=== PATIENT | female | born 1945 | race Caucasian/White ===

== ENCOUNTER → 2016-03-29 | Outpatient (CLI) | payer OTHER ==
[2016-03-29 12:55] LABS: ESTIMATED AVERAGE GLUCOSE 160 mg/dl; HA1C FLAG Normal (Normal)
== END | disposition home or self-care (01) ==
LOC: C.LABPVFM 10:54
PROVIDERS: ATTEND Nurse Practitioner Family
DX: E10.29 Type 1 diabetes mellitus with other diabetic kidney complication (principal)

== ENCOUNTER → 2016-04-03 | Outpatient (CLI) | payer OTHER ==
--- NOTE | 2016-04-03 15:13 | MAMMOGRAPHY REPORT ---
BILATERAL DIGITAL SCREENING MAMMOGRAM WITH CAD: 04/03/2016 CLINICAL HISTORY: Routine screening. Patient has no complaints. TECHNIQUE: Bilateral CC, MLO, repeat right CC and left MLO views were obtained. Current study was a lso evaluated with a Computer Aided Detection (CAD) system. COMPARISON: Comparison is made to exams dated: 03/31/2015 mammogram, 03/28/2013 mammogram, 03/26/2012 mammogram, 03/20/2011 mammogram, 09/26/2010 ultrasound, and 02/15/2009 mammogram - [facility]. BREAST COMPOSITION: There are scattered areas of fibroglandular density in both breasts. FINDINGS: There are mild vascular calcifications and benign rim calcifications in the breasts. No s uspicious mass, architectural distortion or cluster of microcalcifications is seen. IMPRESSION: ACR BI-RADS CATEGORY 1: NEGATIVE There is no mammographic evidence of malignancy. A 1 year screening mammogram is recommended. The p atient will receive written notification of the results. Approximately 10% of breast cancers are not detected with mammography. A negative mammographic repor t should not delay biopsy if a clinically suggestive mass is present. Keshia Garcia M.D. ay/:04/03/2016 14:42:40 [employer] Chair: Laine CROWE(Pavel)(M), [facility] letter sent: Normal 1/2 BI-RADS Code: ACR BI-RADS Category 1: Negative
== END | disposition home or self-care (01) ==
LOC: C.MAMM 10:48
PROVIDERS: ATTEND Internal Medicine
DX: Z12.31 Encounter for screening mammogram for malignant neoplasm of breast (principal)

== ENCOUNTER → 2016-05-31 | Outpatient (CLI) | payer OTHER | END | disposition home or self-care (01) | LOC: C.LABBC 14:37 | PROVIDERS: ATTEND Physician Assistant | DX: R05 Cough (principal) ==

== ENCOUNTER → 2016-07-22 | Outpatient (CLI) | payer OTHER ==
[2016-07-22 13:17] LABS: BASO % 0.2 %; BASO ABS # 0.02 K/uL (0-0.2); COMPLETE YES; EOS % 1.4 %; HEMATOCRIT 36.7 % (37-47); IG% 0.3 %; LYMPH % 14.2 %; LYMPH ABS # 1.47 K/uL (1.2-3.4); MEAN CELL VOLUME 90.2 fL (80-100); MEAN CORPUSCULAR HGB CONC 31.1 g/dl (32-36); MEAN PLATELET VOLUME 9.4 fL (7.4-10.4); NEUT % 77.9 %; PLATELET COUNT 276 K/uL (130-400); RED BLOOD COUNT 4.07 M/uL (4.2-5.4); WHITE BLOOD COUNT 10.32 K/uL (4.8-10.8)
[2016-07-22 13:38] LABS: CALCIUM 8.9 mg/dl (8.5-10.1)
[2016-07-22 13:42] LABS: ALT/SGPT 18 U/L (12-78); AST/SGOT 21 U/L (15-37); BLOOD UREA NITROGEN 16 mg/dl (7-18); BUN/CREATININE RATIO 16.1 (10-20); CARBON DIOXIDE 31 mmol/L (21-32); CHLORIDE 99 mmol/L (98-107); CHOLESTEROL 175 mg/dl (0-200); CREATININE 0.97 mg/dl (0.60-1.20); GLUCOSE 220 mg/dl (70-99); POTASSIUM 4.1 mmol/L (3.5-5.1); SODIUM 138 mmol/L (136-145); TRIGLYCERIDES 99 mg/dl (0-150); VERY LOW DENSITY LIPOPROT CALC 20 mg/dl
[2016-07-22 13:53] LABS: ALB/GLOB RATIO 0.9 (0.9-2); ALKALINE PHOSPHATASE 72 U/L (45-117); CHOLESTEROL/HDL RATIO 3.1; HDL CHOLESTEROL 56 mg/dl; LDL CHOLESTEROL CALCULATED 99 mg/dl
--- NOTE | 2016-07-27 14:05 | CODING QUERY MEDICAL NECESSITY ---
CQSUPPORTING DIAGNOSIS NEEDED A supporting diagnosis is required for the test/procedure performed on this patient in order for us to be reimbursed by the patient's insurance. Please provide a supporting diagnosis for the following test/procedure listed below next to the test name along with your signature. *If there is no additional diagnosis for this patient that would support the following test/procedure please document that below next to the test/procedure. Test(s)/Procedure(s) that require a supporting diagnosis: DOS 07/22/16 VITAMIN D TEST Provider Signature: Date: Thank you Faye Morales Health Information Management Once completed, please kindly fax back to [phone] For questions please call [phone]
== END | disposition home or self-care (01) ==
LOC: C.LABPVFM 11:26
PROVIDERS: ATTEND Internal Medicine
DX: E10.29 Type 1 diabetes mellitus with other diabetic kidney complication (principal); E78.5 Hyperlipidemia, unspecified; Z11.59 Encounter for screening for other viral diseases; E55.9 Vitamin D deficiency, unspecified

== ENCOUNTER → 2016-12-04 | Outpatient (CLI) | payer OTHER ==
[2016-12-05 07:00] LABS: ESTIMATED AVERAGE GLUCOSE 169 mg/dl; HA1C FLAG Normal (Normal)
--- NOTE | 2016-12-08 13:22 | CODING QUERY MEDICAL NECESSITY ---
SUPPORTING DIAGNOSIS NEEDED A supporting diagnosis is required for the test/procedure performed on this patient in order for us to be reimbursed by the patient's insurance. Please provide a supporting diagnosis for the following test/procedure listed below next to the test name along with your signature. *If there is no additional diagnosis for this patient that would support the following test/procedure please document that below next to the test/procedure. Test(s)/Procedure(s) that require a supporting diagnosis: * VITAMIN D, 25-HYDROXY DIAGNOSIS: Provider Signature: Date: Thank you Maritza Jovel [employer] (formerly [employer]) Information Management Once completed, please kindly fax back to [phone] For questions please call [phone]
== END | disposition home or self-care (01) ==
LOC: C.LABPVFM 13:22
PROVIDERS: ATTEND Nurse Practitioner Family
DX: E10.39 Type 1 diabetes mellitus with other diabetic ophthalmic complication (principal); E10.49 Type 1 diabetes mellitus with other diabetic neurological complication; E55.9 Vitamin D deficiency, unspecified

== ENCOUNTER 2019-04-15 00:57 | Inpatient (IN) ==
[2019-04-15] MEDS ORDERED: SODIUM CHLORIDE 0.9% 1000ML 1,000 ML IV ONE ×6 (01:00→05:55)
--- NOTE | 2019-04-15 01:07 | Emergency Department Note ---
Entered by Yaquelin Rivers acting as a scribe for Barden Colmenares DO History of Present Illness General Chief complaint: Hyperglycemia Stated complaint: ALTERED MENTAL STATUS/HYPERGLYCEMIA Time Seen by Provider: 04/15/19 00:59 Source: patient and EMS Mode of arrival: EMS Limitations: altered mental status History of Present Illness Onset (ago): hour(s) 2 Location: head Radiation: non-radiation Pain Consistency: + constant Relieved By: + none Exacerbated By: + none Associated symptoms: + weakness and + other (-abdominal pain) Treatments prior to arrival: none The patient is a 73 year old female who presents to the ED with complaints of altered mental status. She was brought to the ED via EMS. EMS states she was confused in the field and there was dried vomit on her shirt when they arrived. She has a known history of uncontrolled type 1 diabetes and the glucometer read "high" in the field. The patient denies any abdominal pain. Her states she has been getting increasingly weak over the past 3 days. Today, the patient stopped talking, so EMS was called. Home Medications Home Medications Medication Instructions Recorded Confirmed Type aspirin [Aspir-81] 81 mg PO DAILY 12/29/17 04/15/19 History multivitamin [Multiple Vitamins] 1 tab PO DAILY 12/29/17 04/15/19 History pen needle, diabetic 32 gauge x #2 box 01/31/19 02/28/19 Rx " atorvastatin 20 mg tablet 20 mg PO DAILY #90 tab 02/28/19 04/15/19 Rx lisinopril 20 1 tab PO DAILY #90 tab 02/28/19 04/15/19 Rx mg-hydrochlorothiazide 12.5 mg tablet paroxetine HCl 40 mg tablet 40 mg PO DAILY #90 tab 02/28/19 04/15/19 Rx cholecalciferol (vitamin D3) 50 3,000 units PO DAILY #30 tab 03/06/19 04/15/19 Rx mcg (2,000 unit) tablet insulin aspart U-100 100 unit/mL 10 units SUBCUT TID #30 ml 03/31/19 04/15/19 Rx (3 mL) subcutaneous pen insulin glargine 100 unit/mL (3 15 unit SUBCUT QAM #2 box 03/31/19 04/15/19 Rx mL) subcutaneous pen Allergies Allergy/AdvReac Type Severity Reaction Status Date / Time amlodipine Allergy Intermediate Hives Verified 04/15/19 02:19 Past Med/Surg History Medical History Acute blood loss anemia DAYNE (acute kidney injury) Benign familial tremor (Acute) Cerumen impaction Charcot's arthropathy of forefoot (Acute) Closed fracture of right hip (Inactive) Cognitive impairment Daytime somnolence (Chronic) Depression Depression (Acute) Diabetes Diabetic peripheral neuropathy associated with type 1 diabetes mellitus (Acute) Diastolic dysfunction (Acute) DVT prophylaxis Dyslipidemia (Chronic) Encephalopathy Fall (Inactive) Hearing loss (Acute) HTN (hypertension) Hypertension Hypertension (Chronic) Hypocalcemia (Acute) Ileus (Inactive) Memory loss, short term (Chronic) Microalbuminuria (Acute) Morbid obesity Obesity (BMI 35.0-39.9 without comorbidity) (Acute) Osteoporosis (Acute) Retinopathy (Acute) SNHL (sensorineural hearing loss) (Acute) Snoring Type 1 diabetes (Inactive) Uncontrolled type 1 diabetes mellitus with kidney complication, with long-term current use of insulin (Chronic) Uncontrolled type 1 diabetes mellitus with retinopathy, with long-term current use of insulin (Chronic) Vitamin D deficiency (Acute) Surgical History H/O cataract extraction H/O section H/O tubal ligation Family History Father Lung cancer Other Family history non-contributory Denies family history of Breast cancer Colorectal cancer Social History Preferred Language: [place] Leonean Communication Ability: Effective Visual Impairment: No Limitations 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 Unobtainable due to cognitive status Physical Exam Vital Signs Vital Signs - 24 hr 04/15/19 01:16 04/15/19 01:30 04/15/19 01:37 Temperature 36.7 C Temperature Source Oral Pulse Rate 105 H 101 H 108 H Pulse Rate from SpO2 Sensor 104 H 103 H Respiratory Rate 16 20 17 Respiratory Effort / Characteristics Non-Labored Spontaneous Respiratory Depth Normal Blood Pressure 142/94 H 99/51 L 59/31 L Blood Pressure Mean 105 67 45 Pulse Oximetry 97 99 100 Oxygen Delivery Method Room Air Sepsis Action Taken by Nursing No Action Required End-Tidal CO2 04/15/19 01:39 04/15/19 01:41 04/15/19 01:47 Temperature Temperature Source Pulse Rate 98 H 98 H 97 H Pulse Rate from SpO2 Sensor 101 H 96 H 96 H Respiratory Rate 17 17 18 Respiratory Effort / Characteristics Respiratory Depth Blood Pressure 68/39 L 81/35 L 111/60 Blood Pressure Mean 48 55 88 Pulse Oximetry 98 97 98 Oxygen Delivery Method Sepsis Action Taken by Nursing End-Tidal CO2 04/15/19 02:15 04/15/19 02:30 04/15/19 02:45 Temperature Temperature Source Pulse Rate 98 H 98 H 101 H Pulse Rate from SpO2 Sensor 94 H 94 H 99 H Respiratory Rate 21 23 20 Respiratory Effort / Characteristics Respiratory Depth Blood Pressure 101/73 103/51 L 106/47 L Blood Pressure Mean 84 69 53 Pulse Oximetry 95 87 L 88 L Oxygen Delivery Method Sepsis Action Taken by Nursing End-Tidal CO2 04/15/19 03:01 04/15/19 03:15 04/15/19 03:19 Temperature Temperature Source Pulse Rate 93 H 100 H Pulse Rate from SpO2 Sensor 94 H 100 H Respiratory Rate 17 21 Respiratory Effort / Characteristics Respiratory Depth Blood Pressure 84/61 L 89/49 L Blood Pressure Mean 65 55 Pulse Oximetry 94 99 99 Oxygen Delivery Method Room Air Sepsis Action Taken by Nursing End-Tidal CO2 04/15/19 03:30 04/15/19 03:56 04/15/19 03:58 Temperature Temperature Source Pulse Rate 98 H 90 81 Pulse Rate from SpO2 Sensor 100 H Respiratory Rate 17 19 Respiratory Effort / Characteristics Respiratory Depth Blood Pressure 95/32 L 47/31 L 92/42 L Blood Pressure Mean 58 33 55 Pulse Oximetry 90 Oxygen Delivery Method Sepsis Action Taken by Nursing End-Tidal CO2 04/15/19 04:01 04/15/19 04:07 Temperature Temperature Source Pulse Rate 89 93 H Pulse Rate from SpO2 Sensor Respiratory Rate Respiratory Effort / Characteristics Respiratory Depth Blood Pressure 64/40 L 74/46 L Blood Pressure Mean 41 56 Pulse Oximetry Oxygen Delivery Method Sepsis Action Taken by Nursing End-Tidal CO2 21 23 GENERAL: The patient is listless and slow to respond to questioning. She responds appropriately but slowly. EYES: The conjunctivae are clear. The pupils are round and reactive. EARS, NOSE, MOUTH AND THROAT: The nose is without any evidence of any deformity. Mucous membranes are dry. NECK: The neck is nontender and supple. RESPIRATORY: Shallow respirations are noted. There is significant tachypnea noted. Lungs are clear to auscultation. CARDIOVASCULAR: Tachycardic rate with regular rhythm was noted. There was no definite murmur. GASTROINTESTINAL: Abdomen is soft and moderately distended. There is no specific guarding rigidity appreciated. MUSCULOSKELETAL/EXTREMITIES: There is no evidence of gross deformity full range of motion is noted in the hips and shoulders. SKIN: There is no obvious evidence of any rash. Trace pedal edema was noted. NEUROLOGIC: Patient is patient is awake and looking around the room. She falls asleep easily when not verbally stimulated. 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 There is no drift. No definite facial droop could be appreciated. Procedures Free Text Procedures Central Venous Catheter Indication: DKA Catheter type: Triple-lumen Location: Right femoral vein Verbal consent was obtained after the risks and benefits were explained, including but not limited to pneumothorax, hemothorax, vessel injury, bleeding, scarring, infection, pain, and bone/joint/nerve damage. At this time, the risks of the procedure are less than the risks of NOT performing the procedure. A time out was taken and the correct patient and site identified. The patient was placed in the supine position and the skin was prepped in the standard fashion with chlorhexidine and full sterile drapes applied. The proper landmarks were identified with ultrasound, anesthetized with 1% lidocaine without epinephrine, and the needle was inserted through the skin in the standard fashion. The needle was carefully advanced into blood vessel lumen under ultrasound guidance. The guidewire was placed uneventfully. The vessel is dilated and the catheter was placed. It was sutured into position. There was good blood return from all ports. The patient tolerated the procedure well and there were no complications. Intubation Time out performed: Yes sedative: Etomidate Mg Given: 20 paralytic: Rocuronium Mg Given: 100 Laryngoscope: fiber optic video scope Assist Device Used: fiber optic device ET Tube Size: 8 ET Tube Uncuffed: No Tube Secured Depth (cm): 22 Tube Secured Location: lips Tube Placement Confirmation: visualized tube passing through cords, equal breath sounds bilaterally, no breath sounds over epigastrium and confirmation by capnometry Patient Tolerated Procedure: well Intubation Complications: none Additional Comments: Chest x-ray was reviewed after intubation. The endotracheal tube was pulled back 1 cm. Patient is oxygenating well but her b lood pressure did drop. Course Course 0105: The patient was evaluated in room B5 and a complete history and physical were performed. 0215: I reevaluated the patient. I discussed my recommendation she remain in the hospital for further evaluation and management and her is agreeable with the plan. 0240: I discussed the patients case with Dr. Bob, [facility] Hospitalist. The patient will be further evaluated. Administered Medications Sodium Chloride (Nss 1000ml) 1,000 mls @ 999 mls/hr IV .Q1H1M ONE Stop: 04/15/19 04:42 Last Admin: 04/15/19 04:01 Dose: 999 mls/hr Documented by: [id number] Discontinued Medications Sodium Chloride (Nss 1000ml) 1,000 mls @ 999 mls/hr IV .Q1H1M ONE Stop: 04/15/19 02:00 Last Infusion: 04/15/19 03:02 Dose: 0 mls/hr Documented by: [id number] Admin: 04/15/19 01:30 Dose: 999 mls/hr Documented by: [id number] Sodium Chloride (Nss 1000ml) 1,000 mls @ 999 mls/hr IV .Q1H1M ONE Stop: 04/15/19 02:40 Last Infusion: 04/15/19 03:02 Dose: 0 mls/hr Documented by: [id number] Admin: 04/15/19 01:41 Dose: 999 mls/hr Documented by: [id number] Sodium Chloride (Nss 1000ml) 1,000 mls @ 999 mls/hr IV .Q1H1M ONE Stop: 04/15/19 03:37 Last Admin: 04/15/19 03:34 Dose: 999 mls/hr Documented by: [id number] Insulin Human Regular 250 (units/ Sodium Chloride) 250 mls @ 7 mls/hr IV .Q24H LINDA; Protocol Stop: 04/15/19 03:45 Last Admin: 04/15/19 03:37 Dose: 7 units/hr, 7 mls/hr Documented by: [id number] Cosigned by: [id number] Calcium Gluconate 1,000 mg/ (Sodium Chloride) 60 mls @ 240 mls/hr IV NOW STA Stop: 04/15/19 03:33 Last Infusion: 04/15/19 04:08 Dose: 0 mls/hr Documented by: [id number] Admin: 04/15/19 03:36 Dose: 240 mls/hr Documented by: [id number] Insulin Human Regular (Novolin R Bolus From Bag) 7 units IV ONE ONE Stop: 04/15/19 03:31 Last Admin: 04/15/19 03:38 Dose: 7 units Documented by: [id number] Cosigned by: [id number] Ondansetron HCl (Zofran) 4 mg IV NOW STA Stop: 04/15/19 01:45 Last Admin: 04/15/19 02:11 Dose: 4 mg Documented by: [id number] Critical Care Time Critical Care Time: Yes Total Critical Care Time: 60 I have personally spent 60 minutes of critical care time in the direct manag ement of this patient. This includes bedside care, interpretation of diagnostic studies, and testing, discussion with consultants, patient, and family members, and other required patient management activities. This 60 minutes is in excess of all separately billable procedures. Medical Decision Making Differential Diagnosis Differential Diagnosis includes but is not limited to dehydration, stroke, anemia, hypoglycemia, hyponatremia, hypernatremia, urinary tract infection, pneumonia, bronchitis, sepsis, gastroenteritis, additional abdominal pathology, metabolic abnormalities and infections. Medical Records Attestation: I reviewed the patient's medical records. Home Medications Current Medication List: was personally reviewed by me Laboratory Data Attestation: I reviewed the patient's lab results. Result diagrams: 04/15/19 01:34 04/15/19 01:34 Lab Results 04/15/19 04/15/19 04/15/19 Range/Units 01:01 01:20 01:20 WBC (4.8-10.8) K/uL RBC (4.2-5.4) M/uL Hgb (12.0-16.0) g/dL Hct (37-47) % MCV (80-100) fL MCH (25-34) pg MCHC (32-36) g/dL Plt Count (130-400) K/uL Neutrophils % (Manual) % Lymphocytes % (Manual) % Monocytes % (Manual) % Neutrophils # (Manual) (1.4-6.5) K/uL Total Absolute Neuts (1.4-6.5) K/uL Lymphocytes # (Manual) (1.2-3.4) K/uL Monocytes # (Manual) (0.11-0.59) K/uL Echinocytes PT (9.0-12.0) Seconds INR (0.9-1.1) APTT (21.0-31.0) Seconds PTT Ratio VBG pH (7.36-7.41) VBG pCO2 (38-50) mmHg VBG pO2 mmHg VBG HCO3 mmol/L VBG O2 Saturation % VBG Base Excess mEq/L Sodium (136-145) mmol/L Potassium (3.5-5.1) mmol/L Chloride (98-107) mmol/L Carbon Dioxide (21-32) mmol/L Anion Gap (3-11) BUN (7-18) mg/dl Creatinine (0.6-1.2) mg/dl Est Cr Clr Drug Dosing Est GFR ( Amer) Est GFR (Non-Af Amer) BUN/Creatinine Ratio (10-20) Glucose (70-99) mg/dl POC Glucose > 600 H* (70-99) mg/dl Lactate (0.4-2.0) mmol/L Calcium (8.5-10.1) mg/dl Magnesium (1.8-2.4) mg/dl Total Bilirubin (0.2-1) mg/dl AST (15-37) U/L ALT (12-78) U/L Alkaline Phosphatase (45-117) U/L Troponin I (0-0.045) ng/ml Total Protein (6.4-8.2) gm/dl Albumin (3.4-5.0) gm/dl Globulin (2.5-4.0) gm/dl Albumin/Globulin Ratio (0.9-2) Beta-Hydroxybutyric Acd (0.2-2.81) mg/dl Procalcitonin (0-0.5) ng/ml Urine Color Yellow Urine Appearance Cloudy A (Clear) Urine pH 5.0 (4.5-7.5) Ur Specific [place] 1.028 (1.000-1.030) Urine Protein Negative (Negative) Urine Glucose (UA) 3+ H (Negative) Urine Ketones 1+ H (Negative) Urine Blood 2+ H (Negative) Urine Nitrite Negative (Negative) Urine Bilirubin Negative (Negative) Urine Urobilinogen Negative (Negative) Ur Leukocyte Esterase Negative (Negative) Urine WBC (Auto) 1-5 (0-5) /hpf Urine RBC (Auto) 0-4 (0-4) /hpf U Hyaline Cast (Auto) 1-5 (0-5) /lpf U Epithel Cells (Auto) >30 H (0-5) /lpf Urine Bacteria (Auto) 2+ H (Negative) Influenza Type A (PCR) Neg for Influ A (Neg) Influenza Type B (PCR) Neg for Influ B (Neg) 04/15/19 04/15/19 04/15/19 Range/Units 01:34 01:34 01:34 WBC 21.48 H (4.8-10.8) K/uL RBC 3.89 L (4.2-5.4) M/uL Hgb 11.2 L (12.0-16.0) g/dL Hct 36.7 L (37-47) % MCV 94.3 (80-100) fL MCH 28.8 (25-34) pg MCHC 30.5 L (32-36) g/dL Plt Count 287 (130-400) K/uL Neutrophils % (Manual) 89.6 % Lymphocytes % (Manual) 7.8 % Monocytes % (Manual) 2.6 % Neutrophils # (Manual) 19.25 H (1.4-6.5) K/uL Total Absolute Neuts 19.25 H (1.4-6.5) K/uL Lymphocytes # (Manual) 1.68 (1.2-3.4) K/uL Monocytes # (Manual) 0.56 (0.11-0.59) K/uL Echinocytes 1+ PT 10.4 (9.0-12.0) Seconds INR 1.0 (0.9-1.1) APTT 24.7 (21.0-31.0) Seconds PTT Ratio 0.9 VBG pH (7.36-7.41) VBG pCO2 (38-50) mmHg VBG pO2 mmHg VBG HCO3 mmol/L VBG O2 Saturation % VBG Base Excess mEq/L Sodium 131 L (136-145) mmol/L Potassium 6.2 H* (3.5-5.1) mmol/L Chloride 92 L (98-107) mmol/L Carbon Dioxide 12 L (21-32) mmol/L Anion Gap 28.0 H (3-11) BUN 53 H (7-18) mg/dl Creatinine 2.24 H (0.6-1.2) mg/dl Est Cr Clr Drug Dosing Not Reportable Est GFR ( Amer) 24.6 Est GFR (Non-Af Amer) 21.2 BUN/Creatinine Ratio 23.8 H (10-20) Glucose 1184 H* (70-99) mg/dl POC Glucose (70-99) mg/dl Lactate (0.4-2.0) mmol/L Calcium 8.5 (8.5-10.1) mg/dl Magnesium 2.4 (1.8-2.4) mg/dl Total Bilirubin 1.0 (0.2-1) mg/dl AST 22 (15-37) U/L ALT 55 (12-78) U/L Alkaline Phosphatase 168 H (45-117) U/L Troponin I 0.246 H* (0-0.045) ng/ml Total Protein 6.8 (6.4-8.2) gm/dl Albumin 3.3 L (3.4-5.0) gm/dl Globulin 3.5 (2.5-4.0) gm/dl Albumin/Globulin Ratio 0.9 (0.9-2) Beta-Hydroxybutyric Acd 108.80 H (0.2-2.81) mg/dl Procalcitonin (0-0.5) ng/ml Urine Color Urine Appearance (Clear) Urine pH (4.5-7.5) Ur Specific [place] (1.000-1.030) Urine Protein (Negative) Urine Glucose (UA) (Negative) Urine Ketones (Negative) Urine Blood (Negative) Urine Nitrite (Negative) Urine Bilirubin (Negative) Urine Urobilinogen (Negative) Ur Leukocyte Esterase (Negative) Urine WBC (Auto) (0-5) /hpf Urine RBC (Auto) (0-4) /hpf U Hyaline Cast (Auto) (0-5) /lpf U Epithel Cells (Auto) (0-5) /lpf Urine Bacteria (Auto) (Negative) Influenza Type A (PCR) (Neg) Influenza Type B (PCR) (Neg) 04/15/19 04/15/19 04/15/19 Range/Units 01:34 01:34 01:34 WBC (4.8-10.8) K/uL RBC (4.2-5.4) M/uL Hgb (12.0-16.0) g/dL Hct (37-47) % MCV (80-100) fL MCH (25-34) pg MCHC (32-36) g/dL Plt Count (130-400) K/uL Neutrophils % (Manual) % Lymphocytes % (Manual) % Monocytes % (Manual) % Neutrophils # (Manual) (1.4-6.5) K/uL Total Absolute Neuts (1.4-6.5) K/uL Lymphocytes # (Manual) (1.2-3.4) K/uL Monocytes # (Manual) (0.11-0.59) K/uL Echinocytes PT (9.0-12.0) Seconds INR (0.9-1.1) APTT (21.0-31.0) Seconds PTT Ratio VBG pH 7.12 L (7.36-7.41) VBG pCO2 35 L (38-50) mmHg VBG pO2 30 mmHg VBG HCO3 11 mmol/L VBG O2 Saturation < 60.0 % VBG Base Excess -17.4 mEq/L Sodium (136-145) mmol/L Potassium (3.5-5.1) mmol/L Chloride (98-107) mmol/L Carbon Dioxide (21-32) mmol/L Anion Gap (3-11) BUN (7-18) mg/dl Creatinine (0.6-1.2) mg/dl Est Cr Clr Drug Dosing Est GFR ( Amer) Est GFR (Non-Af Amer) BUN/Creatinine Ratio (10-20) Glucose (70-99) mg/dl POC Glucose (70-99) mg/dl Lactate 5.1 H* (0.4-2.0) mmol/L Calcium (8.5-10.1) mg/dl Magnesium (1.8-2.4) mg/dl Total Bilirubin (0.2-1) mg/dl AST (15-37) U/L ALT (12-78) U/L Alkaline Phosphatase (45-117) U/L Troponin I (0-0.045) ng/ml Total Protein (6.4-8.2) gm/dl Albumin (3.4-5.0) gm/dl Globulin (2.5-4.0) gm/dl Albumin/Globulin Ratio (0.9-2) Beta-Hydroxybutyric Acd (0.2-2.81) mg/dl Procalcitonin 2.47 H (0-0.5) ng/ml Urine Color Urine Appearance (Clear) Urine pH (4.5-7.5) Ur Specific [place] (1.000-1.030) Urine Protein (Negative) Urine Glucose (UA) (Negative) Urine Ketones (Negative) Urine Blood (Negative) Urine Nitrite (Negative) Urine Bilirubin (Negative) Urine Urobilinogen (Negative) Ur Leukocyte Esterase (Negative) Urine WBC (Auto) (0-5) /hpf Urine RBC (Auto) (0-4) /hpf U Hyaline Cast (Auto) (0-5) /lpf U Epithel Cells (Auto) (0-5) /lpf Urine Bacteria (Auto) (Negative) Influenza Type A (PCR) (Neg) Influenza Type B (PCR) (Neg) Imaging Data My Impression: CHEST X-RAY Poor inspiratory effort, no free air, calcification of aorta, mediastinal fullness, with the possibility of pneumomediastinum. Radiologist's Impression: Preliminary Findings Only See Final Report For Complete Findings CT HEAD: Comparison: MRI head 03/06/19 No acute intracranial hemorrhage. No evidence of intracranial mass, extra-axial fluid collection, or acute territorial infarct. White matter hypodensities, which are nonspecific but most likely related to chronic small vessel ischemic changes. Global cerebral volume loss. Mild ventricular prominence is likely related to volume loss and is similar to prior Visualized paranasal sinuses and mastoid air cells are clear. Radiologist: Maksim Oreilly MD Study ready at 02:02 and initial results transmitted at 02:58 Preliminary Findings Only See Final Report For Complete Findings CT ABDOMEN & PELVIS Without Contrast: Calcified gallstone in gallbladder fundus. Gallbladder is distended. No biliary ductal dilatation. No renal stone or hydronephrosis. Nonspecific perinephric fat stranding. De La Fuente catheter in likely postprocedural gas in the collapsed urinary bladder. No free air. Normal appendix. No bowel obstruction. No substantial free fluid. Fat-containing umbilical hernia with portion of transverse colon abutting its base. Lucency in L1 vertebral body as described on CT of thoracic spine. Sclerotic foci in most inferior rib-bearing vertebra and S1 vertebral body. Degenerative changes, worst at L4-L5 Atherosclerotic calcifications of aorta and its branches. Right femoral hardware. Radiologist: Maksim Oreilly MD Study ready at 02:11 and initial results transmitted at 03:23 Preliminary Findings Only See Final Report For Complete Findings CT CHEST Without Contrast: Comparison: CXR earlier same day (report not provided. There is a presternal subcutaneous ovoid mass measuring 3.7 x 2.7 x 2.6 cm. Correlate with physical exam and chronicity. Consider further evaluation with ultrasound as clinically warranted. Evaluation of lung parenchyma is somewhat limited by motion artifact. No infiltrate, effusion, or pneumothorax. Mild reticular densities, but these may related to motion artifact. 5 mm pleural-based nodule and left lower lobe posteriorly. Atherosclerotic calcifications of aorta and its branches. Right subclavian stenosis is suspected. Coronary artery and mitral annulus calcifications. Heart is not enlarged. 11 rib-bearing vertebrae. Nonspecific lucency and first [id number] vertebra, measuring up to 12 mm. The adjacent cortex is preserved. Probable hemangioma in T9 vertebral body. Radiologist: Maksim Oreilly MD Study ready at 02:11 and initial results transmitted at 03:16 ECG Data Attestation: I personally reviewed and interpreted this ECG as follows: Indication: + other (hyperglycemia) Rate (beats per minute): 107 Rhythm: + sinus tachycardia ECG ST segments: + ST depression (Diffuse) ECG Findings: no PACs and no PVCs Comparison ECG Date: from (12/29/2018) Change: the following changes noted (Increased rate and worsening ST abnormalities compared to previous) MDM Narrative Additional history is obtained from the patient's significant other as well as the prehospital personnel. The patient is a 73-year-old female who presented to the emergency department for altered mental status nausea and vomiting. The patient has a history of diabetes. The patient had a very elevated blood sugar noted on BSG testing by the prehospital personnel. The patient's history and physical exam appear to be consistent with DKA. Laboratory studies confirm this. The patient was treated with IV fluids in the emergency department. She was also treated with IV empiric antibiotics. She was started on DKA protocol for IV insulin when her laboratory results returned showing acute kidney injury hyperglycemia and DKA as well as hyperkalemia. The patient was reevaluated multiple times. I discussed the patient's laboratory and radiographic studies with her and her significant other. The patient had a central line placed in the right femoral vein for volume resuscitation as well as further medication administration. I discussed her case with the on-call [facility] hospitalist. They have agreed to evaluate the patient in the emergency department for further management and disposition. Impression & Plan DKA (diabetic ketoacidoses), Nausea and vomiting, Altered mental status, Acute kidney injury, Acute hyperkalemia, Metabolic acidosis, Abnormal ECG, Respiratory failure, Acute hypotension Discharge Plan Visit Data Chief Complaint: Hyperglycemia Stated Complaint: ALTERED MENTAL STATUS/HYPERGLYCEMIA Other Complaint: Altered Mental Status ED Provider: Braden Colmenares Discharge Problem: DKA (diabetic ketoacidoses), Nausea and vomiting, Altered mental status, Acute kidney injury, Acute hyperkalemia, Metabolic acidosis, Abnormal ECG, Respiratory failure, Acute hypotension Patient Disposition: Being Evaluated by Hospitalist Forms Stand Alone Forms: My [facility] Prescriptions Prescriptions: No Action (DME) pen needle, diabetic [BD Ultra-Fine Rayne Pen Needle] 32 gauge x 5/32" needle See Dose Instructions .ROUTE .MEDSUPPLY Qty: 2 RF: 1 atorvastatin 20 mg tablet 20 mg PO DAILY Qty: 90 RF: 3 lisinopril-hydrochlorothiazide 20-12.5 mg tablet 1 tab PO DAILY Qty: 90 RF: 3 paroxetine HCl 40 mg tablet 40 mg PO DAILY Qty: 90 RF: 1 cholecalciferol (vitamin D3) 2,000 unit tablet 3,000 units PO DAILY Qty: 30 RF: 0 Novolog Flexpen U-100 Insulin 100 unit/mL (3 mL) insulin pen 10 units SUBCUT TID Qty: 30 RF: 3 insulin glargine 100 unit/mL (3 mL) insulin pen 15 unit subcut QAM Qty: 2 RF: 3 aspirin [Aspir-81] 81 mg Tablet,Delayed Release (Dr/Ec) 81 mg PO DAILY RF: 0 multivitamin [Multiple Vitamins] Tablet 1 tab PO DAILY RF: 0 Referrals Referrals: Raffaele Polanco MD [Primary Care Provider] - Discharge Problem: DKA (diabetic ketoacidoses) Qualifiers: Diabetes mellitus type: type 1 Diabetes mellitus complication detail: with coma Qualified Code(s): E10.11 - Type 1 diabetes mellitus with ketoacidosis with coma Nausea and vomiting Qualifiers: Vomiting type: unspecified Vomiting Intractability: non-intractable Qualified Code(s): R11.2 - Nausea with vomiting, unspecified Altered mental status Qualifiers: Altered mental status type: unspecified Qualified Code(s): R41.82 - Altered men inge status, unspecified The scribe's documentation has been prepared under my direction and personally reviewed by me in its entirety. I confirm that the note above accurately reflects all work, treatment, procedures, and medical decision making performed by me.
[2019-04-15] MEDS ORDERED: ONDANSETRON INJ 2 MG/ML 2 ML VIAL IV STA (01:44)
[2019-04-15 01:45] LABS: Appearance Urine Cloudy (Clear); Bacteria Urine Automated 2+ (Negative); Bilirubin Urine Negative (Negative); Blood Urine 2+ (Negative); Color Urine Yellow; Epithelial Cell Urine Auto >30 /lpf (0-5); Glucose Urine UA 3+ (Negative); Ketones Urine 1+ (Negative); Leukocyte Esterase Urine Negative (Negative); Nitrite Urine Negative (Negative); Protein Urine Negative (Negative); RBC Urine Automated 0-4 /hpf (0-4); Specific Gravity Urine 1.028 (1.000-1.030); Urobilinogen Urine Negative (Negative)
[2019-04-15 01:57] LABS: Partial Thromboplastin Ratio 0.9; Partial Thromboplastin Time 24.7 Seconds (21.0-31.0); Prothrombin Time 10.4 Seconds (9.0-12.0)
[2019-04-15 02:01] LABS: Influenza A virus by PCR Neg for Influ A (Neg); Influenza B virus by PCR Neg for Influ B (Neg)
[2019-04-15 02:09] LABS: Base Excess VBG -17.4 mEq/L; HCO3 VBG 11 mmol/L; PCO2 VBG 35 mmHg (38-50); PO2 VBG 30 mmHg; pH VBG 7.12 (7.36-7.41)
[2019-04-15 02:29] LABS: Oxygen Saturation VBG < 60.0 %
[2019-04-15 02:36] LABS: Hematocrit (blood only) 36.7 % (37-47); Hemoglobin 11.2 g/dL (12.0-16.0); Mean Corpuscular Hemoglobin 28.8 pg (25-34); Mean Corpuscular Hgb Conc 30.5 g/dL (32-36); Mean Corpuscular Volume 94.3 fL (80-100); Platelet Count 287 K/uL (130-400); Red Blood Count 3.89 M/uL (4.2-5.4); White Blood Count 21.48 K/uL (4.8-10.8)
[2019-04-15] MEDS ORDERED: PIPERACILL/TAZOBAC CONSULT ACTIVE PRN ×2 (02:37→06:08)
[2019-04-15] MEDS ORDERED: PIPERACILLIN/TAZOBACTAM 4.5 GM/120 ML BAG IV ONE (02:37)
[2019-04-15] MEDS ORDERED: GLUCOSE 10 TABS/TUBE PO PRN (02:39)
[2019-04-15] MEDS ORDERED: CARBOHYDRATES FOR HYPOGLYCEMIA PO PRN (02:39)
[2019-04-15] MEDS ORDERED: DKA GOAL RANGE 150-250 mg/dl ONE ×2 (02:39→04:06)
[2019-04-15] MEDS ORDERED: ED DKA INSULIN DRIP ONE (02:39)
[2019-04-15] MEDS ORDERED: DEXTROSE 50% 50 ML SYRINGE IV PRN (02:39)
[2019-04-15] MEDS ORDERED: GLUCAGON FOR INJ 1 MG VIAL SQ PRN (02:39)
[2019-04-15] MEDS ORDERED: GLUCOSE 40% GEL 15 GM TUBE PO PRN (02:39)
[2019-04-15 02:41] LABS: Alanine Aminotransferase 55 U/L (12-78); Albumin Globulin Ratio 0.9 (0.9-2); Albumin Level 3.3 gm/dl (3.4-5.0); Alkaline Phosphatase 168 U/L (45-117); Aspartate Aminotransferase 22 U/L (15-37); BUN Creatinine Ratio 23.8 (10-20); Blood Urea Nitrogen 53 mg/dl (7-18); Calcium 8.5 mg/dl (8.5-10.1); Carbon Dioxide 12 mmol/L (21-32); Chloride 92 mmol/L (98-107); Est GFR (African American) 24.6; Est GFR (Non-African American) 21.2; Globulin 3.5 gm/dl (2.5-4.0); Glucose 1184 mg/dl (70-99); Magnesium 2.4 mg/dl (1.8-2.4); Potassium 6.2 mmol/L (3.5-5.1); Sodium 131 mmol/L (136-145); Total Protein 6.8 gm/dl (6.4-8.2); Troponin I 0.246 ng/ml (0-0.045)
[2019-04-15] MEDS ORDERED: INSULIN REGULAR 250 UNITS in SODIUM CHLORIDE 0.9% 247.5 ML IV SCH (02:45)
[2019-04-15 02:46] LABS: ANC (manual) 19.25 K/uL (1.4-6.5); Echinocytes 1+; Lymphocytes # (manual) 1.68 K/uL (1.2-3.4); Lymphocytes % (manual) 7.8 %; Monocytes # (manual) 0.56 K/uL (0.11-0.59); Monocytes % (manual) 2.6 %; Neutrophils # (manual) 19.25 K/uL (1.4-6.5); Neutrophils % (manual) 89.6 %
[2019-04-15] MEDS ORDERED: CALCIUM GLUCONATE 10% 1,000 MG in SODIUM CHLORIDE 0.9% 50 ML IV STA (03:19)
[2019-04-15] MEDS ORDERED: NovoLIN-R BOLUS FROM BAG IV ONE (03:30)
--- NOTE | 2019-04-15 03:39 | History & Physical Report ---
Date of Service April 15, 2019 Assessment & Plan (1) DKA (diabetic ketoacidoses): Patient is a 73-year-old female with a past medical history of uncontrolled type 1 diabetes mellitus with retinopathy with long-term current use of insulin, diabetic peripheral neuropathy, sensorineural hearing loss, osteoporosis, obesity, microalbuminuria, short-term memory loss, daytime somnolence, Charcot's arthropathy of the forefoot, anemia, hypertension who presented to the ED via EMS with complaints of altered mental status in the setting of profound hypoglycemia. #Diabetic ketoacidosis Patient with longstanding history of type 1 diabetes poorly controlled with chronic complications of the disease. She was found confused in the field with vomit on her shirt. Blood sugar on arrival was 1184, potassium 6.2 beta hydroxybutyrate 108, anion gap of 28, A1c pending. This patient is obviously in profound DKA, will require fluids and an insulin drip until gap is closed. Will initiate DKA protocol. -Admit to ICU -DKA protocol -Glycemic consult placed -Consulted neurodiagnostic technologist #Hypertension Status post fluid resuscitation patient still is profoundly hypotensive. Was given 2 injections of levofed with adequate response. May need pressor support -Admit to the ICU #Hyperkalemia secondary to above. -Status post calcium gluconate, re-dose every 4 hours as needed #Concern for infection No clear inciting event for her current presentation. Labs are suspicious for infection although no obvious source. Urinalysis is concerning for urinary tract infection however it was not a clean-catch so could be contaminant. Therefore we will cover broadly and narrow as time progresses. Given Zosyn in the ED, will continue with Zosyn, pulmonary source unlikely therefore will provide Zyvox as well -Zosyn and Zyvox narrow pending clinical improvement #Nausea and vomiting Likely secondary to the above -PRN IV Zofran #Electrolyte abnormalities BMP every 6 hours for now -Replete electrolytes as indicated #Elevated troponin/abnormal ECG Patient with an ECG demonstrating diffuse ST depressions and troponin of 0.246 currently denying chest pain. -Monitor for development of chest pain -Trend troponin -Consider cardiology consultation #History of diastolic dysfunction No documented echo is in the chart, given that his diastolic dysfunction should have room for fluid boluses however will monitor for signs and symptoms of fluid overload -Monitor for signs and symptoms of fluid overload #DAYNE Likely secondary to profound dehydration in the setting of DKA, avoid nephrotoxic medications -Fluids as above -Avoid nephrotoxic meds -Hold lisinopril hydrochlorothiazide in the setting of DAYNE #Hypertension Controlled on lisinopril hydrochlorothiazide, holding in the setting of DAYNE -Resume lisinopril hydrochlorothiazide when able #Depression Continue paroxetine -Holding while n.p.o. for DKA #Dyslipidemia -Resume atorvastatin when able -Resume baby aspirin when able FENa: N.p.o. for now type I diabetic diet Code Status: Full code DVT PPX: Lovenox PT/OT: Ordered Dispo: ICU Papi Askew MD PGY 2, FCM This chart was completed utilizing [employer] voice recognition software. Grammatical errors, random word insertions, pronoun errors, and in complete sentences are an occasional consequence of the system. Any questions or concerns about the content, text, or information contained within the body of this dictation should be addressed directly to the physician for clarification. (2) Nausea and vomiting: (3) Altered mental status: (4) Acute kidney injury: (5) Acute hyperkalemia: (6) Metabolic acidosis: (7) Abnormal ECG: (8) Uncontrolled type 1 diabetes mellitus with retinopathy, with long-term current use of insulin: (9) SNHL (sensorineural hearing loss): (10) Obesity (BMI 35.0-39.9 without comorbidity): (11) Diastolic dysfunction: History of Present Illness Patient is a 73-year-old female with a past medical history of uncontrolled type 1 diabetes mellitus with retinopathy with long-term current use of insulin, diabetic peripheral neuropathy, sensorineural hearing loss, osteoporosis, obesity, microalbuminuria, short-term memory loss, daytime somnolence, Charcot's arthropathy of the forefoot, anemia, hypertension who presented to the ED via EMS with complaints of altered mental status in the setting of profound hypoglycemia. EMS states she was confused in the field with dried vomit on her shirt when they arrived. Her glucometer reading was "high "in the field. The patient's reports she has been getting increasingly weak over the past 3 days, today she stopped talking so EMS was called. Upon arrival to the urgency department routine labs were obtained notable for a white count of 21.48 with a neutrophil predominance of 19.25, hemoglobin of 11.2, platelets of 287, coags were within normal limits, VBG demonstrated pH of 7.12 with a PCO2 of 35, Chem-7 demonstrated a sodium of 131, potassium of 6.2, chloride of 92, carbon dioxide 12, BUN of 53, creatinine of 2.24, glucose of 1184, anion gap of 28, beta hydroxybutyrate 108, A1c pending, lactate of 5.1, alkaline phosphatase of 168, troponin of 0.246, beta hydroxybutyrate, procalcitonin 2.47, UA was cloudy in appearance, 3+ glucose, 1+ ketones, 2+ blood, greater than 30 epithelial cells, 2+ bacteria, patient was negative for influenza A and influenza B. Imaging was obtained official read is pending, wet read Chest CT demonstrated probable hemangioma T9, head CT Negative for acute process p, chest x-ray, abdomen pelvis CT pending. Patient had an odd respiratory pattern during the interview, history limited secondary to patient's obtunded status. Hospitalist wrist was consulted for admission, given the patient's worsening respiratory status, cardiac status, and abnormal ECG she would be admitted to the ICU for intubation and evaluation and management of DKA. Primary Care Provider: Raffaele Polanco MD Allergies Allergy/AdvReac Type Severity Reaction Status Date / Time amlodipine Allergy Intermediate Hives Verified 04/15/19 02:19 Home Medications Home Medications Medication Instructions Recorded Confirmed Type aspirin [Aspir-81] 81 mg PO DAILY 12/29/17 04/15/19 History multivitamin [Multiple Vitamins] 1 tab PO DAILY 12/29/17 04/15/19 History pen needle, diabetic 32 gauge x #2 box 01/31/19 02/28/19 Rx " atorvastatin 20 mg tablet 20 mg PO DAILY #90 tab 02/28/19 04/15/19 Rx lisinopril 20 1 tab PO DAILY #90 tab 02/28/19 04/15/19 Rx mg-hydrochlorothiazide 12.5 mg tablet paroxetine HCl 40 mg tablet 40 mg PO DAILY #90 tab 02/28/19 04/15/19 Rx cholecalciferol (vitamin D3) 50 3,000 units PO DAILY #30 tab 03/06/19 04/15/19 Rx mcg (2,000 unit) tablet insulin aspart U-100 100 unit/mL 10 units SUBCUT TID #30 ml 03/31/19 04/15/19 Rx (3 mL) subcutaneous pen insulin glargine 100 unit/mL (3 15 unit SUBCUT QAM #2 box 03/31/19 04/15/19 Rx mL) subcutaneous pen Past Med/Surg History Medical History Acute blood loss anemia DAYNE (acute kidney injury) Benign familial tremor (Acute) Cerumen impaction Charcot's arthropathy of forefoot (Acute) Closed fracture of right hip (Inactive) Cognitive impairment Daytime somnolence (Chronic) Depression Depression (Acute) Diabetes Diabetic peripheral neuropathy associated with type 1 diabetes mellitus (Acute) Diastolic dysfunction (Acute) DVT prophylaxis Dyslipidemia (Chronic) Encephalopathy Fall (Inactive) Hearing loss (Acute) HTN (hypertension) Hypertension Hypertension (Chronic) Hypocalcemia (Acute) Ileus (Inactive) Memory loss, short term (Chronic) Microalbuminuria (Acute) Morbid obesity Obesity (BMI 35.0-39.9 without comorbidity) (Acute) Osteoporosis (Acute) Retinopathy (Acute) SNHL (sensorineural hearing loss) (Acute) Snoring Type 1 diabetes (Inactive) Uncontrolled type 1 diabetes mellitus with kidney complication, with long-term current use of insulin (Chronic) Uncontrolled type 1 diabetes mellitus with retinopathy, with long-term current use of insulin (Chronic) Vitamin D deficiency (Acute) Surgical History H/O cataract extraction H/O section H/O tubal ligation Family History Father Lung cancer Other Family history non-contributory Denies family history of Breast cancer Colorectal cancer Social History Preferred Language: Ukrainian Communication Ability: Unable Visual Impairment: No 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 Beliefs That Will Affect Care: None marital status: Current Living Situation: Spouse current occupational status: retired Feels Safe at Home: Yes Smoking Status: Never smoker Hx Alcohol Use: No Hx Substance Use: No Review of Systems Review of Systems: All systems reviewed & are unremarkable except as noted in HPI & below Physical Exam Physical Exam: General: Obtunded with labored be breathing in acute distress HEENT: Normocephalic atraumatic Neck: Normal visual inspection Cardiac: Tachycardic otherwise regular rate and rhythm I did not appreciate any significant murmurs rubs or gallops, normal S1, normal S2 Respiratory: Unusual breathing pattern, increased work of breathing, exam limited due to mental status GI: Bowel sounds present, soft, nontender, nondistended MSK: Unable to assess Skin: Unable to assess Neuro: Obtunded Psych: Unable to assess Results & Data Vital Signs (Past 12 Hours) Vital Signs Temp Pulse Resp BP Pulse Ox 04/15/19 01:30 36.7 C 101 H 20 99/51 L 99 Laboratory Results 04/15/19 04/15/19 04/15/19 Range/Units 01:34 01:34 01:34 WBC (4.8-10.8) K/uL RBC (4.2-5.4) M/uL Hgb (12.0-16.0) g/dL Hct (37-47) % MCV (80-100) fL MCH (25-34) pg MCHC (32-36) g/dL Plt Count (130-400) K/uL Neutrophils % (Manual) % Lymphocytes % (Manual) % Monocytes % (Manual) % Neutrophils # (Manual) (1.4-6.5) K/uL Total Absolute Neuts (1.4-6.5) K/uL Lymphocytes # (Manual) (1.2-3.4) K/uL Monocytes # (Manual) (0.11-0.59) K/uL Echinocytes PT (9.0-12.0) Seconds INR (0.9-1.1) APTT (21.0-31.0) Seconds PTT Ratio VBG pH 7.12 L (7.36-7.41) VBG pCO2 35 L (38-50) mmHg VBG pO2 30 mmHg VBG HCO3 11 mmol/L VBG O2 Saturation < 60.0 % VBG Base Excess -17.4 mEq/L Sodium (136-145) mmol/L Potassium (3.5-5.1) mmol/L Chloride (98-107) mmol/L Carbon Dioxide (21-32) mmol/L Anion Gap (3-11) BUN (7-18) mg/dl Creatinine (0.6-1.2) mg/dl Est Cr Clr Drug Dosing Est GFR ( Amer) Est GFR (Non-Af Amer) BUN/Creatinine Ratio (10-20) Glucose (70-99) mg/dl POC Glucose (70-99) mg/dl Estimat Average Glucose Hemoglobin A1c Lactate 5.1 H* (0.4-2.0) mmol/L Calcium (8.5-10.1) mg/dl Phosphorus Magnesium (1.8-2.4) mg/dl Total Bilirubin (0.2-1) mg/dl AST (15-37) U/L ALT (12-78) U/L Alkaline Phosphatase (45-117) U/L Troponin I (0-0.045) ng/ml Total Protein (6.4-8.2) gm/dl Albumin (3.4-5.0) gm/dl Globulin (2.5-4.0) gm/dl Albumin/Globulin Ratio (0.9-2) Beta-Hydroxybutyric Acd (0.2-2.81) mg/dl Procalcitonin 2.47 H (0-0.5) ng/ml Urine Color Urine Appearance (Clear) Urine pH (4.5-7.5) Ur Specific [place] (1.000-1.030) Urine Protein (Negative) Urine Glucose (UA) (Negative) Urine Ketones (Negative) Urine Blood (Negative) Urine Nitrite (Negative) Urine Bilirubin (Negative) Urine Urobilinogen (Negative) Ur Leukocyte Esterase (Negative) Urine WBC (Auto) (0-5) /hpf Urine RBC (Auto) (0-4) /hpf U Hyaline Cast (Auto) (0-5) /lpf U Epithel Cells (Auto) (0-5) /lpf Urine Bacteria (Auto) (Negative) Influenza Type A (PCR) (Neg) Influenza Type B (PCR) (Neg) 04/15/19 04/15/19 04/15/19 Range/Units 01:34 01:34 01:34 WBC (4.8-10.8) K/uL RBC (4.2-5.4) M/uL Hgb (12.0-16.0) g/dL Hct (37-47) % MCV (80-100) fL MCH (25-34) pg MCHC (32-36) g/dL Plt Count (130-400) K/uL Neutrophils % (Manual) % Lymphocytes % (Manual) % Monocytes % (Manual) % Neutrophils # (Manual) (1.4-6.5) K/uL Total Absolute Neuts (1.4-6.5) K/uL Lymphocytes # (Manual) (1.2-3.4) K/uL Monocytes # (Manual) (0.11-0.59) K/uL Echinocytes PT 10.4 (9.0-12.0) Seconds INR 1.0 (0.9-1.1) APTT 24.7 (21.0-31.0) Seconds PTT Ratio 0.9 VBG pH (7.36-7.41) VBG pCO2 (38-50) mmHg VBG pO2 mmHg VBG HCO3 mmol/L VBG O2 Saturation % VBG Base Excess mEq/L Sodium 131 L (136-145) mmol/L Potassium 6.2 H* (3.5-5.1) mmol/L Chloride 92 L (98-107) mmol/L Carbon Dioxide 12 L (21-32) mmol/L Anion Gap 28.0 H (3-11) BUN 53 H (7-18) mg/dl Creatinine 2.24 H (0.6-1.2) mg/dl Est Cr Clr Drug Dosing Not Reportable Est GFR ( Amer) 24.6 Est GFR (Non-Af Amer) 21.2 BUN/Creatinine Ratio 23.8 H (10-20) Glucose 1184 H* (70-99) mg/dl POC Glucose (70-99) mg/dl Estimat Average Glucose Pending Hemoglobin A1c Pending Lactate (0.4-2.0) mmol/L Calcium 8.5 (8.5-10.1) mg/dl Phosphorus Pending Magnesium 2.4 (1.8-2.4) mg/dl Total Bilirubin 1.0 (0.2-1) mg/dl AST 22 (15-37) U/L ALT 55 (12-78) U/L Alkaline Phosphatase 168 H (45-117) U/L Troponin I 0.246 H* (0-0.045) ng/ml Total Protein 6.8 (6.4-8.2) gm/dl Albumin 3.3 L (3.4-5.0) gm/dl Globulin 3.5 (2.5-4.0) gm/dl Albumin/Globulin Ratio 0.9 (0.9-2) Beta-Hydroxybutyric Acd 108.80 H (0.2-2.81) mg/dl Procalcitonin (0-0.5) ng/ml Urine Color Urine Appearance (Clear) Urine pH (4.5-7.5) Ur Specific [place] (1.000-1.030) Urine Protein (Negative) Urine Glucose (UA) (Negative) Urine Ketones (Negative) Urine Blood (Negative) Urine Nitrite (Negative) Urine Bilirubin (Negative) Urine Urobilinogen (Negative) Ur Leukocyte Esterase (Negative) Urine WBC (Auto) (0-5) /hpf Urine RBC (Auto) (0-4) /hpf U Hyaline Cast (Auto) (0-5) /lpf U Epithel Cells (Auto) (0-5) /lpf Urine Bacteria (Auto) (Negative) Influenza Type A (PCR) (Neg) Influenza Type B (PCR) (Neg) 04/15/19 04/15/19 04/15/19 Range/Units 01:34 01:20 01:20 WBC 21.48 H (4.8-10.8) K/uL RBC 3.89 L (4.2-5.4) M/uL Hgb 11.2 L (12.0-16.0) g/dL Hct 36.7 L (37-47) % MCV 94.3 (80-100) fL MCH 28.8 (25-34) pg MCHC 30.5 L (32-36) g/dL Plt Count 287 (130-400) K/uL Neutrophils % (Manual) 89.6 % Lymphocytes % (Manual) 7.8 % Monocytes % (Manual) 2.6 % Neutrophils # (Manual) 19.25 H (1.4-6.5) K/uL Total Absolute Neuts 19.25 H (1.4-6.5) K/uL Lymphocytes # (Manual) 1.68 (1.2-3.4) K/uL Monocytes # (Manual) 0.56 (0.11-0.59) K/uL Echinocytes 1+ PT (9.0-12.0) Seconds INR (0.9-1.1) APTT (21.0-31.0) Seconds PTT Ratio VBG pH (7.36-7.41) VBG pCO2 (38-50) mmHg VBG pO2 mmHg VBG HCO3 mmol/L VBG O2 Saturation % VBG Base Excess mEq/L Sodium (136-145) mmol/L Potassium (3.5-5.1) mmol/L Chloride (98-107) mmol/L Carbon Dioxide (21-32) mmol/L Anion Gap (3-11) BUN (7-18) mg/dl Creatinine (0.6-1.2) mg/dl Est Cr Clr Drug Dosing Est GFR ( Amer) Est GFR (Non-Af Amer) BUN/Creatinine Ratio (10-20) Glucose (70-99) mg/dl POC Glucose (70-99) mg/dl Estimat Average Glucose Hemoglobin A1c Lactate (0.4-2.0) mmol/L Calcium (8.5-10.1) mg/dl Phosphorus Magnesium (1.8-2.4) mg/dl Total Bilirubin (0.2-1) mg/dl AST (15-37) U/L ALT (12-78) U/L Alkaline Phosphatase (45-117) U/L Troponin I (0-0.045) ng/ml Total Protein (6.4-8.2) gm/dl Albumin (3.4-5.0) gm/dl Globulin (2.5-4.0) gm/dl Albumin/Globulin Ratio (0.9-2) Beta-Hydroxybutyric Acd (0.2-2.81) mg/dl Procalcitonin (0-0.5) ng/ml Urine Color Yellow Urine Appearance Cloudy A (Clear) Urine pH 5.0 (4.5-7.5) Ur Specific [place] 1.028 (1.000-1.030) Urine Protein Negative (Negative) Urine Glucose (UA) 3+ H (Negative) Urine Ketones 1+ H (Negative) Urine Blood 2+ H (Negative) Urine Nitrite Negative (Negative) Urine Bilirubin Negative (Negative) Urine Urobilinogen Negative (Negative) Ur Leukocyte Esterase Negative (Negative) Urine WBC (Auto) 1-5 (0-5) /hpf Urine RBC (Auto) 0-4 (0-4) /hpf U Hyaline Cast (Auto) 1-5 (0-5) /lpf U Epithel Cells (Auto) >30 H (0-5) /lpf Urine Bacteria (Auto) 2+ H (Negative) Influenza Type A (PCR) Neg for Influ A (Neg) Influenza Type B (PCR) Neg for Influ B (Neg) 04/15/19 Range/Units 01:01 WBC (4.8-10.8) K/uL RBC (4.2-5.4) M/uL Hgb (12.0-16.0) g/dL Hct (37-47) % MCV (80-100) fL MCH (25-34) pg MCHC (32-36) g/dL Plt Count (130-400) K/uL Neutrophils % (Manual) % Lymphocytes % (Manual) % Monocytes % (Manual) % Neutrophils # (Manual) (1.4-6.5) K/uL Total Absolute Neuts (1.4-6.5) K/uL Lymphocytes # (Manual) (1.2-3.4) K/uL Monocytes # (Manual) (0.11-0.59) K/uL Echinocytes PT (9.0-12.0) Seconds INR (0.9-1.1) APTT (21.0-31.0) Seconds PTT Ratio VBG pH (7.36-7.41) VBG pCO2 (38-50) mmHg VBG pO2 mmHg VBG HCO3 mmol/L VBG O2 Saturation % VBG Base Excess mEq/L Sodium (136-145) mmol/L Potassium (3.5-5.1) mmol/L Chloride (98-107) mmol/L Carbon Dioxide (21-32) mmol/L Anion Gap (3-11) BUN (7-18) mg/dl Creatinine (0.6-1.2) mg/dl Est Cr Clr Drug Dosing Est GFR ( Amer) Est GFR (Non-Af Amer) BUN/Creatinine Ratio (10-20) Glucose (70-99) mg/dl POC Glucose > 600 H* (70-99) mg/dl Estimat Average Glucose Hemoglobin A1c Lactate (0.4-2.0) mmol/L Calcium (8.5-10.1) mg/dl Phosphorus Magnesium (1.8-2.4) mg/dl Total Bilirubin (0.2-1) mg/dl AST (15-37) U/L ALT (12-78) U/L Alkaline Phosphatase (45-117) U/L Troponin I (0-0.045) ng/ml Total Protein (6.4-8.2) gm/dl Albumin (3.4-5.0) gm/dl Globulin (2.5-4.0) gm/dl Albumin/Globulin Ratio (0.9-2) Beta-Hydroxybutyric Acd (0.2-2.81) mg/dl Procalcitonin (0-0.5) ng/ml Urine Color Urine Appearance (Clear) Urine pH (4.5-7.5) Ur Specific [place] (1.000-1.030) Urine Protein (Negative) Urine Glucose (UA) (Negative) Urine Ketones (Negative) Urine Blood (Negative) Urine Nitrite (Negative) Urine Bilirubin (Negative) Urine Urobilinogen (Negative) Ur Leukocyte Esterase (Negative) Urine WBC (Auto) (0-5) /hpf Urine RBC (Auto) (0-4) /hpf U Hyaline Cast (Auto) (0-5) /lpf U Epithel Cells (Auto) (0-5) /lpf Urine Bacteria (Auto) (Negative) Influenza Type A (PCR) (Neg) Influenza Type B (PCR) (Neg) Medications Administered Current Inpatient Medications Dextrose (Dextrose 50%) 25 - 50 ml IV UD PRN; Protocol PRN Reason: Hypoglycemia Protocol Stop: 05/15/19 02:38 Glucagon (Glucagen) 1 mg SQ UD PRN; Protocol PRN Reason: Hypoglycemia Protocol Stop: 05/15/19 02:38 Glucose (Dex4 Glucose) 4 - 8 tabs PO UD PRN; Protocol PRN Reason: Hypoglycemia Protocol Stop: 05/15/19 02:38 Glucose (Glucose 40%) 15 - 30 gm PO UD PRN; Protocol PRN Reason: Hypoglycemia Protocol Stop: 05/15/19 02:38 Sodium Chloride (Nss 1000ml) 1,000 mls @ 999 mls/hr IV .Q1H1M ONE Stop: 04/15/19 03:37 Insulin Human Regular 250 (units/ Sodium Chloride) 250 mls @ 7 mls/hr IV .Q24H LINDA; Protocol Stop: 04/15/19 03:45 Calcium Gluconate 1,000 mg/ (Sodium Chloride) 60 mls @ 240 mls/hr IV NOW STA Stop: 04/15/19 03:33 Insulin Aspart (Novolog Flexpen) 0 units SC ACHS LINDA Stop: 05/15/19 07:29 Insulin Human Regular (Novolin R Bolus From Bag) 7 units IV ONE ONE Stop: 04/15/19 03:31 Miscellaneous (Carbohydrates For Hypoglycemia) 15 - 30 gm PO UD PRN PRN Reason: Hypoglycemia Protocol Stop: 05/15/19 02:38 Miscellaneous Information (Consult) 1 ea N/A UD PRN PRN Reason: Consult Stop: 05/15/19 02:36 Code Status & VTE Plan Code Status Full VTE Prophylaxis Plan VTE Prophylaxis will be ordered: Yes Critical Care Time Critical Care Time: Yes Total Critical Care Time: 45 Total critical care time was 45 minutes Supervising Physician Co-Signing Physician Notes Attending addendum: I have physically seen this patient, have supervised the medical residents activities, and agree with the H&P unless as otherwise noted. Assessment and Plan: DKA/septic shock- Admission to ICU with DKA protocol. Received volume normal saline in ED per septic protocol, with borderline blood pressure. Continue IV fluids per protocol. Serial ABGs per protocol. Patient may require pressors. Consulting neurodiagnostic technologist. Elevated troponin/type II SD- Follow serial troponins. Treat underlying acidosis Consult cardiology. Advised intubation while patient was in the ED for airway protection but also for treatment of acidosis. Further management per neurodiagnostic technologist team. Made of orders and notations as noted. Resident Activity Tracking Resident Involvement: Resident Care Provided Care Provided: Adult Hospital Medicine (1) DKA (diabetic ketoacidoses) Diabetes mellitus complication detail: with coma Diabetes mellitus type: type 1 Qualified Code(s): E10.11 - Type 1 diabetes mellitus with ketoacidosis with coma (2) Altered mental status Altered mental status type: unspecified Qualified Code(s): R41.82 - Altered mental status, unspecified (3) Nausea and vomiting Vomiting Intractability: non-intractable Vomiting type: unspecified Qualified Code(s): R11.2 - Nausea with vomiting, unspecified
[2019-04-15] MEDS ORDERED: RAPID SEQUENCE INDUCTION BAG ONE (03:44)
[2019-04-15] MEDS ORDERED: PROPOFOL IV EMULSION 10 MG/ML 100 ML VIAL IV ONE (03:54)
[2019-04-15] MEDS ORDERED: FAMOTIDINE 20MG IV PUSH 20 MG/5 ML SYR IV STA (03:55)
[2019-04-15] MEDS ORDERED: PROPOFOL BOLUS FROM BAG IV PRN (03:55)
[2019-04-15] MEDS ORDERED: STAT IV Infusion **Titration per Protocol STA ×3 (03:55→14:58)
[2019-04-15] MEDS ORDERED: NOREPINEPHRINE (Adult STAT Only) 4 MG in D5W 250 ML IV STA (03:59)
[2019-04-15] MEDS ORDERED: ICU PROTOCOL FOR HYPERGLYCEMIA PRN (04:01)
[2019-04-15] MEDS ORDERED: SODIUM CHLORIDE 0.9% 500 ML IV STA (04:01)
[2019-04-15] MEDS ORDERED: PHARMACY GLYCEMIC MGMT CONSULT STA (04:01)
[2019-04-15] MEDS ORDERED: DC ALL PREVIOUSLY ORDERED DIABETES MEDS ONE (04:06)
[2019-04-15] MEDS ORDERED: NORMOSOL-R 1,000 ML IV SCH (04:15)
[2019-04-15] MEDS: propofoL 1,000 MG/100 ML VIAL IV SCH ×2 (04:52→14:39)
[2019-04-15] MEDS ORDERED: SODIUM BICARB 8.4% INJ 50 MEQ/50 ML SYR IV STA (05:07)
[2019-04-15 05:13] LABS: Albumin Globulin Ratio 0.9 (0.9-2); BUN Creatinine Ratio 23.9 (10-20); Bilirubin,Total 1.2 mg/dl (0.2-1); Calcium 7.9 mg/dl (8.5-10.1); Creatinine Clr Calc Pharmacy 21.5 ml/min; Est GFR (African American) 25.7; Est GFR (Non-African American) 22.2; Globulin 3.2 gm/dl (2.5-4.0); Magnesium 2.1 mg/dl (1.8-2.4); Phosphorus 8.5 mg/dl (2.5-4.9); Potassium 5.1 mmol/L (3.5-5.1); Total Protein 6.2 gm/dl (6.4-8.2)
[2019-04-15] MEDS: INSULIN REGULAR 250 UNITS in SODIUM CHLORIDE 0.9% 247.5 ML IV SCH ×2 (05:15→14:39)
[2019-04-15 05:18] LABS: Hematocrit (blood only) 35.8 % (37-47); Hemoglobin 10.6 g/dL (12.0-16.0); Mean Corpuscular Hemoglobin 28.1 pg (25-34); Mean Corpuscular Hgb Conc 29.6 g/dL (32-36); Platelet Count 258 K/uL (130-400); Red Blood Count 3.77 M/uL (4.2-5.4); White Blood Count 23.02 K/uL (4.8-10.8)
[2019-04-15 05:20] LABS: Echinocytes 1+; Lymphocytes % (manual) 6.1 %; Metamyelocytes # (manual) 0.21 K/uL (0-0); Metamyelocytes % (manual) 0.9 %; Monocytes % (manual) 6.1 %; Neutrophils % (manual) 86.9 %
[2019-04-15 05:31] LABS: Beta-Hydroxybutyrate 106.75 mg/dl (0.2-2.81)
[2019-04-15] MEDS ORDERED: LINEZOLID 600 MG/300 ML D5W IV SCH (05:38)
[2019-04-15] MEDS ORDERED: LINEZOLID CONSULT ACTIVE PRN (05:38)
[2019-04-15] MEDS: NOREPINEPHRINE BIT INJ 8 MG in DEXTROSE 5% 500 ML IV SCH ×2 (05:45→10:13)
[2019-04-15] MEDS: PENDING 1/2NSS+20mEq KCL IVF SCH ×2 (05:46→07:50)
[2019-04-15] MEDS: PENDING D5 1/2NS+20mEq KCL IVF SCH (05:46)
[2019-04-15] MEDS ORDERED: SODIUM CHLORIDE 0.9% 1000ML 1,000 ML IV SCH (06:00)
[2019-04-15] MEDS ORDERED: PHARMACY GLYCEMIC MGMT CONSULT PRN (06:00)
--- NOTE | 2019-04-15 06:15 | Critical Care Consultation ---
Date of Consultation April 15, 2019 Assessment & Plan (1) DKA (diabetic ketoacidoses): Reason Critically Ill: Patient is a 73 year old female with poorly controlled Type 1 DM presenting with altered mental status and DKA requiring mechanical ventilation. NEURO: Sedated with Propofol Altered Mental Status -Likely secondary to profound dehydration from DKA -Head CT showed microvascular changes and atrophy, no overt stroke or bleed Depression -Appears chronic with poor control -Holding home Paroxetine while NPO CARDIAC: Elevated Troponin -Elevated at 0.246 on admission, will continue to trend. Abnormal ECG -Demonstrated diffuse ST depressions on admission -Cardiology was consulted by hospitalist team Hypotension -Received 4 1L bolus's of NSS in ED -Initially requiring Levophed, has since been stopped at 06:30 04/15/19 -Current pressures still soft at 102/55 -Will continue to monitor Hx Hypertension -Holding home lisinopril-hydrochlorothiazide due to soft pressures Hx of Diastolic Dysfunction -No documented echo -Strict I/O Dyslipidemia -Holding Atorvastatin and ASA RESPIRATORY: Acute Respiratory Hypoxic Failure requiring mechanical ventilation -Appropriate sedation with propofol -Vent settings at AC / 30 / 400 / 28 / 5 -Chest XR negative GI: Nausea and vomiting -Likely secondary to DKA -PRN Zofran RENAL/LYTES: DAYNE -Likely secondary to dehydration in setting of DKA -Avoid nephrotoxic meds -Fluids per DKA protocol -Hold Lisinopril Hydrochlorothiazide Hyperkalemia -Initial K 6.2, improved to 5.1, likely sec to Acidosis -S/P Calcium gluconate, re-dose PRN -Labs q2h : Concern for UTI -2+ Blood and 2+ bacteria noted on UA -May be secondary to contamination, however, patient has no other obvious source and labs are concerning for infection. -Continue Zosyn and Zyvox and narrow pending improvement. ENDO: Type 1 DM in DKA -Maintenance fluids adjusted for DKA protocol -Insulin drip adjusted for DKA protocol -Glycemic consult was placed -Hgb A1C 9.1 HEME: Anemia -Partially likely dilutional -Continue to monitor, current Hgb 10.6 ID: Concern for infection -Leukocytosis 23.02 and Procal 2.47 -No obvious source of infection, however, UTI is possible -Continue coverage with Zosyn and Zyvox LINES/IV ACCESS: R Fem Art triple lumen, Central venous, L arm peripheral, OJ, F oley CODE STATUS: Full DVT PROPHYLAXIS: Heparin Thank you for allowing us to participate in the care of this patient. Please refer to my attending physician's documentation for any further recommendations. (2) Altered mental status: (3) Acute hyperkalemia: (4) Metabolic acidosis: (5) Uncontrolled type 1 diabetes mellitus with retinopathy, with long-term current use of insulin: (6) Microalbuminuria: (7) Hypertension: (8) Depression: (9) Hyperlipidemia: Supervising Physician Co-Signing Physician Notes Dr. Darryn Patterson, was the resident-physician during care of patient. I separately evaluated patient for plummer portions of the history and the exam. I was present during the critical portion of medical decision making, and I discussed the case with the resident. I generally agree with the findings and plan except for any additions/exceptions noted. Patient seen and examined at bedside. Patient is intubated on propofol and fentanyl. Patient initially came in with DKA and altered mental status was intubated in the ED. Initial ABG showed a pH of 6.99. Patient has high anion gap metabolic acidosis secondary to lactic acidosis plus beta hydroxybutyrate acid being high plus elevated BUN. Repeat ABG after changing settings on the vent 7.274/18 0.5/1 20/98% at this is on 30% FiO2. Patient serum osmolality is 357the measured 1, calculated serum osmolality is 340 osmolar gap of 17 slightly elevated this could be secondary to uncalculated irons especially lactic acidosis. Salicylate and Tylenol levels are negative. Ethanol level is pending follow-up will follow it up. But I highly doubt there is significant osmolar gap. CT chest does not show any significant pulmonary abnormality. CT abdomen pelvis shows gallstone in the gallbladder with distended gallbladder. Right upper quadrant ultrasound showing an equivocal cholecystitis picture recommending HIDA scan. Currently patient is too unstable to be sent for a HIDA scan. Continue with antibiotics with gram-negative and anaerobic coverage with Zosyn as well as linezolid for the time being. Patient has possible UTI. As per the family there is a questionable history of suicidal thought. Although there is history of dementia and as well as the patient unsure if this has to be true. Once the patient is more stable we will get psychiatric eval. Patient is on DKA continue with DKA protocol. Not to decrease sugar greater than 100-hour. Continue with half NS at 250 mL an hour. Add D5 half NS once the sugar is less than 250. Keep potassium between 3.3-5.3. Procalcitonin is 2.47. I have personally spent 45 minutes of critical care time in the direct management of this patient. This is a life/limb threatening event. This includes time spent evaluating patient, direct bedside care, chart review, placing orders, interpretation of diagnostic studies, discussion with consultants, patient, and/or family members regarding treatment decisions, as well as other required patient management activities. This time is exclusive of all separately billable procedures, and teaching time and separate from and in addition to any other critical care service time. History of Present Illness Reason for Consultation: Intubation/DKA Requesting Physician: Papi Askew M.D. Attending Physician: Pedro Pablo Bob MD History of Present Illness Patient is a 73 year old female with PMHx of uncontrolled DM1 with retinopathy and long-term use of insulin, diabetic peripheral neuropathy, obesity, osteoporosis, microalbuminuria, dyslipidemia, Charcot's arthropathy, and depression that presented by EMS for complaints of altered mental status in the setting of profound hyperglycemia. Patient is intubated and unable to provide any history, no family member or significant other is currently in the room. History is provided from prior admission and ED visit notes. Patient was noted by per notes that over the past 3 days she had been becoming increasingly weak. transferrer she stopped talking and EMS was called who noted the patient was confuse din the field and had dried vomit on her shirt. Her glucometer reading at that time was read as "high." Also of note, patient's had noted that patient has fairly significant depression that she has been taking paroxetine, but that he has noticed increasingly worsening memory loss from the patient. Critical care was consulted due to patient's worsening respiratory status and cardiac status for intubation and evaluation and management of DKA. Allergies Allergy/AdvReac Type Severity Reaction Status Date / Time amlodipine Allergy Intermediate Hives Verified 04/15/19 02:19 Home Medications Home Medications Medication Instructions Recorded Confirmed Type aspirin [Aspir-81] 81 mg PO DAILY 12/29/17 04/15/19 History multivitamin [Multiple Vitamins] 1 tab PO DAILY 12/29/17 04/15/19 History pen needle, diabetic 32 gauge x #2 box 01/31/19 02/28/19 Rx 5/32" atorvastatin 20 mg tablet 20 mg PO DAILY #90 tab 02/28/19 04/15/19 Rx lisinopril 20 1 tab PO DAILY #90 tab 02/28/19 04/15/19 Rx mg-hydrochlorothiazide 12.5 mg tablet paroxetine HCl 40 mg tablet 40 mg PO DAILY #90 tab 02/28/19 04/15/19 Rx cholecalciferol (vitamin D3) 50 3,000 units PO DAILY #30 tab 03/06/19 04/15/19 Rx mcg (2,000 unit) tablet insulin aspart U-100 100 unit/mL 10 units SUBCUT TID #30 ml 03/31/19 04/15/19 Rx (3 mL) subcutaneous pen insulin glargine 100 unit/mL (3 15 unit SUBCUT QAM #2 box 03/31/19 04/15/19 Rx mL) subcutaneous pen Patient History Medical History Acute blood loss anemia DAYNE (acute kidney injury) Benign familial tremor (Acute) Cerumen impaction Charcot's arthropathy of forefoot (Acute) Closed fracture of right hip (Inactive) Cognitive impairment Daytime somnolence (Chronic) Depression Depression (Acute) Diabetes Diabetic peripheral neuropathy associated with type 1 diabetes mellitus (Acute) Diastolic dysfunction (Acute) DVT prophylaxis Dyslipidemia (Chronic) Encephalopathy Fall (Inactive) Hearing loss (Acute) HTN (hypertension) Hypertension Hypertension (Chronic) Hypocalcemia (Acute) Ileus (Inactive) Memory loss, short term (Chronic) Microalbuminuria (Acute) Morbid obesity Obesity (BMI 35.0-39.9 without comorbidity) (Acute) Osteoporosis (Acute) Retinopathy (Acute) SNHL (sensorineural hearing loss) (Acute) Snoring Type 1 diabetes (Inactive) Uncontrolled type 1 diabetes mellitus with kidney complication, with long-term current use of insulin (Chronic) Uncontrolled type 1 diabetes mellitus with retinopathy, with long-term current use of insulin (Chronic) Vitamin D deficiency (Acute) Surgical History H/O cataract extraction H/O section H/O tubal ligation Family History Father Lung cancer Other Family history non-contributory Denies family history of Breast cancer Colorectal cancer Social History Preferred Language: Maori Communication Ability: Effective Visual Impairment: No Limitations Media Relations Director Required: No Beliefs That Will Affect Care: None marital status: Current Living Situation: Spouse current occupational status: retired Feels Safe at Home: Yes Smoking Status: Never smoker Hx Alcohol Use: No Hx Substance Use: No Review of Systems Review of Systems: Unobtainable due to cognitive status and Unobtainable due t o endotracheal tube Physical Exam Constitutional: + ill appearing, + obese, + disheveled and + mechanically ventilated Eyes: PERRL, normal accommodation (to light ) and reactive pupils; + abnormal visual field confrontation (unable to assess), + EOM not intact (unable to assess ), pupils not dilated, pupils not fixed, pupils not irregular and pupils not pinpoint ENMT: OJ and Intubation tube present Neck: normal visual inspection and trachea midline Respiratory: Auscultation: lungs clear to auscultation bilaterally; no crackles, no rales and no wheezes Cardiovascular: Rate/Rhythm: + tachycardic (106) Heart Sounds: no murmur and no cardiac rub Vessels: posterior tibial pulses present and dorsalis pedis pulses present; no JVD Extremities: no edema Chest (Breasts): Additional Comments: Patient has a 2x2cm rubbery nodular like lesion vs. port vs implant at the level fo the mid-sternum. Possible prior surgical scar slightly distal to the lesion. Gastrointestinal (Abdomen): Inspection/Auscultation: abdomen not distended Percussion/Palpation: abdomen soft; abdomen not rigid Suction from OJ can be heard. Musculoskeletal: unable to assess Skin: no rashes, no lesions and no ulcers Neurologic: Sedated on propofol running at 10 mcg/kg Psychiatric: unable to assess Genitourinary: De La Fuente in place Results & Data Vital Signs (Past 12 Hours) Vital Signs Temp Pulse Resp BP Pulse Ox 04/15/19 05:45 116 H 28 H 100 04/15/19 05:40 36.6 C 115 H 28 H 100 04/15/19 05:05 117 H 131/53 L 96 04/15/19 05:00 117 H 127/54 L 98 04/15/19 04:55 119 H 128/56 L 96 04/15/19 04:50 117 H 122/51 L 98 04/15/19 04:45 118 H 124/50 L 98 04/15/19 04:40 120 H 124/52 L 98 04/15/19 04:35 123 H 141/60 H 99 04/15/19 04:30 120 H 153/84 H 98 04/15/19 04:21 118 H 149/70 H 97 04/15/19 04:11 100 H 104/50 L 04/15/19 04:07 93 H 74/46 L 04/15/19 04:01 89 64/40 L 04/15/19 03:58 81 92/42 L 04/15/19 03:56 90 19 47/31 L 04/15/19 03:30 98 H 17 95/32 L 90 04/15/19 03:19 99 04/15/19 03:15 100 H 21 89/49 L 99 04/15/19 03:01 93 H 17 84/61 L 94 04/15/19 02:45 101 H 20 106/47 L 88 L 04/15/19 02:30 98 H 23 103/51 L 87 L 04/15/19 02:15 98 H 21 101/73 95 04/15/19 01:47 97 H 18 111/60 98 04/15/19 01:41 98 H 17 81/35 L 97 04/15/19 01:39 98 H 17 68/39 L 98 04/15/19 01:37 108 H 17 59/31 L 100 04/15/19 01:30 36.7 C 101 H 20 99/51 L 99 04/15/19 01:16 105 H 16 142/94 H 97 04/15/19 04:26 (1) DKA (diabetic ketoacidoses) Diabetes mellitus complication detail: with coma Diabetes mellitus type: type 1 Qualified Code(s): E10.11 - Type 1 diabetes mellitus with ketoacidosis with coma (2) Hyperlipidemia Hyperlipidemia type: unspecified Qualified Code(s): E78.5 - Hyperlipidemia, unspecified (3) Altered mental status Altered mental status type: unspecified Qualified Code(s): R41.82 - Altered mental status, unspecified (4) Hypertension Hypertension type: essential hypertension Qualified Code(s): I10 - Essential (primary) hypertension
[2019-04-15] MEDS: HEPARIN SOD 5,000 UNIT/0.5 ML VIAL SQ SCH ×3 (06:17→21:04)
[2019-04-15] MEDS: LINEZOLID 600 MG/300 ML BAG IV SCH ×2 (06:18→17:57)
--- NOTE | 2019-04-15 06:18 | Procedure Note ---
Procedure Note Date of Service April 15, 2019 ARTERIAL LINE PROCEDURE NOTE: Procedure: Arterial Line Placement Attending: Dr. Brandon Greer Provider: TRINI Betts Indication: Monitoring on Pressors Anesthesia: None Patient intubated and sedated and unable to give consent. Lines emergently placed as patient is on pressors for blood pressure support in the setting of hypotension. A time-out was completed verifying correct patient, procedure, site, positioning, and implant(s) or special equipment if applicable. Allens test was performed to ensure adequate perfusion. Patients left wrist was prepped and draped in the usual sterile fashion. Ultrasound guidance was used to aid needle placement. A 20g Arrow arterial line was introduced into the left radial artery. Catheter was threaded, and the needle was removed with appropriate blood return. Good waveform was observed. The patient tolerated the procedure well. Blood Loss: Minimal Complications: None Procedural Ultrasound Guidance: Procedure Date: 04/15/2019 Indication: Arterial line insertion Attending: Dr. Brandon Greer Provider: TRINI Betts Artery Identified: YES Line confirmed in Artery with ultrasound: Yes Complications: NONE Patient tolerated procedure: WELL Coding CPT Codes Tubes, Drains, and Vasc Access - Tubes, Drains, and Vasc Access: [id number] Place Catheter In Artery ([id number]) Tubes, Drains, and Vasc Access - Tubes, Drains, and Vasc Access: [id number] Ultrasound Guidance For Vascular ([id number]) [facility] [place] Procedure Codes (Charges) Tubes, Drains, and Vasc Access Procedure 1: Tubes, Drains, and Vasc Access: [id number] Place Catheter In Artery Procedure 2: Tubes, Drains, and Vasc Access: [id number] Ultrasound Guidance For Vascular
[2019-04-15 06:21] LABS: Estimated Average Glucose 214 mg/dl; Hemoglobin A1C 9.1 % (4.5-5.6)
[2019-04-15 06:53] LABS: Base Excess ABG -18.1 mEq/L (-9-1.8); HCO3 ABG 9 mmol/L (19-24); PCO2 ABG 23 mmHg (35-46); PO2 ABG 111 mmHg (80-95)
[2019-04-15 06:59] LABS: Allen Test Pos (Pos); pH ABG 7.19 (7.35-7.45)
[2019-04-15] MEDS ORDERED: SODIUM CHLORIDE 0.45 % 1,000 ML IV SCH (07:00)
--- NOTE | 2019-04-15 07:14 | CT Scan Report ---
HEAD CT NONCONTRAST CT DOSE: 995.11 mGy.cm HISTORY: Altered mental status. TECHNIQUE: Multiaxial CT images of the head were performed without the use of intravenous contrast. A utomated exposure control was utilized for this study. A dose lowering technique was utilized adheri ng to the principles of ALARA. Comparison: Brain MRI 03/06/2019. Findings: The paranasal sinuses and mastoid air cells are clear. The calvarium and skull base are int act. There is no mass, hematoma, midline shift, acute infarct. White matter hypodensity is nonspecifi c but suggestive of microvascular ischemic change. The ventricles and sulci demonstrate mild age-rela terese involutional changes. Mild motion artifact. Impression: No acute intracranial abnormality. Atrophy and microvascular ischemic changes. ACT 112: Negative or not required by law. Electronically signed by: Herminio Bloom M.D. 04/15/2019 7:12 AM
--- NOTE | 2019-04-15 07:19 | XRay Report ---
SINGLE VIEW CHEST CLINICAL HISTORY: Sepsis. FINDINGS: An AP, portable, upright chest radiograph is compared to study dated 12/30/2018. The examin ation is degraded by portable technique and patient rotation. The heart is top normal for projection noting atherosclerotic calcification of the thoracic aorta. The pulmonary vasculature is noncongested . Scarring/atelectasis is noted at the lung bases. No airspace consolidation or large pleural effusio n is identified. No pneumothorax is seen. The skeletal structures are osteopenic. The bony thorax is grossly intact. IMPRESSION: No acute cardiopulmonary abnormality. ACT 112: Negative or not required by law. Electronically signed by: Mir Stock M.D. 04/15/2019 7:18 AM
[2019-04-15] MEDS ORDERED: INSULIN ASPART 100 UNITS/ML 3 ML PEN SC SCH (07:30)
[2019-04-15 07:37] LABS: BUN Creatinine Ratio 24.9 (10-20); Calcium 7.5 mg/dl (8.5-10.1); Creatinine Clr Calc Pharmacy 21.9 ml/min; Est GFR (African American) 26.3; Est GFR (Non-African American) 22.7; Phosphorus 6.1 mg/dl (2.5-4.9); Potassium 3.9 mmol/L (3.5-5.1); Troponin I 4.19 ng/ml (0-0.045)
--- NOTE | 2019-04-15 07:37 | XRay Report ---
SINGLE VIEW CHEST CLINICAL HISTORY: Respiratory failure. Intubation. FINDINGS: An AP, portable, supine chest radiograph is compared to chest x-ray and chest CT dated 2019. The examination is degraded by portable technique and patient rotation. An endotracheal tube martinez s been placed. The tip of the catheter projects 1.6 cm above the levi. The heart is top normal for projection noting atherosclerotic calcification of the thoracic aorta. There is prominence of the pul monary vasculature. Atelectasis is noted at the lung bases. No airspace consolidation or large pleura l effusion is seen. No pneumothorax is seen. The skeletal structures are osteopenic. The bony thorax is grossly intact. A calcified gallstone is seen in the right upper quadrant. IMPRESSION: 1. An endotracheal tube has been placed as detailed above. 2. There is prominence of the pulmonary vasculature which is increased from today's earlier examinati on. This could be related to supine positioning or fluid overload/vascular congestion. Clinical corre lation will be required. 3. No airspace consolidation or large pleural effusion is identified. ACT 112: Negative or not required by law. Electronically signed by: Mir Stock M.D. 04/15/2019 7:36 AM
[2019-04-15] MEDS ORDERED: INSULIN PROTOCOL GOAL RANGE ONE ×2 (07:43→15:16)
[2019-04-15] MEDS: INSULIN ASPART 100 UNITS/ML 3 ML PEN SC SCH ×4 (07:49→21:03)
[2019-04-15] MEDS: SODIUM CHLOR 0.45% + 20MEQ KCL 20 MEQ/1,000 ML BAG IV SCH ×2 (07:57→11:40)
--- NOTE | 2019-04-15 08:01 | CT Scan Report ---
ABDOMEN AND PELVIS CT WITHOUT CONTRAST CT DOSE: HISTORY: vomiting TECHNIQUE: Multiaxial CT images of the abdomen and pelvis were performed without contrast. A dose lo wering technique was utilized adhering to the principles of ALARA. COMPARISON STUDY: None. FINDINGS: The lung bases are clear. No pneumoperitoneum. No pneumatosis. Prior internal fixation of a n old right intertrochanteric hip fracture. No suspicious lytic are blastic osseous lesions. Mitral a nnulus calcifications are noted. Hepatic steatosis. The unenhanced spleen and pancreas are unremarkab le. Mild bilateral perinephric edema and mild body wall edema is noted. No hydronephrosis. Ossificati ons in the renal sinuses appear to be vascular. Calcified plaque within the normal caliber abdominal aorta. There is a 1.2 cm gallstone within the fundus. Mild gallbladder distention. Bladder is decompr essed by a De La Fuente catheter. The uterus and bilateral adnexa are within normal limits. No significant p elvic free fluid. Suboptimal evaluation for bowel pathology due to the lack of intravenous and oral c ontrast. However, there is no definite bowel wall thickening or obstruction. Redundant colon. Normal appendix. Tiny fat-containing umbilical hernia. Gas within the bladder is likely due to the catheteri zation. IMPRESSION: 1. Cholelithiasis. The gallbladder is mildly distended. No definite gallbladder wall thickening. 2. No definite bowel wall thickening or obstruction. 3. No hydronephrosis. 4. Mild body wall edema. 5. De La Fuente catheter is seen within the bladder. 6. Hepatic steatosis. 7. Normal appendix. ACT 112: Negative or not required by law. Electronically signed by: Herminio Bloom M.D. 04/15/2019 8:00 AM
[2019-04-15 08:08] LABS: Beta-Hydroxybutyrate 98.97 mg/dl (0.2-2.81)
[2019-04-15 08:13] LABS: Allen Test Pos (Pos); Base Excess ABG -16.7 mEq/L (-9-1.8); HCO3 ABG 9 mmol/L (19-24); Oxygen Saturation ABG 97.7 % (90-95); PCO2 ABG 20 mmHg (35-46); PO2 ABG 107 mmHg (80-95); pH ABG 7.25 (7.35-7.45)
--- NOTE | 2019-04-15 08:13 | CT Scan Report ---
CT chest wo con CLINICAL HISTORY: 73 years-old Female presenting with sepsis, possible abnormal CXR. TECHNIQUE: Multidetector CT imaging of the chest was performed without the use of intravenous contras t. IV contrast: None. One or more dose lowering techniques were used consistent with the principles o f ALARA (as low as reasonably achievable), including automatic exposure control, mA or kV adjustment to individual patient size, and/or use of iterative reconstruction. COMPARISON: Chest x-ray from earlier today. CT DOSE (mGy.cm): The estimated cumulative dose is 1683.31 mGy.cm. FINDINGS: Chief Of Surgery topogram: Unremarkable. Soft tissues: Ovoid mass immediately superficial to the sternum and potentially in contact with the o verlying cutis. This does not involve the subjacent sternal cortex and measures 2.8 x 2.6 cm in maxim al axial dimension. This is indeterminate though fairly low in density. No axillary, supraclavicular, or mediastinal lymphadenopathy. Evaluation of the ayaz limited without intravenous contrast. Atheros clerosis of the aorta. Borderline enlargement of the heart. Coronary artery, aortic valve, and mitral annular calcification. No pericardial or pleural effusion. Mild infiltration of retroperitoneal fat in the pericaval region may be artifact. Lungs and airways: No pneumothorax. Central airways patent. Pulmonary arteries are not significantly enlarged relative to adjacent bronchi. No interlobular septal thickening. Solid subpleural 5 mm left lower lobe pulmonary nodule. Trace mosaic attenuation. Respiratory motion artifact degrades evaluatio n of the lung parenchyma, most severely degrading evaluation of the lung bases. Musculoskeletal: Vague lucency in the T12 vertebral body (series 6 image 252). This is not characteri stic of a benign hemangioma and is nonspecific. IMPRESSION: 1. No acute intrathoracic pathology. 2. Solid 5 mm left lower lobe pulmonary nodule. Follow-up per Fleischner Society 2017 criteria below . 3. Indeterminate nodule in the presternal subcutaneous tissue, possibly an epidermal inclusion cyst. This could be evaluated with ultrasound if there is concern. 4. Indeterminant lucent lesion in the T12 vertebral body, possibly a cyst. Please ensure the absence of an underlying malignancy. Summary of Fleischner Society 2017 Recommendations (H Neri et al. Guidelines for management of i ncidental pulmonary nodules detected on CT images: From the Fleischner Society 2017. Radiology 2017; 284: 228-243.) SOLID NODULES Single nodule; size < 6 mm * Low risk patients: No routine follow-up * High risk patients: Optional CT at 12 months Single nodule; size 6-8 mm * Low risk patients: CT at 6-12 months, then consider CT at 18-24 months * High risk patients: CT at 6-12 months, then at 18-24 months Single nodule; size > 8 mm * Either low or high risk patients: Consider CT at 3 months, PET/CT, or tissue sampling Multiple nodules; size < 6 mm * Low risk patients: No routine follow up * High risk patients: Optional CT at 12 months Multiple nodules; size 6-8 mm * Low risk patients: CT at 3-6 months, then consider CT at 18-24 months * High risk patients: CT at 3-6 months, then at 18-24 months Multiple nodules; size > 8 mm * Low risk patients: CT at 3-6 months, then consider at 18-24 months * High risk patients: CT at 3-6 months, then at 18-24 months SUBSOLID NODULES Single ground-glass nodule * Nodule size < 6 mm: No routine follow-up * Nodule size > or = 6 mm: CT at 6-12 months to confirm persistence, then CT every 2 years until 5 y ears Single part-solid nodule * Nodule size < 6 mm: No routine follow-up * Nodules size > or = 6 mm: CT at 3-6 months to confirm persistence. If unchanged and solid componen t remains < 6 mm, annual CT should be performed for 5 years Multiple nodules * Nodule size < 6 mm: CT at 3-6 months. If stable, consider CT at 2 and 4 years. * Nodules size > or = 6 mm: CT at 3-6 months. Subsequent management based on the most suspicious nod ule(s) NOTE: 1) These guidelines apply to incidental nodules. These guidelines do NOT apply to patients younger th an 35 years, immunocompromised patients, or patients with cancer. 2) Risk categories: * Low risk patients: Minimal or absent history of smoking and/or other known risk factors * High risk patients: History of smoking, exposure to other carcinogens, emphysema, fibrosis, upper lobe location, family history of lung cancer, etc. 3) If a nodule up to 8 mm is partly solid or is ground glass, further follow-up is required after 24 months to exclude possible slow growing adenocarcinoma. ACT 112: Negative or not required by law. Electronically signed by: Raffaele Cosby M.D. 04/15/2019 8:12 AM
--- NOTE | 2019-04-15 08:19 | XRay Report ---
KUB HISTORY: Feeding Tube placement COMPARISON: Abdomen and pelvis CT 04/15/2019. FINDINGS: The bowel gas pattern is unremarkable. There are no dilated loops of small bowel to suggest an obstruction. No renal calculi. No ureteral calculi. No pneumoperitoneum or pneumatosis. Right fe moral central venous catheter terminates in the expected location of the right common iliac vein. Victoriano ogastric tube terminate below the diaphragm and likely resides within the distal stomach. Cholelithia sis. IMPRESSION: Nasogastric tube likely resides within the distal stomach. ACT 112: Negative or not required by law. Electronically signed by: Herminio Bloom M.D. 04/15/2019 8:17 AM
--- NOTE | 2019-04-15 08:30 | Ultrasound Report ---
US abdomen limited CLINICAL HISTORY: 73 years-old Female presenting with RUQ US, r/o cholecystitis. TECHNIQUE: Real-time grayscale and limited color Doppler ultrasound imaging of the abdomen limited to the right upper quadrant was performed. COMPARISON: CT from earlier today. FINDINGS: Pancreas: Visualized portions of the pancreatic head and body normal. Liver: Normal echogenicity and echotexture. The liver measures 15.8 cm in maximal sagittal dimension. No sonographic evidence of hepatic mass. Main portal vein patent with normal directional flow. Biliary: No intrahepatic biliary ductal dilatation. Common bile duct measures up to 4 mm in diameter. Gallbladder: Gallstones at the gallbladder neck measuring 1.5 cm in the mildly distended gallbladder. Focal wall thickening measuring up to 6 mm in the midportion though no significant wall thickening a t the fundus. Right kidney: Cortical thinning may be present. No hydronephrosis. Ascites: None. Other: Trace perihepatic and right perinephric fluid. IMPRESSION: Cholelithiasis with equivocal findings for cholecystitis. Recommend further evaluation with HIDA scan . The report will be called/faxed according to standard departmental protocol. ACT 112: Negative or not required by law. Electronically signed by: Raffaele Cosby M.D. 04/15/2019 8:29 AM
[2019-04-15 08:36] LABS: Amphetamines+Metham, Urine Neg (Neg); Barbiturates, Urine Neg (Neg); Benzodiazepine, Urine Neg (Neg); Cocaine, Urine Neg (Neg); MDMA (Ecstacy), Urine Neg (Neg); Methadone, Urine Neg (Neg); Opiate, Urine Neg (Neg); Phencyclidine, Urine Neg (Neg)
[2019-04-15 08:58] LABS: BUN Creatinine Ratio 24.3 (10-20); Calcium 7.6 mg/dl (8.5-10.1); Creatinine Clr Calc Pharmacy 22.2 ml/min; Est GFR (African American) 26.7; Est GFR (Non-African American) 23.1; Magnesium 1.9 mg/dl (1.8-2.4); Phosphorus 4.5 mg/dl (2.5-4.9); Potassium 3.7 mmol/L (3.5-5.1)
[2019-04-15 09:13] LABS: Salicylate 5.1 mg/dl (2.8-20)
--- NOTE | 2019-04-15 09:24 | Cardiology Consultation ---
Date of Consultation April 15, 2019 Assessment & Plan (1) DKA (diabetic ketoacidoses): Mrs. Bonilla is a 73 year old female with history of Uncontrolled Type 1 Diabetes Mellitus, Diabetic Retinopathy, Diabetic Peripheral Neuropathy, Obesity, Osteoporosis, Dyslipidemia, Charcot's Arthropathy, Hypertension and Depression that presented with Marked Hyperglycemia, Diabetic Ketoacidosis with a wide anion gap, Marked Hyperkalemia, an Abnormal EKG, and an Elevated Troponin I Level which likely represents a Type II non-ACS LA related to her acute illness -- as patient did not complain of any cardiopulmonary symptoms according to the available records. Suspect that her EKG changes on presentation were secondary to hyperkalemia / metabolic derangement. Recommend the following: -- Echocardiogram to assess for any wall motion abnormalities. -- Resume aspirin and atorvastatin after extubated and taking oral medications. -- Consider adding a beta raffi during hospitalization when BP allows and taking medications orally. (2) Acute hyperkalemia: -- Hyperkalemia has been corrected. (3) Elevated troponin I level: Elevated Troponin I Level likely represents a Type II non-ACS LA related to her acute illness/significant physiologic stress. -- As outlined above. (4) Abnormal ECG: -- Suspect that her EKG changes on presentation were secondary to marked h yperkalemia which has been corrected. Supervising Physician Co-Signing Physician Notes Braden Salguero MD History of Present Illness Reason for Consultation: -- Elevated Troponin I. -- Abnormal EKG. Requesting Physician: Pedro Pablo Bob MD Attending Physician: Braden Salguero MD History of Present Illness Mrs. Bonilla is a 73 year old female with history of Uncontrolled Type 1 Diabetes Mellitus, Diabetic Retinopathy, Diabetic Peripheral Neuropathy, Obesity, Osteoporosis, Dyslipidemia, Charcot's Arthropathy, Hypertension and Depression that presented via EMS for altered mental status and profound hyperglycemia / Diabetic Ketoacidosis. She was markedly Hyperkalemic on admission with a serum K+ level of 6.2 mmol/L and her blood glucose level was 1184 mg/dl. Apparently the patient's activated EMS after the patient had been getting progressively weaker over the preceding 3 days and then she stopped talking or interacting. EMS found that the patient was confused in the field and there was dried vomit on her shirt when they arrived. According to the EMS report patient was also lethargic, wasn't eating or drinking, and was sleeping more than usual in the days leading up to her admission. There was no mention of any chest discomfort or dyspnea. Patient is intubated and unable to provide any history and no family members are currently in the room -- so this history is being collected through her ER note and H&P. She was markedly Hyperkalemic on admission with a serum K+ level of 6.2 mmol/L and her blood glucose level was 1184 mg/dl. Her initial EKG showed ST depression in the anterolateral leads, QRS duration had increased compared to her baseline, and QTc was prolonged at 493 msec. Her initial Troponin I was 0.246 ng/ml and trended up to 4.190 ng/ml. Patient is now on an Insulin drip and is receiving IV fluids. Her hyperkalemia has been corrected and her follow up EKG's show resolution of ST depression and QRS duration has decreased to 86 msec from 108 msec. QT interval remains prolonged at 513 msec. Allergies Allergy/AdvReac Type Severity Reaction Status Date / Time amlodipine Allergy Intermediate Hives Verified 04/15/19 02:19 Home Medications Home Medications Medication Instructions Recorded Confirmed Type aspirin [Aspir-81] 81 mg PO DAILY 12/29/17 04/15/19 History multivitamin [Multiple Vitamins] 1 tab PO DAILY 12/29/17 04/15/19 History pen needle, diabetic 32 gauge x #2 box 01/31/19 02/28/19 Rx 5/32" atorvastatin 20 mg tablet 20 mg PO DAILY #90 tab 02/28/19 04/15/19 Rx lisinopril 20 1 tab PO DAILY #90 tab 02/28/19 04/15/19 Rx mg-hydrochlorothiazide 12.5 mg tablet paroxetine HCl 40 mg tablet 40 mg PO DAILY #90 tab 02/28/19 04/15/19 Rx cholecalciferol (vitamin D3) 50 3,000 units PO DAILY #30 tab 03/06/19 04/15/19 Rx mcg (2,000 unit) tablet insulin aspart U-100 100 unit/mL 10 units SUBCUT TID #30 ml 03/31/19 04/15/19 Rx (3 mL) subcutaneous pen insulin glargine 100 unit/mL (3 15 unit SUBCUT QAM #2 box 03/31/19 04/15/19 Rx mL) subcutaneous pen Patient History Medical History Acute blood loss anemia DAYNE (acute kidney injury) Benign familial tremor (Acute) Cerumen impaction Charcot's arthropathy of forefoot (Acute) Closed fracture of right hip (Inactive) Cognitive impairment Daytime somnolence (Chronic) Depression Depression (Acute) Diabetes Diabetic peripheral neuropathy associated with type 1 diabetes mellitus (Acute) Diastolic dysfunction (Acute) DVT prophylaxis Dyslipidemia (Chronic) Encephalopathy Fall (Inactive) Hearing loss (Acute) HTN (hypertension) Hypertension Hypertension (Chronic) Hypocalcemia (Acute) Ileus (Inactive) Memory loss, short term (Chronic) Microalbuminuria (Acute) Morbid obesity Obesity (BMI 35.0-39.9 without comorbidity) (Acute) Osteoporosis (Acute) Retinopathy (Acute) SNHL (sensorineural hearing loss) (Acute) Snoring Type 1 diabetes (Inactive) Uncontrolled type 1 diabetes mellitus with kidney complication, with long-term current use of insulin (Chronic) Uncontrolled type 1 diabetes mellitus with retinopathy, with long-term current use of insulin (Chronic) Vitamin D deficiency (Acute) Surgical History H/O cataract extraction H/O section H/O tubal ligation Family History Father Lung cancer Other Family history non-contributory Denies family history of Breast cancer Colorectal cancer Social History Preferred Language: Turkish Communication Ability: Effective Visual Impairment: No Limitations Dental Laboratory Technician Required: No Beliefs That Will Affect Care: None marital status: Current Living Situation: Spouse current occupational status: retired Feels Safe at Home: Yes Smoking Status: Never smoker Hx Alcohol Use: No Hx Substance Use: No Physical Exam Physical Exam: Current BP 82/50 GENERAL: Patient currently sedated and intubated on a ventilator. HEENT: Head is atraumatic, normocephalic. Facies symmetric. No perioral cyanosis. Mucous membranes appear dry. NECK: No JVD. Carotid upstrokes are + 2 bilaterally. No bruits are noted. CHEST/LUNGS: Clear to auscultation throughout all lung lewis. CVS: S1 and S2 are regular, tachycardic at 101 bpm. No obvious murmurs, gallops, or rubs. PMI is nondisplaced. No lifts, heaves, or thrills. No abdominal aortic or renal bruits. ABDOMINAL EXAM: Bowel sounds are present. No masses, organomegaly, or tenderness. EXTREMITIES: No clubbing or cyanosis. No edema. Intact radial pulses bilaterally. TELEMETRY: -- Predominately sinus tachycardia in the low 100's. EKG's: -- As described above. Results & Data ([facility]) Vital Signs (Past 12 Hours) Vital Signs Temp Pulse Resp BP Pulse Ox 04/15/19 07:03 104 H 28 H 100 04/15/19 06:31 28 H 04/15/19 05:45 116 H 28 H 100 04/15/19 05:40 36.6 C 115 H 28 H 100 04/15/19 05:05 117 H 131/53 L 96 04/15/19 05:00 117 H 127/54 L 98 04/15/19 04:55 119 H 128/56 L 96 04/15/19 04:50 117 H 122/51 L 98 04/15/19 04:45 118 H 124/50 L 98 04/15/19 04:40 120 H 124/52 L 98 04/15/19 04:35 123 H 141/60 H 99 04/15/19 04:30 120 H 153/84 H 98 04/15/19 04:21 118 H 149/70 H 97 04/15/19 04:11 100 H 104/50 L 04/15/19 04:07 93 H 74/46 L 04/15/19 04:01 89 64/40 L 04/15/19 04:00 90 28 H 96 04/15/19 03:58 81 92/42 L 04/15/19 03:56 90 19 47/31 L 04/15/19 03:30 98 H 17 95/32 L 90 04/15/19 03:19 99 04/15/19 03:15 100 H 21 89/49 L 99 04/15/19 03:01 93 H 17 84/61 L 94 04/15/19 02:45 101 H 20 106/47 L 88 L 04/15/19 02:30 98 H 23 103/51 L 87 L 04/15/19 02:15 98 H 21 101/73 95 04/15/19 01:47 97 H 18 111/60 98 04/15/19 01:41 98 H 17 81/35 L 97 04/15/19 01:39 98 H 17 68/39 L 98 04/15/19 01:37 108 H 17 59/31 L 100 04/15/19 01:30 36.7 C 101 H 20 99/51 L 99 04/15/19 01:16 105 H 16 142/94 H 97 Laboratory Results Laboratory Results - last 24 hr 04/15/19 04/15/19 04/15/19 01:01 01:20 01:20 WBC RBC Hgb POC Hgb Hct POC Hct MCV MCH MCHC Plt Count Neutrophils % (Manual) Lymphocytes % (Manual) Monocytes % (Manual) Metamyelocytes % (Man) Neutrophils # (Manual) Total Absolute Neuts Lymphocytes # (Manual) Monocytes # (Manual) Metamyelocytes # (Man) Echinocytes PT INR APTT PTT Ratio Sample Site POC pH POC pCO2 POC pO2 POC HCO3 POC Total CO2 POC Base Excess ABG pH ABG pH (Temp Correct) ABG pCO2 ABG pCO2 (Temp Corrct ABG pO2 POC ABG pO2 at Pt Temp ABG HCO3 ABG O2 Saturation ABG Base Excess Calos Test VBG pH VBG pCO2 VBG pO2 VBG HCO3 VBG O2 Saturation VBG Base Excess Barometric Pressure Oxygen Given O2 Delivery Device POC O2 Rate Minute Ventilation POC FiO2 Tidal Volume PEEP POC Sodium Sodium POC Potassium Potassium Chloride Carbon Dioxide Anion Gap BUN Creatinine Est Cr Clr Drug Dosing Est GFR ( Amer) Est GFR (Non-Af Amer) BUN/Creatinine Ratio Glucose POC Glucose > 600 H* POC Glucose (other) Estimat Average Glucose Hemoglobin A1c Osmolality Lactate Calcium Phosphorus Magnesium Total Bilirubin AST ALT Alkaline Phosphatase Total Creatine Kinase Troponin I Total Protein Albumin Globulin Albumin/Globulin Ratio Beta-Hydroxybutyric Acd Procalcitonin Urine Color Yellow Urine Appearance Cloudy A Urine pH 5.0 Ur Specific Fults 1.028 Urine Protein Negative Urine Glucose (UA) 3+ H Urine Ketones 1+ H Urine Blood 2+ H Urine Nitrite Negative Urine Bilirubin Negative Urine Urobilinogen Negative Ur Leukocyte Esterase Negative Urine WBC (Auto) 1-5 Urine RBC (Auto) 0-4 U Hyaline Cast (Auto) 1-5 U Epithel Cells (Auto) >30 H Urine Bacteria (Auto) 2+ H Urine Osmolality Nasal Screen MRSA (PCR) Salicylates Urine Opiates Screen Ur Methadone, Qual Acetaminophen Urine Barbiturates Ur Phencyclidine (PCP) U Amphetamin/Meth Scrn MDMA (Ecstasy) Screen U Benzodiazepines Scrn Ur Cocaine Metabolite U Marijuana (THC) Screen Ethyl Alcohol mg/dL Hepatitis C Ab Screen Influenza Type A (PCR) Neg for Influ A Influenza Type B (PCR) Neg for Influ B 04/15/19 04/15/19 04/15/19 01:34 01:34 01:34 WBC 21.48 H RBC 3.89 L Hgb 11.2 L POC Hgb Hct 36.7 L POC Hct MCV 94.3 MCH 28.8 MCHC 30.5 L Plt Count 287 Neutrophils % (Manual) 89.6 Lymphocytes % (Manual) 7.8 Monocytes % (Manual) 2.6 Metamyelocytes % (Man) Neutrophils # (Manual) 19.25 H Total Absolute Neuts 19.25 H Lymphocytes # (Manual) 1.68 Monocytes # (Manual) 0.56 Metamyelocytes # (Man) Echinocytes 1+ PT 10.4 INR 1.0 APTT 24.7 PTT Ratio 0.9 Sample Site POC pH POC pCO2 POC pO2 POC HCO3 POC Total CO2 POC Base Excess ABG pH ABG pH (Temp Correct) ABG pCO2 ABG pCO2 (Temp Corrct ABG pO2 POC ABG pO2 at Pt Temp ABG HCO3 ABG O2 Saturation ABG Base Excess Calos Test VBG pH VBG pCO2 VBG pO2 VBG HCO3 VBG O2 Saturation VBG Base Excess Barometric Pressure Oxygen Given O2 Delivery Device POC O2 Rate Minute Ventilation POC FiO2 Tidal Volume PEEP POC Sodium Sodium 131 L POC Potassium Potassium 6.2 H* Chloride 92 L Carbon Dioxide 12 L Anion Gap 28.0 H BUN 53 H Creatinine 2.24 H Est Cr Clr Drug Dosing Not Reportable Est GFR ( Amer) 24.6 Est GFR (Non-Af Amer) 21.2 BUN/Creatinine Ratio 23.8 H Glucose 1184 H* POC Glucose POC Glucose (other) Estimat Average Glucose Hemoglobin A1c Osmolality Lactate Calcium 8.5 Phosphorus 9.0 H Magnesium 2.4 Total Bilirubin 1.0 AST 22 ALT 55 Alkaline Phosphatase 168 H Total Creatine Kinase Troponin I 0.246 H* Total Protein 6.8 Albumin 3.3 L Globulin 3.5 Albumin/Globulin Ratio 0.9 Beta-Hydroxybutyric Acd 108.80 H Procalcitonin Urine Color Urine Appearance Urine pH Ur Specific Fults Urine Protein Urine Glucose (UA) Urine Ketones Urine Blood Urine Nitrite Urine Bilirubin Urine Urobilinogen Ur Leukocyte Esterase Urine WBC (Auto) Urine RBC (Auto) U Hyaline Cast (Auto) U Epithel Cells (Auto) Urine Bacteria (Auto) Urine Osmolality Nasal Screen MRSA (PCR) Salicylates Urine Opiates Screen Ur Methadone, Qual Acetaminophen Urine Barbiturates Ur Phencyclidine (PCP) U Amphetamin/Meth Scrn MDMA (Ecstasy) Screen U Benzodiazepines Scrn Ur Cocaine Metabolite U Marijuana (THC) Screen Ethyl Alcohol mg/dL Hepatitis C Ab Screen Influenza Type A (PCR) Influenza Type B (PCR) 04/15/19 04/15/19 04/15/19 01:34 01:34 01:34 WBC RBC Hgb POC Hgb Hct POC Hct MCV MCH MCHC Plt Count Neutrophils % (Manual) Lymphocytes % (Manual) Monocytes % (Manual) Metamyelocytes % (Man) Neutrophils # (Manual) Total Absolute Neuts Lymphocytes # (Manual) Monocytes # (Manual) Metamyelocytes # (Man) Echinocytes PT INR APTT PTT Ratio Sample Site POC pH POC pCO2 POC pO2 POC HCO3 POC Total CO2 POC Base Excess ABG pH ABG pH (Temp Correct) ABG pCO2 ABG pCO2 (Temp Corrct ABG pO2 POC ABG pO2 at Pt Temp ABG HCO3 ABG O2 Saturation ABG Base Excess Calos Test VBG pH VBG pCO2 VBG pO2 VBG HCO3 VBG O2 Saturation VBG Base Excess Barometric Pressure Oxygen Given O2 Delivery Device POC O2 Rate Minute Ventilation POC FiO2 Tidal Volume PEEP POC Sodium Sodium POC Potassium Potassium Chloride Carbon Dioxide Anion Gap BUN Creatinine Est Cr Clr Drug Dosing Est GFR ( Amer) Est GFR (Non-Af Amer) BUN/Creatinine Ratio Glucose POC Glucose POC Glucose (other) Estimat Average Glucose 214 Hemoglobin A1c 9.1 H Osmolality Lactate 5.1 H* Calcium Phosphorus Magnesium Total Bilirubin AST ALT Alkaline Phosphatase Total Creatine Kinase Troponin I Total Protein Albumin Globulin Albumin/Globulin Ratio Beta-Hydroxybutyric Acd Procalcitonin 2.47 H Urine Color Urine Appearance Urine pH Ur Specific Fults Urine Protein Urine Glucose (UA) Urine Ketones Urine Blood Urine Nitrite Urine Bilirubin Urine Urobilinogen Ur Leukocyte Esterase Urine WBC (Auto) Urine RBC (Auto) U Hyaline Cast (Auto) U Epithel Cells (Auto) Urine Bacteria (Auto) Urine Osmolality Nasal Screen MRSA (PCR) Salicylates Urine Opiates Screen Ur Methadone, Qual Acetaminophen Urine Barbiturates Ur Phencyclidine (PCP) U Amphetamin/Meth Scrn MDMA (Ecstasy) Screen U Benzodiazepines Scrn Ur Cocaine Metabolite U Marijuana (THC) Screen Ethyl Alcohol mg/dL Hepatitis C Ab Screen Influenza Type A (PCR) Influenza Type B (PCR) 04/15/19 04/15/19 04/15/19 01:34 04:26 04:26 WBC RBC Hgb POC Hgb Hct POC Hct MCV MCH MCHC Plt Count Neutrophils % (Manual) Lymphocytes % (Manual) Monocytes % (Manual) Metamyelocytes % (Man) Neutrophils # (Manual) Total Absolute Neuts Lymphocytes # (Manual) Monocytes # (Manual) Metamyelocytes # (Man) Echinocytes PT INR APTT PTT Ratio Sample Site POC pH POC pCO2 POC pO2 POC HCO3 POC Total CO2 POC Base Excess ABG pH ABG pH (Temp Correct) ABG pCO2 ABG pCO2 (Temp Corrct ABG pO2 POC ABG pO2 at Pt Temp ABG HCO3 ABG O2 Saturation ABG Base Excess Calos Test VBG pH 7.12 L VBG pCO2 35 L VBG pO2 30 VBG HCO3 11 VBG O2 Saturation < 60.0 VBG Base Excess -17.4 Barometric Pressure Oxygen Given O2 Delivery Device POC O2 Rate Minute Ventilation POC FiO2 Tidal Volume PEEP POC Sodium Sodium POC Potassium Potassium Chloride Carbon Dioxide Anion Gap BUN Creatinine Est Cr Clr Drug Dosing Est GFR ( Amer) Est GFR (Non-Af Amer) BUN/Creatinine Ratio Glucose POC Glucose POC Glucose (other) Estimat Average Glucose Hemoglobin A1c Osmolality Lactate 4.4 H* Calcium Phosphorus Magnesium Total Bilirubin AST ALT Alkaline Phosphatase Total Creatine Kinase Troponin I Total Protein Albumin Globulin Albumin/Globulin Ratio Beta-Hydroxybutyric Acd Procalcitonin Urine Color Urine Appearance Urine pH Ur Specific Fults Urine Protein Urine Glucose (UA) Urine Ketones Urine Blood Urine Nitrite Urine Bilirubin Urine Urobilinogen Ur Leukocyte Esterase Urine WBC (Auto) Urine RBC (Auto) U Hyaline Cast (Auto) U Epithel Cells (Auto) Urine Bacteria (Auto) Urine Osmolality Nasal Screen MRSA (PCR) Salicylates Urine Opiates Screen Ur Methadone, Qual Acetaminophen Urine Barbiturates Ur Phencyclidine (PCP) U Amphetamin/Meth Scrn MDMA (Ecstasy) Screen U Benzodiazepines Scrn Ur Cocaine Metabolite U Marijuana (THC) Screen Ethyl Alcohol mg/dL Hepatitis C Ab Screen Pending Influenza Type A (PCR) Influenza Type B (PCR) 04/15/19 04/15/19 04/15/19 04:26 04:26 04:30 WBC 23.02 H RBC 3.77 L Hgb 10.6 L POC Hgb Hct 35.8 L POC Hct MCV 95.0 MCH 28.1 MCHC 29.6 L Plt Count 258 Neutrophils % (Manual) 86.9 Lymphocytes % (Manual) 6.1 Monocytes % (Manual) 6.1 Metamyelocytes % (Man) 0.9 Neutrophils # (Manual) 20.00 H Total Absolute Neuts 20.00 H Lymphocytes # (Manual) 1.40 Monocytes # (Manual) 1.40 H Metamyelocytes # (Man) 0.21 H Echinocytes 1+ PT INR APTT PTT Ratio Sample Site POC pH POC pCO2 POC pO2 POC HCO3 POC Total CO2 POC Base Excess ABG pH ABG pH (Temp Correct) ABG pCO2 ABG pCO2 (Temp Corrct ABG pO2 POC ABG pO2 at Pt Temp ABG HCO3 ABG O2 Saturation ABG Base Excess Calos Test VBG pH VBG pCO2 VBG pO2 VBG HCO3 VBG O2 Saturation VBG Base Excess Barometric Pressure Oxygen Given O2 Delivery Device POC O2 Rate Minute Ventilation POC FiO2 Tidal Volume PEEP POC Sodium Sodium 133 L POC Potassium Potassium 5.1 D Chloride 98 Carbon Dioxide 9 L* Anion Gap 26.0 H BUN 52 H Creatinine 2.16 H Est Cr Clr Drug Dosing 21.5 Est GFR ( Amer) 25.7 Est GFR (Non-Af Amer) 22.2 BUN/Creatinine Ratio 23.9 H Glucose 1063 H* POC Glucose > 600 H* POC Glucose (other) Estimat Average Glucose Hemoglobin A1c Osmolality Lactate Calcium 7.9 L Phosphorus 8.5 H Magnesium 2.1 Total Bilirubin 1.2 H AST 24 ALT 51 Alkaline Phosphatase 158 H Total Creatine Kinase Troponin I Total Protein 6.2 L Albumin 3.0 L Globulin 3.2 Albumin/Globulin Ratio 0.9 Beta-Hydroxybutyric Acd 106.75 H Procalcitonin Urine Color Urine Appearance Urine pH Ur Specific Fults Urine Protein Urine Glucose (UA) Urine Ketones Urine Blood Urine Nitrite Urine Bilirubin Urine Urobilinogen Ur Leukocyte Esterase Urine WBC (Auto) Urine RBC (Auto) U Hyaline Cast (Auto) U Epithel Cells (Auto) Urine Bacteria (Auto) Urine Osmolality Nasal Screen MRSA (PCR) Salicylates Urine Opiates Screen Ur Methadone, Qual Acetaminophen Urine Barbiturates Ur Phencyclidine (PCP) U Amphetamin/Meth Scrn MDMA (Ecstasy) Screen U Benzodiazepines Scrn Ur Cocaine Metabolite U Marijuana (THC) Screen Ethyl Alcohol mg/dL Hepatitis C Ab Screen Influenza Type A (PCR) Influenza Type B (PCR) 04/15/19 04/15/19 04/15/19 05:45 05:58 06:37 WBC RBC Hgb POC Hgb Hct POC Hct MCV MCH MCHC Plt Count Neutrophils % (Manual) Lymphocytes % (Manual) Monocytes % (Manual) Metamyelocytes % (Man) Neutrophils # (Manual) Total Absolute Neuts Lymphocytes # (Manual) Monocytes # (Manual) Metamyelocytes # (Man) Echinocytes PT INR APTT PTT Ratio Sample Site POC pH POC pCO2 POC pO2 POC HCO3 POC Total CO2 POC Base Excess ABG pH ABG pH (Temp Correct) ABG pCO2 ABG pCO2 (Temp Corrct ABG pO2 POC ABG pO2 at Pt Temp ABG HCO3 ABG O2 Saturation ABG Base Excess Calos Test VBG pH VBG pCO2 VBG pO2 VBG HCO3 VBG O2 Saturation VBG Base Excess Barometric Pressure Oxygen Given O2 Delivery Device POC O2 Rate Minute Ventilation POC FiO2 Tidal Volume PEEP POC Sodium Sodium POC Potassium Potassium Chloride Carbon Dioxide Anion Gap BUN Creatinine Est Cr Clr Drug Dosing Est GFR ( Amer) Est GFR (Non-Af Amer) BUN/Creatinine Ratio Glucose POC Glucose POC Glucose (other) > 700 H* Estimat Average Glucose Hemoglobin A1c Osmolality Lactate Calcium Phosphorus Magnesium Total Bilirubin AST ALT Alkaline Phosphatase Total Creatine Kinase Troponin I Cancelled Total Protein Albumin Globulin Albumin/Globulin Ratio Beta-Hydroxybutyric Acd Procalcitonin Urine Color Urine Appearance Urine pH Ur Specific Fults Urine Protein Urine Glucose (UA) Urine Ketones Urine Blood Urine Nitrite Urine Bilirubin Urine Urobilinogen Ur Leukocyte Esterase Urine WBC (Auto) Urine RBC (Auto) U Hyaline Cast (Auto) U Epithel Cells (Auto) Urine Bacteria (Auto) Urine Osmolality Nasal Screen MRSA (PCR) Negative Salicylates Urine Opiates Screen Ur Methadone, Qual Acetaminophen Urine Barbiturates Ur Phencyclidine (PCP) U Amphetamin/Meth Scrn MDMA (Ecstasy) Screen U Benzodiazepines Scrn Ur Cocaine Metabolite U Marijuana (THC) Screen Ethyl Alcohol mg/dL Hepatitis C Ab Screen Influenza Type A (PCR) Influenza Type B (PCR) 04/15/19 04/15/19 04/15/19 06:37 06:37 06:37 WBC RBC Hgb POC Hgb Hct POC Hct MCV MCH MCHC Plt Count Neutrophils % (Manual) Lymphocytes % (Manual) Monocytes % (Manual) Metamyelocytes % (Man) Neutrophils # (Manual) Total Absolute Neuts Lymphocytes # (Manual) Monocytes # (Manual) Metamyelocytes # (Man) Echinocytes PT INR APTT PTT Ratio Sample Site POC pH POC pCO2 POC pO2 POC HCO3 POC Total CO2 POC Base Excess ABG pH 7.19 L* ABG pH (Temp Correct) ABG pCO2 23 L ABG pCO2 (Temp Corrct ABG pO2 111 H POC ABG pO2 at Pt Temp ABG HCO3 9 L ABG O2 Saturation 98.0 H ABG Base Excess -18.1 L Calos Test Pos VBG pH VBG pCO2 VBG pO2 VBG HCO3 VBG O2 Saturation VBG Base Excess Barometric Pressure 724.9 Oxygen Given 30% O2 Delivery Device POC O2 Rate Minute Ventilation POC FiO2 Tidal Volume PEEP POC Sodium Sodium 136 POC Potassium Potassium 3.9 D Chloride 101 Carbon Dioxide 8 L* Anion Gap 27.0 H BUN 53 H Creatinine 2.12 H Est Cr Clr Drug Dosing 21.9 Est GFR ( Amer) 26.3 Est GFR (Non-Af Amer) 22.7 BUN/Creatinine Ratio 24.9 H Glucose 891 H* POC Glucose POC Glucose (other) Estimat Average Glucose Hemoglobin A1c Osmolality Lactate 3.8 H* Calcium 7.5 L Phosphorus 6.1 H D Magnesium 2.0 Total Bilirubin AST ALT Alkaline Phosphatase Total Creatine Kinase Troponin I 4.190 H* Total Protein Albumin Globulin Albumin/Globulin Ratio Beta-Hydroxybutyric Acd 98.97 H Procalcitonin Urine Color Urine Appearance Urine pH Ur Specific Fults Urine Protein Urine Glucose (UA) Urine Ketones Urine Blood Urine Nitrite Urine Bilirubin Urine Urobilinogen Ur Leukocyte Esterase Urine WBC (Auto) Urine RBC (Auto) U Hyaline Cast (Auto) U Epithel Cells (Auto) Urine Bacteria (Auto) Urine Osmolality Nasal Screen MRSA (PCR) Salicylates Urine Opiates Screen Ur Methadone, Qual Acetaminophen Urine Barbiturates Ur Phencyclidine (PCP) U Amphetamin/Meth Scrn MDMA (Ecstasy) Screen U Benzodiazepines Scrn Ur Cocaine Metabolite U Marijuana (THC) Screen Ethyl Alcohol mg/dL Hepatitis C Ab Screen Influenza Type A (PCR) Influenza Type B (PCR) 04/15/19 04/15/19 04/15/19 06:37 08:01 08:01 WBC RBC Hgb POC Hgb Hct POC Hct MCV MCH MCHC Plt Count Neutrophils % (Manual) Lymphocytes % (Manual) Monocytes % (Manual) Metamyelocytes % (Man) Neutrophils # (Manual) Total Absolute Neuts Lymphocytes # (Manual) Monocytes # (Manual) Metamyelocytes # (Man) Echinocytes PT INR APTT PTT Ratio Sample Site POC pH POC pCO2 POC pO2 POC HCO3 POC Total CO2 POC Base Excess ABG pH 7.25 L ABG pH (Temp Correct) ABG pCO2 20 L ABG pCO2 (Temp Corrct ABG pO2 107 H POC ABG pO2 at Pt Temp ABG HCO3 9 L ABG O2 Saturation 97.7 H ABG Base Excess -16.7 L Calos Test Pos VBG pH VBG pCO2 VBG pO2 VBG HCO3 VBG O2 Saturation VBG Base Excess Barometric Pressure 724.4 Oxygen Given 30% O2 Delivery Device POC O2 Rate Minute Ventilation POC FiO2 Tidal Volume PEEP POC Sodium Sodium 136 POC Potassium Potassium 3.7 Chloride 101 Carbon Dioxide 8 L* Anion Gap 27.0 H BUN 51 H Creatinine 2.09 H Est Cr Clr Drug Dosing 22.2 Est GFR ( Amer) 26.7 Est GFR (Non-Af Amer) 23.1 BUN/Creatinine Ratio 24.3 H Glucose 841 H* POC Glucose POC Glucose (other) Estimat Average Glucose Hemoglobin A1c Osmolality 357 H* Lactate Calcium 7.6 L Phosphorus 4.5 D Magnesium 1.9 Total Bilirubin AST ALT Alkaline Phosphatase Total Creatine Kinase 140 Troponin I Total Protein Albumin Globulin Albumin/Globulin Ratio Beta-Hydroxybutyric Acd 94.46 H Procalcitonin Urine Color Urine Appearance Urine pH Ur Specific Fults Urine Protein Urine Glucose (UA) Urine Ketones Urine Blood Urine Nitrite Urine Bilirubin Urine Urobilinogen Ur Leukocyte Esterase Urine WBC (Auto) Urine RBC (Auto) U Hyaline Cast (Auto) U Epithel Cells (Auto) Urine Bacteria (Auto) Urine Osmolality Nasal Screen MRSA (PCR) Salicylates Urine Opiates Screen Ur Methadone, Qual Acetaminophen Urine Barbiturates Ur Phencyclidine (PCP) U Amphetamin/Meth Scrn MDMA (Ecstasy) Screen U Benzodiazepines Scrn Ur Cocaine Metabolite U Marijuana (THC) Screen Ethyl Alcohol mg/dL Hepatitis C Ab Screen Influenza Type A (PCR) Influenza Type B (PCR) 04/15/19 04/15/19 04/15/19 08:10 08:10 08:31 WBC RBC Hgb POC Hgb Hct POC Hct MCV MCH MCHC Plt Count Neutrophils % (Manual) Lymphocytes % (Manual) Monocytes % (Manual) Metamyelocytes % (Man) Neutrophils # (Manual) Total Absolute Neuts Lymphocytes # (Manual) Monocytes # (Manual) Metamyelocytes # (Man) Echinocytes PT INR APTT PTT Ratio Sample Site POC pH POC pCO2 POC pO2 POC HCO3 POC Total CO2 POC Base Excess ABG pH ABG pH (Temp Correct) ABG pCO2 ABG pCO2 (Temp Corrct ABG pO2 POC ABG pO2 at Pt Temp ABG HCO3 ABG O2 Saturation ABG Base Excess Calos Test VBG pH VBG pCO2 VBG pO2 VBG HCO3 VBG O2 Saturation VBG Base Excess Barometric Pressure Oxygen Given O2 Delivery Device POC O2 Rate Minute Ventilation POC FiO2 Tidal Volume PEEP POC Sodium Sodium POC Potassium Potassium Chloride Carbon Dioxide Anion Gap BUN Creatinine Est Cr Clr Drug Dosing Est GFR ( Amer) Est GFR (Non-Af Amer) BUN/Creatinine Ratio Glucose POC Glucose POC Glucose (other) Estimat Average Glucose Hemoglobin A1c Osmolality Lactate Calcium Phosphorus Magnesium Total Bilirubin AST ALT Alkaline Phosphatase Total Creatine Kinase Troponin I Total Protein Albumin Globulin Albumin/Globulin Ratio Beta-Hydroxybutyric Acd Procalcitonin Urine Color Urine Appearance Urine pH Ur Specific Fults Urine Protein Urine Glucose (UA) Urine Ketones Urine Blood Urine Nitrite Urine Bilirubin Urine Urobilinogen Ur Leukocyte Esterase Urine WBC (Auto) Urine RBC (Auto) U Hyaline Cast (Auto) U Epithel Cells (Auto) Urine Bacteria (Auto) Urine Osmolality 456 L Nasal Screen MRSA (PCR) Salicylates 5.1 Urine Opiates Screen Neg Ur Methadone, Qual Neg Acetaminophen 2 L Urine Barbiturates Neg Ur Phencyclidine (PCP) Neg U Amphetamin/Meth Scrn Neg MDMA (Ecstasy) Screen Neg U Benzodiazepines Scrn Neg Ur Cocaine Metabolite Neg U Marijuana (THC) Screen Neg Ethyl Alcohol mg/dL Hepatitis C Ab Screen Influenza Type A (PCR) Influenza Type B (PCR) 04/15/19 04/15/19 04/15/19 08:31 09:07 09:07 WBC RBC Hgb POC Hgb Hct POC Hct MCV MCH MCHC Plt Count Neutrophils % (Manual) Lymphocytes % (Manual) Monocytes % (Manual) Metamyelocytes % (Man) Neutrophils # (Manual) Total Absolute Neuts Lymphocytes # (Manual) Monocytes # (Manual) Metamyelocytes # (Man) Echinocytes PT INR APTT PTT Ratio Sample Site POC pH POC pCO2 POC pO2 POC HCO3 POC Total CO2 POC Base Excess ABG pH ABG pH (Temp Correct) ABG pCO2 ABG pCO2 (Temp Corrct ABG pO2 POC ABG pO2 at Pt Temp ABG HCO3 ABG O2 Saturation ABG Base Excess Calos Test VBG pH VBG pCO2 VBG pO2 VBG HCO3 VBG O2 Saturation VBG Base Excess Barometric Pressure Oxygen Given O2 Delivery Device POC O2 Rate Minute Ventilation POC FiO2 Tidal Volume PEEP POC Sodium Sodium Cancelled POC Potassium Potassium Cancelled Chloride Cancelled Carbon Dioxide Cancelled Anion Gap Cancelled BUN Cancelled Creatinine Cancelled Est Cr Clr Drug Dosing Cancelled Est GFR ( Amer) Cancelled Est GFR (Non-Af Amer) Cancelled BUN/Creatinine Ratio Cancelled Glucose Cancelled POC Glucose POC Glucose (other) Estimat Average Glucose Hemoglobin A1c Osmolality Lactate Calcium Cancelled Phosphorus Cancelled Magnesium Cancelled Total Bilirubin AST ALT Alkaline Phosphatase Total Creatine Kinase Troponin I Total Protein Albumin Globulin Albumin/Globulin Ratio Beta-Hydroxybutyric Acd Procalcitonin Urine Color Urine Appearance Urine pH Ur Specific Fults Urine Protein Urine Glucose (UA) Urine Ketones Urine Blood Urine Nitrite Urine Bilirubin Urine Urobilinogen Ur Leukocyte Esterase Urine WBC (Auto) Urine RBC (Auto) U Hyaline Cast (Auto) U Epithel Cells (Auto) Urine Bacteria (Auto) Urine Osmolality Nasal Screen MRSA (PCR) Salicylates Urine Opiates Screen Ur Methadone, Qual Acetaminophen Urine Barbiturates Ur Phencyclidine (PCP) U Amphetamin/Meth Scrn MDMA (Ecstasy) Screen U Benzodiazepines Scrn Ur Cocaine Metabolite U Marijuana (THC) Screen Ethyl Alcohol mg/dL Cancelled < 3.0 Hepatitis C Ab Screen Influenza Type A (PCR) Influenza Type B (PCR) 04/15/19 04/15/19 09:07 09:11 WBC RBC Hgb POC Hgb 10.9 L Hct POC Hct 32 L MCV MCH MCHC Plt Count Neutrophils % (Manual) Lymphocytes % (Manual) Monocytes % (Manual) Metamyelocytes % (Man) Neutrophils # (Manual) Total Absolute Neuts Lymphocytes # (Manual) Monocytes # (Manual) Metamyelocytes # (Man) Echinocytes PT INR APTT PTT Ratio Sample Site Art Line POC pH 7.27 L POC pCO2 19 L POC pO2 120 H POC HCO3 9 L POC Total CO2 9 L* POC Base Excess -18.0 L ABG pH ABG pH (Temp Correct) 7.279 L ABG pCO2 ABG pCO2 (Temp Corrct 18 L ABG pO2 POC ABG pO2 at Pt Temp 118 ABG HCO3 ABG O2 Saturation ABG Base Excess Calos Test NA VBG pH VBG pCO2 VBG pO2 VBG HCO3 VBG O2 Saturation VBG Base Excess Barometric Pressure Oxygen Given O2 Delivery Device Ventilator POC O2 Rate 28 Minute Ventilation 12 POC FiO2 30 Tidal Volume 420 PEEP 5 POC Sodium 134 L Sodium Pending POC Potassium 3.7 Potassium Pending Chloride Pending Carbon Dioxide Pending Anion Gap Pending BUN Pending Creatinine Pending Est Cr Clr Drug Dosing Pending Est GFR ( Amer) Pending Est GFR (Non-Af Amer) Pending BUN/Creatinine Ratio Pending Glucose Pending POC Glucose POC Glucose (other) Estimat Average Glucose Hemoglobin A1c Osmolality Lactate Calcium Pending Phosphorus Pending Magnesium Pending Total Bilirubin AST ALT Alkaline Phosphatase Total Creatine Kinase Troponin I Total Protein Albumin Globulin Albumin/Globulin Ratio Beta-Hydroxybutyric Acd Procalcitonin Urine Color Urine Appearance Urine pH Ur Specific Fults Urine Protein Urine Glucose (UA) Urine Ketones Urine Blood Urine Nitrite Urine Bilirubin Urine Urobilinogen Ur Leukocyte Esterase Urine WBC (Auto) Urine RBC (Auto) U Hyaline Cast (Auto) U Epithel Cells (Auto) Urine Bacteria (Auto) Urine Osmolality Nasal Screen MRSA (PCR) Salicylates Urine Opiates Screen Ur Methadone, Qual Acetaminophen Urine Barbiturates Ur Phencyclidine (PCP) U Amphetamin/Meth Scrn MDMA (Ecstasy) Screen U Benzodiazepines Scrn Ur Cocaine Metabolite U Marijuana (THC) Screen Ethyl Alcohol mg/dL Hepatitis C Ab Screen Influenza Type A (PCR) Influenza Type B (PCR) Medications Administered Active Medications Generic Name Dose Route Start Last Admin Trade Name Freq PRN Reason Stop Dose Admin Dextrose 25 - 50 ml 04/15/19 02:39 Dextrose 50% IV 05/15/19 02:38 UD PRN Hypoglycemia Protocol Protocol Fentanyl Citrate 25 mcg 04/15/19 09:41 Fentanyl Citrate IV 04/29/19 09:40 Q2H PRN pain/sedation on vent Glucagon 1 mg 04/15/19 02:39 Glucagen SQ 05/15/19 02:38 UD PRN Hypoglycemia Protocol Protocol Glucose 4 - 8 tabs 04/15/19 02:39 Dex4 Glucose PO 05/15/19 02:38 UD PRN Hypoglycemia Protocol Protocol Glucose 15 - 30 gm 04/15/19 02:39 Glucose 40% PO 05/15/19 02:38 UD PRN Hypoglycemia Protocol Protocol Heparin Sodium (Porcine) 5,000 units 04/15/19 06:00 04/15/19 06:17 Heparin Sodium (Porcine) SQ 05/15/19 05:59 5,000 units Q8 LINDA Administration Propofol 1,000 mg in 100 mls @ 8.748 mls/hr 04/15/19 04:00 04/15/19 07:29 Diprivan IV 04/18/19 03:59 10.06 mcg/kg/min .[id number] LINDA 4.4 mls/hr Titration Protocol 20 MCG/KG/MIN Norepinephrine Bitartrate 8 mg 508 mls @ 8.333 mls/hr 04/15/19 04:15 04/15/19 05:45 / Dextrose IV 05/15/19 04:14 Not Given .Q24H LINDA Protocol 0.03 MCG/KG/MIN Insulin Human Regular 250 250 mls @ 7 mls/hr 04/15/19 04:15 04/15/19 07:52 units/ Sodium Chloride IV 05/15/19 04:14 7 units/hr .Q24H LINDA 7 mls/hr Titration Protocol 7 UNITS/HR Linezolid 600 mg in 300 mls @ 200 mls/hr 04/15/19 06:00 04/15/19 07:55 Zyvox IV 04/17/19 05:59 Infused Q12H LINDA Infusion Piperacillin Sod/Tazobactam 120 mls @ 28.75 mls/hr 04/15/19 10:00 Sod 4.5 gm/ Dextrose IV 04/25/19 09:59 Q8H LINDA Protocol Potassium Chloride/Sodium Chloride 20 meq in 1,000 mls @ 250 mls/hr 04/15/19 08:00 04/15/19 07:57 1/2 Nss + 20meq Kcl 1000ml IV 05/15/19 07:59 250 mls/hr .Q4H LINDA Administration Insulin Aspart 0 units 04/15/19 07:30 04/15/19 07:49 Novolog Flexpen SC 05/15/19 07:29 Not Given ACHS LINDA Lansoprazole 30 mg 04/15/19 11:00 Prevacid NG 05/15/19 10:59 DAILY@1100 LINDA Miscellaneous 15 - 30 gm 04/15/19 02:39 Carbohydrates For Hypoglycemia PO 05/15/19 02:38 UD PRN Hypoglycemia Protocol Miscellaneous 1 ea 04/15/19 04:15 04/15/19 05:46 Pending D5 1/2ns+20meq Kcl Ivf N/A 05/15/19 04:14 Not Given Q2H LINDA Miscellaneous Information 1 ea 04/15/19 02:37 Consult N/A 05/15/19 02:36 UD PRN Consult Miscellaneous Information 1 ea 04/15/19 05:38 Consult N/A 05/15/19 05:37 UD PRN Consult Miscellaneous Information 1 ea 04/15/19 06:00 Consult Glycemic Management Pharmacy N/A 05/15/19 05:45 UD PRN Consult Propofol 20 mg 04/15/19 03:55 Diprivan Bolus From Bag IV 04/18/19 03:54 Q5M PRN Sedation PG Care Time/CCT Total # of Minutes Spent Total Time Spent with Patient: Total time spent is greater than 50% in coordination of care (as documented) at patient's floor/unit and/or counseling patient: Coding Level of Care Code 75312 Initial Inpt Care Lvl 3 Diagnoses DKA (diabetic ketoacidoses) E10.11 Diabetes mellitus complication detail: with coma Diabetes mellitus type: type 1 Acute hyperkalemia E87.5 Elevated troponin I level R79.89 Abnormal ECG R94.31 (1) DKA (diabetic ketoacidoses) Diabetes mellitus complication detail: with coma Diabetes mellitus type: type 1 Qualified Code(s): E10.11 - Type 1 diabetes mellitus with ketoacidosis with coma
[2019-04-15 09:28] LABS: iSTAT Art Bld Gas pCO2 Correct 18 mmHg (35-46); iSTAT Art Bld Gas pH Corrected 7.279 (7.35-7.45); iSTAT Arterial Blood Gas HCO3 9 meg/L (19-24); iSTAT Arterial Blood Gas pCO2 19 mmHg (35-46); iSTAT Arterial Blood Gas pH 7.27 (7.35-7.45); iSTAT Arterial Blood Gas pO2 120 mmHg (80-95); iSTAT Arterial Blood Gas pO2 C 118; iSTAT Carbon Dioxide 9 mmol/L (24-31); iSTAT FiO2 30 %; iSTAT Hematocrit 32 % (37-47); iSTAT Hemoglobin 10.9 g/dl (12.0-16.0); iSTAT Potassium 3.7 mmol/L (3.3-5.0); iSTAT Site Art Line; iSTAT Sodium 134 mmol/L (135-144)
--- NOTE | 2019-04-15 09:39 | Billing Data ---
Date of Service April 15, 2019 Coding Level of Care Code Critical Care 1st 30-74 mins Time Spent (min) 45
[2019-04-15 09:47] LABS: Beta-Hydroxybutyrate 94.46 mg/dl (0.2-2.81)
[2019-04-15] MEDS: PIPERACILLIN/TAZOBACTAM 4.5 GM in DEXTROSE 5% 100 ML IV SCH ×2 (10:18→17:51)
[2019-04-15 10:24] LABS: BUN Creatinine Ratio 23.3 (10-20); Calcium 7.4 mg/dl (8.5-10.1); Est GFR (African American) 26.4; Est GFR (Non-African American) 22.8; Magnesium 1.9 mg/dl (1.8-2.4); Phosphorus 3.9 mg/dl (2.5-4.9); Potassium 3.8 mmol/L (3.5-5.1)
[2019-04-15] MEDS: fentaNYL citrate 100 MCG/2 ML VIAL IV PRN (10:25)
[2019-04-15] MEDS: LANSOPRAZOLE 30 MG SOLTAB NG SCH (10:26)
[2019-04-15 10:41] LABS: Beta-Hydroxybutyrate 86.06 mg/dl (0.2-2.81)
--- NOTE | 2019-04-15 10:57 | Electrocardiogram Report ---
Test Reason : Blood Pressure : / mmHG Vent. Rate : 107 BPM Atrial Rate : 107 BPM P-R Int : 156 ms QRS Dur : 108 ms QT Int : 370 ms P-R-T Axes : 062 263 047 degrees QTc Int : 493 ms Sinus tachycardia Nonspecific ST abnormality Abnormal ECG When compared with ECG of 29-DEC-2017 18:53, QRS duration has increased Borderline criteria for Anterior infarct are no longer Present ST now depressed in Anterolateral leads QT has lengthened Confirmed by Braden Salguero ([id number]) on 04/15/2019 10:56:46 AM Referred By: REFERRED SELF Confirmed By:Braden Salguero
--- NOTE | 2019-04-15 11:08 | Electrocardiogram Report ---
Test Reason : Blood Pressure : / mmHG Vent. Rate : 102 BPM Atrial Rate : 102 BPM P-R Int : 162 ms QRS Dur : 086 ms QT Int : 388 ms P-R-T Axes : 065 004 067 degrees QTc Int : 505 ms Sinus tachycardia Low voltage QRS Cannot rule out Anterior infarct , age undetermined Abnormal ECG When compared with ECG of 15-APR-2019 01:31, (unconfirmed) QRS duration has decreased Minimal criteria for Anterior infarct are now Present Confirmed by Braden Salguero ([id number]) on 04/15/2019 11:07:54 AM Referred By: REFERRED SELF Confirmed By:Braden Salguero
--- NOTE | 2019-04-15 11:08 | Electrocardiogram Report ---
Test Reason : Blood Pressure : / mmHG Vent. Rate : 102 BPM Atrial Rate : 102 BPM P-R Int : 154 ms QRS Dur : 086 ms QT Int : 394 ms P-R-T Axes : 070 021 069 degrees QTc Int : 513 ms Sinus tachycardia Low voltage QRS Borderline ECG When compared with ECG of 15-APR-2019 07:20, (unconfirmed) No significant change was found Confirmed by Braden Salguero ([id number]) on 04/15/2019 11:08:20 AM Referred By: REFERRED SELF Confirmed By:Braden Salguero
--- NOTE | 2019-04-15 11:14 | Hospitalist Progress Note ---
Date of Service April 15, 2019 Assessment & Plan (1) DKA (diabetic ketoacidoses): 73 yo F with T1DM, dementia, osteoporosis admitted to the ICU for altered mental status and severe DKA. Defer primary medical decisions to ICU team, will follow peripherally. 1. DKA - admitted with Beta-OH of 108, blood glucose of 1184, A1c 9.1 - insulin drip to close anion gap - altered mental status secondary to DKA vs. Dementia - sedated on propofol drip at this time 2. Sepsis 2/2 unknown source - WBC 23 on admission, procal 2.47, lactate 5.1, downtrending to 2.8 with hydration. - CT chest showed no acute intrapulmonary pathology; 5mm nodule noted in addition to possible cystic lesion on T12 vertebrae with concern for underlying malignancy - UA showed 3+ gluc, 1+ ketones, 2+ blood however no nitrites or LE - hypotensive requiring Levophed support - negative for flu A and B - blood cultures pending - Zosyn and Zyvox for empiric coverage - following cbc 3. Acute NM/Troponin elevation - Trop of 4.190 on admission, hx of diastolic dysfunction - EKG with acute changes - Cardiac echo: EF>70, hyperdynamic movement with no valvular abnormalities, no focal wall motion abnormalities - Cardiac consult: EKG changes likley secondary to hyperkalemia, metabolic derangements. ASA, atorvastatin when extubated. Consider addition of BB when extubated and able to tolerate PO. 4. Acute hypoxic respiratory failure - mechanically ventilated - cxr negative for active disease 5. DAYNE - likely secondary to DKA - rehydration with IVF - following bmp LINES/IV ACCESS: R Fem Art triple lumen, Central venous, L arm peripheral, OJ, [place] CODE STATUS: Full DVT PROPHYLAXIS: Heparin (2) Altered mental status: (3) Acute hyperkalemia: (4) Metabolic acidosis: (5) Uncontrolled type 1 diabetes mellitus with retinopathy, with long-term current use of insulin: (6) Microalbuminuria: (7) Hypertension: (8) Depression: (9) Hyperlipidemia: Admission and Anticipated Discharge Date Admission Date: April 15, 2019 Supervising Physician Co-Signing Physician Notes Agree with above note. Patient was admitted today. Subjective 73 yo with T1DM, Dementia, osteoporosis, diastolic dysfunction who was admitted to the ICU for profound DKA after being found down at home. Review of Systems Review of Systems: Unobtainable due to endotracheal tube Physical Exam Constitutional: + ill appearing, + obese, + disheveled and + mechanically ventilated ENMT: Intubated Neck: normal visual inspection and trachea midline Respiratory: Auscultation: lungs clear to auscultation bilaterally; no crackles, no rales and no wheezes Cardiovascular: Rate/Rhythm: + tachycardic Heart Sounds: no murmur Vessels: no JVD Extremities: no edema Gastrointestinal (Abdomen): Inspection/Auscultation: abdomen not distended Percussion/Palpation: abdomen soft; abdomen not rigid OJ tube in place Skin: no rashes, no lesions and no ulcers Neurologic: Sedated on propofol running at 10 mcg/kg Genitourinary: De [place] Fuente in place Results & Data ([facility]) Vital Signs (Past 12 Hours) Vital Signs Temp Pulse Resp BP Pulse Ox 04/15/19 09:20 24 04/15/19 07:03 104 H 28 H 100 04/15/19 06:31 28 H 04/15/19 05:45 116 H 28 H 100 04/15/19 05:40 36.6 C 115 H 28 H 100 04/15/19 05:05 117 H 131/53 L 96 04/15/19 05:00 117 H 127/54 L 98 04/15/19 04:55 119 H 128/56 L 96 04/15/19 04:50 117 H 122/51 L 98 04/15/19 04:45 118 H 124/50 L 98 04/15/19 04:40 120 H 124/52 L 98 04/15/19 04:35 123 H 141/60 H 99 04/15/19 04:30 120 H 153/84 H 98 04/15/19 04:21 118 H 149/70 H 97 04/15/19 04:11 100 H 104/50 L 04/15/19 04:07 93 H 74/46 L 04/15/19 04:01 89 64/40 L 04/15/19 04:00 90 28 H 96 04/15/19 03:58 81 92/42 L 04/15/19 03:56 90 19 47/31 L 04/15/19 03:30 98 H 17 95/32 L 90 04/15/19 03:19 99 04/15/19 03:15 100 H 21 89/49 L 99 04/15/19 03:01 93 H 17 84/61 L 94 04/15/19 02:45 101 H 20 106/47 L 88 L 04/15/19 02:30 98 H 23 103/51 L 87 L 04/15/19 02:15 98 H 21 101/73 95 04/15/19 01:47 97 H 18 111/60 98 04/15/19 01:41 98 H 17 81/35 L 97 04/15/19 01:39 98 H 17 68/39 L 98 04/15/19 01:37 108 H 17 59/31 L 100 04/15/19 01:30 36.7 C 101 H 20 99/51 L 99 04/15/19 01:16 105 H 16 142/94 H 97 04/15/19 04/15/19 04/15/19 Range/Units Unknown 15:53 15:37 WBC (4.8-10.8) K/uL RBC (4.2-5.4) M/uL Hgb (12.0-16.0) g/dL POC Hgb (12.0-16.0) g/dl Hct (37-47) % POC Hct (37-47) % MCV (80-100) fL MCH (25-34) pg MCHC (32-36) g/dL Plt Count (130-400) K/uL Neutrophils % (Manual) % Lymphocytes % (Manual) % Monocytes % (Manual) % Metamyelocytes % (Man) % Neutrophils # (Manual) (1.4-6.5) K/uL Total Absolute Neuts (1.4-6.5) K/uL Lymphocytes # (Manual) (1.2-3.4) K/uL Monocytes # (Manual) (0.11-0.59) K/uL Metamyelocytes # (Man) (0-0) K/uL Echinocytes PT (9.0-12.0) Seconds INR (0.9-1.1) APTT (21.0-31.0) Seconds PTT Ratio Specimen Type Sample Site POC pH (7.35-7.45) POC pCO2 (35-46) mmHg POC pO2 (80-95) mmHg POC HCO3 (19-24) enrique/L POC Total CO2 (24-31) mmol/L POC Base Excess (-9-1.8) enrique/L POC O2 Saturation ABG pH (7.35-7.45) ABG pH (Temp Correct) (7.35-7.45) ABG pCO2 (35-46) mmHg ABG pCO2 (Temp Corrct (35-46) mmHg ABG pO2 (80-95) mmHg POC ABG pO2 at Pt Temp ABG HCO3 (19-24) mmol/L ABG O2 Saturation (90-95) % ABG Base Excess (-9-1.8) mEq/L Calos Test (Pos) VBG pH (7.36-7.41) VBG pCO2 (38-50) mmHg VBG pO2 mmHg VBG HCO3 mmol/L VBG O2 Saturation % VBG Base Excess mEq/L Barometric Pressure mm/Hg Oxygen Given O2 Delivery Device POC O2 Rate Minute Ventilation POC FiO2 % Tidal Volume PEEP POC Sodium (135-144) mmol/L Sodium Pending (136-145) mmol/L POC Potassium (3.3-5.0) mmol/L Potassium Pending (3.5-5.1) mmol/L Chloride Pending (98-107) mmol/L Carbon Dioxide Pending (21-32) mmol/L Anion Gap Pending (3-11) BUN Pending (7-18) mg/dl Creatinine Pending (0.6-1.2) mg/dl Est Cr Clr Drug Dosing Pending Est GFR ( Amer) Pending Est GFR (Non-Af Amer) Pending BUN/Creatinine Ratio Pending (10-20) Glucose Pending (70-99) mg/dl POC Glucose (70-99) mg/dl POC Glucose (other) 471 H* (70-99) mg/dl Estimat Average Glucose mg/dl Hemoglobin A1c (4.5-5.6) % Osmolality (280-300) mOsm/kg Lactate (0.4-2.0) mmol/L Calcium Pending (8.5-10.1) mg/dl Phosphorus Pending (2.5-4.9) mg/dl Magnesium Pending (1.8-2.4) mg/dl Total Bilirubin (0.2-1) mg/dl AST (15-37) U/L ALT (12-78) U/L Alkaline Phosphatase (45-117) U/L Total Creatine Kinase (26-192) U/L Troponin I (0-0.045) ng/ml Total Protein (6.4-8.2) gm/dl Albumin (3.4-5.0) gm/dl Globulin (2.5-4.0) gm/dl Albumin/Globulin Ratio (0.9-2) Beta-Hydroxybutyric Acd (0.2-2.81) mg/dl Procalcitonin (0-0.5) ng/ml Random Cortisol mcg/dl Urine Color Yellow Urine Appearance Cloudy A (Clear) Urine pH 5.0 (4.5-7.5) Ur Specific [place] 1.030 (1.000-1.030) Urine Protein 1+ H (Negative) Urine Glucose (UA) 3+ H (Negative) Urine Ketones 1+ H (Negative) Urine Blood 2+ H (Negative) Urine Nitrite Negative (Negative) Urine Bilirubin Negative (Negative) Urine Urobilinogen Negative (Negative) Ur Leukocyte Esterase Negative (Negative) Urine WBC (Auto) 5-10 H (0-5) /hpf Urine RBC (Auto) 5-10 H (0-4) /hpf U Hyaline Cast (Auto) 5-10 H (0-5) /lpf U Epithel Cells (Auto) 10-20 H (0-5) /lpf Urine Bacteria (Auto) 1+ H (Negative) Amorphous Sediment Present A (None Prsent) Urine Osmolality (500-800) mOsm/kg Nasal Screen MRSA (PCR) (Negative) Salicylates (2.8-20) mg/dl Urine Opiates Screen (Neg) Ur Methadone, Qual (Neg) Acetaminophen (10-30) ug/ml Urine Barbiturates (Neg) Ur Phencyclidine (PCP) (Neg) U Amphetamin/Meth Scrn (Neg) MDMA (Ecstasy) Screen (Neg) U Benzodiazepines Scrn (Neg) Ur Cocaine Metabolite (Neg) U Marijuana (THC) Screen (Neg) Ethyl Alcohol mg/dL Hepatitis C Ab Screen (Neg) Influenza Type A (PCR) (Neg) Influenza Type B (PCR) (Neg) 04/15/19 04/15/19 04/15/19 Range/Units 13:40 13:40 12:46 WBC (4.8-10.8) K/uL RBC (4.2-5.4) M/uL Hgb (12.0-16.0) g/dL POC Hgb (12.0-16.0) g/dl Hct (37-47) % POC Hct (37-47) % MCV (80-100) fL MCH (25-34) pg MCHC (32-36) g/dL Plt Count (130-400) K/uL Neutrophils % (Manual) % Lymphocytes % (Manual) % Monocytes % (Manual) % Metamyelocytes % (Man) % Neutrophils # (Manual) (1.4-6.5) K/uL Total Absolute Neuts (1.4-6.5) K/uL Lymphocytes # (Manual) (1.2-3.4) K/uL Monocytes # (Manual) (0.11-0.59) K/uL Metamyelocytes # (Man) (0-0) K/uL Echinocytes PT (9.0-12.0) Seconds INR (0.9-1.1) APTT (21.0-31.0) Seconds PTT Ratio Specimen Type Sample Site POC pH (7.35-7.45) POC pCO2 (35-46) mmHg POC pO2 (80-95) mmHg POC HCO3 (19-24) enrique/L POC Total CO2 (24-31) mmol/L POC Base Excess (-9-1.8) enrique/L POC O2 Saturation ABG pH 7.51 H* (7.35-7.45) ABG pH (Temp Correct) (7.35-7.45) ABG pCO2 23 L (35-46) mmHg ABG pCO2 (Temp Corrct (35-46) mmHg ABG pO2 97 H (80-95) mmHg POC ABG pO2 at Pt Temp ABG HCO3 18 L (19-24) mmol/L ABG O2 Saturation 98.0 H (90-95) % ABG Base Excess -4.2 (-9-1.8) mEq/L Calos Test ART LINE (Pos) VBG pH (7.36-7.41) VBG pCO2 (38-50) mmHg VBG pO2 mmHg VBG HCO3 mmol/L VBG O2 Saturation % VBG Base Excess mEq/L Barometric Pressure 719.8 mm/Hg Oxygen Given 30% O2 Delivery Device POC O2 Rate Minute Ventilation POC FiO2 % Tidal Volume PEEP POC Sodium (135-144) mmol/L Sodium 135 L (136-145) mmol/L POC Potassium (3.3-5.0) mmol/L Potassium 3.6 (3.5-5.1) mmol/L Chloride 102 (98-107) mmol/L Carbon Dioxide 16 L (21-32) mmol/L Anion Gap 17.0 H (3-11) BUN 52 H (7-18) mg/dl Creatinine 2.35 H (0.6-1.2) mg/dl Est Cr Clr Drug Dosing 19.8 Est GFR ( Amer) 23.2 Est GFR (Non-Af Amer) 20.0 BUN/Creatinine Ratio 21.9 H (10-20) Glucose 586 H* 642 H* (70-99) mg/dl POC Glucose (70-99) mg/dl POC Glucose (other) (70-99) mg/dl Estimat Average Glucose mg/dl Hemoglobin A1c (4.5-5.6) % Osmolality (280-300) mOsm/kg Lactate (0.4-2.0) mmol/L Calcium 7.7 L (8.5-10.1) mg/dl Phosphorus 1.7 L D (2.5-4.9) mg/dl Magnesium 1.8 (1.8-2.4) mg/dl Total Bilirubin (0.2-1) mg/dl AST (15-37) U/L ALT (12-78) U/L Alkaline Phosphatase (45-117) U/L Total Creatine Kinase (26-192) U/L Troponin I (0-0.045) ng/ml Total Protein (6.4-8.2) gm/dl Albumin (3.4-5.0) gm/dl Globulin (2.5-4.0) gm/dl Albumin/Globulin Ratio (0.9-2) Beta-Hydroxybutyric Acd 31.01 H 40.29 H (0.2-2.81) mg/dl Procalcitonin (0-0.5) ng/ml Random Cortisol mcg/dl Urine Color Urine Appearance (Clear) Urine pH (4.5-7.5) Ur Specific [place] (1.000-1.030) Urine Protein (Negative) Urine Glucose (UA) (Negative) Urine Ketones (Negative) Urine Blood (Negative) Urine Nitrite (Negative) Urine Bilirubin (Negative) Urine Urobilinogen (Negative) Ur Leukocyte Esterase (Negative) Urine WBC (Auto) (0-5) /hpf Urine RBC (Auto) (0-4) /hpf U Hyaline Cast (Auto) (0-5) /lpf U Epithel Cells (Auto) (0-5) /lpf Urine Bacteria (Auto) (Negative) Amorphous Sediment (None Prsent) Urine Osmolality (500-800) mOsm/kg Nasal Screen MRSA (PCR) (Negative) Salicylates (2.8-20) mg/dl Urine Opiates Screen (Neg) Ur Methadone, Qual (Neg) Acetaminophen (10-30) ug/ml Urine Barbiturates (Neg) Ur Phencyclidine (PCP) (Neg) U Amphetamin/Meth Scrn (Neg) MDMA (Ecstasy) Screen (Neg) U Benzodiazepines Scrn (Neg) Ur Cocaine Metabolite (Neg) U Marijuana (THC) Screen (Neg) Ethyl Alcohol mg/dL Hepatitis C Ab Screen (Neg) Influenza Type A (PCR) (Neg) Influenza Type B (PCR) (Neg) 04/15/19 04/15/19 04/15/19 Range/Units 11:46 11:46 11:46 WBC (4.8-10.8) K/uL RBC (4.2-5.4) M/uL Hgb (12.0-16.0) g/dL POC Hgb (12.0-16.0) g/dl Hct (37-47) % POC Hct (37-47) % MCV (80-100) fL MCH (25-34) pg MCHC (32-36) g/dL Plt Count (130-400) K/uL Neutrophils % (Manual) % Lymphocytes % (Manual) % Monocytes % (Manual) % Metamyelocytes % (Man) % Neutrophils # (Manual) (1.4-6.5) K/uL Total Absolute Neuts (1.4-6.5) K/uL Lymphocytes # (Manual) (1.2-3.4) K/uL Monocytes # (Manual) (0.11-0.59) K/uL Metamyelocytes # (Man) (0-0) K/uL Echinocytes PT (9.0-12.0) Seconds INR (0.9-1.1) APTT (21.0-31.0) Seconds PTT Ratio Specimen Type Sample Site POC pH (7.35-7.45) POC pCO2 (35-46) mmHg POC pO2 (80-95) mmHg POC HCO3 (19-24) enrique/L POC Total CO2 (24-31) mmol/L POC Base Excess (-9-1.8) enrique/L POC O2 Saturation ABG pH 7.39 (7.35-7.45) ABG pH (Temp Correct) (7.35-7.45) ABG pCO2 25 L (35-46) mmHg ABG pCO2 (Temp Corrct (35-46) mmHg ABG pO2 93 (80-95) mmHg POC ABG pO2 at Pt Temp ABG HCO3 15 L (19-24) mmol/L ABG O2 Saturation 97.3 H (90-95) % ABG Base Excess -8.8 (-9-1.8) mEq/L Calos Test CVAD (Pos) VBG pH (7.36-7.41) VBG pCO2 (38-50) mmHg VBG pO2 mmHg VBG HCO3 mmol/L VBG O2 Saturation % VBG Base Excess mEq/L Barometric Pressure 721.4 mm/Hg Oxygen Given 30% O2 Delivery Device POC O2 Rate Minute Ventilation POC FiO2 % Tidal Volume PEEP POC Sodium (135-144) mmol/L Sodium (136-145) mmol/L POC Potassium (3.3-5.0) mmol/L Potassium (3.5-5.1) mmol/L Chloride (98-107) mmol/L Carbon Dioxide (21-32) mmol/L Anion Gap (3-11) BUN (7-18) mg/dl Creatinine (0.6-1.2) mg/dl Est Cr Clr Drug Dosing Est GFR ( Amer) Est GFR (Non-Af Amer) BUN/Creatinine Ratio (10-20) Glucose 682 H* (70-99) mg/dl POC Glucose (70-99) mg/dl POC Glucose (other) (70-99) mg/dl Estimat Average Glucose mg/dl Hemoglobin A1c (4.5-5.6) % Osmolality (280-300) mOsm/kg Lactate 2.8 H* (0.4-2.0) mmol/L Calcium (8.5-10.1) mg/dl Phosphorus (2.5-4.9) mg/dl Magnesium (1.8-2.4) mg/dl Total Bilirubin (0.2-1) mg/dl AST (15-37) U/L ALT (12-78) U/L Alkaline Phosphatase (45-117) U/L Total Creatine Kinase (26-192) U/L Troponin I (0-0.045) ng/ml Total Protein (6.4-8.2) gm/dl Albumin (3.4-5.0) gm/dl Globulin (2.5-4.0) gm/dl Albumin/Globulin Ratio (0.9-2) Beta-Hydroxybutyric Acd 55.63 H (0.2-2.81) mg/dl Procalcitonin (0-0.5) ng/ml Random Cortisol mcg/dl Urine Color Urine Appearance (Clear) Urine pH (4.5-7.5) Ur Specific [place] (1.000-1.030) Urine Protein (Negative) Urine Glucose (UA) (Negative) Urine Ketones (Negative) Urine Blood (Negative) Urine Nitrite (Negative) Urine Bilirubin (Negative) Urine Urobilinogen (Negative) Ur Leukocyte Esterase (Negative) Urine WBC (Auto) (0-5) /hpf Urine RBC (Auto) (0-4) /hpf U Hyaline Cast (Auto) (0-5) /lpf U Epithel Cells (Auto) (0-5) /lpf Urine Bacteria (Auto) (Negative) Amorphous Sediment (None Prsent) Urine Osmolality (500-800) mOsm/kg Nasal Screen MRSA (PCR) (Negative) Salicylates (2.8-20) mg/dl Urine Opiates Screen (Neg) Ur Methadone, Qual (Neg) Acetaminophen (10-30) ug/ml Urine Barbiturates (Neg) Ur Phencyclidine (PCP) (Neg) U Amphetamin/Meth Scrn (Neg) MDMA (Ecstasy) Screen (Neg) U Benzodiazepines Scrn (Neg) Ur Cocaine Metabolite (Neg) U Marijuana (THC) Screen (Neg) Ethyl Alcohol mg/dL Hepatitis C Ab Screen (Neg) Influenza Type A (PCR) (Neg) Influenza Type B (PCR) (Neg) 04/15/19 04/15/19 04/15/19 Range/Units 11:46 09:11 09:07 WBC (4.8-10.8) K/uL RBC (4.2-5.4) M/uL Hgb (12.0-16.0) g/dL POC Hgb 10.9 L (12.0-16.0) g/dl Hct (37-47) % POC Hct 32 L (37-47) % MCV (80-100) fL MCH (25-34) pg MCHC (32-36) g/dL Plt Count (130-400) K/uL Neutrophils % (Manual) % Lymphocytes % (Manual) % Monocytes % (Manual) % Metamyelocytes % (Man) % Neutrophils # (Manual) (1.4-6.5) K/uL Total Absolute Neuts (1.4-6.5) K/uL Lymphocytes # (Manual) (1.2-3.4) K/uL Monocytes # (Manual) (0.11-0.59) K/uL Metamyelocytes # (Man) (0-0) K/uL Echinocytes PT (9.0-12.0) Seconds INR (0.9-1.1) APTT (21.0-31.0) Seconds PTT Ratio Specimen Type Sample Site Art Line POC pH 7.27 L (7.35-7.45) POC pCO2 19 L (35-46) mmHg POC pO2 120 H (80-95) mmHg POC HCO3 9 L (19-24) enrique/L POC Total CO2 9 L* (24-31) mmol/L POC Base Excess -18.0 L (-9-1.8) enrique/L POC O2 Saturation ABG pH (7.35-7.45) ABG pH (Temp Correct) 7.279 L (7.35-7.45) ABG pCO2 (35-46) mmHg ABG pCO2 (Temp Corrct 18 L (35-46) mmHg ABG pO2 (80-95) mmHg POC ABG pO2 at Pt Temp 118 ABG HCO3 (19-24) mmol/L ABG O2 Saturation (90-95) % ABG Base Excess (-9-1.8) mEq/L Calos Test NA (Pos) VBG pH (7.36-7.41) VBG pCO2 (38-50) mmHg VBG pO2 mmHg VBG HCO3 mmol/L VBG O2 Saturation % VBG Base Excess mEq/L Barometric Pressure mm/Hg Oxygen Given O2 Delivery Device Ventilator POC O2 Rate 28 Minute Ventilation 12 POC FiO2 30 % Tidal Volume 420 PEEP 5 POC Sodium 134 L (135-144) mmol/L Sodium 136 136 (136-145) mmol/L POC Potassium 3.7 (3.3-5.0) mmol/L Potassium 3.7 3.8 (3.5-5.1) mmol/L Chloride 103 102 (98-107) mmol/L Carbon Dioxide 13 L 10 L (21-32) mmol/L Anion Gap 20.0 H 24.0 H (3-11) BUN 50 H 49 H (7-18) mg/dl Creatinine 2.28 H 2.11 H (0.6-1.2) mg/dl Est Cr Clr Drug Dosing 20.4 22.0 Est GFR ( Amer) 24.1 26.4 Est GFR (Non-Af Amer) 20.8 22.8 BUN/Creatinine Ratio 21.8 H 23.3 H (10-20) Glucose 682 H* 835 H* (70-99) mg/dl POC Glucose (70-99) mg/dl POC Glucose (other) (70-99) mg/dl Estimat Average Glucose mg/dl Hemoglobin A1c (4.5-5.6) % Osmolality (280-300) mOsm/kg Lactate (0.4-2.0) mmol/L Calcium 7.4 L 7.4 L (8.5-10.1) mg/dl Phosphorus 2.7 D 3.9 (2.5-4.9) mg/dl Magnesium 1.8 1.9 (1.8-2.4) mg/dl Total Bilirubin (0.2-1) mg/dl AST (15-37) U/L ALT (12-78) U/L Alkaline Phosphatase (45-117) U/L Total Creatine Kinase (26-192) U/L Troponin I (0-0.045) ng/ml Total Protein (6.4-8.2) gm/dl Albumin (3.4-5.0) gm/dl Globulin (2.5-4.0) gm/dl Albumin/Globulin Ratio (0.9-2) Beta-Hydroxybutyric Acd 86.06 H (0.2-2.81) mg/dl Procalcitonin (0-0.5) ng/ml Random Cortisol mcg/dl Urine Color Urine Appearance (Clear) Urine pH (4.5-7.5) Ur Specific [place] (1.000-1.030) Urine Protein (Negative) Urine Glucose (UA) (Negative) Urine Ketones (Negative) Urine Blood (Negative) Urine Nitrite (Negative) Urine Bilirubin (Negative) Urine Urobilinogen (Negative) Ur Leukocyte Esterase (Negative) Urine WBC (Auto) (0-5) /hpf Urine RBC (Auto) (0-4) /hpf U Hyaline Cast (Auto) (0-5) /lpf U Epithel Cells (Auto) (0-5) /lpf Urine Bacteria (Auto) (Negative) Amorphous Sediment (None Prsent) Urine Osmolality (500-800) mOsm/kg Nasal Screen MRSA (PCR) (Negative) Salicylates (2.8-20) mg/dl Urine Opiates Screen (Neg) Ur Methadone, Qual (Neg) Acetaminophen (10-30) ug/ml Urine Barbiturates (Neg) Ur Phencyclidine (PCP) (Neg) U Amphetamin/Meth Scrn (Neg) MDMA (Ecstasy) Screen (Neg) U Benzodiazepines Scrn (Neg) Ur Cocaine Metabolite (Neg) U Marijuana (THC) Screen (Neg) Ethyl Alcohol mg/dL Hepatitis C Ab Screen (Neg) Influenza Type A (PCR) (Neg) Influenza Type B (PCR) (Neg) 04/15/19 04/15/19 04/15/19 Range/Units 09:07 09:07 08:31 WBC (4.8-10.8) K/uL RBC (4.2-5.4) M/uL Hgb (12.0-16.0) g/dL POC Hgb (12.0-16.0) g/dl Hct (37-47) % POC Hct (37-47) % MCV (80-100) fL MCH (25-34) pg MCHC (32-36) g/dL Plt Count (130-400) K/uL Neutrophils % (Manual) % Lymphocytes % (Manual) % Monocytes % (Manual) % Metamyelocytes % (Man) % Neutrophils # (Manual) (1.4-6.5) K/uL Total Absolute Neuts (1.4-6.5) K/uL Lymphocytes # (Manual) (1.2-3.4) K/uL Monocytes # (Manual) (0.11-0.59) K/uL Metamyelocytes # (Man) (0-0) K/uL Echinocytes PT (9.0-12.0) Seconds INR (0.9-1.1) APTT (21.0-31.0) Seconds PTT Ratio Specimen Type Sample Site POC pH (7.35-7.45) POC pCO2 (35-46) mmHg POC pO2 (80-95) mmHg POC HCO3 (19-24) enrique/L POC Total CO2 (24-31) mmol/L POC Base Excess (-9-1.8) enrique/L POC O2 Saturation ABG pH (7.35-7.45) ABG pH (Temp Correct) (7.35-7.45) ABG pCO2 (35-46) mmHg ABG pCO2 (Temp Corrct (35-46) mmHg ABG pO2 (80-95) mmHg POC ABG pO2 at Pt Temp ABG HCO3 (19-24) mmol/L ABG O2 Saturation (90-95) % ABG Base Excess (-9-1.8) mEq/L Calos Test (Pos) VBG pH (7.36-7.41) VBG pCO2 (38-50) mmHg VBG pO2 mmHg VBG HCO3 mmol/L VBG O2 Saturation % VBG Base Excess mEq/L Barometric Pressure mm/Hg Oxygen Given O2 Delivery Device POC O2 Rate Minute Ventilation POC FiO2 % Tidal Volume PEEP POC Sodium (135-144) mmol/L Sodium Cancelled (136-145) mmol/L POC Potassium (3.3-5.0) mmol/L Potassium Cancelled (3.5-5.1) mmol/L Chloride Cancelled (98-107) mmol/L Carbon Dioxide Cancelled (21-32) mmol/L Anion Gap Cancelled (3-11) BUN Cancelled (7-18) mg/dl Creatinine Cancelled (0.6-1.2) mg/dl Est Cr Clr Drug Dosing Cancelled Est GFR ( Amer) Cancelled Est GFR (Non-Af Amer) Cancelled BUN/Creatinine Ratio Cancelled (10-20) Glucose Cancelled (70-99) mg/dl POC Glucose (70-99) mg/dl POC Glucose (other) (70-99) mg/dl Estimat Average Glucose mg/dl Hemoglobin A1c (4.5-5.6) % Osmolality (280-300) mOsm/kg Lactate (0.4-2.0) mmol/L Calcium Cancelled (8.5-10.1) mg/dl Phosphorus Cancelled (2.5-4.9) mg/dl Magnesium Cancelled (1.8-2.4) mg/dl Total Bilirubin (0.2-1) mg/dl AST (15-37) U/L ALT (12-78) U/L Alkaline Phosphatase (45-117) U/L Total Creatine Kinase (26-192) U/L Troponin I (0-0.045) ng/ml Total Protein (6.4-8.2) gm/dl Albumin (3.4-5.0) gm/dl Globulin (2.5-4.0) gm/dl Albumin/Globulin Ratio (0.9-2) Beta-Hydroxybutyric Acd (0.2-2.81) mg/dl Procalcitonin (0-0.5) ng/ml Random Cortisol mcg/dl Urine Color Urine Appearance (Clear) Urine pH (4.5-7.5) Ur Specific [place] (1.000-1.030) Urine Protein (Negative) Urine Glucose (UA) (Negative) Urine Ketones (Negative) Urine Blood (Negative) Urine Nitrite (Negative) Urine Bilirubin (Negative) Urine Urobilinogen (Negative) Ur Leukocyte Esterase (Negative) Urine WBC (Auto) (0-5) /hpf Urine RBC (Auto) (0-4) /hpf U Hyaline Cast (Auto) (0-5) /lpf U Epithel Cells (Auto) (0-5) /lpf Urine Bacteria (Auto) (Negative) Amorphous Sediment (None Prsent) Urine Osmolality (500-800) mOsm/kg Nasal Screen MRSA (PCR) (Negative) Salicylates (2.8-20) mg/dl Urine Opiates Screen (Neg) Ur Methadone, Qual (Neg) Acetaminophen (10-30) ug/ml Urine Barbiturates (Neg) Ur Phencyclidine (PCP) (Neg) U Amphetamin/Meth Scrn (Neg) MDMA (Ecstasy) Screen (Neg) U Benzodiazepines Scrn (Neg) Ur Cocaine Metabolite (Neg) U Marijuana (THC) Screen (Neg) Ethyl Alcohol mg/dL < 3.0 Cancelled Hepatitis C Ab Screen (Neg) Influenza Type A (PCR) (Neg) Influenza Type B (PCR) (Neg) 04/15/19 04/15/19 04/15/19 Range/Units 08:31 08:10 08:10 WBC (4.8-10.8) K/uL RBC (4.2-5.4) M/uL Hgb (12.0-16.0) g/dL POC Hgb (12.0-16.0) g/dl Hct (37-47) % POC Hct (37-47) % MCV (80-100) fL MCH (25-34) pg MCHC (32-36) g/dL Plt Count (130-400) K/uL Neutrophils % (Manual) % Lymphocytes % (Manual) % Monocytes % (Manual) % Metamyelocytes % (Man) % Neutrophils # (Manual) (1.4-6.5) K/uL Total Absolute Neuts (1.4-6.5) K/uL Lymphocytes # (Manual) (1.2-3.4) K/uL Monocytes # (Manual) (0.11-0.59) K/uL Metamyelocytes # (Man) (0-0) K/uL Echinocytes PT (9.0-12.0) Seconds INR (0.9-1.1) APTT (21.0-31.0) Seconds PTT Ratio Specimen Type Sample Site POC pH (7.35-7.45) POC pCO2 (35-46) mmHg POC pO2 (80-95) mmHg POC HCO3 (19-24) enrique/L POC Total CO2 (24-31) mmol/L POC Base Excess (-9-1.8) enrique/L POC O2 Saturation ABG pH (7.35-7.45) ABG pH (Temp Correct) (7.35-7.45) ABG pCO2 (35-46) mmHg ABG pCO2 (Temp Corrct (35-46) mmHg ABG pO2 (80-95) mmHg POC ABG pO2 at Pt Temp ABG HCO3 (19-24) mmol/L ABG O2 Saturation (90-95) % ABG Base Excess (-9-1.8) mEq/L Calos Test (Pos) VBG pH (7.36-7.41) VBG pCO2 (38-50) mmHg VBG pO2 mmHg VBG HCO3 mmol/L VBG O2 Saturation % VBG Base Excess mEq/L Barometric Pressure mm/Hg Oxygen Given O2 Delivery Device POC O2 Rate Minute Ventilation POC FiO2 % Tidal Volume PEEP POC Sodium (135-144) mmol/L Sodium (136-145) mmol/L POC Potassium (3.3-5.0) mmol/L Potassium (3.5-5.1) mmol/L Chloride (98-107) mmol/L Carbon Dioxide (21-32) mmol/L Anion Gap (3-11) BUN (7-18) mg/dl Creatinine (0.6-1.2) mg/dl Est Cr Clr Drug Dosing Est GFR ( Amer) Est GFR (Non-Af Amer) BUN/Creatinine Ratio (10-20) Glucose (70-99) mg/dl POC Glucose (70-99) mg/dl POC Glucose (other) (70-99) mg/dl Estimat Average Glucose mg/dl Hemoglobin A1c (4.5-5.6) % Osmolality (280-300) mOsm/kg Lactate (0.4-2.0) mmol/L Calcium (8.5-10.1) mg/dl Phosphorus (2.5-4.9) mg/dl Magnesium (1.8-2.4) mg/dl Total Bilirubin (0.2-1) mg/dl AST (15-37) U/L ALT (12-78) U/L Alkaline Phosphatase (45-117) U/L Total Creatine Kinase (26-192) U/L Troponin I (0-0.045) ng/ml Total Protein (6.4-8.2) gm/dl Albumin (3.4-5.0) gm/dl Globulin (2.5-4.0) gm/dl Albumin/Globulin Ratio (0.9-2) Beta-Hydroxybutyric Acd (0.2-2.81) mg/dl Procalcitonin (0-0.5) ng/ml Random Cortisol mcg/dl Urine Color Urine Appearance (Clear) Urine pH (4.5-7.5) Ur Specific [place] (1.000-1.030) Urine Protein (Negative) Urine Glucose (UA) (Negative) Urine Ketones (Negative) Urine Blood (Negative) Urine Nitrite (Negative) Urine Bilirubin (Negative) Urine Urobilinogen (Negative) Ur Leukocyte Esterase (Negative) Urine WBC (Auto) (0-5) /hpf Urine RBC (Auto) (0-4) /hpf U Hyaline Cast (Auto) (0-5) /lpf U Epithel Cells (Auto) (0-5) /lpf Urine Bacteria (Auto) (Negative) Amorphous Sediment (None Prsent) Urine Osmolality 456 L (500-800) mOsm/kg Nasal Screen MRSA (PCR) (Negative) Salicylates 5.1 (2.8-20) mg/dl Urine Opiates Screen Neg (Neg) Ur Methadone, Qual Neg (Neg) Acetaminophen 2 L (10-30) ug/ml Urine Barbiturates Neg (Neg) Ur Phencyclidine (PCP) Neg (Neg) U Amphetamin/Meth Scrn Neg (Neg) MDMA (Ecstasy) Screen Neg (Neg) U Benzodiazepines Scrn Neg (Neg) Ur Cocaine Metabolite Neg (Neg) U Marijuana (THC) Screen Neg (Neg) Ethyl Alcohol mg/dL Hepatitis C Ab Screen (Neg) Influenza Type A (PCR) (Neg) Influenza Type B (PCR) (Neg) 04/15/19 04/15/19 04/15/19 Range/Units 08:01 08:01 06:37 WBC (4.8-10.8) K/uL RBC (4.2-5.4) M/uL Hgb (12.0-16.0) g/dL POC Hgb (12.0-16.0) g/dl Hct (37-47) % POC Hct (37-47) % MCV (80-100) fL MCH (25-34) pg MCHC (32-36) g/dL Plt Count (130-400) K/uL Neutrophils % (Manual) % Lymphocytes % (Manual) % Monocytes % (Manual) % Metamyelocytes % (Man) % Neutrophils # (Manual) (1.4-6.5) K/uL Total Absolute Neuts (1.4-6.5) K/uL Lymphocytes # (Manual) (1.2-3.4) K/uL Monocytes # (Manual) (0.11-0.59) K/uL Metamyelocytes # (Man) (0-0) K/uL Echinocytes PT (9.0-12.0) Seconds INR (0.9-1.1) APTT (21.0-31.0) Seconds PTT Ratio Specimen Type Sample Site POC pH (7.35-7.45) POC pCO2 (35-46) mmHg POC pO2 (80-95) mmHg POC HCO3 (19-24) enrique/L POC Total CO2 (24-31) mmol/L POC Base Excess (-9-1.8) enrique/L POC O2 Saturation ABG pH 7.25 L (7.35-7.45) ABG pH (Temp Correct) (7.35-7.45) ABG pCO2 20 L (35-46) mmHg ABG pCO2 (Temp Corrct (35-46) mmHg ABG pO2 107 H (80-95) mmHg POC ABG pO2 at Pt Temp ABG HCO3 9 L (19-24) mmol/L ABG O2 Saturation 97.7 H (90-95) % ABG Base Excess -16.7 L (-9-1.8) mEq/L Calos Test Pos (Pos) VBG pH (7.36-7.41) VBG pCO2 (38-50) mmHg VBG pO2 mmHg VBG HCO3 mmol/L VBG O2 Saturation % VBG Base Excess mEq/L Barometric Pressure 724.4 mm/Hg Oxygen Given 30% O2 Delivery Device POC O2 Rate Minute Ventilation POC FiO2 % Tidal Volume PEEP POC Sodium (135-144) mmol/L Sodium 136 (136-145) mmol/L POC Potassium (3.3-5.0) mmol/L Potassium 3.7 (3.5-5.1) mmol/L Chloride 101 (98-107) mmol/L Carbon Dioxide 8 L* (21-32) mmol/L Anion Gap 27.0 H (3-11) BUN 51 H (7-18) mg/dl Creatinine 2.09 H (0.6-1.2) mg/dl Est Cr Clr Drug Dosing 22.2 Est GFR ( Amer) 26.7 Est GFR (Non-Af Amer) 23.1 BUN/Creatinine Ratio 24.3 H (10-20) Glucose 841 H* (70-99) mg/dl POC Glucose (70-99) mg/dl POC Glucose (other) (70-99) mg/dl Estimat Average Glucose mg/dl Hemoglobin A1c (4.5-5.6) % Osmolality 357 H* (280-300) mOsm/kg Lactate (0.4-2.0) mmol/L Calcium 7.6 L (8.5-10.1) mg/dl Phosphorus 4.5 D (2.5-4.9) mg/dl Magnesium 1.9 (1.8-2.4) mg/dl Total Bilirubin (0.2-1) mg/dl AST (15-37) U/L ALT (12-78) U/L Alkaline Phosphatase (45-117) U/L Total Creatine Kinase 140 (26-192) U/L Troponin I (0-0.045) ng/ml Total Protein (6.4-8.2) gm/dl Albumin (3.4-5.0) gm/dl Globulin (2.5-4.0) gm/dl Albumin/Globulin Ratio (0.9-2) Beta-Hydroxybutyric Acd 94.46 H (0.2-2.81) mg/dl Procalcitonin (0-0.5) ng/ml Random Cortisol mcg/dl Urine Color Urine Appearance (Clear) Urine pH (4.5-7.5) Ur Specific [place] (1.000-1.030) Urine Protein (Negative) Urine Glucose (UA) (Negative) Urine Ketones (Negative) Urine Blood (Negative) Urine Nitrite (Negative) Urine Bilirubin (Negative) Urine Urobilinogen (Negative) Ur Leukocyte Esterase (Negative) Urine WBC (Auto) (0-5) /hpf Urine RBC (Auto) (0-4) /hpf U Hyaline Cast (Auto) (0-5) /lpf U Epithel Cells (Auto) (0-5) /lpf Urine Bacteria (Auto) (Negative) Amorphous Sediment (None Prsent) Urine Osmolality (500-800) mOsm/kg Nasal Screen MRSA (PCR) (Negative) Salicylates (2.8-20) mg/dl Urine Opiates Screen (Neg) Ur Methadone, Qual (Neg) Acetaminophen (10-30) ug/ml Urine Barbiturates (Neg) Ur Phencyclidine (PCP) (Neg) U Amphetamin/Meth Scrn (Neg) MDMA (Ecstasy) Screen (Neg) U Benzodiazepines Scrn (Neg) Ur Cocaine Metabolite (Neg) U Marijuana (THC) Screen (Neg) Ethyl Alcohol mg/dL Hepatitis C Ab Screen (Neg) Influenza Type A (PCR) (Neg) Influenza Type B (PCR) (Neg) 04/15/19 04/15/19 04/15/19 Range/Units 06:37 06:37 06:37 WBC (4.8-10.8) K/uL RBC (4.2-5.4) M/uL Hgb (12.0-16.0) g/dL POC Hgb (12.0-16.0) g/dl Hct (37-47) % POC Hct (37-47) % MCV (80-100) fL MCH (25-34) pg MCHC (32-36) g/dL Plt Count (130-400) K/uL Neutrophils % (Manual) % Lymphocytes % (Manual) % Monocytes % (Manual) % Metamyelocytes % (Man) % Neutrophils # (Manual) (1.4-6.5) K/uL Total Absolute Neuts (1.4-6.5) K/uL Lymphocytes # (Manual) (1.2-3.4) K/uL Monocytes # (Manual) (0.11-0.59) K/uL Metamyelocytes # (Man) (0-0) K/uL Echinocytes PT (9.0-12.0) Seconds INR (0.9-1.1) APTT (21.0-31.0) Seconds PTT Ratio Specimen Type Sample Site POC pH (7.35-7.45) POC pCO2 (35-46) mmHg POC pO2 (80-95) mmHg POC HCO3 (19-24) enrique/L POC Total CO2 (24-31) mmol/L POC Base Excess (-9-1.8) enrique/L POC O2 Saturation ABG pH 7.19 L* (7.35-7.45) ABG pH (Temp Correct) (7.35-7.45) ABG pCO2 23 L (35-46) mmHg ABG pCO2 (Temp Corrct (35-46) mmHg ABG pO2 111 H (80-95) mmHg POC ABG pO2 at Pt Temp ABG HCO3 9 L (19-24) mmol/L ABG O2 Saturation 98.0 H (90-95) % ABG Base Excess -18.1 L (-9-1.8) mEq/L Calos Test Pos (Pos) VBG pH (7.36-7.41) VBG pCO2 (38-50) mmHg VBG pO2 mmHg VBG HCO3 mmol/L VBG O2 Saturation % VBG Base Excess mEq/L Barometric Pressure 724.9 mm/Hg Oxygen Given 30% O2 Delivery Device POC O2 Rate Minute Ventilation POC FiO2 % Tidal Volume PEEP POC Sodium (135-144) mmol/L Sodium 136 (136-145) mmol/L POC Potassium (3.3-5.0) mmol/L Potassium 3.9 D (3.5-5.1) mmol/L Chloride 101 (98-107) mmol/L Carbon Dioxide 8 L* (21-32) mmol/L Anion Gap 27.0 H (3-11) BUN 53 H (7-18) mg/dl Creatinine 2.12 H (0.6-1.2) mg/dl Est Cr Clr Drug Dosing 21.9 Est GFR ( Amer) 26.3 Est GFR (Non-Af Amer) 22.7 BUN/Creatinine Ratio 24.9 H (10-20) Glucose 891 H* (70-99) mg/dl POC Glucose (70-99) mg/dl POC Glucose (other) (70-99) mg/dl Estimat Average Glucose mg/dl Hemoglobin A1c (4.5-5.6) % Osmolality (280-300) mOsm/kg Lactate 3.8 H* (0.4-2.0) mmol/L Calcium 7.5 L (8.5-10.1) mg/dl Phosphorus 6.1 H D (2.5-4.9) mg/dl Magnesium 2.0 (1.8-2.4) mg/dl Total Bilirubin (0.2-1) mg/dl AST (15-37) U/L ALT (12-78) U/L Alkaline Phosphatase (45-117) U/L Total Creatine Kinase (26-192) U/L Troponin I 4.190 H* (0-0.045) ng/ml Total Protein (6.4-8.2) gm/dl Albumin (3.4-5.0) gm/dl Globulin (2.5-4.0) gm/dl Albumin/Globulin Ratio (0.9-2) Beta-Hydroxybutyric Acd 98.97 H (0.2-2.81) mg/dl Procalcitonin (0-0.5) ng/ml Random Cortisol mcg/dl Urine Color Urine Appearance (Clear) Urine pH (4.5-7.5) Ur Specific [place] (1.000-1.030) Urine Protein (Negative) Urine Glucose (UA) (Negative) Urine Ketones (Negative) Urine Blood (Negative) Urine Nitrite (Negative) Urine Bilirubin (Negative) Urine Urobilinogen (Negative) Ur Leukocyte Esterase (Negative) Urine WBC (Auto) (0-5) /hpf Urine RBC (Auto) (0-4) /hpf U Hyaline Cast (Auto) (0-5) /lpf U Epithel Cells (Auto) (0-5) /lpf Urine Bacteria (Auto) (Negative) Amorphous Sediment (None Prsent) Urine Osmolality (500-800) mOsm/kg Nasal Screen MRSA (PCR) (Negative) Salicylates (2.8-20) mg/dl Urine Opiates Screen (Neg) Ur Methadone, Qual (Neg) Acetaminophen (10-30) ug/ml Urine Barbiturates (Neg) Ur Phencyclidine (PCP) (Neg) U Amphetamin/Meth Scrn (Neg) MDMA (Ecstasy) Screen (Neg) U Benzodiazepines Scrn (Neg) Ur Cocaine Metabolite (Neg) U Marijuana (THC) Screen (Neg) Ethyl Alcohol mg/dL Hepatitis C Ab Screen (Neg) Influenza Type A (PCR) (Neg) Influenza Type B (PCR) (Neg) 04/15/19 04/15/19 04/15/19 Range/Units 06:37 06:36 05:58 WBC (4.8-10.8) K/uL RBC (4.2-5.4) M/uL Hgb (12.0-16.0) g/dL POC Hgb (12.0-16.0) g/dl Hct (37-47) % POC Hct (37-47) % MCV (80-100) fL MCH (25-34) pg MCHC (32-36) g/dL Plt Count (130-400) K/uL Neutrophils % (Manual) % Lymphocytes % (Manual) % Monocytes % (Manual) % Metamyelocytes % (Man) % Neutrophils # (Manual) (1.4-6.5) K/uL Total Absolute Neuts (1.4-6.5) K/uL Lymphocytes # (Manual) (1.2-3.4) K/uL Monocytes # (Manual) (0.11-0.59) K/uL Metamyelocytes # (Man) (0-0) K/uL Echinocytes PT (9.0-12.0) Seconds INR (0.9-1.1) APTT (21.0-31.0) Seconds PTT Ratio Specimen Type Sample Site POC pH (7.35-7.45) POC pCO2 (35-46) mmHg POC pO2 (80-95) mmHg POC HCO3 (19-24) enrique/L POC Total CO2 (24-31) mmol/L POC Base Excess (-9-1.8) enrique/L POC O2 Saturation ABG pH (7.35-7.45) ABG pH (Temp Correct) (7.35-7.45) ABG pCO2 (35-46) mmHg ABG pCO2 (Temp Corrct (35-46) mmHg ABG pO2 (80-95) mmHg POC ABG pO2 at Pt Temp ABG HCO3 (19-24) mmol/L ABG O2 Saturation (90-95) % ABG Base Excess (-9-1.8) mEq/L Calos Test (Pos) VBG pH (7.36-7.41) VBG pCO2 (38-50) mmHg VBG pO2 mmHg VBG HCO3 mmol/L VBG O2 Saturation % VBG Base Excess mEq/L Barometric Pressure mm/Hg Oxygen Given O2 Delivery Device POC O2 Rate Minute Ventilation POC FiO2 % Tidal Volume PEEP POC Sodium (135-144) mmol/L Sodium (136-145) mmol/L POC Potassium (3.3-5.0) mmol/L Potassium (3.5-5.1) mmol/L Chloride (98-107) mmol/L Carbon Dioxide (21-32) mmol/L Anion Gap (3-11) BUN (7-18) mg/dl Creatinine (0.6-1.2) mg/dl Est Cr Clr Drug Dosing Est GFR ( Amer) Est GFR (Non-Af Amer) BUN/Creatinine Ratio (10-20) Glucose (70-99) mg/dl POC Glucose (70-99) mg/dl POC Glucose (other) > 700 H* (70-99) mg/dl Estimat Average Glucose mg/dl Hemoglobin A1c (4.5-5.6) % Osmolality (280-300) mOsm/kg Lactate (0.4-2.0) mmol/L Calcium (8.5-10.1) mg/dl Phosphorus (2.5-4.9) mg/dl Magnesium (1.8-2.4) mg/dl Total Bilirubin (0.2-1) mg/dl AST (15-37) U/L ALT (12-78) U/L Alkaline Phosphatase (45-117) U/L Total Creatine Kinase (26-192) U/L Troponin I Cancelled (0-0.045) ng/ml Total Protein (6.4-8.2) gm/dl Albumin (3.4-5.0) gm/dl Globulin (2.5-4.0) gm/dl Albumin/Globulin Ratio (0.9-2) Beta-Hydroxybutyric Acd (0.2-2.81) mg/dl Procalcitonin (0-0.5) ng/ml Random Cortisol 74.04 mcg/dl Urine Color Urine Appearance (Clear) Urine pH (4.5-7.5) Ur Specific [place] (1.000-1.030) Urine Protein (Negative) Urine Glucose (UA) (Negative) Urine Ketones (Negative) Urine Blood (Negative) Urine Nitrite (Negative) Urine Bilirubin (Negative) Urine Urobilinogen (Negative) Ur Leukocyte Esterase (Negative) Urine WBC (Auto) (0-5) /hpf Urine RBC (Auto) (0-4) /hpf U Hyaline Cast (Auto) (0-5) /lpf U Epithel Cells (Auto) (0-5) /lpf Urine Bacteria (Auto) (Negative) Amorphous Sediment (None Prsent) Urine Osmolality (500-800) mOsm/kg Nasal Screen MRSA (PCR) (Negative) Salicylates (2.8-20) mg/dl Urine Opiates Screen (Neg) Ur Methadone, Qual (Neg) Acetaminophen (10-30) ug/ml Urine Barbiturates (Neg) Ur Phencyclidine (PCP) (Neg) U Amphetamin/Meth Scrn (Neg) MDMA (Ecstasy) Screen (Neg) U Benzodiazepines Scrn (Neg) Ur Cocaine Metabolite (Neg) U Marijuana (THC) Screen (Neg) Ethyl Alcohol mg/dL Hepatitis C Ab Screen (Neg) Influenza Type A (PCR) (Neg) Influenza Type B (PCR) (Neg) 04/15/19 04/15/19 04/15/19 Range/Units 05:45 05:03 04:30 WBC (4.8-10.8) K/uL RBC (4.2-5.4) M/uL Hgb (12.0-16.0) g/dL POC Hgb 10.9 L (12.0-16.0) g/dl Hct (37-47) % POC Hct 32 L (37-47) % MCV (80-100) fL MCH (25-34) pg MCHC (32-36) g/dL Plt Count (130-400) K/uL Neutrophils % (Manual) % Lymphocytes % (Manual) % Monocytes % (Manual) % Metamyelocytes % (Man) % Neutrophils # (Manual) (1.4-6.5) K/uL Total Absolute Neuts (1.4-6.5) K/uL Lymphocytes # (Manual) (1.2-3.4) K/uL Monocytes # (Manual) (0.11-0.59) K/uL Metamyelocytes # (Man) (0-0) K/uL Echinocytes PT (9.0-12.0) Seconds INR (0.9-1.1) APTT (21.0-31.0) Seconds PTT Ratio Specimen Type Arterial Sample Site POC pH 7.00 L* (7.35-7.45) POC pCO2 32 L (35-46) mmHg POC pO2 140 H (80-95) mmHg POC HCO3 8 L (19-24) enrique/L POC Total CO2 9 L* (24-31) mmol/L POC Base Excess -24.0 L (-9-1.8) enrique/L POC O2 Saturation 97 ABG pH (7.35-7.45) ABG pH (Temp Correct) (7.35-7.45) ABG pCO2 (35-46) mmHg ABG pCO2 (Temp Corrct (35-46) mmHg ABG pO2 (80-95) mmHg POC ABG pO2 at Pt Temp ABG HCO3 (19-24) mmol/L ABG O2 Saturation (90-95) % ABG Base Excess (-9-1.8) mEq/L Calos Test (Pos) VBG pH (7.36-7.41) VBG pCO2 (38-50) mmHg VBG pO2 mmHg VBG HCO3 mmol/L VBG O2 Saturation % VBG Base Excess mEq/L Barometric Pressure mm/Hg Oxygen Given O2 Delivery Device POC O2 Rate Minute Ventilation POC FiO2 % Tidal Volume PEEP POC Sodium 133 L (135-144) mmol/L Sodium (136-145) mmol/L POC Potassium 4.7 (3.3-5.0) mmol/L Potassium (3.5-5.1) mmol/L Chloride (98-107) mmol/L Carbon Dioxide (21-32) mmol/L Anion Gap (3-11) BUN (7-18) mg/dl Creatinine (0.6-1.2) mg/dl Est Cr Clr Drug Dosing Est GFR ( Amer) Est GFR (Non-Af Amer) BUN/Creatinine Ratio (10-20) Glucose (70-99) mg/dl POC Glucose > 600 H* (70-99) mg/dl POC Glucose (other) (70-99) mg/dl Estimat Average Glucose mg/dl Hemoglobin A1c (4.5-5.6) % Osmolality (280-300) mOsm/kg Lactate (0.4-2.0) mmol/L Calcium (8.5-10.1) mg/dl Phosphorus (2.5-4.9) mg/dl Magnesium (1.8-2.4) mg/dl Total Bilirubin (0.2-1) mg/dl AST (15-37) U/L ALT (12-78) U/L Alkaline Phosphatase (45-117) U/L Total Creatine Kinase (26-192) U/L Troponin I (0-0.045) ng/ml Total Protein (6.4-8.2) gm/dl Albumin (3.4-5.0) gm/dl Globulin (2.5-4.0) gm/dl Albumin/Globulin Ratio (0.9-2) Beta-Hydroxybutyric Acd (0.2-2.81) mg/dl Procalcitonin (0-0.5) ng/ml Random Cortisol mcg/dl Urine Color Urine Appearance (Clear) Urine pH (4.5-7.5) Ur Specific [place] (1.000-1.030) Urine Protein (Negative) Urine Glucose (UA) (Negative) Urine Ketones (Negative) Urine Blood (Negative) Urine Nitrite (Negative) Urine Bilirubin (Negative) Urine Urobilinogen (Negative) Ur Leukocyte Esterase (Negative) Urine WBC (Auto) (0-5) /hpf Urine RBC (Auto) (0-4) /hpf U Hyaline Cast (Auto) (0-5) /lpf U Epithel Cells (Auto) (0-5) /lpf Urine Bacteria (Auto) (Negative) Amorphous Sediment (None Prsent) Urine Osmolality (500-800) mOsm/kg Nasal Screen MRSA (PCR) Negative (Negative) Salicylates (2.8-20) mg/dl Urine Opiates Screen (Neg) Ur Methadone, Qual (Neg) Acetaminophen (10-30) ug/ml Urine Barbiturates (Neg) Ur Phencyclidine (PCP) (Neg) U Amphetamin/Meth Scrn (Neg) MDMA (Ecstasy) Screen (Neg) U Benzodiazepines Scrn (Neg) Ur Cocaine Metabolite (Neg) U Marijuana (THC) Screen (Neg) Ethyl Alcohol mg/dL Hepatitis C Ab Screen (Neg) Influenza Type A (PCR) (Neg) Influenza Type B (PCR) (Neg) 04/15/19 04/15/19 04/15/19 Range/Units 04:26 04:26 04:26 WBC 23.02 H (4.8-10.8) K/uL RBC 3.77 L (4.2-5.4) M/uL Hgb 10.6 L (12.0-16.0) g/dL POC Hgb (12.0-16.0) g/dl Hct 35.8 L (37-47) % POC Hct (37-47) % MCV 95.0 (80-100) fL MCH 28.1 (25-34) pg MCHC 29.6 L (32-36) g/dL Plt Count 258 (130-400) K/uL Neutrophils % (Manual) 86.9 % Lymphocytes % (Manual) 6.1 % Monocytes % (Manual) 6.1 % Metamyelocytes % (Man) 0.9 % Neutrophils # (Manual) 20.00 H (1.4-6.5) K/uL Total Absolute Neuts 20.00 H (1.4-6.5) K/uL Lymphocytes # (Manual) 1.40 (1.2-3.4) K/uL Monocytes # (Manual) 1.40 H (0.11-0.59) K/uL Metamyelocytes # (Man) 0.21 H (0-0) K/uL Echinocytes 1+ PT (9.0-12.0) Seconds INR (0.9-1.1) APTT (21.0-31.0) Seconds PTT Ratio Specimen Type Sample Site POC pH (7.35-7.45) POC pCO2 (35-46) mmHg POC pO2 (80-95) mmHg POC HCO3 (19-24) enrique/L POC Total CO2 (24-31) mmol/L POC Base Excess (-9-1.8) enrique/L POC O2 Saturation ABG pH (7.35-7.45) ABG pH (Temp Correct) (7.35-7.45) ABG pCO2 (35-46) mmHg ABG pCO2 (Temp Corrct (35-46) mmHg ABG pO2 (80-95) mmHg POC ABG pO2 at Pt Temp ABG HCO3 (19-24) mmol/L ABG O2 Saturation (90-95) % ABG Base Excess (-9-1.8) mEq/L Calos Test (Pos) VBG pH (7.36-7.41) VBG pCO2 (38-50) mmHg VBG pO2 mmHg VBG HCO3 mmol/L VBG O2 Saturation % VBG Base Excess mEq/L Barometric Pressure mm/Hg Oxygen Given O2 Delivery Device POC O2 Rate Minute Ventilation POC FiO2 % Tidal Volume PEEP POC Sodium (135-144) mmol/L Sodium 133 L (136-145) mmol/L POC Potassium (3.3-5.0) mmol/L Potassium 5.1 D (3.5-5.1) mmol/L Chloride 98 (98-107) mmol/L Carbon Dioxide 9 L* (21-32) mmol/L Anion Gap 26.0 H (3-11) BUN 52 H (7-18) mg/dl Creatinine 2.16 H (0.6-1.2) mg/dl Est Cr Clr Drug Dosing 21.5 Est GFR ( Amer) 25.7 Est GFR (Non-Af Amer) 22.2 BUN/Creatinine Ratio 23.9 H (10-20) Glucose 1063 H* (70-99) mg/dl POC Glucose (70-99) mg/dl POC Glucose (other) (70-99) mg/dl Estimat Average Glucose mg/dl Hemoglobin A1c (4.5-5.6) % Osmolality (280-300) mOsm/kg Lactate (0.4-2.0) mmol/L Calcium 7.9 L (8.5-10.1) mg/dl Phosphorus 8.5 H (2.5-4.9) mg/dl Magnesium 2.1 (1.8-2.4) mg/dl Total Bilirubin 1.2 H (0.2-1) mg/dl AST 24 (15-37) U/L ALT 51 (12-78) U/L Alkaline Phosphatase 158 H (45-117) U/L Total Creatine Kinase (26-192) U/L Troponin I (0-0.045) ng/ml Total Protein 6.2 L (6.4-8.2) gm/dl Albumin 3.0 L (3.4-5.0) gm/dl Globulin 3.2 (2.5-4.0) gm/dl Albumin/Globulin Ratio 0.9 (0.9-2) Beta-Hydroxybutyric Acd 106.75 H (0.2-2.81) mg/dl Procalcitonin (0-0.5) ng/ml Random Cortisol mcg/dl Urine Color Urine Appearance (Clear) Urine pH (4.5-7.5) Ur Specific [place] (1.000-1.030) Urine Protein (Negative) Urine Glucose (UA) (Negative) Urine Ketones (Negative) Urine Blood (Negative) Urine Nitrite (Negative) Urine Bilirubin (Negative) Urine Urobilinogen (Negative) Ur Leukocyte Esterase (Negative) Urine WBC (Auto) (0-5) /hpf Urine RBC (Auto) (0-4) /hpf U Hyaline Cast (Auto) (0-5) /lpf U Epithel Cells (Auto) (0-5) /lpf Urine Bacteria (Auto) (Negative) Amorphous Sediment (None Prsent) Urine Osmolality (500-800) mOsm/kg Nasal Screen MRSA (PCR) (Negative) Salicylates (2.8-20) mg/dl Urine Opiates Screen (Neg) Ur Methadone, Qual (Neg) Acetaminophen (10-30) ug/ml Urine Barbiturates (Neg) Ur Phencyclidine (PCP) (Neg) U Amphetamin/Meth Scrn (Neg) MDMA (Ecstasy) Screen (Neg) U Benzodiazepines Scrn (Neg) Ur Cocaine Metabolite (Neg) U Marijuana (THC) Screen (Neg) Ethyl Alcohol mg/dL Hepatitis C Ab Screen Neg (Neg) Influenza Type A (PCR) (Neg) Influenza Type B (PCR) (Neg) 04/15/19 04/15/19 04/15/19 Range/Units 04:26 01:34 01:34 WBC (4.8-10.8) K/uL RBC (4.2-5.4) M/uL Hgb (12.0-16.0) g/dL POC Hgb (12.0-16.0) g/dl Hct (37-47) % POC Hct (37-47) % MCV (80-100) fL MCH (25-34) pg MCHC (32-36) g/dL Plt Count (130-400) K/uL Neutrophils % (Manual) % Lymphocytes % (Manual) % Monocytes % (Manual) % Metamyelocytes % (Man) % Neutrophils # (Manual) (1.4-6.5) K/uL Total Absolute Neuts (1.4-6.5) K/uL Lymphocytes # (Manual) (1.2-3.4) K/uL Monocytes # (Manual) (0.11-0.59) K/uL Metamyelocytes # (Man) (0-0) K/uL Echinocytes PT (9.0-12.0) Seconds INR (0.9-1.1) APTT (21.0-31.0) Seconds PTT Ratio Specimen Type Sample Site POC pH (7.35-7.45) POC pCO2 (35-46) mmHg POC pO2 (80-95) mmHg POC HCO3 (19-24) enrique/L POC Total CO2 (24-31) mmol/L POC Base Excess (-9-1.8) enrique/L POC O2 Saturation ABG pH (7.35-7.45) ABG pH (Temp Correct) (7.35-7.45) ABG pCO2 (35-46) mmHg ABG pCO2 (Temp Corrct (35-46) mmHg ABG pO2 (80-95) mmHg POC ABG pO2 at Pt Temp ABG HCO3 (19-24) mmol/L ABG O2 Saturation (90-95) % ABG Base Excess (-9-1.8) mEq/L Calos Test (Pos) VBG pH 7.12 L (7.36-7.41) VBG pCO2 35 L (38-50) mmHg VBG pO2 30 mmHg VBG HCO3 11 mmol/L VBG O2 Saturation < 60.0 % VBG Base Excess -17.4 mEq/L Barometric Pressure mm/Hg Oxygen Given O2 Delivery Device POC O2 Rate Minute Ventilation POC FiO2 % Tidal Volume PEEP POC Sodium (135-144) mmol/L Sodium (136-145) mmol/L POC Potassium (3.3-5.0) mmol/L Potassium (3.5-5.1) mmol/L Chloride (98-107) mmol/L Carbon Dioxide (21-32) mmol/L Anion Gap (3-11) BUN (7-18) mg/dl Creatinine (0.6-1.2) mg/dl Est Cr Clr Drug Dosing Est GFR ( Amer) Est GFR (Non-Af Amer) BUN/Creatinine Ratio (10-20) Glucose (70-99) mg/dl POC Glucose (70-99) mg/dl POC Glucose (other) (70-99) mg/dl Estimat Average Glucose mg/dl Hemoglobin A1c (4.5-5.6) % Osmolality (280-300) mOsm/kg Lactate 4.4 H* (0.4-2.0) mmol/L Calcium (8.5-10.1) mg/dl Phosphorus (2.5-4.9) mg/dl Magnesium (1.8-2.4) mg/dl Total Bilirubin (0.2-1) mg/dl AST (15-37) U/L ALT (12-78) U/L Alkaline Phosphatase (45-117) U/L Total Creatine Kinase (26-192) U/L Troponin I (0-0.045) ng/ml Total Protein (6.4-8.2) gm/dl Albumin (3.4-5.0) gm/dl Globulin (2.5-4.0) gm/dl Albumin/Globulin Ratio (0.9-2) Beta-Hydroxybutyric Acd (0.2-2.81) mg/dl Procalcitonin 2.47 H (0-0.5) ng/ml Random Cortisol mcg/dl Urine Color Urine Appearance (Clear) Urine pH (4.5-7.5) Ur Specific [place] (1.000-1.030) Urine Protein (Negative) Urine Glucose (UA) (Negative) Urine Ketones (Negative) Urine Blood (Negative) Urine Nitrite (Negative) Urine Bilirubin (Negative) Urine Urobilinogen (Negative) Ur Leukocyte Esterase (Negative) Urine WBC (Auto) (0-5) /hpf Urine RBC (Auto) (0-4) /hpf U Hyaline Cast (Auto) (0-5) /lpf U Epithel Cells (Auto) (0-5) /lpf Urine Bacteria (Auto) (Negative) Amorphous Sediment (None Prsent) Urine Osmolality (500-800) mOsm/kg Nasal Screen MRSA (PCR) (Negative) Salicylates (2.8-20) mg/dl Urine Opiates Screen (Neg) Ur Methadone, Qual (Neg) Acetaminophen (10-30) ug/ml Urine Barbiturates (Neg) Ur Phencyclidine (PCP) (Neg) U Amphetamin/Meth Scrn (Neg) MDMA (Ecstasy) Screen (Neg) U Benzodiazepines Scrn (Neg) Ur Cocaine Metabolite (Neg) U Marijuana (THC) Screen (Neg) Ethyl Alcohol mg/dL Hepatitis C Ab Screen (Neg) Influenza Type A (PCR) (Neg) Influenza Type B (PCR) (Neg) 04/15/19 04/15/19 04/15/19 Range/Units 01:34 01:34 01:34 WBC (4.8-10.8) K/uL RBC (4.2-5.4) M/uL Hgb (12.0-16.0) g/dL POC Hgb (12.0-16.0) g/dl Hct (37-47) % POC Hct (37-47) % MCV (80-100) fL MCH (25-34) pg MCHC (32-36) g/dL Plt Count (130-400) K/uL Neutrophils % (Manual) % Lymphocytes % (Manual) % Monocytes % (Manual) % Metamyelocytes % (Man) % Neutrophils # (Manual) (1.4-6.5) K/uL Total Absolute Neuts (1.4-6.5) K/uL Lymphocytes # (Manual) (1.2-3.4) K/uL Monocytes # (Manual) (0.11-0.59) K/uL Metamyelocytes # (Man) (0-0) K/uL Echinocytes PT (9.0-12.0) Seconds INR (0.9-1.1) APTT (21.0-31.0) Seconds PTT Ratio Specimen Type Sample Site POC pH (7.35-7.45) POC pCO2 (35-46) mmHg POC pO2 (80-95) mmHg POC HCO3 (19-24) enrique/L POC Total CO2 (24-31) mmol/L POC Base Excess (-9-1.8) enrique/L POC O2 Saturation ABG pH (7.35-7.45) ABG pH (Temp Correct) (7.35-7.45) ABG pCO2 (35-46) mmHg ABG pCO2 (Temp Corrct (35-46) mmHg ABG pO2 (80-95) mmHg POC ABG pO2 at Pt Temp ABG HCO3 (19-24) mmol/L ABG O2 Saturation (90-95) % ABG Base Excess (-9-1.8) mEq/L Calos Test (Pos) VBG pH (7.36-7.41) VBG pCO2 (38-50) mmHg VBG pO2 mmHg VBG HCO3 mmol/L VBG O2 Saturation % VBG Base Excess mEq/L Barometric Pressure mm/Hg Oxygen Given O2 Delivery Device POC O2 Rate Minute Ventilation POC FiO2 % Tidal Volume PEEP POC Sodium (135-144) mmol/L Sodium 131 L (136-145) mmol/L POC Potassium (3.3-5.0) mmol/L Potassium 6.2 H* (3.5-5.1) mmol/L Chloride 92 L (98-107) mmol/L Carbon Dioxide 12 L (21-32) mmol/L Anion Gap 28.0 H (3-11) BUN 53 H (7-18) mg/dl Creatinine 2.24 H (0.6-1.2) mg/dl Est Cr Clr Drug Dosing Not Reportable Est GFR ( Amer) 24.6 Est GFR (Non-Af Amer) 21.2 BUN/Creatinine Ratio 23.8 H (10-20) Glucose 1184 H* (70-99) mg/dl POC Glucose (70-99) mg/dl POC Glucose (other) (70-99) mg/dl Estimat Average Glucose 214 mg/dl Hemoglobin A1c 9.1 H (4.5-5.6) % Osmolality (280-300) mOsm/kg Lactate 5.1 H* (0.4-2.0) mmol/L Calcium 8.5 (8.5-10.1) mg/dl Phosphorus 9.0 H (2.5-4.9) mg/dl Magnesium 2.4 (1.8-2.4) mg/dl Total Bilirubin 1.0 (0.2-1) mg/dl AST 22 (15-37) U/L ALT 55 (12-78) U/L Alkaline Phosphatase 168 H (45-117) U/L Total Creatine Kinase (26-192) U/L Troponin I 0.246 H* (0-0.045) ng/ml Total Protein 6.8 (6.4-8.2) gm/dl Albumin 3.3 L (3.4-5.0) gm/dl Globulin 3.5 (2.5-4.0) gm/dl Albumin/Globulin Ratio 0.9 (0.9-2) Beta-Hydroxybutyric Acd 108.80 H (0.2-2.81) mg/dl Procalcitonin (0-0.5) ng/ml Random Cortisol mcg/dl Urine Color Urine Appearance (Clear) Urine pH (4.5-7.5) Ur Specific [place] (1.000-1.030) Urine Protein (Negative) Urine Glucose (UA) (Negative) Urine Ketones (Negative) Urine Blood (Negative) Urine Nitrite (Negative) Urine Bilirubin (Negative) Urine Urobilinogen (Negative) Ur Leukocyte Esterase (Negative) Urine WBC (Auto) (0-5) /hpf Urine RBC (Auto) (0-4) /hpf U Hyaline Cast (Auto) (0-5) /lpf U Epithel Cells (Auto) (0-5) /lpf Urine Bacteria (Auto) (Negative) Amorphous Sediment (None Prsent) Urine Osmolality (500-800) mOsm/kg Nasal Screen MRSA (PCR) (Negative) Salicylates (2.8-20) mg/dl Urine Opiates Screen (Neg) Ur Methadone, Qual (Neg) Acetaminophen (10-30) ug/ml Urine Barbiturates (Neg) Ur Phencyclidine (PCP) (Neg) U Amphetamin/Meth Scrn (Neg) MDMA (Ecstasy) Screen (Neg) U Benzodiazepines Scrn (Neg) Ur Cocaine Metabolite (Neg) U Marijuana (THC) Screen (Neg) Ethyl Alcohol mg/dL Hepatitis C Ab Screen (Neg) Influenza Type A (PCR) (Neg) Influenza Type B (PCR) (Neg) 04/15/19 04/15/19 04/15/19 Range/Units 01:34 01:34 01:20 WBC 21.48 H (4.8-10.8) K/uL RBC 3.89 L (4.2-5.4) M/uL Hgb 11.2 L (12.0-16.0) g/dL POC Hgb (12.0-16.0) g/dl Hct 36.7 L (37-47) % POC Hct (37-47) % MCV 94.3 (80-100) fL MCH 28.8 (25-34) pg MCHC 30.5 L (32-36) g/dL Plt Count 287 (130-400) K/uL Neutrophils % (Manual) 89.6 % Lymphocytes % (Manual) 7.8 % Monocytes % (Manual) 2.6 % Metamyelocytes % (Man) % Neutrophils # (Manual) 19.25 H (1.4-6.5) K/uL Total Absolute Neuts 19.25 H (1.4-6.5) K/uL Lymphocytes # (Manual) 1.68 (1.2-3.4) K/uL Monocytes # (Manual) 0.56 (0.11-0.59) K/uL Metamyelocytes # (Man) (0-0) K/uL Echinocytes 1+ PT 10.4 (9.0-12.0) Seconds INR 1.0 (0.9-1.1) APTT 24.7 (21.0-31.0) Seconds PTT Ratio 0.9 Specimen Type Sample Site POC pH (7.35-7.45) POC pCO2 (35-46) mmHg POC pO2 (80-95) mmHg POC HCO3 (19-24) enrique/L POC Total CO2 (24-31) mmol/L POC Base Excess (-9-1.8) enrique/L POC O2 Saturation ABG pH (7.35-7.45) ABG pH (Temp Correct) (7.35-7.45) ABG pCO2 (35-46) mmHg ABG pCO2 (Temp Corrct (35-46) mmHg ABG pO2 (80-95) mmHg POC ABG pO2 at Pt Temp ABG HCO3 (19-24) mmol/L ABG O2 Saturation (90-95) % ABG Base Excess (-9-1.8) mEq/L Calos Test (Pos) VBG pH (7.36-7.41) VBG pCO2 (38-50) mmHg VBG pO2 mmHg VBG HCO3 mmol/L VBG O2 Saturation % VBG Base Excess mEq/L Barometric Pressure mm/Hg Oxygen Given O2 Delivery Device POC O2 Rate Minute Ventilation POC FiO2 % Tidal Volume PEEP POC Sodium (135-144) mmol/L Sodium (136-145) mmol/L POC Potassium (3.3-5.0) mmol/L Potassium (3.5-5.1) mmol/L Chloride (98-107) mmol/L Carbon Dioxide (21-32) mmol/L Anion Gap (3-11) BUN (7-18) mg/dl Creatinine (0.6-1.2) mg/dl Est Cr Clr Drug Dosing Est GFR ( Amer) Est GFR (Non-Af Amer) BUN/Creatinine Ratio (10-20) Glucose (70-99) mg/dl POC Glucose (70-99) mg/dl POC Glucose (other) (70-99) mg/dl Estimat Average Glucose mg/dl Hemoglobin A1c (4.5-5.6) % Osmolality (280-300) mOsm/kg Lactate (0.4-2.0) mmol/L Calcium (8.5-10.1) mg/dl Phosphorus (2.5-4.9) mg/dl Magnesium (1.8-2.4) mg/dl Total Bilirubin (0.2-1) mg/dl AST (15-37) U/L ALT (12-78) U/L Alkaline Phosphatase (45-117) U/L Total Creatine Kinase (26-192) U/L Troponin I (0-0.045) ng/ml Total Protein (6.4-8.2) gm/dl Albumin (3.4-5.0) gm/dl Globulin (2.5-4.0) gm/dl Albumin/Globulin Ratio (0.9-2) Beta-Hydroxybutyric Acd (0.2-2.81) mg/dl Procalcitonin (0-0.5) ng/ml Random Cortisol mcg/dl Urine Color Urine Appearance (Clear) Urine pH (4.5-7.5) Ur Specific Lincoln (1.000-1.030) Urine Protein (Negative) Urine Glucose (UA) (Negative) Urine Ketones (Negative) Urine Blood (Negative) Urine Nitrite (Negative) Urine Bilirubin (Negative) Urine Urobilinogen (Negative) Ur Leukocyte Esterase (Negative) Urine WBC (Auto) (0-5) /hpf Urine RBC (Auto) (0-4) /hpf U Hyaline Cast (Auto) (0-5) /lpf U Epithel Cells (Auto) (0-5) /lpf Urine Bacteria (Auto) (Negative) Amorphous Sediment (None Prsent) Urine Osmolality (500-800) mOsm/kg Nasal Screen MRSA (PCR) (Negative) Salicylates (2.8-20) mg/dl Urine Opiates Screen (Neg) Ur Methadone, Qual (Neg) Acetaminophen (10-30) ug/ml Urine Barbiturates (Neg) Ur Phencyclidine (PCP) (Neg) U Amphetamin/Meth Scrn (Neg) MDMA (Ecstasy) Screen (Neg) U Benzodiazepines Scrn (Neg) Ur Cocaine Metabolite (Neg) U Marijuana (THC) Screen (Neg) Ethyl Alcohol mg/dL Hepatitis C Ab Screen (Neg) Influenza Type A (PCR) Neg for Influ A (Neg) Influenza Type B (PCR) Neg for Influ B (Neg) 04/15/19 04/15/19 Range/Units 01:20 01:01 WBC (4.8-10.8) K/uL RBC (4.2-5.4) M/uL Hgb (12.0-16.0) g/dL POC Hgb (12.0-16.0) g/dl Hct (37-47) % POC Hct (37-47) % MCV (80-100) fL MCH (25-34) pg MCHC (32-36) g/dL Plt Count (130-400) K/uL Neutrophils % (Manual) % Lymphocytes % (Manual) % Monocytes % (Manual) % Metamyelocytes % (Man) % Neutrophils # (Manual) (1.4-6.5) K/uL Total Absolute Neuts (1.4-6.5) K/uL Lymphocytes # (Manual) (1.2-3.4) K/uL Monocytes # (Manual) (0.11-0.59) K/uL Metamyelocytes # (Man) (0-0) K/uL Echinocytes PT (9.0-12.0) Seconds INR (0.9-1.1) APTT (21.0-31.0) Seconds PTT Ratio Specimen Type Sample Site POC pH (7.35-7.45) POC pCO2 (35-46) mmHg POC pO2 (80-95) mmHg POC HCO3 (19-24) enrique/L POC Total CO2 (24-31) mmol/L POC Base Excess (-9-1.8) enrique/L POC O2 Saturation ABG pH (7.35-7.45) ABG pH (Temp Correct) (7.35-7.45) ABG pCO2 (35-46) mmHg ABG pCO2 (Temp Corrct (35-46) mmHg ABG pO2 (80-95) mmHg POC ABG pO2 at Pt Temp ABG HCO3 (19-24) mmol/L ABG O2 Saturation (90-95) % ABG Base Excess (-9-1.8) mEq/L Calos Test (Pos) VBG pH (7.36-7.41) VBG pCO2 (38-50) mmHg VBG pO2 mmHg VBG HCO3 mmol/L VBG O2 Saturation % VBG Base Excess mEq/L Barometric Pressure mm/Hg Oxygen Given O2 Delivery Device POC O2 Rate Minute Ventilation POC FiO2 % Tidal Volume PEEP POC Sodium (135-144) mmol/L Sodium (136-145) mmol/L POC Potassium (3.3-5.0) mmol/L Potassium (3.5-5.1) mmol/L Chloride (98-107) mmol/L Carbon Dioxide (21-32) mmol/L Anion Gap (3-11) BUN (7-18) mg/dl Creatinine (0.6-1.2) mg/dl Est Cr Clr Drug Dosing Est GFR ( Amer) Est GFR (Non-Af Amer) BUN/Creatinine Ratio (10-20) Glucose (70-99) mg/dl POC Glucose > 600 H* (70-99) mg/dl POC Glucose (other) (70-99) mg/dl Estimat Average Glucose mg/dl Hemoglobin A1c (4.5-5.6) % Osmolality (280-300) mOsm/kg Lactate (0.4-2.0) mmol/L Calcium (8.5-10.1) mg/dl Phosphorus (2.5-4.9) mg/dl Magnesium (1.8-2.4) mg/dl Total Bilirubin (0.2-1) mg/dl AST (15-37) U/L ALT (12-78) U/L Alkaline Phosphatase (45-117) U/L Total Creatine Kinase (26-192) U/L Troponin I (0-0.045) ng/ml Total Protein (6.4-8.2) gm/dl Albumin (3.4-5.0) gm/dl Globulin (2.5-4.0) gm/dl Albumin/Globulin Ratio (0.9-2) Beta-Hydroxybutyric Acd (0.2-2.81) mg/dl Procalcitonin (0-0.5) ng/ml Random Cortisol mcg/dl Urine Color Yellow Urine Appearance Cloudy A (Clear) Urine pH 5.0 (4.5-7.5) Ur Specific [place] 1.028 (1.000-1.030) Urine Protein Negative (Negative) Urine Glucose (UA) 3+ H (Negative) Urine Ketones 1+ H (Negative) Urine Blood 2+ H (Negative) Urine Nitrite Negative (Negative) Urine Bilirubin Negative (Negative) Urine Urobilinogen Negative (Negative) Ur Leukocyte Esterase Negative (Negative) Urine WBC (Auto) 1-5 (0-5) /hpf Urine RBC (Auto) 0-4 (0-4) /hpf U Hyaline Cast (Auto) 1-5 (0-5) /lpf U Epithel Cells (Auto) >30 H (0-5) /lpf Urine Bacteria (Auto) 2+ H (Negative) Amorphous Sediment (None Prsent) Urine Osmolality (500-800) mOsm/kg Nasal Screen MRSA (PCR) (Negative) Salicylates (2.8-20) mg/dl Urine Opiates Screen (Neg) Ur Methadone, Qual (Neg) Acetaminophen (10-30) ug/ml Urine Barbiturates (Neg) Ur Phencyclidine (PCP) (Neg) U Amphetamin/Meth Scrn (Neg) MDMA (Ecstasy) Screen (Neg) U Benzodiazepines Scrn (Neg) Ur Cocaine Metabolite (Neg) U Marijuana (THC) Screen (Neg) Ethyl Alcohol mg/dL Hepatitis C Ab Screen (Neg) Influenza Type A (PCR) (Neg) Influenza Type B (PCR) (Neg) Resident Activity Tracking Resident Involvement: Resident Care Provided Care Provided: Adult Hospital Medicine (1) DKA (diabetic ketoacidoses) Diabetes mellitus complication detail: with coma Diabetes mellitus type: type 1 Qualified Code(s): E10.11 - Type 1 diabetes mellitus with ketoacidosis with coma (2) Hyperlipidemia Hyperlipidemia type: unspecified Qualified Code(s): E78.5 - Hyperlipidemia, unspecified (3) Altered mental status Altered mental status type: unspecified Qualified Code(s): R41.82 - Altered mental status, unspecified (4) Hypertension Hypertension type: essential hypertension Qualified Code(s): I10 - Essential (primary) hypertension
[2019-04-15 11:35] LABS: iSTAT Hematocrit 32 % (37-47); iSTAT Hemoglobin 10.9 g/dl (12.0-16.0); iSTAT Potassium 4.7 mmol/L (3.3-5.0); iSTAT Sodium 133 mmol/L (135-144)
[2019-04-15 11:36] LABS: iSTAT Arterial Blood Gas HCO3 8 meg/L (19-24); iSTAT Arterial Blood Gas pCO2 32 mmHg (35-46); iSTAT Arterial Blood Gas pO2 140 mmHg (80-95); iSTAT Carbon Dioxide 9 mmol/L (24-31); iSTAT Sample Type Arterial
[2019-04-15 11:47] LABS: Appearance Urine Cloudy (Clear); Bacteria Urine Automated 1+ (Negative); Bilirubin Urine Negative (Negative); Blood Urine 2+ (Negative); Color Urine Yellow; Glucose Urine UA 3+ (Negative); Ketones Urine 1+ (Negative); Leukocyte Esterase Urine Negative (Negative); Nitrite Urine Negative (Negative); Protein Urine 1+ (Negative); Urobilinogen Urine Negative (Negative)
[2019-04-15 11:57] LABS: Amorphous Sediment Urine Present (None Prsent)
[2019-04-15 11:59] LABS: Base Excess ABG -8.8 mEq/L (-9-1.8); HCO3 ABG 15 mmol/L (19-24); Oxygen Saturation ABG 97.3 % (90-95); PCO2 ABG 25 mmHg (35-46); PO2 ABG 93 mmHg (80-95); pH ABG 7.39 (7.35-7.45)
[2019-04-15 12:01] LABS: Allen Test CVAD (Pos)
[2019-04-15 12:43] LABS: BUN Creatinine Ratio 21.8 (10-20); Calcium 7.4 mg/dl (8.5-10.1); Creatinine Clr Calc Pharmacy 20.4 ml/min; Est GFR (African American) 24.1; Est GFR (Non-African American) 20.8; Magnesium 1.8 mg/dl (1.8-2.4); Phosphorus 2.7 mg/dl (2.5-4.9); Potassium 3.7 mmol/L (3.5-5.1)
--- NOTE | 2019-04-15 12:49 | Pharmacy Report ---
Pharmacy Glycemic Short Note 2 - Date of Service April 15, 2019 - Glycemic Short BSG Results (Last 24 hours): 04/15/19 04/15/19 04/15/19 01:01 01:34 04:26 Glucose 1184 H* 1063 H* POC Glucose > 600 H* POC Glucose (other) 04/15/19 04/15/19 04/15/19 04:30 05:58 06:37 Glucose 891 H* POC Glucose > 600 H* POC Glucose (other) > 700 H* 04/15/19 04/15/19 04/15/19 08:01 09:07 09:07 Glucose 841 H* Cancelled 835 H* POC Glucose POC Glucose (other) 04/15/19 11:46 Glucose 682 H* POC Glucose POC Glucose (other) OUTPATIENT ANTIDIABETIC REGIMEN: * Novolog 10 units TID w/ meals * Lantus 15 units Q AM * A1c = 9.1% 04/15/19 ASSESSMENT: * Type 1 diabetic admitted for severe DKA / HHS - possibly due to non-compliance vs infxn vs ACS * Initial labs: Glu 1184, Na 131 (corrected Na ~151), calc serum osmo 347, AG 28, Bicarb 12, BOHB 108.8 * IV hydration and IV insulin drip initiated * IV insulin drip running at 8.4 units/hr at this time, BSGs trending down nicely - would like to avoid overly rapid decline in BSGs given hyper osmolar state * Na and Glu trend should be monitored, closely to ensure Na is rising as Glu falling to prevent rapid osmotic shifts PLAN FOR INPATIENT GLYCEMIC CONTROL: * Continue IV insulin drip per protocol * ADA recs lowering BSG 50-75mg/dl per hour with IV insulin infusion ([facility] prefers 100mg/dL per hour reduction) * When BSG reaches 200-300 range, add dextrose to maint IVFs to prevent BSG from falling before ketoacidosis resolves * When BSG reaches 200-300 range, IV insulin rate may need reduced to 0.02- 0.05units/kg/hr to avoid lowering BSG much further * Keep BSG between 200-300 until patient's mental status improves and DKA resolved PLAN FOR DISCHARGE: * to be determined
[2019-04-15 13:21] LABS: Beta-Hydroxybutyrate 55.63 mg/dl (0.2-2.81)
[2019-04-15 13:25] LABS: Beta-Hydroxybutyrate 40.29 mg/dl (0.2-2.81)
--- NOTE | 2019-04-15 13:43 | Communication Note ---
Date of Service: April 15, 2019 Bedside Ultrasound: Lung: Positive B-lines appreciated left side anteriorly and posteriorly, B-lines right lower lobe, no pleural effusion appreciated. No consolidation appreciated. Heart: Difficult study, no pericardial effusion, RVOT normal in size, ejection fraction looks fair. Unable to comment on dyskinesia. IVC nonvariable 2.2 cm. Abdomen: No free fluid appreciated Case was discussed with patient's and sister at bedside. Critical condition of the patient was explained to them. All questions were answered appropriately and in depth. Please add 10135 procedure code to this note. Coding Level of Care Code Critical Care ea addt'l 30 min Time Spent (min) 25
[2019-04-15 13:57] LABS: Base Excess ABG -4.2 mEq/L (-9-1.8); HCO3 ABG 18 mmol/L (19-24); PCO2 ABG 23 mmHg (35-46); PO2 ABG 97 mmHg (80-95)
[2019-04-15 14:11] LABS: Allen Test ART LINE (Pos); pH ABG 7.51 (7.35-7.45)
[2019-04-15 14:25] LABS: BUN Creatinine Ratio 21.9 (10-20); Calcium 7.7 mg/dl (8.5-10.1); Creatinine Clr Calc Pharmacy 19.8 ml/min; Est GFR (African American) 23.2; Magnesium 1.8 mg/dl (1.8-2.4); Potassium 3.6 mmol/L (3.5-5.1)
[2019-04-15 14:38] LABS: Beta-Hydroxybutyrate 31.01 mg/dl (0.2-2.81)
[2019-04-15 14:40] LABS: Phosphorus 1.7 mg/dl (2.5-4.9)
[2019-04-15] MEDS ORDERED: NSS + 20MEQ KCL 20 MEQ/1,000 ML BAG IV SCH (15:15)
--- NOTE | 2019-04-15 15:30 | XCELERA ---
[id number] \\[id number]
[2019-04-15] MEDS: VASOPRESSIN 20 UNITS in 0.9 % SODIUM CHLORIDE 100 ML IV SCH (15:36)
[2019-04-15] MEDS: POTASSIUM CHLORIDE 20 MEQ in LACTATED RINGER'S 1,000 ML IV SCH ×2 (15:36→19:43)
[2019-04-15 16:35] LABS: Base Excess ABG -2.4 mEq/L (-9-1.8); HCO3 ABG 19 mmol/L (19-24); Oxygen Saturation ABG 97.8 % (90-95); PCO2 ABG 24 mmHg (35-46); PO2 ABG 94 mmHg (80-95)
[2019-04-15] MEDS ORDERED: ETOMIDATE 2 MG/ML 20 ML VIAL IV ONE (16:35)
[2019-04-15] MEDS ORDERED: ROCURONIUM BROMIDE 10 MG/ML 5 ML VIAL IV ONE (16:35)
[2019-04-15 16:46] LABS: Allen Test Pos (Pos); pH ABG 7.52 (7.35-7.45)
[2019-04-15 17:04] LABS: BUN Creatinine Ratio 19.3 (10-20); Calcium 7.6 mg/dl (8.5-10.1); Creatinine Clr Calc Pharmacy 18.4 ml/min; Est GFR (African American) 21.2; Est GFR (Non-African American) 18.3; Magnesium 1.6 mg/dl (1.8-2.4); Phosphorus 1.2 mg/dl (2.5-4.9); Potassium 3.5 mmol/L (3.5-5.1)
[2019-04-15] MEDS ORDERED: POTASSIUM PHOS 3 MMOL/1 ML INFUSION IV STA (17:07)
[2019-04-15 17:16] LABS: Beta-Hydroxybutyrate 12.85 mg/dl (0.2-2.81)
[2019-04-15] MEDS ORDERED: POTASSIUM PHOSPHATE 15 MMOL in SODIUM CHLORIDE 0.9% 250 ML IV ONE (17:30)
[2019-04-15 18:14] LABS: Allen Test Pos (Pos); Base Excess ABG -4.5 mEq/L (-9-1.8); HCO3 ABG 19 mmol/L (19-24); Oxygen Saturation ABG 97.2 % (90-95); PCO2 ABG 30 mmHg (35-46); PO2 ABG 90 mmHg (80-95); pH ABG 7.42 (7.35-7.45)
[2019-04-15 18:41] LABS: BUN Creatinine Ratio 20.6 (10-20); Calcium 7.5 mg/dl (8.5-10.1); Creatinine Clr Calc Pharmacy 19.5 ml/min; Est GFR (African American) 22.8; Est GFR (Non-African American) 19.7; Magnesium 1.5 mg/dl (1.8-2.4); Phosphorus 1.8 mg/dl (2.5-4.9); Potassium 3.7 mmol/L (3.5-5.1)
[2019-04-15 18:53] LABS: Beta-Hydroxybutyrate 2.53 mg/dl (0.2-2.81)
[2019-04-15] MEDS: POTASSIUM CHLORIDE 20 MEQ in D5W AND LACTATED RINGERS 1,000 ML IV SCH (20:50)
[2019-04-15 21:56] LABS: Base Excess ABG -3.6 mEq/L (-9-1.8); HCO3 ABG 20 mmol/L (19-24); Oxygen Saturation ABG 97.6 % (90-95); PCO2 ABG 32 mmHg (35-46); PO2 ABG 98 mmHg (80-95); pH ABG 7.42 (7.35-7.45)
[2019-04-15 21:57] LABS: Allen Test Pos (Pos)
[2019-04-15 22:06] LABS: BUN Creatinine Ratio 22.2 (10-20); Calcium 7.4 mg/dl (8.5-10.1); Creatinine Clr Calc Pharmacy 22.2 ml/min; Est GFR (African American) 26.7; Est GFR (Non-African American) 23.1
[2019-04-15 22:09] LABS: Phosphorus 2.7 mg/dl (2.5-4.9)
[2019-04-16] MEDS: VASOPRESSIN 20 UNITS in 0.9 % SODIUM CHLORIDE 100 ML IV SCH ×3 (00:42→20:06)
[2019-04-16] MEDS: POTASSIUM CHLORIDE 20 MEQ in D5W AND LACTATED RINGERS 1,000 ML IV SCH ×2 (00:42→04:55)
[2019-04-16] MEDS: propofoL 1,000 MG/100 ML VIAL IV SCH ×4 (01:23→18:37)
[2019-04-16] MEDS: PIPERACILLIN/TAZOBACTAM 4.5 GM in DEXTROSE 5% 100 ML IV SCH ×3 (01:23→18:31)
[2019-04-16 02:31] LABS: BUN Creatinine Ratio 23.5 (10-20); Calcium 7.3 mg/dl (8.5-10.1); Creatinine Clr Calc Pharmacy 24.4 ml/min; Est GFR (Non-African American) 25.9; Magnesium 1.5 mg/dl (1.8-2.4); Potassium 4.1 mmol/L (3.5-5.1)
[2019-04-16 02:52] LABS: Phosphorus 2.4 mg/dl (2.5-4.9); Troponin I 8.92 ng/ml (0-0.045)
[2019-04-16] MEDS: MAGNESIUM SULFATE / D5W 1 GM/100 ML BAG IV SCH ×3 (04:23→06:47)
[2019-04-16] MEDS ORDERED: HEPARIN SODIUM/DEXTROSE 25,000 UNITS/500 ML BAG IV SCH (05:15)
[2019-04-16] MEDS ORDERED: HEPARIN IV BOLUS 5,000 UNITS in SYRINGE 0 ML IV ONE (05:15)
[2019-04-16] MEDS: LINEZOLID 600 MG/300 ML BAG IV SCH (06:49)
[2019-04-16 06:51] LABS: Base Excess ABG -2.9 mEq/L (-9-1.8); HCO3 ABG 22 mmol/L (19-24); PCO2 ABG 36 mmHg (35-46); PO2 ABG 66 mmHg (80-95)
[2019-04-16 06:52] LABS: Allen Test Pos (Pos)
[2019-04-16 06:54] LABS: Basophils # (auto) 0.01 K/uL (0-0.2); Basophils % (auto) 0.1 %; Eosinophils # (auto) 0.02 K/uL (0-0.5); Eosinophils % (auto) 0.1 %; Hematocrit (blood only) 33.6 % (37-47); Hemoglobin 10.7 g/dL (12.0-16.0); Immature Granulocytes # (auto) 0.04 K/uL (0.00-0.02); Immature Granulocytes % (auto) 0.2 %; Lymphocytes # (auto) 2.03 K/uL (1.2-3.4); Lymphocytes % (auto) 10.4 %; Mean Corpuscular Hemoglobin 28.8 pg (25-34); Mean Corpuscular Hgb Conc 31.8 g/dL (32-36); Mean Corpuscular Volume 90.6 fL (80-100); Mean Platelet Volume 9.7 fL (7.4-10.4); Monocytes # (auto) 1.44 K/uL (0.11-0.59); Monocytes % (auto) 7.4 %; Neutrophils # (auto) 15.99 K/uL (1.4-6.5); Neutrophils % (auto) 81.8 %; Platelet Count 259 K/uL (130-400); RDW Coefficient of Variation 14.1 % (11.5-14.5); RDW Standard Deviation 46.4 fL (36.4-46.3); Red Blood Count 3.71 M/uL (4.2-5.4); White Blood Count 19.53 K/uL (4.8-10.8)
[2019-04-16] MEDS: PENDING D5 1/2NS+20mEq KCL IVF SCH ×2 (07:19→07:20)
--- NOTE | 2019-04-16 07:20 | XRay Report ---
XR chest 1V portable CLINICAL HISTORY: respiratory failure requiring ventilation COMPARISON STUDY: Chest CT and chest radiograph April 15, 2019. FINDINGS: Tip of nasogastric tube is below the lower aspect of this image but at least within the bod y of the stomach. Tip of endotracheal tube is 1.8 cm above the levi. There is no pneumothorax. Ther e is no definite pleural effusion. Lung volumes are diminished. There is no evidence for overt pulmon maryellen edema. There are bibasilar opacities. IMPRESSION: 1. Tip of endotracheal tube 1.8 cm above the levi. 2. Low lung volumes with bibasilar opacities which may reflect consolidation or atelectasis. 3. Pulmonary vascular congestion without overt edema. ACT 112: Negative or not required by law. Electronically signed by: Brandon Taveras M.D. 04/16/2019 7:19 AM
[2019-04-16 07:34] LABS: BUN Creatinine Ratio 24.4 (10-20); Calcium 7.4 mg/dl (8.5-10.1); Creatinine Clr Calc Pharmacy 27.2 ml/min; Est GFR (African American) 34.1; Est GFR (Non-African American) 29.4; Phosphorus 2.3 mg/dl (2.5-4.9); Potassium 4.1 mmol/L (3.5-5.1)
[2019-04-16 07:46] LABS: Beta-Hydroxybutyrate 1.09 mg/dl (0.2-2.81)
[2019-04-16] MEDS: INSULIN ASPART 100 UNITS/ML 3 ML PEN SC SCH ×2 (07:55→11:17)
[2019-04-16] MEDS ORDERED: NSS + 20MEQ KCL 20 MEQ/1,000 ML BAG IV SCH (08:00)
[2019-04-16] MEDS ORDERED: D5NSS + 20MEQ KCL 20 MEQ/1,000 ML BAG IV SCH (08:00)
[2019-04-16 08:40] LABS: Magnesium 2.5 mg/dl (1.8-2.4); Troponin I 6.38 ng/ml (0-0.045)
[2019-04-16] MEDS: NOREPINEPHRINE BIT INJ 8 MG in DEXTROSE 5% 500 ML IV SCH (09:16)
[2019-04-16] MEDS: CLOPIDOGREL BISULFATE 75 MG TAB PO SCH (09:23)
[2019-04-16] MEDS: ASPIRIN 81 MG CHEW NG SCH (09:23)
[2019-04-16] MEDS: ATORVASTATIN 40 MG TAB NG SCH (09:23)
[2019-04-16] MEDS: LANSOPRAZOLE 30 MG SOLTAB NG SCH (09:23)
--- NOTE | 2019-04-16 10:11 | Cardiology Progress Note ---
Date of Service April 16, 2019 Assessment & Plan (1) DKA (diabetic ketoacidoses): Mrs. Bonilla is a 73 year old female with history of Uncontrolled Type 1 Diabetes Mellitus, Diabetic Retinopathy, Diabetic Peripheral Neuropathy, Obesity, Osteoporosis, Dyslipidemia, Charcot's Arthropathy, Hypertension and Depression that presented with Marked Hyperglycemia, Diabetic Ketoacidosis with a wide anion gap, Marked Hyperkalemia, an Abnormal EKG, and an Elevated Troponin I Level which likely represents a Type II non-ACS NV related to her acute illness -- as patient did not complain of any cardiopulmonary symptoms according to the available records. Suspect that her EKG changes on presentation were secondary to hyperkalemia / metabolic derangement. Her EKG this morning appears to be back to baseline. ECHOCARDIOGRAM 04/15/2019: -- Hyperdynamic LV systolic function. -- LVEF >70%, no regional wall motion abnormalities. Recommend the following: -- Resume Aspirin and Atorvastatin after extubated and taking oral medications. -- Add a beta raffi during this hospitalization when BP allows and taking medications orally. (2) Acute hyperkalemia: -- Hyperkalemia has been corrected. (3) Elevated troponin I level: Elevated Troponin I Level likely represents a Type II non-ACS NV related to her acute illness/significant physiologic stress. -- As outlined above. (4) Abnormal ECG: -- Suspect that her EKG changes on presentation were secondary to marked hyperkalemia which has been corrected. -- Her EKG this morning appears to be back to baseline. QTc interval is now 475 msec. Admission and Anticipated Discharge Date Admission Date: April 15, 2019 Subjective Mrs. Bonilla is still on the ventilator and Levophed dosage has been lowered. BP has come up and HR is in the 80's on telemetry. Her is in the room today. We discussed that her LV systolic function is normal and that her troponin I elevation was not a primary coronary event. Her Troponin I peaked at 8.920 ng/ml and is now trending down. Physical Exam Physical Exam: Current BP 106/50 GENERAL: Patient currently sedated and intubated on a ventilator. HEENT: Head is atraumatic, normocephalic. Facies symmetric. No perioral cyanosis. NECK: No JVD. Carotid upstrokes are + 2 bilaterally. No bruits are noted. CHEST/LUNGS: Clear to auscultation throughout all lung lewis. CVS: S1 and S2 are regular at 82 bpm. No obvious murmurs, gallops, or rubs. PMI is nondisplaced. No lifts, heaves, or thrills. No abdominal aortic or renal bruits. ABDOMINAL EXAM: Bowel sounds are present. No masses, organomegaly, or tenderness. EXTREMITIES: No clubbing or cyanosis. No edema. Intact radial pulses bilaterally. TELEMETRY: -- Predominately sinus rhythm in the 80's. EKG 04/16/2019: -- NSR at 75 bpm with low voltages. Results & Data ([facility]) Vital Signs (Past 12 Hours) Vital Signs Pulse Resp BP Pulse Ox 04/16/19 07:35 14 04/16/19 06:45 85 93 04/16/19 06:30 85 94 04/16/19 06:15 80 94 04/16/19 06:08 80 106/51 L 93 04/16/19 06:00 77 94 04/16/19 05:45 75 96 04/16/19 05:30 72 92 04/16/19 05:29 71 165/91 H 93 04/16/19 05:15 74 94 04/16/19 05:08 72 150/63 H 97 04/16/19 05:00 74 97 04/16/19 04:45 76 15 94 04/16/19 04:30 74 94 04/16/19 04:15 75 93 04/16/19 04:08 75 159/80 H 95 04/16/19 04:00 76 93 04/16/19 03:59 75 134/85 92 04/16/19 03:45 76 92 04/16/19 03:44 77 149/82 H 92 04/16/19 03:30 76 92 04/16/19 03:29 76 158/74 H 92 04/16/19 03:15 76 91 03 03:14 76 154/77 H 90 04/16/19 03:00 75 91 04 02:59 75 156/78 H 92 04/16/19 02:45 76 92 04/16/19 02:44 77 149/71 H 92 04/16/19 02:30 76 91 04/16/19 02:29 76 154/70 H 92 04/16/19 02:15 77 91 03/04/20 02:14 77 141/76 H 91 04/16/19 02:00 77 92 04/16/19 01:59 78 137/75 92 04/16/19 01:45 77 91 04/16/19 01:44 76 135/72 92 04/16/19 01:30 76 94 04/16/19 01:29 87 130/62 94 04/16/19 01:15 76 93 04/16/19 01:14 76 131/78 93 04/16/19 01:07 77 14 92 04/16/19 01:00 78 97 04/16/19 00:59 87 115/62 97 04/16/19 00:45 77 97 04/16/19 00:44 86 110/57 L 97 04/16/19 00:31 87 98 04/16/19 00:29 77 103/60 97 04/16/19 00:15 77 96 04/16/19 00:14 79 109/65 96 04/16/19 00:00 88 96 04/15/19 23:59 78 109/59 L 97 04/15/19 23:45 79 96 04/15/19 23:30 79 14 98 Laboratory Results Laboratory Results - last 24 hr 04/15/19 04/15/19 04/15/19 05:03 06:36 09:07 WBC RBC Hgb POC Hgb 10.9 L Hct POC Hct 32 L MCV MCH MCHC RDW Std Deviation RDW Coeff of Bebe Plt Count MPV Immature Gran % (Auto) Neut % (Auto) Lymph % (Auto) [place] % (Auto) Eos % (Auto) Baso % (Auto) Immature Gran # (Auto) Neut # (Auto) Lymph # (Auto) [place] # (Auto) Eos # (Auto) Baso # (Auto) APTT PTT Ratio Specimen Type Arterial POC pH 7.00 L* POC pCO2 32 L POC pO2 140 H POC HCO3 8 L POC Total CO2 9 L* POC Base Excess -24.0 L POC O2 Saturation 97 ABG pH ABG pCO2 ABG pO2 ABG HCO3 ABG O2 Saturation ABG Base Excess Calos Test Barometric Pressure Oxygen Given POC Sodium 133 L Sodium 136 POC Potassium 4.7 Potassium 3.8 Chloride 102 Carbon Dioxide 10 L Anion Gap 24.0 H BUN 49 H Creatinine 2.11 H Est Cr Clr Drug Dosing 22.0 Est GFR ( Amer) 26.4 Est GFR (Non-Af Amer) 22.8 BUN/Creatinine Ratio 23.3 H Glucose 835 H* POC Glucose POC Glucose (other) Lactate Calcium 7.4 L Phosphorus 3.9 Magnesium 1.9 Troponin I Beta-Hydroxybutyric Acd 86.06 H Random Cortisol 74.04 Urine Color Urine Appearance Urine pH Ur Specific Tiger Urine Protein Urine Glucose (UA) Urine Ketones Urine Blood Urine Nitrite Urine Bilirubin Urine Urobilinogen Ur Leukocyte Esterase Urine WBC (Auto) Urine RBC (Auto) U Hyaline Cast (Auto) U Epithel Cells (Auto) Urine Bacteria (Auto) Amorphous Sediment 04/15/19 04/15/19 04/15/19 11:46 11:46 11:46 WBC RBC Hgb POC Hgb Hct POC Hct MCV MCH MCHC RDW Std Deviation RDW Coeff of Bebe Plt Count MPV Immature Gran % (Auto) Neut % (Auto) Lymph % (Auto) [place] % (Auto) Eos % (Auto) Baso % (Auto) Immature Gran # (Auto) Neut # (Auto) Lymph # (Auto) [place] # (Auto) Eos # (Auto) Baso # (Auto) APTT PTT Ratio Specimen Type POC pH POC pCO2 POC pO2 POC HCO3 POC Total CO2 POC Base Excess POC O2 Saturation ABG pH 7.39 ABG pCO2 25 L ABG pO2 93 ABG HCO3 15 L ABG O2 Saturation 97.3 H ABG Base Excess -8.8 Calos Test CVAD Barometric Pressure 721.4 Oxygen Given 30% POC Sodium Sodium 136 POC Potassium Potassium 3.7 Chloride 103 Carbon Dioxide 13 L Anion Gap 20.0 H BUN 50 H Creatinine 2.28 H Est Cr Clr Drug Dosing 20.4 Est GFR ( Amer) 24.1 Est GFR (Non-Af Amer) 20.8 BUN/Creatinine Ratio 21.8 H Glucose 682 H* POC Glucose POC Glucose (other) Lactate 2.8 H* Calcium 7.4 L Phosphorus 2.7 D Magnesium 1.8 Troponin I Beta-Hydroxybutyric Acd Random Cortisol Urine Color Urine Appearance Urine pH Ur Specific Tiger Urine Protein Urine Glucose (UA) Urine Ketones Urine Blood Urine Nitrite Urine Bilirubin Urine Urobilinogen Ur Leukocyte Esterase Urine WBC (Auto) Urine RBC (Auto) U Hyaline Cast (Auto) U Epithel Cells (Auto) Urine Bacteria (Auto) Amorphous Sediment 04/15/19 04/15/19 04/15/19 11:46 12:46 13:40 WBC RBC Hgb POC Hgb Hct POC Hct MCV MCH MCHC RDW Std Deviation RDW Coeff of Bebe Plt Count MPV Immature Gran % (Auto) Neut % (Auto) Lymph % (Auto) [place] % (Auto) Eos % (Auto) Baso % (Auto) Immature Gran # (Auto) Neut # (Auto) Lymph # (Auto) [place] # (Auto) Eos # (Auto) Baso # (Auto) APTT PTT Ratio Specimen Type POC pH POC pCO2 POC pO2 POC HCO3 POC Total CO2 POC Base Excess POC O2 Saturation ABG pH ABG pCO2 ABG pO2 ABG HCO3 ABG O2 Saturation ABG Base Excess Calos Test Barometric Pressure Oxygen Given POC Sodium Sodium 135 L POC Potassium Potassium 3.6 Chloride 102 Carbon Dioxide 16 L Anion Gap 17.0 H BUN 52 H Creatinine 2.35 H Est Cr Clr Drug Dosing 19.8 Est GFR ( Amer) 23.2 Est GFR (Non-Af Amer) 20.0 BUN/Creatinine Ratio 21.9 H Glucose 682 H* 642 H* 586 H* POC Glucose POC Glucose (other) Lactate Calcium 7.7 L Phosphorus 1.7 L D Magnesium 1.8 Troponin I Beta-Hydroxybutyric Acd 55.63 H 40.29 H 31.01 H Random Cortisol Urine Color Urine Appearance Urine pH Ur Specific Tiger Urine Protein Urine Glucose (UA) Urine Ketones Urine Blood Urine Nitrite Urine Bilirubin Urine Urobilinogen Ur Leukocyte Esterase Urine WBC (Auto) Urine RBC (Auto) U Hyaline Cast (Auto) U Epithel Cells (Auto) Urine Bacteria (Auto) Amorphous Sediment 04/15/19 04/15/19 04/15/19 13:40 15:37 15:53 WBC RBC Hgb POC Hgb Hct POC Hct MCV MCH MCHC RDW Std Deviation RDW Coeff of Bebe Plt Count MPV Immature Gran % (Auto) Neut % (Auto) Lymph % (Auto) [place] % (Auto) Eos % (Auto) Baso % (Auto) Immature Gran # (Auto) Neut # (Auto) Lymph # (Auto) [place] # (Auto) Eos # (Auto) Baso # (Auto) APTT PTT Ratio Specimen Type POC pH POC pCO2 POC pO2 POC HCO3 POC Total CO2 POC Base Excess POC O2 Saturation ABG pH 7.51 H* ABG pCO2 23 L ABG pO2 97 H ABG HCO3 18 L ABG O2 Saturation 98.0 H ABG Base Excess -4.2 Calos Test ART LINE Barometric Pressure 719.8 Oxygen Given 30% POC Sodium Sodium 135 L POC Potassium Potassium 3.5 Chloride 104 Carbon Dioxide 18 L Anion Gap 13.0 H BUN 49 H Creatinine 2.53 H Est Cr Clr Drug Dosing 18.4 Est GFR ( Amer) 21.2 Est GFR (Non-Af Amer) 18.3 BUN/Creatinine Ratio 19.3 Glucose 458 H* POC Glucose POC Glucose (other) 471 H* Lactate Calcium 7.6 L Phosphorus 1.2 L* Magnesium 1.6 L Troponin I Beta-Hydroxybutyric Acd 12.85 H Random Cortisol Urine Color Urine Appearance Urine pH Ur Specific Tiger Urine Protein Urine Glucose (UA) Urine Ketones Urine Blood Urine Nitrite Urine Bilirubin Urine Urobilinogen Ur Leukocyte Esterase Urine WBC (Auto) Urine RBC (Auto) U Hyaline Cast (Auto) U Epithel Cells (Auto) Urine Bacteria (Auto) Amorphous Sediment 04/15/19 04/15/19 04/15/19 15:53 16:35 17:34 WBC RBC Hgb POC Hgb Hct POC Hct MCV MCH MCHC RDW Std Deviation RDW Coeff of Bebe Plt Count MPV Immature Gran % (Auto) Neut % (Auto) Lymph % (Auto) [place] % (Auto) Eos % (Auto) Baso % (Auto) Immature Gran # (Auto) Neut # (Auto) Lymph # (Auto) [place] # (Auto) Eos # (Auto) Baso # (Auto) APTT PTT Ratio Specimen Type POC pH POC pCO2 POC pO2 POC HCO3 POC Total CO2 POC Base Excess POC O2 Saturation ABG pH 7.52 H* ABG pCO2 24 L ABG pO2 94 ABG HCO3 19 ABG O2 Saturation 97.8 H ABG Base Excess -2.4 Calos Test Pos Barometric Pressure 718.0 Oxygen Given 30% POC Sodium Sodium POC Potassium Potassium Chloride Carbon Dioxide Anion Gap BUN Creatinine Est Cr Clr Drug Dosing Est GFR ( Amer) Est GFR (Non-Af Amer) BUN/Creatinine Ratio Glucose POC Glucose POC Glucose (other) 422 H* 369 H* Lactate Calcium Phosphorus Magnesium Troponin I Beta-Hydroxybutyric Acd Random Cortisol Urine Color Urine Appearance Urine pH Ur Specific Tiger Urine Protein Urine Glucose (UA) Urine Ketones Urine Blood Urine Nitrite Urine Bilirubin Urine Urobilinogen Ur Leukocyte Esterase Urine WBC (Auto) Urine RBC (Auto) U Hyaline Cast (Auto) U Epithel Cells (Auto) Urine Bacteria (Auto) Amorphous Sediment 04/15/19 04/15/19 04/15/19 17:57 17:57 19:33 WBC RBC Hgb POC Hgb Hct POC Hct MCV MCH MCHC RDW Std Deviation RDW Coeff of Bebe Plt Count MPV Immature Gran % (Auto) Neut % (Auto) Lymph % (Auto) [place] % (Auto) Eos % (Auto) Baso % (Auto) Immature Gran # (Auto) Neut # (Auto) Lymph # (Auto) [place] # (Auto) Eos # (Auto) Baso # (Auto) APTT PTT Ratio Specimen Type POC pH POC pCO2 POC pO2 POC HCO3 POC Total CO2 POC Base Excess POC O2 Saturation ABG pH 7.42 ABG pCO2 30 L ABG pO2 90 ABG HCO3 19 ABG O2 Saturation 97.2 H ABG Base Excess -4.5 Calos Test Pos Barometric Pressure 717.3 Oxygen Given 30% POC Sodium Sodium 137 POC Potassium Potassium 3.7 Chloride 105 Carbon Dioxide 20 L Anion Gap 11.0 BUN 49 H Creatinine 2.38 H Est Cr Clr Drug Dosing 19.5 Est GFR ( Amer) 22.8 Est GFR (Non-Af Amer) 19.7 BUN/Creatinine Ratio 20.6 H Glucose 336 H* POC Glucose POC Glucose (other) 310 H Lactate Calcium 7.5 L Phosphorus 1.8 L Magnesium 1.5 L Troponin I Beta-Hydroxybutyric Acd 2.53 Random Cortisol Urine Color Urine Appearance Urine pH Ur Specific Tiger Urine Protein Urine Glucose (UA) Urine Ketones Urine Blood Urine Nitrite Urine Bilirubin Urine Urobilinogen Ur Leukocyte Esterase Urine WBC (Auto) Urine RBC (Auto) U Hyaline Cast (Auto) U Epithel Cells (Auto) Urine Bacteria (Auto) Amorphous Sediment 04/15/19 04/15/19 04/15/19 20:04 20:39 21:33 WBC RBC Hgb POC Hgb Hct POC Hct MCV MCH MCHC RDW Std Deviation RDW Coeff of Bebe Plt Count MPV Immature Gran % (Auto) Neut % (Auto) Lymph % (Auto) [place] % (Auto) Eos % (Auto) Baso % (Auto) Immature Gran # (Auto) Neut # (Auto) Lymph # (Auto) [place] # (Auto) Eos # (Auto) Baso # (Auto) APTT PTT Ratio Specimen Type POC pH POC pCO2 POC pO2 POC HCO3 POC Total CO2 POC Base Excess POC O2 Saturation ABG pH ABG pCO2 ABG pO2 ABG HCO3 ABG O2 Saturation ABG Base Excess Calos Test Barometric Pressure Oxygen Given POC Sodium Sodium POC Potassium Potassium Chloride Carbon Dioxide Anion Gap BUN Creatinine Est Cr Clr Drug Dosing Est GFR ( Amer) Est GFR (Non-Af Amer) BUN/Creatinine Ratio Glucose POC Glucose POC Glucose (other) 262 H 243 H Lactate Calcium Phosphorus Magnesium 1.6 L Troponin I Beta-Hydroxybutyric Acd Random Cortisol Urine Color Urine Appearance Urine pH Ur Specific Tiger Urine Protein Urine Glucose (UA) Urine Ketones Urine Blood Urine Nitrite Urine Bilirubin Urine Urobilinogen Ur Leukocyte Esterase Urine WBC (Auto) Urine RBC (Auto) U Hyaline Cast (Auto) U Epithel Cells (Auto) Urine Bacteria (Auto) Amorphous Sediment 04/15/19 04/15/19 04/15/19 21:38 21:38 22:38 WBC RBC Hgb POC Hgb Hct POC Hct MCV MCH MCHC RDW Std Deviation RDW Coeff of Bebe Plt Count MPV Immature Gran % (Auto) Neut % (Auto) Lymph % (Auto) [place] % (Auto) Eos % (Auto) Baso % (Auto) Immature Gran # (Auto) Neut # (Auto) Lymph # (Auto) [place] # (Auto) Eos # (Auto) Baso # (Auto) APTT PTT Ratio Specimen Type POC pH POC pCO2 POC pO2 POC HCO3 POC Total CO2 POC Base Excess POC O2 Saturation ABG pH 7.42 ABG pCO2 32 L ABG pO2 98 H ABG HCO3 20 ABG O2 Saturation 97.6 H ABG Base Excess -3.6 Calos Test Pos Barometric Pressure 722.4 Oxygen Given 30% POC Sodium Sodium 137 POC Potassium Potassium 4.0 Chloride 106 Carbon Dioxide 22 Anion Gap 9.0 BUN 47 H Creatinine 2.09 H Est Cr Clr Drug Dosing 22.2 Est GFR ( Amer) 26.7 Est GFR (Non-Af Amer) 23.1 BUN/Creatinine Ratio 22.2 H Glucose 242 H POC Glucose POC Glucose (other) 228 H Lactate Calcium 7.4 L Phosphorus 2.7 Magnesium Troponin I Beta-Hydroxybutyric Acd Random Cortisol Urine Color Urine Appearance Urine pH Ur Specific Tiger Urine Protein Urine Glucose (UA) Urine Ketones Urine Blood Urine Nitrite Urine Bilirubin Urine Urobilinogen Ur Leukocyte Esterase Urine WBC (Auto) Urine RBC (Auto) U Hyaline Cast (Auto) U Epithel Cells (Auto) Urine Bacteria (Auto) Amorphous Sediment 04/15/19 04/15/19 04/15/19 23:35 23:50 Unknown WBC RBC Hgb POC Hgb Hct POC Hct MCV MCH MCHC RDW Std Deviation RDW Coeff of Bebe Plt Count MPV Immature Gran % (Auto) Neut % (Auto) Lymph % (Auto) [place] % (Auto) Eos % (Auto) Baso % (Auto) Immature Gran # (Auto) Neut # (Auto) Lymph # (Auto) [place] # (Auto) Eos # (Auto) Baso # (Auto) APTT PTT Ratio Specimen Type POC pH POC pCO2 POC pO2 POC HCO3 POC Total CO2 POC Base Excess POC O2 Saturation ABG pH ABG pCO2 ABG pO2 ABG HCO3 ABG O2 Saturation ABG Base Excess Calos Test Barometric Pressure Oxygen Given POC Sodium Sodium POC Potassium Potassium Chloride Carbon Dioxide Anion Gap BUN Creatinine Est Cr Clr Drug Dosing Est GFR ( Amer) Est GFR (Non-Af Amer) BUN/Creatinine Ratio Glucose POC Glucose POC Glucose (other) 221 H Lactate Calcium Phosphorus Magnesium 1.4 L Troponin I Beta-Hydroxybutyric Acd Random Cortisol Urine Color Yellow Urine Appearance Cloudy A Urine pH 5.0 Ur Specific Tiger 1.030 Urine Protein 1+ H Urine Glucose (UA) 3+ H Urine Ketones 1+ H Urine Blood 2+ H Urine Nitrite Negative Urine Bilirubin Negative Urine Urobilinogen Negative Ur Leukocyte Esterase Negative Urine WBC (Auto) 5-10 H Urine RBC (Auto) 5-10 H U Hyaline Cast (Auto) 5-10 H U Epithel Cells (Auto) 10-20 H Urine Bacteria (Auto) 1+ H Amorphous Sediment Present A 04/16/19 04/16/19 04/16/19 00:39 01:42 01:57 WBC RBC Hgb POC Hgb Hct POC Hct MCV MCH MCHC RDW Std Deviation RDW Coeff of Bebe Plt Count MPV Immature Gran % (Auto) Neut % (Auto) Lymph % (Auto) [place] % (Auto) Eos % (Auto) Baso % (Auto) Immature Gran # (Auto) Neut # (Auto) Lymph # (Auto) [place] # (Auto) Eos # (Auto) Baso # (Auto) APTT PTT Ratio Specimen Type POC pH POC pCO2 POC pO2 POC HCO3 POC Total CO2 POC Base Excess POC O2 Saturation ABG pH ABG pCO2 ABG pO2 ABG HCO3 ABG O2 Saturation ABG Base Excess Calos Test Barometric Pressure Oxygen Given POC Sodium Sodium 137 POC Potassium Potassium 4.1 Chloride 107 Carbon Dioxide 21 Anion Gap 9.0 BUN 45 H Creatinine 1.90 H Est Cr Clr Drug Dosing 24.4 Est GFR ( Amer) 30.0 Est GFR (Non-Af Amer) 25.9 BUN/Creatinine Ratio 23.5 H Glucose 246 H POC Glucose 221 H POC Glucose (other) 221 H Lactate Calcium 7.3 L Phosphorus 2.4 L Magnesium 1.5 L Troponin I 8.920 H* Beta-Hydroxybutyric Acd Random Cortisol Urine Color Urine Appearance Urine pH Ur Specific Tiger Urine Protein Urine Glucose (UA) Urine Ketones Urine Blood Urine Nitrite Urine Bilirubin Urine Urobilinogen Ur Leukocyte Esterase Urine WBC (Auto) Urine RBC (Auto) U Hyaline Cast (Auto) U Epithel Cells (Auto) Urine Bacteria (Auto) Amorphous Sediment 04/16/19 04/16/19 04/16/19 01:57 02:40 03:42 WBC RBC Hgb POC Hgb Hct POC Hct MCV MCH MCHC RDW Std Deviation RDW Coeff of Bebe Plt Count MPV Immature Gran % (Auto) Neut % (Auto) Lymph % (Auto) [place] % (Auto) Eos % (Auto) Baso % (Auto) Immature Gran # (Auto) Neut # (Auto) Lymph # (Auto) [place] # (Auto) Eos # (Auto) Baso # (Auto) APTT PTT Ratio Specimen Type POC pH POC pCO2 POC pO2 POC HCO3 POC Total CO2 POC Base Excess POC O2 Saturation ABG pH ABG pCO2 ABG pO2 ABG HCO3 ABG O2 Saturation ABG Base Excess Calos Test Barometric Pressure Oxygen Given POC Sodium Sodium POC Potassium Potassium Chloride Carbon Dioxide Anion Gap BUN Creatinine Est Cr Clr Drug Dosing Est GFR ( Amer) Est GFR (Non-Af Amer) BUN/Creatinine Ratio Glucose POC Glucose 239 H POC Glucose (other) 248 H Lactate 2.5 H* Calcium Phosphorus Magnesium Troponin I Beta-Hydroxybutyric Acd Random Cortisol Urine Color Urine Appearance Urine pH Ur Specific Tiger Urine Protein Urine Glucose (UA) Urine Ketones Urine Blood Urine Nitrite Urine Bilirubin Urine Urobilinogen Ur Leukocyte Esterase Urine WBC (Auto) Urine RBC (Auto) U Hyaline Cast (Auto) U Epithel Cells (Auto) Urine Bacteria (Auto) Amorphous Sediment 04/16/19 04/16/19 04/16/19 06:40 06:40 06:40 WBC 19.53 H RBC 3.71 L Hgb 10.7 L POC Hgb Hct 33.6 L POC Hct MCV 90.6 MCH 28.8 MCHC 31.8 L RDW Std Deviation 46.4 H RDW Coeff of Bebe 14.1 Plt Count 259 MPV 9.7 Immature Gran % (Auto) 0.2 Neut % (Auto) 81.8 Lymph % (Auto) 10.4 [place] % (Auto) 7.4 Eos % (Auto) 0.1 Baso % (Auto) 0.1 Immature Gran # (Auto) 0.04 H Neut # (Auto) 15.99 H Lymph # (Auto) 2.03 [place] # (Auto) 1.44 H Eos # (Auto) 0.02 Baso # (Auto) 0.01 APTT PTT Ratio Specimen Type POC pH POC pCO2 POC pO2 POC HCO3 POC Total CO2 POC Base Excess POC O2 Saturation ABG pH 7.40 ABG pCO2 36 ABG pO2 66 L ABG HCO3 22 ABG O2 Saturation 94.0 ABG Base Excess -2.9 Calos Test Pos Barometric Pressure 727.5 Oxygen Given 30% FiO2 POC Sodium Sodium 135 L POC Potassium Potassium 4.1 Chloride 105 Carbon Dioxide 22 Anion Gap 8.0 BUN 42 H Creatinine 1.71 H Est Cr Clr Drug Dosing 27.2 Est GFR ( Amer) 34.1 Est GFR (Non-Af Amer) 29.4 BUN/Creatinine Ratio 24.4 H Glucose 336 H* POC Glucose POC Glucose (other) Lactate Calcium 7.4 L Phosphorus 2.3 L Magnesium Troponin I Beta-Hydroxybutyric Acd 1.09 Random Cortisol Urine Color Urine Appearance Urine pH Ur Specific Tiger Urine Protein Urine Glucose (UA) Urine Ketones Urine Blood Urine Nitrite Urine Bilirubin Urine Urobilinogen Ur Leukocyte Esterase Urine WBC (Auto) Urine RBC (Auto) U Hyaline Cast (Auto) U Epithel Cells (Auto) Urine Bacteria (Auto) Amorphous Sediment 04/16/19 04/16/19 04/16/19 07:43 07:47 08:49 WBC RBC Hgb POC Hgb Hct POC Hct MCV MCH MCHC RDW Std Deviation RDW Coeff of Bebe Plt Count MPV Immature Gran % (Auto) Neut % (Auto) Lymph % (Auto) [place] % (Auto) Eos % (Auto) Baso % (Auto) Immature Gran # (Auto) Neut # (Auto) Lymph # (Auto) [place] # (Auto) Eos # (Auto) Baso # (Auto) APTT PTT Ratio Specimen Type POC pH POC pCO2 POC pO2 POC HCO3 POC Total CO2 POC Base Excess POC O2 Saturation ABG pH ABG pCO2 ABG pO2 ABG HCO3 ABG O2 Saturation ABG Base Excess Calos Test Barometric Pressure Oxygen Given POC Sodium Sodium POC Potassium Potassium Chloride Carbon Dioxide Anion Gap BUN Creatinine Est Cr Clr Drug Dosing Est GFR ( Amer) Est GFR (Non-Af Amer) BUN/Creatinine Ratio Glucose POC Glucose POC Glucose (other) 408 H* 393 H* Lactate Calcium Phosphorus Magnesium 2.5 H Troponin I 6.380 H* Beta-Hydroxybutyric Acd Random Cortisol Urine Color Urine Appearance Urine pH Ur Specific Tiger Urine Protein Urine Glucose (UA) Urine Ketones Urine Blood Urine Nitrite Urine Bilirubin Urine Urobilinogen Ur Leukocyte Esterase Urine WBC (Auto) Urine RBC (Auto) U Hyaline Cast (Auto) U Epithel Cells (Auto) Urine Bacteria (Auto) Amorphous Sediment 04/16/19 04/16/19 04/16/19 09:40 09:59 09:59 WBC RBC Hgb POC Hgb Hct POC Hct MCV MCH MCHC RDW Std Deviation RDW Coeff of Bebe Plt Count MPV Immature Gran % (Auto) Neut % (Auto) Lymph % (Auto) [place] % (Auto) Eos % (Auto) Baso % (Auto) Immature Gran # (Auto) Neut # (Auto) Lymph # (Auto) [place] # (Auto) Eos # (Auto) Baso # (Auto) APTT Pending PTT Ratio Pending Specimen Type POC pH POC pCO2 POC pO2 POC HCO3 POC Total CO2 POC Base Excess POC O2 Saturation ABG pH ABG pCO2 ABG pO2 ABG HCO3 ABG O2 Saturation ABG Base Excess Calos Test Barometric Pressure Oxygen Given POC Sodium Sodium Pending POC Potassium Potassium Pending Chloride Pending Carbon Dioxide Pending Anion Gap Pending BUN Pending Creatinine Pending Est Cr Clr Drug Dosing Pending Est GFR ( Amer) Pending Est GFR (Non-Af Amer) Pending BUN/Creatinine Ratio Pending Glucose Pending POC Glucose POC Glucose (other) 368 H* Lactate Calcium Pending Phosphorus Pending Magnesium Troponin I Beta-Hydroxybutyric Acd Random Cortisol Urine Color Urine Appearance Urine pH Ur Specific Tiger Urine Protein Urine Glucose (UA) Urine Ketones Urine Blood Urine Nitrite Urine Bilirubin Urine Urobilinogen Ur Leukocyte Esterase Urine WBC (Auto) Urine RBC (Auto) U Hyaline Cast (Auto) U Epithel Cells (Auto) Urine Bacteria (Auto) Amorphous Sediment Medications Administered Active Medications Generic Name Dose Route Start Last Admin Trade Name Freq PRN Reason Stop Dose Admin Aspirin 81 mg 04/16/19 09:00 04/16/19 09:23 Aspirin Chew NG 05/16/19 08:59 81 mg QAM LINDA Administration Atorvastatin Calcium 40 mg 04/16/19 09:00 04/16/19 09:23 Lipitor NG 05/16/19 08:59 40 mg QAM LINDA Administration Clopidogrel Bisulfate 75 mg 04/16/19 09:00 04/16/19 09:23 Plavix PO 05/16/19 08:59 75 mg QAM LINDA Administration Dextrose 25 - 50 ml 04/15/19 02:39 Dextrose 50% IV 05/15/19 02:38 UD PRN Hypoglycemia Protocol Protocol Fentanyl Citrate 25 mcg 04/15/19 09:41 04/15/19 10:25 Fentanyl Citrate IV 04/29/19 09:40 25 mcg Q2H PRN Administration pain/sedation on vent Glucagon 1 mg 04/15/19 02:39 Glucagen SQ 05/15/19 02:38 UD PRN Hypoglycemia Protocol Protocol Glucose 4 - 8 tabs 04/15/19 02:39 Dex4 Glucose PO 05/15/19 02:38 UD PRN Hypoglycemia Protocol Protocol Glucose 15 - 30 gm 04/15/19 02:39 Glucose 40% PO 05/15/19 02:38 UD PRN Hypoglycemia Protocol Protocol Heparin Sodium (Porcine) 5,000 units 04/16/19 14:00 Heparin Sodium (Porcine) SQ 05/16/19 13:59 Q8 LINDA Propofol 1,000 mg in 100 mls @ 13.122 mls/hr 04/15/19 04:00 04/16/19 09:16 Diprivan IV 04/18/19 03:59 30 mcg/kg/min .[id number] LINDA 13.1 mls/hr Titration Protocol 30 MCG/KG/MIN Norepinephrine Bitartrate 8 mg 508 mls @ 16.665 mls/hr 04/15/19 04:15 04/16/19 09:16 / Dextrose IV 05/15/19 04:14 0.06 mcg/kg/min .Q24H LINDA 16.7 mls/hr Administration Protocol 0.06 MCG/KG/MIN Insulin Human Regular 250 250 mls @ 2.2 mls/hr 04/15/19 04:15 04/16/19 07:59 units/ Sodium Chloride IV 05/15/19 04:14 2.2 units/hr .Q24H LINDA 2.2 mls/hr Titration Protocol 2.2 UNITS/HR Piperacillin Sod/Tazobactam 120 mls @ 28.75 mls/hr 04/15/19 10:00 04/16/19 09:25 Sod 4.5 gm/ Dextrose IV 04/25/19 09:59 30 mls/hr Q8H LINDA Administration Protocol Vasopressin 20 units/ Sodium 101 mls @ 12.12 mls/hr 04/15/19 15:00 04/16/19 09:31 Chloride IV 05/15/19 14:59 0.04 unit/min .Q8H20M LINDA 12.1 mls/hr Infusion 0.04 UNIT/MIN Potassium Chloride/Dextrose/Sod Cl 20 meq in 1,000 mls @ 75 mls/hr 04/16/19 08:00 04/16/19 09:08 D5nss + 20meq Kcl IV 05/16/19 07:59 75 mls/hr .[id number] LINDA Administration Insulin Aspart 0 units 04/15/19 07:30 04/16/19 07:55 Novolog Flexpen SC 05/15/19 07:29 Not Given ACHS LINDA Lansoprazole 30 mg 04/15/19 11:00 04/16/19 09:23 Prevacid NG 05/15/19 10:59 30 mg DAILY@1100 LINDA Administration Miscellaneous 15 - 30 gm 04/15/19 02:39 Carbohydrates For Hypoglycemia PO 05/15/19 02:38 UD PRN Hypoglycemia Protocol Miscellaneous Information 1 ea 04/15/19 02:37 Consult N/A 05/15/19 02:36 UD PRN Consult Miscellaneous Information 1 ea 04/15/19 06:00 Consult Glycemic Management Pharmacy N/A 05/15/19 05:45 UD PRN Consult Propofol 20 mg 04/15/19 03:55 Diprivan Bolus From Bag IV 04/18/19 03:54 Q5M PRN Sedation PG Care Time/CCT Total # of Minutes Spent Total Time Spent with Patient: Total time spent is greater than 50% in coordination of care (as documented) at patient's floor/unit and/or counseling patient: Coding Level of Care Code 72844 Subseq Hosp Care Lvl 3 Diagnoses DKA (diabetic ketoacidoses) E10.11 Diabetes mellitus complication detail: with coma Diabetes mellitus type: type 1 Acute hyperkalemia E87.5 Elevated troponin I level R79.89 Abnormal ECG R94.31 (1) DKA (diabetic ketoacidoses) Diabetes mellitus complication detail: with coma Diabetes mellitus type: type 1 Qualified Code(s): E10.11 - Type 1 diabetes mellitus with ketoacidosis with coma
--- NOTE | 2019-04-16 10:38 | Critical Care Progress Note ---
Date of Service April 16, 2019 Assessment & Plan (1) Septic shock: --Septic shock Secondary to UTI with E. coli in the urine, MRSA nares negative Continue with Zosyn, DC linezolid Follow-up sensitivity Continue with vasopressor support to keep map greater than 65 --DKA Patient is type I diabetic Anion gap closed Transition to non-DKA insulin drip and then to subcu insulin Pharmacy on board Decreasing blood glucose no more than 100 in an hour Replace potassium IV when potassium level between 3.3-5.3 BMP every 4 hours --DAYNE Likely secondary to hypotension episode Monitor BUN/creatinine Improving and creatinine gradually. Avoid nephrotoxic medication. --NSTEMI Likely demand ischemia Troponin max to 8, trending down now We will start the patient on statin and aspirin along with Plavix 75 mg on a daily basis DC heparin drip continue with subcu heparin Cardiology on board --Hypomagnesemia Being replaced --DVT prophylaxis Heparin GI prophylaxis: Lansoprazole Plan: Non-DKA insulin drip. Transition to subcu gradually. Give 40 mg of IV Lasix. Go down on IV fluids. Start topical feeds through the NG tube once that is started we will DC the IV fluids. I have personally spent 37 minutes of critical care time in the direct management of this patient. This is a life/limb threatening event. This includes time spent evaluating patient, direct bedside care, chart review, placing orders, interpretation of diagnostic studies, discussion with consultants, patient, and family members, as well as other required patient management activities. This time is exclusive of all separately billable procedures, and teaching time and separate from and in addition to any other critical care service time. Please note the above document was generated using voice recognition software. It may contain grammatical, syntax or spelling errors. (2) Acute kidney injury: (3) Elevated troponin I level: (4) DKA (diabetic ketoacidoses): Subjective Patient seen and examined at bedside. No acute distress, no adverse events overnight. At the time of examination patient was on propofol 40, vasopressin 0.04 norepinephrine 0.06. Patient nodded her head no to any chest pain. Patient follows command. Patient urine output in the last 24 hours is 1071 mL. Which leads to +8.5 L Review of Systems Review of Systems: Unobtainable due to endotracheal tube Physical Exam Physical Exam: Constitutional: No acute distress HEENT: PERRLA, positive ETT Respiratory system: Decreased air entry bilaterally, positive crackles bilateral lower lobe, no wheeze, no rhonchi CVS: S1-S2 positive, no murmurs or gallops Abdomen: Soft, nontender, nondistended, positive bowel sounds x4 Extremities: +2 pulses bilaterally radialis/ dorsalis pedis, no cyanosis, no edema Neuro: Rass -1, patient breathing over the vent, following commands. Psych: Unable to assess G/U: Positive De La Fuente Skin: no rashes, warm and dry Lymphatic: no cervical or axillary lymphadenopathy Results & Data ([facility]) Vital Signs (Past 12 Hours) Vital Signs Pulse Resp BP Pulse Ox 04/16/19 07:35 14 04/16/19 06:45 85 93 04/16/19 06:30 85 94 04/16/19 06:15 80 94 04/16/19 06:08 80 106/51 L 93 04/16/19 06:00 77 94 04/16/19 05:45 75 96 04/16/19 05:30 72 92 04/16/19 05:29 71 165/91 H 93 04/16/19 05:15 74 94 04/16/19 05:08 72 150/63 H 97 04/16/19 05:00 74 97 04/16/19 04:45 76 15 94 04/16/19 04:30 74 94 04/16/19 04:15 75 93 04/16/19 04:08 75 159/80 H 95 04/16/19 04:00 76 93 04/16/19 03:59 75 134/85 92 04/16/19 03:45 76 92 04/16/19 03:44 77 149/82 H 92 04/16/19 03:30 76 92 04/16/19 03:29 76 158/74 H 92 04/16/19 03:15 76 91 04/16/19 03:14 76 154/77 H 90 04/16/19 03:00 75 91 04 02:59 75 156/78 H 92 04/16/19 02:45 76 92 04/16/19 02:44 77 149/71 H 92 04/16/19 02:30 76 91 04/16/19 02:29 76 154/70 H 92 04/16/19 02:15 77 91 03/04/20 02:14 77 141/76 H 91 04/16/19 02:00 77 92 04/16/19 01:59 78 137/75 92 04/16/19 01:45 77 91 04/16/19 01:44 76 135/72 92 04/16/19 01:30 76 94 04/16/19 01:29 87 130/62 94 04/16/19 01:15 76 93 04/16/19 01:14 76 131/78 93 04/16/19 01:07 77 14 92 04/16/19 01:00 78 97 04/16/19 00:59 87 115/62 97 04/16/19 00:45 77 97 04/16/19 00:44 86 110/57 L 97 04/16/19 00:31 87 98 04/16/19 00:29 77 103/60 97 04/16/19 00:15 77 96 04/16/19 00:14 79 109/65 96 04/16/19 00:00 88 96 04/15/19 23:59 78 109/59 L 97 04/15/19 23:45 79 96 04/15/19 23:30 79 14 98 04/16/19 06:40 Coding Level of Care Code Established Pt Critical Care 1st 30-74 mins Patient Type Established Diagnoses Septic shock A41.9; R65.21 Acute kidney injury N17.9 Elevated troponin I level R79.89 DKA (diabetic ketoacidoses) E10.11 Diabetes mellitus complication detail: with coma Diabetes mellitus type: type 1 Time Spent (min) 37 (1) DKA (diabetic ketoacidoses) Diabetes mellitus complication detail: with coma Diabetes mellitus type: type 1 Qualified Code(s): E10.11 - Type 1 diabetes mellitus with ketoacidosis with coma
[2019-04-16 10:44] LABS: BUN Creatinine Ratio 24.3 (10-20); Calcium 7.2 mg/dl (8.5-10.1); Creatinine Clr Calc Pharmacy 27.6 ml/min; Est GFR (African American) 34.8; Partial Thromboplastin Ratio > 5.1; Partial Thromboplastin Time > 139.0 Seconds (21.0-31.0); Phosphorus 2.3 mg/dl (2.5-4.9); Potassium 4.2 mmol/L (3.5-5.1)
[2019-04-16 10:58] LABS: Beta-Hydroxybutyrate 0.81 mg/dl (0.2-2.81)
[2019-04-16] MEDS ORDERED: FUROSEMIDE 40 MG in SYRINGE 0 ML IV ONE (11:00)
[2019-04-16] MEDS ORDERED: PEPTAMEN INTENSE VHP 1.0 CAL 1,000 ML BAG OG SCH (11:30)
[2019-04-16] MEDS ORDERED: INSULIN GLARGINE SOLOSTAR 100 UNITS/ML 3 ML PEN SC ONE (13:30)
[2019-04-16] MEDS: HEPARIN SOD 5,000 UNIT/0.5 ML VIAL SQ SCH (13:39)
--- NOTE | 2019-04-16 13:44 | Pharmacy Report ---
Pharmacy Glycemic Short Note 2 - Date of Service April 16, 2019 - Glycemic Short BSG Results (Last 24 hours): 04/15/19 04/15/19 04/15/19 13:40 15:37 15:53 Glucose 586 H* 458 H* POC Glucose POC Glucose (other) 471 H* 04/15/19 04/15/19 04/15/19 16:35 17:34 17:57 Glucose 336 H* POC Glucose POC Glucose (other) 422 H* 369 H* 04/15/19 04/15/19 04/15/19 19:33 20:39 21:33 Glucose POC Glucose POC Glucose (other) 310 H 262 H 243 H 04/15/19 04/15/19 04/15/19 21:38 22:38 23:35 Glucose 242 H POC Glucose POC Glucose (other) 228 H 221 H 04/16/19 04/16/19 04/16/19 00:39 01:42 01:57 Glucose 246 H POC Glucose 221 H POC Glucose (other) 221 H 04/16/19 04/16/19 04/16/19 02:40 03:42 04:43 Glucose POC Glucose 239 H POC Glucose (other) 248 H 281 H 04/16/19 04/16/19 04/16/19 05:34 06:07 06:33 Glucose POC Glucose POC Glucose (other) 314 H 332 H 346 H 04/16/19 04/16/19 04/16/19 06:40 07:43 08:49 Glucose 336 H* POC Glucose POC Glucose (other) 408 H* 393 H* 04/16/19 04/16/19 04/16/19 09:40 09:59 11:09 Glucose 356 H* POC Glucose POC Glucose (other) 368 H* 345 H 04/16/19 04/16/19 12:07 13:04 Glucose POC Glucose POC Glucose (other) 321 H 275 H OUTPATIENT ANTIDIABETIC REGIMEN: * Novolog 10 units TID w/ meals * Lantus 15 units Q AM * A1c = 9.1% 04/15/19 ASSESSMENT: 04/15 * Insulin drip continues at this time. AG acidosis has resolved. * Dextrose added to IVF's yesterday evening and continued thru the night * BSGs in 220-408 range overnight * Pressors increased this AM due to MAPs below goal * Pt to remain intubated today. * Plan to continue IV insulin drip due to unpredictable SQ absorption, significant stressors, plans to initiated trickle tube feeds and d/c maint IVFs due to + fluid balance. Will add modest dose of SQ Lantus at this time with goal to have some basal insulin on board should we be able to begin transitioning off insulin drip tomorrow AM if extubated and tolerance of PO diet anticipated 04/14 * Type 1 diabetic admitted for severe DKA / HHS - possibly due to non-compliance vs infxn vs ACS * Initial labs: Glu 1184, Na 131 (corrected Na ~151), calc serum osmo 347, AG 28, Bicarb 12, BOHB 108.8 * IV hydration and IV insulin drip initiated * IV insulin drip running at 8.4 units/hr at this time, BSGs trending down nicely - would like to avoid overly rapid decline in BSGs given hyper osmolar state * Na and Glu trend should be monitored, closely to ensure Na is rising as Glu falling to prevent rapid osmotic shifts PLAN FOR INPATIENT GLYCEMIC CONTROL: * Continue IV insulin drip per protocol, goal range less than 200 per donkey engine firer/fireman, will use goal of 140-180 * Lantus 10 units SQ x 1 -but continue the insulin drip * Will not utilize Novolog SQ to cover carbs in trophic feeds that are not being titrated PLAN FOR DISCHARGE: * to be determined
[2019-04-16 14:41] LABS: BUN Creatinine Ratio 22.9 (10-20); Calcium 7.5 mg/dl (8.5-10.1); Creatinine Clr Calc Pharmacy 29.6 ml/min; Est GFR (African American) 37.8; Est GFR (Non-African American) 32.6; Phosphorus 1.8 mg/dl (2.5-4.9); Potassium 3.4 mmol/L (3.5-5.1)
--- NOTE | 2019-04-16 15:57 | Electrocardiogram Report ---
Test Reason : Blood Pressure : / mmHG Vent. Rate : 075 BPM Atrial Rate : 075 BPM P-R Int : 132 ms QRS Dur : 080 ms QT Int : 426 ms P-R-T Axes : 002 013 066 degrees QTc Int : 475 ms Normal sinus rhythm Low voltage QRS Borderline ECG When compared with ECG of 15-APR-2019 07:48, No significant change was found Confirmed by Braden Salguero ([id number]) on 04/16/2019 3:57:07 PM Referred By: REFERRED SELF Confirmed By:Braden Salguero
[2019-04-16] MEDS ORDERED: POTASSIUM CHLORIDE 20 MEQ TABCR PO STA (19:17)
[2019-04-16] MEDS ORDERED: FUROSEMIDE 40 MG in SYRINGE 0 ML IV STA (19:47)
[2019-04-16] MEDS ORDERED: POTASSIUM CHLORIDE / WTR 20 MEQ/100 ML PLCT IV STA (19:47)
[2019-04-16] MEDS ORDERED: POTASSIUM CHLORIDE 20 MEQ/15 ML UDC PO ONE (20:00)
[2019-04-17] MEDS: HEPARIN SOD 5,000 UNIT/0.5 ML VIAL SQ SCH ×4 (00:22→22:39)
[2019-04-17] MEDS: VASOPRESSIN 20 UNITS in 0.9 % SODIUM CHLORIDE 100 ML IV SCH (01:00)
[2019-04-17] MEDS: propofoL 1,000 MG/100 ML VIAL IV SCH ×5 (01:01→22:39)
[2019-04-17] MEDS: PIPERACILLIN/TAZOBACTAM 4.5 GM in DEXTROSE 5% 100 ML IV SCH (02:15)
[2019-04-17 04:21] LABS: Basophils # (auto) 0.01 K/uL (0-0.2); Basophils % (auto) 0.1 %; Eosinophils # (auto) 0.03 K/uL (0-0.5); Eosinophils % (auto) 0.2 %; Hematocrit (blood only) 32.1 % (37-47); Hemoglobin 10.2 g/dL (12.0-16.0); Immature Granulocytes # (auto) 0.03 K/uL (0.00-0.02); Immature Granulocytes % (auto) 0.2 %; Lymphocytes # (auto) 1.87 K/uL (1.2-3.4); Lymphocytes % (auto) 13.5 %; Mean Corpuscular Hemoglobin 29.1 pg (25-34); Mean Corpuscular Hgb Conc 31.8 g/dL (32-36); Mean Corpuscular Volume 91.5 fL (80-100); Mean Platelet Volume 9.7 fL (7.4-10.4); Monocytes # (auto) 0.73 K/uL (0.11-0.59); Monocytes % (auto) 5.3 %; Neutrophils # (auto) 11.22 K/uL (1.4-6.5); Neutrophils % (auto) 80.7 %; Platelet Count 193 K/uL (130-400); RDW Coefficient of Variation 14.3 % (11.5-14.5); RDW Standard Deviation 47.7 fL (36.4-46.3); Red Blood Count 3.51 M/uL (4.2-5.4); White Blood Count 13.89 K/uL (4.8-10.8)
[2019-04-17 06:07] LABS: iSTAT Art Bld Gas pCO2 Correct 38 mmHg (35-46); iSTAT Art Bld Gas pH Corrected 7.439 (7.35-7.45); iSTAT Arterial Blood Gas HCO3 26 meg/L (19-24); iSTAT Arterial Blood Gas pCO2 38 mmHg (35-46); iSTAT Arterial Blood Gas pH 7.45 (7.35-7.45); iSTAT Arterial Blood Gas pO2 136 mmHg (80-95); iSTAT Arterial Blood Gas pO2 C 138; iSTAT Carbon Dioxide 27 mmol/L (24-31); iSTAT FiO2 40 %; iSTAT Hematocrit 30 % (37-47); iSTAT Hemoglobin 10.2 g/dl (12.0-16.0); iSTAT Potassium 3.7 mmol/L (3.3-5.0); iSTAT Site Art Line; iSTAT Sodium 134 mmol/L (135-144)
[2019-04-17 06:26] LABS: BUN Creatinine Ratio 25.6 (10-20); Calcium 7.8 mg/dl (8.5-10.1); Creatinine Clr Calc Pharmacy 37.2 ml/min; Est GFR (African American) 44.9; Est GFR (Non-African American) 38.8; Magnesium 1.8 mg/dl (1.8-2.4); Potassium 3.7 mmol/L (3.5-5.1)
[2019-04-17 06:35] LABS: Troponin I 3.02 ng/ml (0-0.045)
[2019-04-17] MEDS ORDERED: MAGNESIUM SULFATE / D5W 1 GM/100 ML BAG IV ONE (06:37)
[2019-04-17] MEDS ORDERED: POTASSIUM CHLORIDE 20 MEQ/15 ML UDC PO STA (06:37)
[2019-04-17] MEDS: INSULIN REGULAR 250 UNITS in SODIUM CHLORIDE 0.9% 247.5 ML IV SCH (06:55)
[2019-04-17] MEDS: FUROSEMIDE 40 MG in SYRINGE 0 ML IV SCH ×2 (08:15→19:54)
[2019-04-17] MEDS: CLOPIDOGREL BISULFATE 75 MG TAB PO SCH (08:16)
[2019-04-17] MEDS: ATORVASTATIN 40 MG TAB NG SCH (08:16)
[2019-04-17] MEDS: LANSOPRAZOLE 30 MG SOLTAB NG SCH (08:16)
[2019-04-17] MEDS: ASPIRIN 81 MG CHEW NG SCH (08:16)
--- NOTE | 2019-04-17 08:16 | XRay Report ---
SINGLE VIEW CHEST CLINICAL HISTORY: Respiratory failure. FINDINGS: An AP, portable, supine chest radiograph is compared to chest x-ray dated 04/16/2019 and robert elated with chest CT dated 04/15/2019. The examination is degraded by portable technique and patient ro tation. Endotracheal and enteric tubes are unchanged in position. The heart is enlarged noting athero sclerotic calcification of the thoracic aorta. Mild pulmonary vascular congestion persists. Atelectas is is noted at the lung bases. Bibasilar opacities are noted. No large pleural effusion is identified . No pneumothorax is seen. The skeletal structures are osteopenic. The bony thorax is grossly intact. A calcified gallstone is seen in the right upper quadrant. IMPRESSION: 1. Stable lines and tubes. 2. Cardiomegaly with mild pulmonary vascular congestion. 3. Dependent airspace opacities are unchanged from yesterday. ACT 112: Negative or not required by law. Electronically signed by: Mir Stock M.D. 04/17/2019 8:15 AM
[2019-04-17] MEDS: NOREPINEPHRINE BIT INJ 8 MG in DEXTROSE 5% 500 ML IV SCH (08:27)
--- NOTE | 2019-04-17 08:51 | Critical Care Progress Note ---
Date of Service April 17, 2019 Assessment & Plan (1) Septic shock: --VDRF sec to Septic shock Secondary to UTI with E. coli in the urine, MRSA nares negative Pansensitive, Change zosyn to Rocephin Continue with vasopressor support to keep map greater than 65 c/w vent support Daily SBTs -- s/p DKA Patient is type I diabetic Anion gap closed Transition to non-DKA insulin drip and then to subcu insulin Pharmacy on board Decreasing blood glucose no more than 100 in an hour Replace potassium IV when potassium level between 3.3-5.3 --DAYNE Likely secondary to hypotension episode, Improving Monitor BUN/creatinine Improving and creatinine gradually. Avoid nephrotoxic medication. --NSTEMI Likely demand ischemia Troponin max to 8, trending down now Onn statin and aspirin along with Plavix 75 mg on a daily basis Cardiology on board --DVT prophylaxis Heparin GI prophylaxis: Lansoprazole Plan: On Trophic feeding. Change Zosyn to Rocephin Patient is +ve 13L since admission. Standing Lasix 40mg BID with holding parameters. Try to wean off Levophed. Go down on sedation. Patient has Femoral line. Once patient is off pressors will take it out after getting peripheral lines. I have personally spent 37 minutes of critical care time in the direct management of this patient. This is a life/limb threatening event. This includes time spent evaluating patient, direct bedside care, chart review, placing orders, interpretation of diagnostic studies, discussion with consultants, patient, and family members, as well as other required patient management activities. This time is exclusive of all separately billable procedures, and teaching time and separate from and in addition to any other critical care service time. Please note the above document was generated using voice recognition software. It may contain grammatical, syntax or spelling errors. (2) Acute kidney injury: (3) Elevated troponin I level: Subjective Patient seen and examined at bedside. NAD, JESSICA overnight. On Propofol 40 and Levophed 0.03 at the time of examination. RASS -1. Afebrile in last 24 hours. Review of Systems Review of Systems: Unobtainable due to endotracheal tube Physical Exam Physical Exam: Constitutional: No acute distress HEENT: PERRLA, positive ETT Respiratory system: Decreased air entry bilaterally, positive crackles bilateral lower lobe, no wheeze, no rhonchi CVS: S1-S2 positive, +2/6 murmur systolic appreciated best at apex. Abdomen: Soft, nontender, nondistended, positive bowel sounds x4 Extremities: +2 pulses bilaterally radialis/ dorsalis pedis, no cyanosis, +1 edema Neuro: Rass -1, patient breathing over the vent, following commands. Psych: Unable to assess G/U: Positive De [place] Fuente +ve Right Femoral line, Left radial Skin: no rashes, warm and dry Lymphatic: no cervical or axillary lymphadenopathy Results & Data ([facility]) Vital Signs (Past 12 Hours) Vital Signs Pulse Resp BP Pulse Ox 04/17/19 07:34 82 12 98 04/17/19 06:08 81 116/64 98 04/17/19 05:40 80 12 100 04/17/19 05:08 80 118/58 L 100 04/17/19 04:30 79 100 04/17/19 04:08 78 92/45 L 99 04/17/19 04:00 78 99 04/17/19 03:30 81 100 04/17/19 03:08 82 120/58 L 100 04/17/19 03:00 83 100 04/17/19 02:33 85 12 100 04/17/19 02:30 83 100 04/17/19 02:08 85 115/54 L 100 04/17/19 02:00 85 100 04/17/19 01:30 83 100 04/17/19 01:08 77 99/49 L 100 04/17/19 01:00 76 100 04/17/19 00:30 79 100 04/17/19 00:18 85 99 04/17/19 00:17 84 95/50 L 99 04/17/19 00:15 84 99 04/17/19 00:10 83 103/50 L 97 04/17/19 00:00 76 100 04/16/19 23:49 84 12 100 04/16/19 23:45 83 100 04/16/19 23:30 84 99 04/16/19 23:15 86 100 04/16/19 23:08 85 93/49 L 100 04/16/19 23:00 85 100 04/16/19 22:45 84 99 04/16/19 22:30 86 99 04/16/19 22:15 88 99 04/16/19 22:08 90 111/54 L 99 04/16/19 22:00 91 H 99 04/16/19 21:45 91 H 99 04/16/19 21:30 91 H 100 04/16/19 21:15 90 99 04/16/19 21:08 91 H 110/55 L 99 04/16/19 21:00 87 04/16/19 20:45 85 100 04/17/19 04:04 04/17/19 05:48 Intake & Output 04/15/19 04/16/19 04/17/19 04/18/19 06:59 06:59 06:59 06:59 Intake Total 4710.782 / 4710.782 9818.455 / 9818.455 3736.840 / 3736.840 13.041 / 13.041 Output Total 1071 / 1071 3575 / 3575 Balance 4710.782 / 4710.782 8747.455 / 8747.455 161.840 / 161.840 13.041 / 13.041 Weight 72.9 kg 72.9 kg 86 kg Coding Level of Care Code Critical Care 1st 30-74 mins Diagnoses Septic shock A41.9; R65.21 Acute kidney injury N17.9 Elevated troponin I level R79.89 Time Spent (min) 37
[2019-04-17] MEDS: cefTRIAXone SODIUM 2,000 MG in DEXTROSE 5% 50 ML IV SCH (09:22)
--- NOTE | 2019-04-17 10:03 | Hospitalist Progress Note ---
Date of Service April 16, 2019 Assessment & Plan (1) DKA (diabetic ketoacidoses): 73 yo F with T1DM, dementia, osteoporosis admitted to the ICU for altered mental status and severe DKA. Defer primary medical decisions to ICU team, will follow peripherally. 1. DKA - admitted with Beta-OH of 108, blood glucose of 1184, A1c 9.1 - insulin drip to close anion gap - altered mental status secondary to DKA vs. Dementia - sedated on propofol drip at this time 2. Sepsis 2/2 unknown source - WBC 23->13, procal 2.47, lactate 5.1, downtrending to 2.8 with hydration. - CT chest showed no acute intrapulmonary pathology; 5mm nodule noted in addition to possible cystic lesion on T12 vertebrae with concern for underlying malignancy - UA showed 3+ gluc, 1+ ketones, 2+ blood however no nitrites or LE - hypotensive requiring Levophed support - negative for flu A and B - blood cultures negative at 48 hours - Zosyn and Zyvox for empiric coverage - following cbc 3. Acute MN/Troponin elevation - Trop of 4.190->8.9->6.3-4.2, hx of diastolic dysfunction - EKG with acute changes - Cardiac echo: EF>70, hyperdynamic movement with no valvular abnormalities, no focal wall motion abnormalities - Cardiac consult: EKG changes likely secondary to hyperkalemia, metabolic derangements. ASA, atorvastatin when extubated. Consider addition of BB when extubated and able to tolerate PO. 4. Acute hypoxic respiratory failure - mechanically ventilated - cxr negative for active disease 5. DAYNE - likely secondary to DKA - rehydration with IVF - following bmp, cr improving LINES/IV ACCESS: R Fem Art triple lumen, Central venous, L arm peripheral, OJ, De La Fuente CODE STATUS: Full DVT PROPHYLAXIS: Heparin (2) Altered mental status: (3) Acute hyperkalemia: (4) Metabolic acidosis: (5) Uncontrolled type 1 diabetes mellitus with retinopathy, with long-term current use of insulin: (6) Microalbuminuria: (7) Hypertension: (8) Depression: (9) Hyperlipidemia: Admission and Anticipated Discharge Date Admission Date: April 15, 2019 Supervising Physician Co-Signing Physician Notes case d/w dr sanchez. agree w above. ICU primarily managing. Review of Systems Review of Systems: Unobtainable due to endotracheal tube Physical Exam Constitutional: + ill appearing, + obese, + disheveled and + mechanically ventilated Neck: normal visual inspection and trachea midline Respiratory: Auscultation: lungs clear to auscultation bilaterally; no crackles, no rales and no wheezes Cardiovascular: Rate/Rhythm: + tachycardic Heart Sounds: no murmur Vessels: no JVD Extremities: no edema Gastrointestinal (Abdomen): Inspection/Auscultation: abdomen not distended Percussion/Palpation: abdomen soft; abdomen not rigid Skin: no rashes, no lesions and no ulcers Results & Data ([facility]) Vital Signs (Past 12 Hours) Vital Signs Pulse Resp BP Pulse Ox 04/17/19 09:08 79 109/60 96 04/17/19 09:00 78 96 04/17/19 08:08 80 115/53 L 99 04/17/19 08:00 81 99 04/17/19 07:34 82 12 98 04/17/19 07:08 82 114/60 98 04/17/19 07:00 81 98 04/17/19 06:08 81 116/64 98 04/17/19 05:40 80 12 100 04/17/19 05:08 80 118/58 L 100 04/17/19 04:30 79 100 04/17/19 04:08 78 92/45 L 99 04/17/19 04:00 78 99 04/17/19 03:30 81 100 04/17/19 03:08 82 120/58 L 100 04/17/19 03:00 83 100 04/17/19 02:33 85 12 100 04/17/19 02:30 83 100 04/17/19 02:08 85 115/54 L 100 04/17/19 02:00 85 100 04/17/19 01:30 83 100 04/17/19 01:08 77 99/49 L 100 04/17/19 01:00 76 100 04/17/19 00:30 79 100 04/17/19 00:18 85 99 04/17/19 00:17 84 95/50 L 99 04/17/19 00:15 84 99 04/17/19 00:10 83 103/50 L 97 04/17/19 00:00 76 100 04/16/19 23:49 84 12 100 04/16/19 23:45 83 100 04/16/19 23:30 84 99 04/16/19 23:15 86 100 04/16/19 23:08 85 93/49 L 100 04/16/19 23:00 85 100 04/16/19 22:45 84 99 04/16/19 22:30 86 99 04/16/19 22:15 88 99 04/16/19 22:08 90 111/54 L 99 (1) DKA (diabetic ketoacidoses) Diabetes mellitus complication detail: with coma Diabetes mellitus type: type 1 Qualified Code(s): E10.11 - Type 1 diabetes mellitus with ketoacidosis with coma (2) Hyperlipidemia Hyperlipidemia type: unspecified Qualified Code(s): E78.5 - Hyperlipidemia, unspecified (3) Altered mental status Altered mental status type: unspecified Qualified Code(s): R41.82 - Altered mental status, unspecified (4) Hypertension Hypertension type: essential hypertension Qualified Code(s): I10 - Essential (primary) hypertension
--- NOTE | 2019-04-17 10:04 | Hospitalist Progress Note ---
Date of Service April 17, 2019 Assessment & Plan (1) DKA (diabetic ketoacidoses): 73 yo F with T1DM, dementia, osteoporosis admitted to the ICU for altered mental status and severe DKA. Defer primary medical decisions to ICU team, will follow peripherally. 1. DKA - admitted with Beta-OH of 108, blood glucose of 1184, A1c 9.1 - insulin drip to close anion gap - altered mental status secondary to DKA vs. Dementia - sedated on propofol drip at this time 2. Sepsis 2/2 unknown source present on admission - WBC 23 ->18 procal 2.47, lactate 5.1, downtrending to 2.8 with hydration. - CT chest showed no acute intrapulmonary pathology; 5mm nodule noted in addition to possible cystic lesion on T12 vertebrae with concern for underlying malignancy - UA showed 3+ gluc, 1+ ketones, 2+ blood however no nitrites or LE - hypotensive requiring Levophed support - negative for flu A and B - blood cultures negative at 48 hours - Zosyn and Zyvox for empiric coverage - following cbc 3. Acute VT/Troponin elevation - Trop of 4.190 on admission, topped out at 8.6 now downtrending, hx of diastolic dysfunction - EKG with acute changes - Cardiac echo: EF>70, hyperdynamic movement with no valvular abnormalities, no focal wall motion abnormalities - Cardiac consult: EKG changes likley secondary to hyperkalemia, metabolic derangements. ASA, atorvastatin when extubated. Consider addition of BB when extubated and able to tolerate PO. 4. Acute hypoxic respiratory failure - mechanically ventilated - cxr negative for active disease 5. DAYNE - likely secondary to DKA - rehydration with IVF - following bmp, cr improving 6. Metabolic encephalopathy present on admission - related to DKA, sepsis, both - treat underlying causes, supportive care. LINES/IV ACCESS: R Fem Art triple lumen, Central venous, L arm peripheral, OJ, [place] CODE STATUS: Full DVT PROPHYLAXIS: Heparin (2) Altered mental status: (3) Acute hyperkalemia: (4) Metabolic acidosis: (5) Uncontrolled type 1 diabetes mellitus with retinopathy, with long-term current use of insulin: (6) Microalbuminuria: (7) Hypertension: (8) Depression: (9) Hyperlipidemia: Admission and Anticipated Discharge Date Admission Date: April 15, 2019 Supervising Physician Co-Signing Physician Notes I personally examined the patient and verified all plummer points of history and exam, discussed case, and agree with decision making with Dr Tamayo. no HPI or ROS obtainable. vitals noted sedated on ventilator. chest rise and fall evenly. no asymmetry at rest. no pallor. labs noted. metabolic encephalopathy present on admission - likely related to sugars, sepsis. sepsis present on admission - continue management as above/per ICU. otherwise as above Subjective ICU continuing care. HPI and subjective limited by patient being sedated and intubated Review of Systems Review of Systems: Unobtainable due to endotracheal tube Physical Exam Constitutional: + ill appearing, + obese, + disheveled and + mechanically ventilated Neck: normal visual inspection and trachea midline Respiratory: Auscultation: lungs clear to auscultation bilaterally; no crackles, no rales and no wheezes Cardiovascular: Rate/Rhythm: not tachycardic Heart Sounds: no murmur Vessels: no JVD Extremities: no edema Gastrointestinal (Abdomen): Inspection/Auscultation: abdomen not distended Percussion/Palpation: abdomen soft; abdomen not rigid Skin: no rashes, no lesions and no ulcers Results & Data ([facility]) Vital Signs (Past 12 Hours) Vital Signs Pulse Resp BP Pulse Ox 04/17/19 09:08 79 109/60 96 04/17/19 09:00 78 96 04/17/19 08:08 80 115/53 L 99 04/17/19 08:00 81 99 04/17/19 07:34 82 12 98 04/17/19 07:08 82 114/60 98 04/17/19 07:00 81 98 04/17/19 06:08 81 116/64 98 04/17/19 05:40 80 12 100 04/17/19 05:08 80 118/58 L 100 04/17/19 04:30 79 100 04/17/19 04:08 78 92/45 L 99 04/17/19 04:00 78 99 04/17/19 03:30 81 100 04/17/19 03:08 82 120/58 L 100 04/17/19 03:00 83 100 04/17/19 02:33 85 12 100 04/17/19 02:30 83 100 04/17/19 02:08 85 115/54 L 100 04/17/19 02:00 85 100 03/05/20 01:30 83 100 04/17/19 01:08 77 99/49 L 100 04/17/19 01:00 76 100 04/17/19 00:30 79 100 04/17/19 00:18 85 99 04/17/19 00:17 84 95/50 L 99 04/17/19 00:15 84 99 04/17/19 00:10 83 103/50 L 97 04/17/19 00:00 76 100 04/16/19 23:49 84 12 100 04/16/19 23:45 83 100 04/16/19 23:30 84 99 04/16/19 23:15 86 100 04/16/19 23:08 85 93/49 L 100 04/16/19 23:00 85 100 04/16/19 22:45 84 99 04/16/19 22:30 86 99 04/16/19 22:15 88 99 04/16/19 22:08 90 111/54 L 99 04/17/19 04/17/19 04/17/19 Range/Units 10:18 09:13 08:13 WBC (4.8-10.8) K/uL RBC (4.2-5.4) M/uL Hgb (12.0-16.0) g/dL POC Hgb (12.0-16.0) g/dl Hct (37-47) % POC Hct (37-47) % MCV (80-100) fL MCH (25-34) pg MCHC (32-36) g/dL RDW Std Deviation (36.4-46.3) fL RDW Coeff of Bebe (11.5-14.5) % Plt Count (130-400) K/uL MPV (7.4-10.4) fL Immature Gran % (Auto) % Neut % (Auto) % Lymph % (Auto) % [place] % (Auto) % Eos % (Auto) % Baso % (Auto) % Immature Gran # (Auto) (0.00-0.02) K/uL Neut # (Auto) (1.4-6.5) K/uL Lymph # (Auto) (1.2-3.4) K/uL [place] # (Auto) (0.11-0.59) K/uL Eos # (Auto) (0-0.5) K/uL Baso # (Auto) (0-0.2) K/uL APTT (21.0-31.0) Seconds PTT Ratio Sample Site POC pH (7.35-7.45) POC pCO2 (35-46) mmHg POC pO2 (80-95) mmHg POC HCO3 (19-24) enrique/L POC Total CO2 (24-31) mmol/L POC Base Excess (-9-1.8) enrique/L ABG pH (Temp Correct) (7.35-7.45) ABG pCO2 (Temp Corrct (35-46) mmHg POC ABG pO2 at Pt Temp Calos Test O2 Delivery Device POC O2 Rate Minute Ventilation POC FiO2 % Tidal Volume PEEP POC Sodium (135-144) mmol/L Sodium (136-145) mmol/L POC Potassium (3.3-5.0) mmol/L Potassium (3.5-5.1) mmol/L Chloride (98-107) mmol/L Carbon Dioxide (21-32) mmol/L Anion Gap (3-11) BUN (7-18) mg/dl Creatinine (0.6-1.2) mg/dl Est Cr Clr Drug Dosing ml/min Est GFR ( Amer) Est GFR (Non-Af Amer) BUN/Creatinine Ratio (10-20) Glucose (70-99) mg/dl POC Glucose (70-99) mg/dl POC Glucose (other) 166 H 156 H 139 H (70-99) mg/dl Calcium (8.5-10.1) mg/dl Phosphorus (2.5-4.9) mg/dl Magnesium (1.8-2.4) mg/dl Troponin I (0-0.045) ng/ml 04/17/19 04/17/19 04/17/19 Range/Units 07:03 05:53 05:48 WBC (4.8-10.8) K/uL RBC (4.2-5.4) M/uL Hgb (12.0-16.0) g/dL POC Hgb 10.2 L (12.0-16.0) g/dl Hct (37-47) % POC Hct 30 L (37-47) % MCV (80-100) fL MCH (25-34) pg MCHC (32-36) g/dL RDW Std Deviation (36.4-46.3) fL RDW Coeff of Bebe (11.5-14.5) % Plt Count (130-400) K/uL MPV (7.4-10.4) fL Immature Gran % (Auto) % Neut % (Auto) % Lymph % (Auto) % [place] % (Auto) % Eos % (Auto) % Baso % (Auto) % Immature Gran # (Auto) (0.00-0.02) K/uL Neut # (Auto) (1.4-6.5) K/uL Lymph # (Auto) (1.2-3.4) K/uL [place] # (Auto) (0.11-0.59) K/uL Eos # (Auto) (0-0.5) K/uL Baso # (Auto) (0-0.2) K/uL APTT (21.0-31.0) Seconds PTT Ratio Sample Site Art Line POC pH 7.45 (7.35-7.45) POC pCO2 38 (35-46) mmHg POC pO2 136 H (80-95) mmHg POC HCO3 26 H (19-24) enrique/L POC Total CO2 27 (24-31) mmol/L POC Base Excess 2.0 H (-9-1.8) enrique/L ABG pH (Temp Correct) 7.439 (7.35-7.45) ABG pCO2 (Temp Corrct 38 (35-46) mmHg POC ABG pO2 at Pt Temp 138 Calos Test NA O2 Delivery Device Ventilator POC O2 Rate 12 Minute Ventilation 5.2 POC FiO2 40 % Tidal Volume 428 PEEP 5 POC Sodium 134 L (135-144) mmol/L Sodium 136 (136-145) mmol/L POC Potassium 3.7 (3.3-5.0) mmol/L Potassium 3.7 (3.5-5.1) mmol/L Chloride 104 (98-107) mmol/L Carbon Dioxide 25 (21-32) mmol/L Anion Gap 8.0 (3-11) BUN 35 H (7-18) mg/dl Creatinine 1.36 H (0.6-1.2) mg/dl Est Cr Clr Drug Dosing 37.2 ml/min Est GFR ( Amer) 44.9 Est GFR (Non-Af Amer) 38.8 BUN/Creatinine Ratio 25.6 H (10-20) Glucose 143 H (70-99) mg/dl POC Glucose (70-99) mg/dl POC Glucose (other) 136 H (70-99) mg/dl Calcium 7.8 L (8.5-10.1) mg/dl Phosphorus 2.0 L (2.5-4.9) mg/dl Magnesium 1.8 (1.8-2.4) mg/dl Troponin I 3.020 H* (0-0.045) ng/ml 04/17/19 04/17/19 04/17/19 Range/Units 05:21 04:04 04:04 WBC 13.89 H (4.8-10.8) K/uL RBC 3.51 L (4.2-5.4) M/uL Hgb 10.2 L (12.0-16.0) g/dL POC Hgb (12.0-16.0) g/dl Hct 32.1 L (37-47) % POC Hct (37-47) % MCV 91.5 (80-100) fL MCH 29.1 (25-34) pg MCHC 31.8 L (32-36) g/dL RDW Std Deviation 47.7 H (36.4-46.3) fL RDW Coeff of Bebe 14.3 (11.5-14.5) % Plt Count 193 (130-400) K/uL MPV 9.7 (7.4-10.4) fL Immature Gran % (Auto) 0.2 % Neut % (Auto) 80.7 % Lymph % (Auto) 13.5 % [place] % (Auto) 5.3 % Eos % (Auto) 0.2 % Baso % (Auto) 0.1 % Immature Gran # (Auto) 0.03 H (0.00-0.02) K/uL Neut # (Auto) 11.22 H (1.4-6.5) K/uL Lymph # (Auto) 1.87 (1.2-3.4) K/uL [place] # (Auto) 0.73 H (0.11-0.59) K/uL Eos # (Auto) 0.03 (0-0.5) K/uL Baso # (Auto) 0.01 (0-0.2) K/uL APTT 28.0 (21.0-31.0) Seconds PTT Ratio 1.0 Sample Site POC pH (7.35-7.45) POC pCO2 (35-46) mmHg POC pO2 (80-95) mmHg POC HCO3 (19-24) enrique/L POC Total CO2 (24-31) mmol/L POC Base Excess (-9-1.8) enrique/L ABG pH (Temp Correct) (7.35-7.45) ABG pCO2 (Temp Corrct (35-46) mmHg POC ABG pO2 at Pt Temp Calos Test O2 Delivery Device POC O2 Rate Minute Ventilation POC FiO2 % Tidal Volume PEEP POC Sodium (135-144) mmol/L Sodium (136-145) mmol/L POC Potassium (3.3-5.0) mmol/L Potassium (3.5-5.1) mmol/L Chloride (98-107) mmol/L Carbon Dioxide (21-32) mmol/L Anion Gap (3-11) BUN (7-18) mg/dl Creatinine (0.6-1.2) mg/dl Est Cr Clr Drug Dosing ml/min Est GFR ( Amer) Est GFR (Non-Af Amer) BUN/Creatinine Ratio (10-20) Glucose (70-99) mg/dl POC Glucose (70-99) mg/dl POC Glucose (other) 142 H (70-99) mg/dl Calcium (8.5-10.1) mg/dl Phosphorus (2.5-4.9) mg/dl Magnesium (1.8-2.4) mg/dl Troponin I (0-0.045) ng/ml 04/17/19 04/17/19 04/17/19 Range/Units 03:15 01:01 00:04 WBC (4.8-10.8) K/uL RBC (4.2-5.4) M/uL Hgb (12.0-16.0) g/dL POC Hgb (12.0-16.0) g/dl Hct (37-47) % POC Hct (37-47) % MCV (80-100) fL MCH (25-34) pg MCHC (32-36) g/dL RDW Std Deviation (36.4-46.3) fL RDW Coeff of Bebe (11.5-14.5) % Plt Count (130-400) K/uL MPV (7.4-10.4) fL Immature Gran % (Auto) % Neut % (Auto) % Lymph % (Auto) % [place] % (Auto) % Eos % (Auto) % Baso % (Auto) % Immature Gran # (Auto) (0.00-0.02) K/uL Neut # (Auto) (1.4-6.5) K/uL Lymph # (Auto) (1.2-3.4) K/uL [place] # (Auto) (0.11-0.59) K/uL Eos # (Auto) (0-0.5) K/uL Baso # (Auto) (0-0.2) K/uL APTT (21.0-31.0) Seconds PTT Ratio Sample Site POC pH (7.35-7.45) POC pCO2 (35-46) mmHg POC pO2 (80-95) mmHg POC HCO3 (19-24) enrique/L POC Total CO2 (24-31) mmol/L POC Base Excess (-9-1.8) enrique/L ABG pH (Temp Correct) (7.35-7.45) ABG pCO2 (Temp Corrct (35-46) mmHg POC ABG pO2 at Pt Temp Calos Test O2 Delivery Device POC O2 Rate Minute Ventilation POC FiO2 % Tidal Volume PEEP POC Sodium (135-144) mmol/L Sodium (136-145) mmol/L POC Potassium (3.3-5.0) mmol/L Potassium (3.5-5.1) mmol/L Chloride (98-107) mmol/L Carbon Dioxide (21-32) mmol/L Anion Gap (3-11) BUN (7-18) mg/dl Creatinine (0.6-1.2) mg/dl Est Cr Clr Drug Dosing ml/min Est GFR ( Amer) Est GFR (Non-Af Amer) BUN/Creatinine Ratio (10-20) Glucose (70-99) mg/dl POC Glucose (70-99) mg/dl POC Glucose (other) 160 H 171 H 172 H (70-99) mg/dl Calcium (8.5-10.1) mg/dl Phosphorus (2.5-4.9) mg/dl Magnesium (1.8-2.4) mg/dl Troponin I (0-0.045) ng/ml 04/16/19 04/16/19 04/16/19 Range/Units 23:04 22:02 21:08 WBC (4.8-10.8) K/uL RBC (4.2-5.4) M/uL Hgb (12.0-16.0) g/dL POC Hgb (12.0-16.0) g/dl Hct (37-47) % POC Hct (37-47) % MCV (80-100) fL MCH (25-34) pg MCHC (32-36) g/dL RDW Std Deviation (36.4-46.3) fL RDW Coeff of Bebe (11.5-14.5) % Plt Count (130-400) K/uL MPV (7.4-10.4) fL Immature Gran % (Auto) % Neut % (Auto) % Lymph % (Auto) % [place] % (Auto) % Eos % (Auto) % Baso % (Auto) % Immature Gran # (Auto) (0.00-0.02) K/uL Neut # (Auto) (1.4-6.5) K/uL Lymph # (Auto) (1.2-3.4) K/uL [place] # (Auto) (0.11-0.59) K/uL Eos # (Auto) (0-0.5) K/uL Baso # (Auto) (0-0.2) K/uL APTT (21.0-31.0) Seconds PTT Ratio Sample Site POC pH (7.35-7.45) POC pCO2 (35-46) mmHg POC pO2 (80-95) mmHg POC HCO3 (19-24) enrique/L POC Total CO2 (24-31) mmol/L POC Base Excess (-9-1.8) enrique/L ABG pH (Temp Correct) (7.35-7.45) ABG pCO2 (Temp Corrct (35-46) mmHg POC ABG pO2 at Pt Temp Calos Test O2 Delivery Device POC O2 Rate Minute Ventilation POC FiO2 % Tidal Volume PEEP POC Sodium (135-144) mmol/L Sodium (136-145) mmol/L POC Potassium (3.3-5.0) mmol/L Potassium (3.5-5.1) mmol/L Chloride (98-107) mmol/L Carbon Dioxide (21-32) mmol/L Anion Gap (3-11) BUN (7-18) mg/dl Creatinine (0.6-1.2) mg/dl Est Cr Clr Drug Dosing ml/min Est GFR ( Amer) Est GFR (Non-Af Amer) BUN/Creatinine Ratio (10-20) Glucose (70-99) mg/dl POC Glucose (70-99) mg/dl POC Glucose (other) 190 H 208 H 207 H (70-99) mg/dl Calcium (8.5-10.1) mg/dl Phosphorus (2.5-4.9) mg/dl Magnesium (1.8-2.4) mg/dl Troponin I (0-0.045) ng/ml 04/16/19 04/16/19 04/16/19 Range/Units 19:59 19:10 18:47 WBC (4.8-10.8) K/uL RBC (4.2-5.4) M/uL Hgb (12.0-16.0) g/dL POC Hgb (12.0-16.0) g/dl Hct (37-47) % POC Hct (37-47) % MCV (80-100) fL MCH (25-34) pg MCHC (32-36) g/dL RDW Std Deviation (36.4-46.3) fL RDW Coeff of Bebe (11.5-14.5) % Plt Count (130-400) K/uL MPV (7.4-10.4) fL Immature Gran % (Auto) % Neut % (Auto) % Lymph % (Auto) % [place] % (Auto) % Eos % (Auto) % Baso % (Auto) % Immature Gran # (Auto) (0.00-0.02) K/uL Neut # (Auto) (1.4-6.5) K/uL Lymph # (Auto) (1.2-3.4) K/uL [place] # (Auto) (0.11-0.59) K/uL Eos # (Auto) (0-0.5) K/uL Baso # (Auto) (0-0.2) K/uL APTT (21.0-31.0) Seconds PTT Ratio Sample Site POC pH (7.35-7.45) POC pCO2 (35-46) mmHg POC pO2 (80-95) mmHg POC HCO3 (19-24) enrique/L POC Total CO2 (24-31) mmol/L POC Base Excess (-9-1.8) enrique/L ABG pH (Temp Correct) (7.35-7.45) ABG pCO2 (Temp Corrct (35-46) mmHg POC ABG pO2 at Pt Temp Calos Test O2 Delivery Device POC O2 Rate Minute Ventilation POC FiO2 % Tidal Volume PEEP POC Sodium (135-144) mmol/L Sodium (136-145) mmol/L POC Potassium (3.3-5.0) mmol/L Potassium (3.5-5.1) mmol/L Chloride (98-107) mmol/L Carbon Dioxide (21-32) mmol/L Anion Gap (3-11) BUN (7-18) mg/dl Creatinine (0.6-1.2) mg/dl Est Cr Clr Drug Dosing ml/min Est GFR ( Amer) Est GFR (Non-Af Amer) BUN/Creatinine Ratio (10-20) Glucose (70-99) mg/dl POC Glucose (70-99) mg/dl POC Glucose (other) 187 H 154 H 124 H (70-99) mg/dl Calcium (8.5-10.1) mg/dl Phosphorus (2.5-4.9) mg/dl Magnesium (1.8-2.4) mg/dl Troponin I (0-0.045) ng/ml 04/16/19 04/16/19 04/16/19 Range/Units 18:21 17:06 16:07 WBC (4.8-10.8) K/uL RBC (4.2-5.4) M/uL Hgb (12.0-16.0) g/dL POC Hgb (12.0-16.0) g/dl Hct (37-47) % POC Hct (37-47) % MCV (80-100) fL MCH (25-34) pg MCHC (32-36) g/dL RDW Std Deviation (36.4-46.3) fL RDW Coeff of Bebe (11.5-14.5) % Plt Count (130-400) K/uL MPV (7.4-10.4) fL Immature Gran % (Auto) % Neut % (Auto) % Lymph % (Auto) % [place] % (Auto) % Eos % (Auto) % Baso % (Auto) % Immature Gran # (Auto) (0.00-0.02) K/uL Neut # (Auto) (1.4-6.5) K/uL Lymph # (Auto) (1.2-3.4) K/uL [place] # (Auto) (0.11-0.59) K/uL Eos # (Auto) (0-0.5) K/uL Baso # (Auto) (0-0.2) K/uL APTT (21.0-31.0) Seconds PTT Ratio Sample Site POC pH (7.35-7.45) POC pCO2 (35-46) mmHg POC pO2 (80-95) mmHg POC HCO3 (19-24) enrique/L POC Total CO2 (24-31) mmol/L POC Base Excess (-9-1.8) enrique/L ABG pH (Temp Correct) (7.35-7.45) ABG pCO2 (Temp Corrct (35-46) mmHg POC ABG pO2 at Pt Temp Calos Test O2 Delivery Device POC O2 Rate Minute Ventilation POC FiO2 % Tidal Volume PEEP POC Sodium (135-144) mmol/L Sodium (136-145) mmol/L POC Potassium (3.3-5.0) mmol/L Potassium (3.5-5.1) mmol/L Chloride (98-107) mmol/L Carbon Dioxide (21-32) mmol/L Anion Gap (3-11) BUN (7-18) mg/dl Creatinine (0.6-1.2) mg/dl Est Cr Clr Drug Dosing ml/min Est GFR ( Amer) Est GFR (Non-Af Amer) BUN/Creatinine Ratio (10-20) Glucose (70-99) mg/dl POC Glucose 107 H (70-99) mg/dl POC Glucose (other) 123 H 139 H (70-99) mg/dl Calcium (8.5-10.1) mg/dl Phosphorus (2.5-4.9) mg/dl Magnesium (1.8-2.4) mg/dl Troponin I (0-0.045) ng/ml 03/04/20 03/04/20 03/04/20 Range/Units 16:05 15:02 14:07 WBC (4.8-10.8) K/uL RBC (4.2-5.4) M/uL Hgb (12.0-16.0) g/dL POC Hgb (12.0-16.0) g/dl Hct (37-47) % POC Hct (37-47) % MCV (80-100) fL MCH (25-34) pg MCHC (32-36) g/dL RDW Std Deviation (36.4-46.3) fL RDW Coeff of Bebe (11.5-14.5) % Plt Count (130-400) K/uL MPV (7.4-10.4) fL Immature Gran % (Auto) % Neut % (Auto) % Lymph % (Auto) % [place] % (Auto) % Eos % (Auto) % Baso % (Auto) % Immature Gran # (Auto) (0.00-0.02) K/uL Neut # (Auto) (1.4-6.5) K/uL Lymph # (Auto) (1.2-3.4) K/uL [place] # (Auto) (0.11-0.59) K/uL Eos # (Auto) (0-0.5) K/uL Baso # (Auto) (0-0.2) K/uL APTT (21.0-31.0) Seconds PTT Ratio Sample Site POC pH (7.35-7.45) POC pCO2 (35-46) mmHg POC pO2 (80-95) mmHg POC HCO3 (19-24) enrique/L POC Total CO2 (24-31) mmol/L POC Base Excess (-9-1.8) enrique/L ABG pH (Temp Correct) (7.35-7.45) ABG pCO2 (Temp Corrct (35-46) mmHg POC ABG pO2 at Pt Temp Calos Test O2 Delivery Device POC O2 Rate Minute Ventilation POC FiO2 % Tidal Volume PEEP POC Sodium (135-144) mmol/L Sodium (136-145) mmol/L POC Potassium (3.3-5.0) mmol/L Potassium (3.5-5.1) mmol/L Chloride (98-107) mmol/L Carbon Dioxide (21-32) mmol/L Anion Gap (3-11) BUN (7-18) mg/dl Creatinine (0.6-1.2) mg/dl Est Cr Clr Drug Dosing ml/min Est GFR ( Amer) Est GFR (Non-Af Amer) BUN/Creatinine Ratio (10-20) Glucose (70-99) mg/dl POC Glucose (70-99) mg/dl POC Glucose (other) 169 H 209 H (70-99) mg/dl Calcium (8.5-10.1) mg/dl Phosphorus (2.5-4.9) mg/dl Magnesium 2.0 (1.8-2.4) mg/dl Troponin I (0-0.045) ng/ml 04/16/19 Range/Units 14:03 WBC (4.8-10.8) K/uL RBC (4.2-5.4) M/uL Hgb (12.0-16.0) g/dL POC Hgb (12.0-16.0) g/dl Hct (37-47) % POC Hct (37-47) % MCV (80-100) fL MCH (25-34) pg MCHC (32-36) g/dL RDW Std Deviation (36.4-46.3) fL RDW Coeff of Bebe (11.5-14.5) % Plt Count (130-400) K/uL MPV (7.4-10.4) fL Immature Gran % (Auto) % Neut % (Auto) % Lymph % (Auto) % [place] % (Auto) % Eos % (Auto) % Baso % (Auto) % Immature Gran # (Auto) (0.00-0.02) K/uL Neut # (Auto) (1.4-6.5) K/uL Lymph # (Auto) (1.2-3.4) K/uL [place] # (Auto) (0.11-0.59) K/uL Eos # (Auto) (0-0.5) K/uL Baso # (Auto) (0-0.2) K/uL APTT (21.0-31.0) Seconds PTT Ratio Sample Site POC pH (7.35-7.45) POC pCO2 (35-46) mmHg POC pO2 (80-95) mmHg POC HCO3 (19-24) enrique/L POC Total CO2 (24-31) mmol/L POC Base Excess (-9-1.8) enrique/L ABG pH (Temp Correct) (7.35-7.45) ABG pCO2 (Temp Corrct (35-46) mmHg POC ABG pO2 at Pt Temp Calos Test O2 Delivery Device POC O2 Rate Minute Ventilation POC FiO2 % Tidal Volume PEEP POC Sodium (135-144) mmol/L Sodium 135 L (136-145) mmol/L POC Potassium (3.3-5.0) mmol/L Potassium 3.4 L D (3.5-5.1) mmol/L Chloride 105 (98-107) mmol/L Carbon Dioxide 22 (21-32) mmol/L Anion Gap 8.0 (3-11) BUN 36 H (7-18) mg/dl Creatinine 1.57 H (0.6-1.2) mg/dl Est Cr Clr Drug Dosing 29.6 ml/min Est GFR ( Amer) 37.8 Est GFR (Non-Af Amer) 32.6 BUN/Creatinine Ratio 22.9 H (10-20) Glucose 212 H (70-99) mg/dl POC Glucose (70-99) mg/dl POC Glucose (other) (70-99) mg/dl Calcium 7.5 L (8.5-10.1) mg/dl Phosphorus 1.8 L (2.5-4.9) mg/dl Magnesium (1.8-2.4) mg/dl Troponin I (0-0.045) ng/ml Resident Activity Tracking Resident Involvement: Resident Care Provided Care Provided: Adult [facility] Medicine (1) DKA (diabetic ketoacidoses) Diabetes mellitus complication detail: with coma Diabetes mellitus type: type 1 Qualified Code(s): E10.11 - Type 1 diabetes mellitus with ketoacidosis with coma (2) Hyperlipidemia Hyperlipidemia type: unspecified Qualified Code(s): E78.5 - Hyperlipidemia, unspecified (3) Altered mental status Altered mental status type: unspecified Qualified Code(s): R41.82 - Altered mental status, unspecified (4) Hypertension Hypertension type: essential hypertension Qualified Code(s): I10 - Essential (primary) hypertension
[2019-04-17] MEDS ORDERED: INSULIN GLARGINE SOLOSTAR 100 UNITS/ML 3 ML PEN SC ONE (11:00)
[2019-04-17] MEDS ORDERED: PEPTAMEN INTENSE VHP 1.0 CAL 1,000 ML BAG OG SCH (11:30)
--- NOTE | 2019-04-17 15:11 | Pharmacy Report ---
Pharmacy Glycemic Short Note 2 - Date of Service April 17, 2019 - Glycemic Short BSG Results (Last 24 hours): 04/16/19 04/16/19 04/16/19 15:02 16:07 17:06 Glucose POC Glucose POC Glucose (other) 169 H 139 H 123 H 04/16/19 04/16/19 04/16/19 18:21 18:47 19:10 Glucose POC Glucose 107 H POC Glucose (other) 124 H 154 H 04/16/19 04/16/19 04/16/19 19:59 21:08 22:02 Glucose POC Glucose POC Glucose (other) 187 H 207 H 208 H 04/16/19 04/17/19 04/17/19 23:04 00:04 01:01 Glucose POC Glucose POC Glucose (other) 190 H 172 H 171 H 04/17/19 04/17/19 04/17/19 03:15 05:21 05:48 Glucose 143 H POC Glucose POC Glucose (other) 160 H 142 H 04/17/19 04/17/19 04/17/19 07:03 08:13 09:13 Glucose POC Glucose POC Glucose (other) 136 H 139 H 156 H 04/17/19 04/17/19 10:18 13:55 Glucose POC Glucose POC Glucose (other) 166 H 142 H OUTPATIENT ANTIDIABETIC REGIMEN: * Novolog 10 units TID w/ meals * Lantus 15 units Q AM * A1c = 9.1% 04/15/19 ASSESSMENT: 04/16: * Patient remains intubated and on low dose pressors. After discussion with the provider, we will attempt to transition of the insulin drip today * Tube feeds will remain at a constant trophic rate * Will dose at patients home dose of lantus with correctional novolog only as patient only ordered trophic feeds 04/15 * Insulin drip continues at this time. AG acidosis has resolved. * Dextrose added to IVF's yesterday evening and continued thru the night * BSGs in 220-408 range overnight * Pressors increased this AM due to MAPs below goal * Pt to remain intubated today. * Plan to continue IV insulin drip due to unpredictable SQ absorption, significant stressors, plans to initiated trickle tube feeds and d/c maint IVFs due to + fluid balance. Will add modest dose of SQ Lantus at this time with goal to have some basal insulin on board should we be able to begin transitioning off insulin drip tomorrow AM if extubated and tolerance of PO diet anticipated / * Type 1 diabetic admitted for severe DKA / HHS - possibly due to non-compliance vs infxn vs ACS * Initial labs: Glu 1184, Na 131 (corrected Na ~151), calc serum osmo 347, AG 28, Bicarb 12, BOHB 108.8 * IV hydration and IV insulin drip initiated * IV insulin drip running at 8.4 units/hr at this time, BSGs trending down nicely - would like to avoid overly rapid decline in BSGs given hyper osmolar state * Na and Glu trend should be monitored, closely to ensure Na is rising as Glu falling to prevent rapid osmotic shifts PLAN FOR INPATIENT GLYCEMIC CONTROL: * Continue IV insulin drip per protocol until calculator indicates to stop or 6 hours after lantus dose (1700), whichever comes first * Lantus 15 units SQ x 1 @ 1100 * Will utilize Novolog SQ for correctional insulin only (goal 110-150) NOT to cover carbs in trophic feeds that are not being titrated PLAN FOR DISCHARGE: * to be determined
[2019-04-17] MEDS: fentaNYL citrate 100 MCG/2 ML VIAL IV PRN (16:20)
[2019-04-17] MEDS: INSULIN ASPART 100 UNITS/ML 3 ML PEN SC SCH ×2 (16:23→20:14)
[2019-04-17] MEDS ORDERED: DC IV INSULIN INFUSION 1 EA DEVI ONE (17:00)
--- NOTE | 2019-04-17 17:08 | Billing Data ---
Date of Service April 17, 2019 Coding Level of Care Code 17027 Subseq Hosp Care Lvl 1
[2019-04-18] MEDS: INSULIN ASPART 100 UNITS/ML 3 ML PEN SC SCH ×7 (00:25→23:52)
--- NOTE | 2019-04-18 03:03 | Billing Data ---
Date of Service April 18, 2019 Coding Level of Care Code Critical Care 1st - mins
[2019-04-18 04:28] LABS: Basophils # (auto) 0.01 K/uL (0-0.2); Basophils % (auto) 0.1 %; Eosinophils # (auto) 0.09 K/uL (0-0.5); Eosinophils % (auto) 0.8 %; Hematocrit (blood only) 31.1 % (37-47); Hemoglobin 9.9 g/dL (12.0-16.0); Immature Granulocytes # (auto) 0.03 K/uL (0.00-0.02); Immature Granulocytes % (auto) 0.3 %; Lymphocytes # (auto) 1.59 K/uL (1.2-3.4); Lymphocytes % (auto) 13.9 %; Mean Corpuscular Hemoglobin 29.5 pg (25-34); Mean Corpuscular Hgb Conc 31.8 g/dL (32-36); Mean Corpuscular Volume 92.6 fL (80-100); Mean Platelet Volume 9.6 fL (7.4-10.4); Monocytes # (auto) 0.72 K/uL (0.11-0.59); Monocytes % (auto) 6.3 %; Neutrophils # (auto) 9.01 K/uL (1.4-6.5); Neutrophils % (auto) 78.6 %; Platelet Count 185 K/uL (130-400); RDW Coefficient of Variation 14.3 % (11.5-14.5); RDW Standard Deviation 48.3 fL (36.4-46.3); Red Blood Count 3.36 M/uL (4.2-5.4); White Blood Count 11.45 K/uL (4.8-10.8)
[2019-04-18 04:29] LABS: Base Excess VBG 7.2 mEq/L; HCO3 VBG 32 mmol/L; Oxygen Saturation VBG 81.2 %; PCO2 VBG 44 mmHg (38-50); PO2 VBG 44 mmHg; pH VBG 7.47 (7.36-7.41)
[2019-04-18 04:37] LABS: Partial Thromboplastin Ratio 1.2; Partial Thromboplastin Time 31.7 Seconds (21.0-31.0)
[2019-04-18 04:43] LABS: BUN Creatinine Ratio 27.8 (10-20); Calcium 7.8 mg/dl (8.5-10.1); Creatinine Clr Calc Pharmacy 42.9 ml/min; Est GFR (African American) 53.4; Magnesium 1.9 mg/dl (1.8-2.4); Phosphorus 2.3 mg/dl (2.5-4.9); Potassium 3.5 mmol/L (3.5-5.1)
[2019-04-18] MEDS: HEPARIN SOD 5,000 UNIT/0.5 ML VIAL SQ SCH ×3 (06:05→19:54)
--- NOTE | 2019-04-18 07:41 | XRay Report ---
XR chest 1V portable HISTORY: Respiratory failure. COMPARISON: Chest 04/17/2019. FINDINGS: The nasogastric tube terminates below the diaphragm. The tip is not included on this study. Endotracheal tube terminates 2 cm from the levi. There are low lung volumes. No pneumothorax. Trac e bilateral pleural effusions and mild congestive change persists. The heart remains mildly enlarged. IMPRESSION: 1. Satisfactory support line placement. 2. No change in the cardiomegaly, trace bilateral pleural effusions, and mild congestive change. ACT 112: Negative or not required by law. Results electronically sent 04/18/2019 7:39 AM to: Arthur Chatman PA-C Electronically signed by: Herminio Bloom M.D. 04/18/2019 7:39 AM
[2019-04-18] MEDS: FUROSEMIDE 40 MG in SYRINGE 0 ML IV SCH (08:18)
[2019-04-18] MEDS: propofoL 1,000 MG/100 ML VIAL IV SCH ×4 (08:18→09:59)
[2019-04-18] MEDS: ASPIRIN 81 MG CHEW NG SCH (08:19)
[2019-04-18] MEDS: ATORVASTATIN 40 MG TAB NG SCH (08:19)
[2019-04-18] MEDS: CLOPIDOGREL BISULFATE 75 MG TAB PO SCH (08:20)
--- NOTE | 2019-04-18 08:31 | Critical Care Progress Note ---
Date of Service April 18, 2019 Assessment & Plan (1) Septic shock: --VDRF sec to Septic shock Secondary to UTI with E. coli in the urine, MRSA nares negative Continue rocephin SBT today and possible extibation -- s/p DKA Patient is type I diabetic Anion gap closed Continue lantus --DAYNE Likely secondary to hypotension episode, Improving Monitor BUN/creatinine Improving and creatinine gradually. Avoid nephrotoxic medication. --NSTEMI Likely demand ischemia Troponin max to 8, trending down now On statin and aspirin along with Plavix 75 mg on a daily basis Cardiology on board LLE swelling - CUS of LLE today --DVT prophylaxis Heparin GI prophylaxis: Lansoprazole Plan: Extubate likely today. Continue abx for e. coli. LLE US I have personally spent 30 minutes of critical care time in the direct management of this patient. This is a life/limb threatening event. This includes time spent evaluating patient, direct bedside care, chart review, placing orders, interpretation of diagnostic studies, discussion with consultants, patient, and family members, as well as other required patient management activities. This time is exclusive of all separately billable procedures, and teaching time and separate from and in addition to any other critical care service time. Please note the above document was generated using voice recognition software. It may contain grammatical, syntax or spelling errors. (2) Acute kidney injury: (3) Elevated troponin I level: (4) Edema of left lower extremity: Subjective Patient off of sedation and analgesic medication. She is alert. She is able to follow commands by gripping my fingers and shaking her head. She has been hemodynamically stable overnight. We have placed her on a spontaneous breathing trial of 7/5. She is saturating well currently. Physical Exam Physical Exam: Constitutional: No acute distress HEENT: PERRLA, positive ETT Respiratory system: Course bs on vent. CTA CVS: S1-S2 positive, +2/6 murmur systolic appreciated best at apex. Abdomen: Soft, nontender, nondistended, positive bowel sounds x4 Extremities: +2 pulses bilaterally radialis/ dorsalis pedis, no cyanosis, +1 edema. L>R edema Neuro: following commands. 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 Psych: Unable to assess G/U: Positive [place] +ve Right Femoral line, Left radial Skin: no rashes, warm and dry Lymphatic: no cervical or axillary lymphadenopathy Results & Data ([facility]) Vital Signs (Past 12 Hours) Vital Signs Temp Pulse Resp BP Pulse Ox Pulse Ox 04/18/19 08:13 90 18 98 04/18/19 07:50 84 12 99 04/18/19 05:25 86 12 100 04/18/19 05:09 85 97/51 L 99 04/18/19 05:00 85 100 04/18/19 04:09 83 106/52 L 99 04/18/19 04:00 98.2 F 84 100 04/18/19 03:20 88 12 97 04/18/19 03:08 84 124/70 93 04/18/19 03:00 83 93 99 04/18/19 02:08 84 104/55 L 96 04/18/19 02:00 85 100 04/18/19 01:09 81 110/51 L 97 04/18/19 01:00 81 97 04/18/19 00:09 78 87/44 L 97 04/18/19 00:00 98.2 F 82 97 04/17/19 23:08 84 112/54 L 96 04/17/19 23:05 12 04/17/19 23:00 82 97 04/17/19 22:08 88 112/52 L 96 04/17/19 22:00 86 96 04/17/19 21:08 87 110/64 97 04/17/19 21:00 89 97 Coding Level of Care Code Critical Care 1st 30-74 mins Diagnoses Septic shock A41.9; R65.21 Acute kidney injury N17.9 Elevated troponin I level R79.89 Edema of left lower extremity R60.0 Time Spent (min) 30
--- NOTE | 2019-04-18 08:52 | Ultrasound Report ---
LEFT LOWER EXTREMITY VENOUS DOPPLER HISTORY: L calf swell and tiredness COMPARISON STUDY: None. FINDINGS: There is normal compressibility, flow, and augmentation within the left lower extremity danny p venous system. IMPRESSION: No DVT within the left lower extremity. ACT 112: Negative or not required by law. Results electronically sent 04/18/2019 8:51 AM to: Darryn Patterson DO Electronically signed by: Herminio Bloom M.D. 04/18/2019 8:51 AM
[2019-04-18] MEDS ORDERED: INSULIN GLARGINE SOLOSTAR 100 UNITS/ML 3 ML PEN SC SCH (09:00)
[2019-04-18] MEDS: cefTRIAXone SODIUM 2,000 MG in DEXTROSE 5% 50 ML IV SCH (10:34)
[2019-04-18] MEDS ORDERED: POTASSIUM PHOSPHATE 21 MMOL in SODIUM CHLORIDE 0.9% 500 ML IV ONE (10:45)
[2019-04-18] MEDS: LANSOPRAZOLE 30 MG SOLTAB NG SCH (10:55)
--- NOTE | 2019-04-18 12:06 | Cardiology Progress Note ---
Date of Service April 18, 2019 Assessment & Plan (1) Elevated troponin I level: Elevated troponin likely secondary to supply demand mismatch. Fortunately, her echocardiogram noted hyperdynamic systolic function without wall motion abnormalities. (2) Septic shock: Likely secondary to an E coli UTI. (3) Hypertension: Currently off pressors. (4) Dyslipidemia: Continue atorvastatin. Admission and Anticipated Discharge Date Admission Date: April 15, 2019 Subjective The patient is resting comfortably in bed without complaints of chest pain or dyspnea. Her and sister are at the bedside. We have discussed her elevated troponin and normal left ventricular systolic function. Physical Exam Physical Exam: In general this is a morbidly obese in no acute distress. HEENT exam is negative. Neck is supple with full carotid upstrokes. There are no carotid bruits. No JVD. There is no thyromegaly. Cardiovascular exam reveals a regular rhythm with distant heart sounds. No obvious murmur. Lungs are clear without rales, rhonchi, or wheezes. Abdomen is obese without bruits. Extremities reveal intact radial artery pulses bilaterally. There is trace pretibial edema. Results & Data ([facility]) Vital Signs (Past 12 Hours) Vital Signs Temp Pulse Resp BP Pulse Ox Pulse Ox 04/18/19 09:09 87 102/42 L 98 04/18/19 08:13 90 18 98 04/18/19 08:05 90 148/68 H 95 04/18/19 07:50 84 12 99 04/18/19 07:09 37.3 C 84 94/45 L 97 04/18/19 05:25 86 12 100 04/18/19 05:09 85 97/51 L 99 04/18/19 05:00 85 100 04/18/19 04:09 83 106/52 L 99 04/18/19 04:00 36.8 C 84 100 04/18/19 03:20 88 12 97 04/18/19 03:08 84 124/70 93 04/18/19 03:00 83 93 99 04/18/19 02:08 84 104/55 L 96 04/18/19 02:00 85 100 04/18/19 01:09 81 110/51 L 97 04/18/19 01:00 81 97 04/18/19 00:09 78 87/44 L 97 Diagnostic Findings plug cutter notes sinus rhythm with occasional PVC. PG Care Time/CCT Total # of Minutes Spent Total Time Spent with Patient: Total time spent is greater than 50% in coordination of care (as documented) at patient's floor/unit and/or counseling patient: Coding Level of Care Code 67133 Subseq Hosp Care Lvl 3 Diagnoses Elevated troponin I level R79.89 Septic shock A41.9; R65.21 Hypertension I10 Hypertension type: essential hypertension Dyslipidemia E78.5 (1) Hypertension Hypertension type: essential hypertension Qualified Code(s): I10 - Essential (primary) hypertension
--- NOTE | 2019-04-18 12:28 | Pharmacy Report ---
Pharmacy Glycemic Short Note 2 - Date of Service April 18, 2019 - Glycemic Short BSG Results (Last 24 hours): 04/17/19 04/17/19 04/17/19 13:55 16:09 20:06 Glucose POC Glucose 161 H POC Glucose (other) 142 H 04/17/19 04/18/19 04/18/19 20:09 00:23 04:11 Glucose 160 H POC Glucose 166 H 266 H POC Glucose (other) 04/18/19 04/18/19 04/18/19 04:18 07:52 12:19 Glucose POC Glucose 154 H 212 H 194 H POC Glucose (other) OUTPATIENT ANTIDIABETIC REGIMEN: * Novolog 10 units TID w/ meals * Lantus 15 units Q AM * A1c = 9.1% 04/15/19 ASSESSMENT: 04/17: * Insulin drip stopped yesterday evening * BSGs well controlled following transition, she did have her outpt dose of Lantus on board, she was also receiving trophic Peptamen feeds at 20cc/hr with no titration. * This AM patient has been extubated, diuresis has stopped, tube feeds have been stopped. A diet has not yet been ordered. Will need to be vigilant for falling BSGs if pt remains NPO for > 6-8 hrs. Would recommend resuming dextrose IVF if pt remains NPO >6-8 hrs (possibly D5 or D10 at KVO initially if needed) 04/16: * Patient remains intubated and on low dose pressors. After discussion with the provider, we will attempt to transition of the insulin drip today * Tube feeds will remain at a constant trophic rate * Will dose at patients home dose of lantus with correctional novolog only as patient only ordered trophic feeds 04/15 * Insulin drip continues at this time. AG acidosis has resolved. * Dextrose added to IVF's yesterday evening and continued thru the night * BSGs in 220-408 range overnight * Pressors increased this AM due to MAPs below goal * Pt to remain intubated today. * Plan to continue IV insulin drip due to unpredictable SQ absorption, significant stressors, plans to initiated trickle tube feeds and d/c maint IVFs due to + fluid balance. Will add modest dose of SQ Lantus at this time with goal to have some basal insulin on board should we be able to begin transitioning off insulin drip tomorrow AM if extubated and tolerance of PO diet anticipated 04/14 * Type 1 diabetic admitted for severe DKA / HHS - possibly due to non-compliance vs infxn vs ACS * Initial labs: Glu 1184, Na 131 (corrected Na ~151), calc serum osmo 347, AG 28, Bicarb 12, BOHB 108.8 * IV hydration and IV insulin drip initiated * IV insulin drip running at 8.4 units/hr at this time, BSGs trending down nicely - would like to avoid overly rapid decline in BSGs given hyper osmolar state * Na and Glu trend should be monitored, closely to ensure Na is rising as Glu falling to prevent rapid osmotic shifts PLAN FOR INPATIENT GLYCEMIC CONTROL: * Lantus 15 units SQ Q AM * Novolog SQ Q 4 hrs initially (ACHS + 0000 + 0400 if diet ordered) * Goal 110-150mg/dL * Correction factor: 25mg/dL/unit * Carb ratio: 1 unit per 10gm carbs consumed PLAN FOR DISCHARGE: * to be determined
--- NOTE | 2019-04-18 16:03 | Hospitalist Progress Note ---
Date of Service April 18, 2019 Assessment & Plan (1) DKA (diabetic ketoacidoses): 73 yo F with T1DM, dementia, osteoporosis admitted to the ICU for altered mental status and severe DKA. Defer primary medical decisions to ICU team, will follow peripherally. DKA - admitted with Beta-OH of 108, blood glucose of 1184, A1c 9.1 - insulin drip to close anion gap, now DCd - Glucose management per pharmacy. Cont ISS, bsg achs. - BROTHEL KEEPER, ?memory issues and UTI contributing to not taking insulin/elevated glucose - Close f/u with diabetes education/endocrinology. reports pt has EzFlop - A First of Its Kind Flip Flope device; rec HE be able to access levels and help with manag ement. Consider home health as well. Sepsis, suspected 2/2 UTI (e.coli) - Prev vent-dependent, now extubated. - Cont Rocephin - Labs continuing to improve, continue to follow - CT chest showed no acute intrapulmonary pathology; 5mm nodule noted in addition to possible cystic lesion on T12 vertebrae with concern for underlying malignancy; Will need to follow. - negative for flu A and B. Neg MRSA. - blood cultures negative at >48 hours Troponin elevation - Trop of 4.190 on admission, topped out at 8.6 now downtrending, hx of diastolic dysfunction - EKG with acute changes - Cardiac echo: EF>70, hyperdynamic movement with no valvular abnormalities, no focal wall motion abnormalities - Cardiac consult: EKG changes likley secondary to hyperkalemia, metabolic derangements/demand ischemia. - ASA, atorvastatin. Consider addition of BB if BP/pulse tolerate. 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 I examined the patient today independently of her. I discussed the plan of care with her with the plan being as written in her note except for any following changes/exceptions: None. Extubated today and doing well. Was up and ambulating as well. No major issues. Will transfer out of ICU and continue diabetic care. Subjective Patient extubated this morning. Visited shortly after, and understandably c/o sore throat/cough. States that otherwise she doesn't feel too bad and expresses wish to return home as soon as possible. She doesn't recall events prior to arriving in hospital, however, does mention that she wasn't feeling well before coming in. Review of Systems Review of Systems: All systems reviewed & are unremarkable except as noted in HPI & below Constitutional: + body aches, + fatigue, + weakness and + increased appetite; no fever and no chills Ear, Nose, Mouth, Throat: + dry mouth, + sore throat, + change in voice, + hoarseness and + pain with swallowing Respiratory: + cough and + pain with cough; no dyspnea Cardiovascular: + edema; no chest pain and no radiating jaw, neck or arm pain Gastrointestinal: no abdominal pain, no nausea and no vomiting Neurologic: + unsteadiness; no headache(s) Psychiatric: + difficulty concentrating and + confusion Physical Exam Constitutional: + ill appearing, + obese and + disheveled Eyes: PERRL, normal accommodation (to light ) and EOM intact bilaterally Neck: normal visual inspection and trachea midline Respiratory: Auscultation: lungs clear to auscultation bilaterally; no crackles, no rales and no wheezes Cardiovascular: Rate/Rhythm: not tachycardic Heart Sounds: + murmur (Soft CHRISTIANO noted) Vessels: no JVD Extremities: + edema (1+ bilat) Gastrointestinal (Abdomen): Inspection/Auscultation: abdomen not distended Percussion/Palpation: abdomen soft; abdomen not rigid Skin: no rashes, no lesions and no ulcers Neurologic: PERRL, EOMI, accommodation nl, no face palsy, no dysarthria Psychiatric: A+Ox3, euthymic affect Insight: + limited insight Results & Data ([facility]) Vital Signs (Past 12 Hours) Vital Signs Temp Pulse Resp BP Pulse Ox 04/18/19 15:09 94 H 17 101/55 L 96 04/18/19 14:18 92 H 15 119/72 100 04/18/19 13:09 88 17 113/74 100 04/18/19 12:09 98.8 F 87 18 122/60 99 04/18/19 11:17 93 H 26 H 114/63 97 04/18/19 10:09 91 H 102/49 L 99 04/18/19 09:09 87 102/42 L 98 04/18/19 08:13 90 18 98 04/18/19 08:05 90 148/68 H 95 04/18/19 07:50 84 12 99 04/18/19 07:09 99.1 F 84 94/45 L 97 04/18/19 05:25 86 12 100 04/18/19 05:09 85 97/51 L 99 04/18/19 05:00 85 100 04/18/19 04:09 83 106/52 L 99 Laboratory Results 04/18/19 04/18/19 04/18/19 Range/Units 15:54 12:19 07:52 WBC (4.8-10.8) K/uL RBC (4.2-5.4) M/uL Hgb (12.0-16.0) g/dL Hct (37-47) % MCV (80-100) fL MCH (25-34) pg MCHC (32-36) g/dL RDW Std Deviation (36.4-46.3) fL RDW Coeff of Bebe (11.5-14.5) % Plt Count (130-400) K/uL MPV (7.4-10.4) fL Immature Gran % (Auto) % Neut % (Auto) % Lymph % (Auto) % [place] % (Auto) % Eos % (Auto) % Baso % (Auto) % Immature Gran # (Auto) (0.00-0.02) K/uL Neut # (Auto) (1.4-6.5) K/uL Lymph # (Auto) (1.2-3.4) K/uL [place] # (Auto) (0.11-0.59) K/uL Eos # (Auto) (0-0.5) K/uL Baso # (Auto) (0-0.2) K/uL APTT (21.0-31.0) Seconds PTT Ratio VBG pH (7.36-7.41) VBG pCO2 (38-50) mmHg VBG pO2 mmHg VBG HCO3 mmol/L VBG O2 Saturation % VBG Base Excess mEq/L Sodium (136-145) mmol/L Potassium (3.5-5.1) mmol/L Chloride (98-107) mmol/L Carbon Dioxide (21-32) mmol/L Anion Gap (3-11) BUN (7-18) mg/dl Creatinine (0.6-1.2) mg/dl Est Cr Clr Drug Dosing ml/min Est GFR ( Amer) Est GFR (Non-Af Amer) BUN/Creatinine Ratio (10-20) Glucose (70-99) mg/dl POC Glucose 216 H 194 H 212 H (70-99) mg/dl Calcium (8.5-10.1) mg/dl Phosphorus (2.5-4.9) mg/dl Magnesium (1.8-2.4) mg/dl 04/18/19 04/18/19 04/18/19 Range/Units 04:20 04:18 04:11 WBC (4.8-10.8) K/uL RBC (4.2-5.4) M/uL Hgb (12.0-16.0) g/dL Hct (37-47) % MCV (80-100) fL MCH (25-34) pg MCHC (32-36) g/dL RDW Std Deviation (36.4-46.3) fL RDW Coeff of Bebe (11.5-14.5) % Plt Count (130-400) K/uL MPV (7.4-10.4) fL Immature Gran % (Auto) % Neut % (Auto) % Lymph % (Auto) % [place] % (Auto) % Eos % (Auto) % Baso % (Auto) % Immature Gran # (Auto) (0.00-0.02) K/uL Neut # (Auto) (1.4-6.5) K/uL Lymph # (Auto) (1.2-3.4) K/uL [place]rie # (Auto) (0.11-0.59) K/uL Eos # (Auto) (0-0.5) K/uL Baso # (Auto) (0-0.2) K/uL APTT (21.0-31.0) Seconds PTT Ratio VBG pH 7.47 H (7.36-7.41) VBG pCO2 44 (38-50) mmHg VBG pO2 44 mmHg VBG HCO3 32 mmol/L VBG O2 Saturation 81.2 % VBG Base Excess 7.2 mEq/L Sodium 139 (136-145) mmol/L Potassium 3.5 (3.5-5.1) mmol/L Chloride 105 (98-107) mmol/L Carbon Dioxide 29 (21-32) mmol/L Anion Gap 5.0 (3-11) BUN 33 H (7-18) mg/dl Creatinine 1.18 (0.6-1.2) mg/dl Est Cr Clr Drug Dosing 42.9 ml/min Est GFR ( Amer) 53.4 Est GFR (Non-Af Amer) 46.0 BUN/Creatinine Ratio 27.8 H (10-20) Glucose 160 H (70-99) mg/dl POC Glucose 154 H (70-99) mg/dl Calcium 7.8 L (8.5-10.1) mg/dl Phosphorus 2.3 L (2.5-4.9) mg/dl Magnesium 1.9 (1.8-2.4) mg/dl 04/18/19 04/18/19 04/18/19 Range/Units 04:11 04:11 00:23 WBC 11.45 H (4.8-10.8) K/uL RBC 3.36 L (4.2-5.4) M/uL Hgb 9.9 L (12.0-16.0) g/dL Hct 31.1 L (37-47) % MCV 92.6 (80-100) fL MCH 29.5 (25-34) pg MCHC 31.8 L (32-36) g/dL RDW Std Deviation 48.3 H (36.4-46.3) fL RDW Coeff of Bebe 14.3 (11.5-14.5) % Plt Count 185 (130-400) K/uL MPV 9.6 (7.4-10.4) fL Immature Gran % (Auto) 0.3 % Neut % (Auto) 78.6 % Lymph % (Auto) 13.9 % [place] % (Auto) 6.3 % Eos % (Auto) 0.8 % Baso % (Auto) 0.1 % Immature Gran # (Auto) 0.03 H (0.00-0.02) K/uL Neut # (Auto) 9.01 H (1.4-6.5) K/uL Lymph # (Auto) 1.59 (1.2-3.4) K/uL [place]rie # (Auto) 0.72 H (0.11-0.59) K/uL Eos # (Auto) 0.09 (0-0.5) K/uL Baso # (Auto) 0.01 (0-0.2) K/uL APTT 31.7 H (21.0-31.0) Seconds PTT Ratio 1.2 VBG pH (7.36-7.41) VBG pCO2 (38-50) mmHg VBG pO2 mmHg VBG HCO3 mmol/L VBG O2 Saturation % VBG Base Excess mEq/L Sodium (136-145) mmol/L Potassium (3.5-5.1) mmol/L Chloride (98-107) mmol/L Carbon Dioxide (21-32) mmol/L Anion Gap (3-11) BUN (7-18) mg/dl Creatinine (0.6-1.2) mg/dl Est Cr Clr Drug Dosing ml/min Est GFR ( Amer) Est GFR (Non-Af Amer) BUN/Creatinine Ratio (10-20) Glucose (70-99) mg/dl POC Glucose 266 H (70-99) mg/dl Calcium (8.5-10.1) mg/dl Phosphorus (2.5-4.9) mg/dl Magnesium (1.8-2.4) mg/dl 04/17/19 04/17/19 04/17/19 Range/Units 20:09 20:06 16:09 WBC (4.8-10.8) K/uL RBC (4.2-5.4) M/uL Hgb (12.0-16.0) g/dL Hct (37-47) % MCV (80-100) fL MCH (25-34) pg MCHC (32-36) g/dL RDW Std Deviation (36.4-46.3) fL RDW Coeff of Bebe (11.5-14.5) % Plt Count (130-400) K/uL MPV (7.4-10.4) fL Immature Gran % (Auto) % Neut % (Auto) % Lymph % (Auto) % [place] % (Auto) % Eos % (Auto) % Baso % (Auto) % Immature Gran # (Auto) (0.00-0.02) K/uL Neut # (Auto) (1.4-6.5) K/uL Lymph # (Auto) (1.2-3.4) K/uL [place] # (Auto) (0.11-0.59) K/uL Eos # (Auto) (0-0.5) K/uL Baso # (Auto) (0-0.2) K/uL APTT (21.0-31.0) Seconds PTT Ratio VBG pH (7.36-7.41) VBG pCO2 (38-50) mmHg VBG pO2 mmHg VBG HCO3 mmol/L VBG O2 Saturation % VBG Base Excess mEq/L Sodium (136-145) mmol/L Potassium (3.5-5.1) mmol/L Chloride (98-107) mmol/L Carbon Dioxide (21-32) mmol/L Anion Gap (3-11) BUN (7-18) mg/dl Creatinine (0.6-1.2) mg/dl Est Cr Clr Drug Dosing ml/min Est GFR ( Amer) Est GFR (Non-Af Amer) BUN/Creatinine Ratio (10-20) Glucose (70-99) mg/dl POC Glucose 166 H 19 L* 161 H (70-99) mg/dl Calcium (8.5-10.1) mg/dl Phosphorus (2.5-4.9) mg/dl Magnesium (1.8-2.4) mg/dl Medications Administered Current Inpatient Medications [facility] [place]: 05/16/19 08:59 Last Admin: 04/18/19 08:19 Dose: 81 mg Documented by: Atorvastatin Calcium (Lipitor) [facility] [place]: 05/16/19 08:59 Last Admin: 04/18/19 08:19 Dose: 40 mg Documented by: Dextrose (Dextrose 50%) 25 - 50 ml IV UD PRN; Protocol PRN Reason: Hypoglycemia Protocol Stop: 05/15/19 02:38 Glucagon (Glucagen) 1 mg SQ UD PRN; Protocol PRN Reason: Hypoglycemia Protocol Stop: 05/15/19 02:38 Glucose (Dex4 Glucose) 4 - 8 tabs PO UD PRN; Protocol PRN Reason: Hypoglycemia Protocol Stop: 05/15/19 02:38 Glucose (Glucose 40%) 15 - 30 gm PO UD PRN; Protocol PRN Reason: Hypoglycemia Protocol Stop: 05/15/19 02:38 Heparin Sodium (Beef Lung) (Heparin Sod 10 Unit/Ml Flush) 5 ml FLUSH PRN PRN PRN Reason: Flush Stop: 05/16/19 22:39 Heparin Sodium (Porcine) (Heparin Sodium (Porcine)) 5,000 units SQ Q8 [facility] Stop: 05/16/19 13:59 Last Admin: 04/18/19 14:43 Dose: 5,000 units Documented by: Ceftriaxone Sodium 2,000 mg/ (Dextrose) 70 mls @ 100 mls/hr IV Q24H [facility]; Protocol Stop: 04/27/19 09:59 Last Infusion: 04/18/19 12:03 Dose: Infused Documented by: Potassium Phosphate 21 mmol/ (Sodium Chloride) 507 mls @ 88 mls/hr IV ONE ONE Stop: 04/18/19 16:30 Last Admin: 04/18/19 10:55 Dose: 88 mls/hr Documented by: Insulin Aspart (Novolog Flexpen) 0 units SC Q4 [facility] Stop: 05/17/19 15:59 Last Admin: 04/18/19 15:56 Dose: 3 units Documented by: Insulin Glargine (Lantus Solostar Pen) 15 units SC QAM [facility] Stop: 05/18/19 08:59 Last Admin: 04/18/19 08:20 Dose: 15 units Documented by: Lansoprazole (Prevacid) 30 mg NG DAILY@1100 [facility] Stop: 05/15/19 10:59 Last Admin: 04/18/19 10:55 Dose: 30 mg Documented by: Miscellaneous (Carbohydrates For Hypoglycemia) 15 - 30 gm PO UD PRN PRN Reason: Hypoglycemia Protocol Stop: 05/15/19 02:38 Miscellaneous Information (Consult Glycemic Management Pharmacy) 1 ea N/A UD PRN PRN Reason: Consult Stop: 05/15/19 05:45 Resident Activity Tracking Resident Involvement: Resident Care Provided Care Provided: Adult [facility] Medicine (1) DKA (diabetic ketoacidoses) Diabetes mellitus complication detail: with coma Diabetes mellitus type: type 1 Qualified Code(s): E10.11 - Type 1 diabetes mellitus with ketoacidosis with coma (2) Hyperlipidemia Hyperlipidemia type: unspecified Qualified Code(s): E78.5 - Hyperlipidemia, unspecified (3) Altered mental status Altered mental status type: unspecified Qualified Code(s): R41.82 - Altered mental status, unspecified (4) Hypertension Hypertension type: essential hypertension Qualified Code(s): I10 - Essential (primary) hypertension
[2019-04-18] MEDS ORDERED: ACETAMINOPHEN 325 MG TAB PO PRN (16:59)
[2019-04-19] MEDS: INSULIN ASPART 100 UNITS/ML 3 ML PEN SC SCH ×5 (04:49→21:07)
[2019-04-19 05:49] LABS: Basophils # (auto) 0.01 K/uL (0-0.2); Basophils % (auto) 0.1 %; Eosinophils # (auto) 0.24 K/uL (0-0.5); Eosinophils % (auto) 3.3 %; Hematocrit (blood only) 30.3 % (37-47); Hemoglobin 9.4 g/dL (12.0-16.0); Immature Granulocytes # (auto) 0.01 K/uL (0.00-0.02); Immature Granulocytes % (auto) 0.1 %; Lymphocytes % (auto) 17.8 %; Mean Corpuscular Hemoglobin 29.3 pg (25-34); Mean Corpuscular Volume 94.4 fL (80-100); Mean Platelet Volume 9.9 fL (7.4-10.4); Monocytes # (auto) 0.58 K/uL (0.11-0.59); Neutrophils # (auto) 5.15 K/uL (1.4-6.5); Neutrophils % (auto) 70.7 %; Platelet Count 150 K/uL (130-400); RDW Standard Deviation 48.4 fL (36.4-46.3); Red Blood Count 3.21 M/uL (4.2-5.4); White Blood Count 7.29 K/uL (4.8-10.8)
[2019-04-19] MEDS: HEPARIN SOD 5,000 UNIT/0.5 ML VIAL SQ SCH ×3 (06:03→21:07)
[2019-04-19 06:24] LABS: BUN Creatinine Ratio 31.6 (10-20); Calcium 8.1 mg/dl (8.5-10.1); Est GFR (Non-African American) 83.7; Potassium 3.5 mmol/L (3.5-5.1)
[2019-04-19] MEDS: ASPIRIN 81 MG CHEW NG SCH (08:16)
[2019-04-19] MEDS: INSULIN GLARGINE SOLOSTAR 100 UNITS/ML 3 ML PEN SC SCH (08:16)
[2019-04-19] MEDS: ATORVASTATIN 40 MG TAB NG SCH (08:16)
--- NOTE | 2019-04-19 09:32 | Hospitalist Progress Note ---
Date of Service April 19, 2019 Assessment & Plan (1) DKA (diabetic ketoacidoses): Marisol is a 73 yo F with T1DM, dementia, osteoporosis admitted to the ICU for altered mental status and severe DKA.She was extubated and downgraded from the ICU on 04/18/2019. Diabetic ketoacidosis, type I DM - admitted with Beta-OH of 108, blood glucose of 1184, A1c 9.1 - Admitted to the ICU, anion gap closed, converted to subcu insulin - Glargine 15 units every morning, aspart sliding scale ratio 1: 10. Pharmacy consult on board. - Close f/u with diabetes education/endocrinology. - reports pt has [employer] device. He will need to be able to access levels and help with management. ?home health as well. Sepsis, suspected 2/2 UTI (e.coli) - Extubated, downgraded from ICU - Cont Rocephin. - CT chest showed no acute intrapulmonary pathology; 5mm nodule noted in add ition to possible cystic lesion on T12 vertebrae with concern for underlying malignancy; Will need to follow. - negative for flu A and B. Neg MRSA. - blood cultures negative at >48 hours - Urine Culture positive for pansensitive E. coli. -Remove sheldon, TOV ~4-6 hours Troponin elevation - Trop of 4.190 on admission, peaked at 8.6 now downtrending, hx of diastolic dysfunction - EKG with acute changes - Cardiac echo: EF>70, hyperdynamic movement with no valvular abnormalities, no focal wall motion abnormalities - Cardiac consult: EKG changes likley secondary to hyperkalemia, metabolic derangements/demand ischemia. - ASA, atorvastatin. 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 Chronic age related and vascular changes, no acute or focal concerns CODE STATUS: Full DVT PROPHYLAXIS: Heparin TID DISPO: Med/Tele. Planning: PT/OT pending. Anticipate discharge home, possibly with home health services. Ambulate in room/hallway as tolerated (2) Altered mental status: (3) Acute hyperkalemia: (4) Metabolic acidosis: (5) Uncontrolled type 1 diabetes mellitus with retinopathy, with long-term current use of insulin: (6) Microalbuminuria: (7) Hypertension: (8) Depression: (9) Hyperlipidemia: Admission and Anticipated Discharge Date Admission Date: April 15, 2019 Supervising Physician Co-Signing Physician Notes I supervised Raffaele Fernandes MD on this patient's care. I examined the patient today independently of him. I discussed the plan of care with her with the plan being as written in her note except for any following changes/exceptions: Patient tearful with lack of appetite therefore suspected to be having start of minor withdrawal from discontinuation of paroxetine; now restarted. Patient will certainly need PT/OT prior to discharge suspect sometime early next week. Sheldon catheter to be removed in order to effectively treat UTI. Complicated in setting of DKA therefore recommend treatment for atleast 7 days. Given BP improvement and troponin elevation on admission will start metoprolol succinate XL 25mg QAM Shun Damon is a 73-year-old female who is seen at the bedside following ICU downgrade and extubation. She was admitted for diabetic ketoacidosis and sepsis likely secondary to urinary tract infection initially treated with Rocephin. Urine cultures have returned for pansensitive E. coli. Marisol is seen at the bedside with her today. She reports that she feels at her normal state of health, but does not remember why she was in the hospital. She is eating breakfast at time of exam. She reports that she would like to start ambulating, and would like to get out of the hospital. Her reports that they are working on making arrangements with hematology nurse educator so that he can have access to her serum glucose levels and assist in management of her diabetes given underlying dementia and difficulty managing her insulin. She reports that she is not having any fever, chills, sweats, lightheadedness, dizziness, chest pain, chest pressure, muscle pain, joint pain, or headaches today. She reports her appetite is okay, and she does not have a sore throat or shortness of breath. Review of Systems Review of Systems: All systems reviewed & are unremarkable except as noted in HPI & below Physical Exam Physical Exam: General: Answers questions appropriately. A&Ox2. NAD. HEENT: Atraumatic, normocephalic. Pulm: CTAB A&P. -wheezes, -rales, -rhonchi. Symmetrical chest rise. No increase work of breathing. No respiratory distress. Cardiac: RRR, -mrg. Radial pulses intact and symmetrical. Abdominal: Nontender, nondistended, soft. BS present. : Sheldon in place draining dark yellow urine Extremities: Mild edema of the hands bilaterally. Legs without edema. Radial and PT pulses intact bilat and symmetrical.Mild TTP in right lower extremity, prior Doppler negative. Results & Data ([facility]) Vital Signs (Past 12 Hours) Vital Signs Temp Pulse Pulse Resp BP Pulse Ox 04/19/19 08:47 88 04/19/19 07:27 36.8 C 81 17 129/71 96 04/19/19 03:09 36.8 C 90 21 142/61 H 95 04/18/19 23:38 37.0 C 91 H 20 131/74 95 04/18/19 23:09 93 H Resident Activity Tracking Resident Involvement: Resident Care Provided Care Provided: Adult Hospital Medicine (1) DKA (diabetic ketoacidoses) Diabetes mellitus complication detail: with coma Diabetes mellitus type: type 1 Qualified Code(s): E10.11 - Type 1 diabetes mellitus with ketoacidosis with coma (2) Hyperlipidemia Hyperlipidemia type: unspecified Qualified Code(s): E78.5 - Hyperlipidemia, unspecified (3) Altered mental status Altered mental status type: unspecified Qualified Code(s): R41.82 - Altered mental status, unspecified (4) Hypertension Hypertension type: essential hypertension Qualified Code(s): I10 - Essential (primary) hypertension
[2019-04-19] MEDS: cefTRIAXone SODIUM 2,000 MG in DEXTROSE 5% 50 ML IV SCH (10:32)
[2019-04-19] MEDS ORDERED: PARoxetine HCL 20 MG TAB PO ONE (15:00)
[2019-04-20] MEDS: HEPARIN SOD 5,000 UNIT/0.5 ML VIAL SQ SCH ×3 (06:13→20:32)
[2019-04-20 06:32] LABS: Basophils # (auto) 0.02 K/uL (0-0.2); Basophils % (auto) 0.2 %; Eosinophils # (auto) 0.27 K/uL (0-0.5); Eosinophils % (auto) 3.3 %; Hematocrit (blood only) 29.3 % (37-47); Hemoglobin 9.1 g/dL (12.0-16.0); Immature Granulocytes # (auto) 0.06 K/uL (0.00-0.02); Immature Granulocytes % (auto) 0.7 %; Mean Corpuscular Hemoglobin 29.3 pg (25-34); Mean Corpuscular Hgb Conc 31.1 g/dL (32-36); Mean Corpuscular Volume 94.2 fL (80-100); Mean Platelet Volume 9.9 fL (7.4-10.4); Monocytes # (auto) 0.79 K/uL (0.11-0.59); Monocytes % (auto) 9.7 %; Neutrophils # (auto) 5.27 K/uL (1.4-6.5); Neutrophils % (auto) 65.1 %; Platelet Count 178 K/uL (130-400); RDW Coefficient of Variation 13.7 % (11.5-14.5); RDW Standard Deviation 46.7 fL (36.4-46.3); Red Blood Count 3.11 M/uL (4.2-5.4); White Blood Count 8.11 K/uL (4.8-10.8)
[2019-04-20 07:08] LABS: BUN Creatinine Ratio 28.7 (10-20); Calcium 8.1 mg/dl (8.5-10.1); Creatinine Clr Calc Pharmacy 76.2 ml/min; Est GFR (African American) 102.3; Est GFR (Non-African American) 88.3; Potassium 3.2 mmol/L (3.5-5.1)
[2019-04-20] MEDS ORDERED: SODIUM CHLORIDE 0.9% 1000ML 500 ML IV ONE (07:22)
[2019-04-20 07:25] LABS: Reticulocytes # 0.03 10^6/uL (0.02-0.10)
[2019-04-20 08:03] LABS: Ferritin 475.4 ng/ml (8-388); Thyroid Stimulating Hormone 1.2 uIu/ml (0.300-4.500)
[2019-04-20] MEDS: ATORVASTATIN 40 MG TAB PO SCH (08:24)
[2019-04-20] MEDS: POTASSIUM CHLORIDE 20 MEQ TABCR PO SCH ×3 (08:24→17:11)
[2019-04-20] MEDS: ASPIRIN 81 MG ECTAB PO SCH (08:24)
[2019-04-20] MEDS: PARoxetine HCL 20 MG TAB PO SCH (08:25)
[2019-04-20] MEDS: INSULIN GLARGINE SOLOSTAR 100 UNITS/ML 3 ML PEN SC SCH (08:25)
[2019-04-20] MEDS: METOPROLOL SUCC 25MG EXT REL TAB PO SCH (08:25)
[2019-04-20] MEDS: INSULIN ASPART 100 UNITS/ML 3 ML PEN SC SCH ×4 (08:26→20:31)
--- NOTE | 2019-04-20 09:46 | Hospitalist Progress Note ---
Date of Service April 20, 2019 Assessment & Plan (1) DKA (diabetic ketoacidoses): Marisol is a 73 yo F with T1DM, dementia, osteoporosis admitted to the ICU for altered mental status and severe DKA.She was extubated and downgraded from the ICU on 04/18/2019. Diabetic ketoacidosis, type I DM, resolved - admitted with Beta-OH of 108, blood glucose of 1184, A1c 9.1 - Admitted to the ICU, anion gap closed, converted to subQ insulin - Glargine 15 units every morning, aspart sliding scale ratio 1:10. Pharmacy consult on board. - Close f/u with diabetes education/endocrinology. reports pt has [employer] device. He will need to be able to access levels and help with management. Pending meeting with breastfeeding educator, will likely be tomorrow as they are not here over the weekend. Sepsis, suspected 2/2 UTI (e.coli) - Extubated, downgraded from ICU -Narrow Rocephin to Keflex 500mg Q6H for 10 total days of abx (last dose 04/27/2019) - CT chest showed no acute intrapulmonary pathology; 5mm nodule noted in addition to possible cystic lesion on T12 vertebrae with concern for underlying malignancy; Will need to follow. - negative for flu A and B. Neg MRSA. - blood cultures negative at >48 hours - Urine Culture positive for pansensitive E. coli. - Haley Removed. Pending void No Spontaneous void since Haley removal Patient has not voided since removal of Haley 04/18 BUN/creatinine ratio 28 Normotensive, mildly tachycardic 500 cc NSS bolus ordered - Bladder scan >500 without void. Will straight cath x1 and continue to follow. - Encourage PO fluids Troponin elevation - Trop of 4.190 on admission, peaked at 8.6 now downtrending, hx of diastolic d ysfunction - EKG with acute changes - Cardiac echo: EF>70, hyperdynamic movement with no valvular abnormalities, no focal wall motion abnormalities - Cardiac consult: EKG changes likey secondary to hyperkalemia, metabolic derangements/demand ischemia. - ASA, atorvastatin. - Metoprolol 25mg daily. ASA 81 daily. Anemia Hemoglobin 9.1, prior baseline>10 - No signs of acute bleeding - CBC daily Iron studies with normal Xferrin sat, low TIBC, elevated ferritin. Hypoproliferative retic index. ?AOCD picture. 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 - Tearful episodes improved. Dementia - Prior MRI-B reviewed. Chronic age related and vascular changes, no acute or focal concerns CODE STATUS: Full DVT PROPHYLAXIS: Heparin TID DISPO: Med/Tele. Planning: PT/OT pending. Anticipate discharge home, possibly with home health services. To see art educator tomorrow. Ambulate in room/hallway as tolerated. Not yet ready for medical discharge given initial DKA picture and need for IVF today. Admission and Anticipated Discharge Date Admission Date: April 15, 2019 Supervising Physician Co-Signing Physician Notes I supervised Raffaele Fernandes MD on this patient's care. I examined the patient today independently of him. I discussed the plan of care with him with the plan being as written in her note except for any following changes/exceptions: None to bring in continuous glucose monitor for education tomorrow as they are unsure how to use this. Urine retention - failed initial trial without catheter and straight cath performed. Encourage ambulation and increase activity. Likely caused by immobility. If requiring multiple straight caths she will need haley cath insertion and follow up as outpatient with urology. Shun Damon is seen at the bedside with her this morning. She has not yet peed today. Her Haley was removed yesterday afternoon. She is not having any chest pain, chest pressure, shortness of breath, difficulty breathing, or cough this morning. She feels she is eating well. She denies pain. Her is interested in meeting with art educator, is very concerned about the details of how to get there continuous glucose monitor set up and had a. He was phone for appropriate management. He would also like to discuss the potential for insulin infusion via the continuous monitor, but recognizes that this would be a step up in complexity and will need to follow-up with endocrinology. She reports she has been able to ambulate to the bathroom and around the room with nursing assistance well. She has no additional questions or concerns at this time. Review of Systems Review of Systems: All systems reviewed & are unremarkable except as noted in HPI & below Physical Exam Physical Exam: General: Answers questions appropriately. Alert and oriented x2. No acute distress. Sitting up in recliner chair at time of visit. HEENT: Atraumatic, normocephalic. Pulm: CTAB A&P. -wheezes, -rales, -rhonchi. Symmetrical chest rise. No increase work of breathing. No respiratory distress. Cardiac: RRR, -mrg. Radial pulses intact and symmetrical. Abdominal: Nontender, nondistended, soft. BS present. : No Haley present. Extremities: Mild edema of the hands bilaterally. Legs without edema. Radial and PT pulses intact bilat and symmetrical.Mild TTP in right lower extremity, prior Doppler negative. Results & Data ([facility]) Vital Signs (Past 12 Hours) Vital Signs Temp Pulse Pulse Resp BP Pulse Ox 04/20/19 09:02 85 04/20/19 07:24 37 C 96 H 20 153/80 H 93 04/20/19 03:06 37.0 C 92 H 17 130/67 95 04/19/19 23:57 88 04/19/19 23:34 37.0 C 86 19 130/70 96 Resident Activity Tracking Resident Involvement: Resident Care Provided Care Provided: Adult Hospital Medicine (1) DKA (diabetic ketoacidoses) Diabetes mellitus complication detail: with coma Diabetes mellitus type: type 1 Qualified Code(s): E10.11 - Type 1 diabetes mellitus with ketoacidosis with coma
[2019-04-20] MEDS: cefTRIAXone SODIUM 2,000 MG in DEXTROSE 5% 50 ML IV SCH (10:59)
[2019-04-20] MEDS: cephALEXin 500 MG CAP PO SCH ×4 (12:20→20:09)
[2019-04-21] MEDS: HEPARIN SOD 5,000 UNIT/0.5 ML VIAL SQ SCH ×2 (06:08→13:36)
[2019-04-21 06:24] LABS: Basophils # (auto) 0.01 K/uL (0-0.2); Basophils % (auto) 0.1 %; Eosinophils # (auto) 0.32 K/uL (0-0.5); Eosinophils % (auto) 4.8 %; Hematocrit (blood only) 32.3 % (37-47); Immature Granulocytes % (auto) 1.5 %; Lymphocytes # (auto) 1.85 K/uL (1.2-3.4); Lymphocytes % (auto) 27.6 %; Mean Corpuscular Hemoglobin 28.7 pg (25-34); Mean Corpuscular Volume 92.8 fL (80-100); Mean Platelet Volume 10.3 fL (7.4-10.4); Monocytes # (auto) 0.76 K/uL (0.11-0.59); Monocytes % (auto) 11.3 %; Neutrophils # (auto) 3.67 K/uL (1.4-6.5); Neutrophils % (auto) 54.7 %; Platelet Count 218 K/uL (130-400); RDW Coefficient of Variation 13.6 % (11.5-14.5); RDW Standard Deviation 45.9 fL (36.4-46.3); Red Blood Count 3.48 M/uL (4.2-5.4); White Blood Count 6.71 K/uL (4.8-10.8)
[2019-04-21 07:01] LABS: Calcium 8.6 mg/dl (8.5-10.1); Est GFR (African American) 101.3; Est GFR (Non-African American) 87.4
[2019-04-21 07:53] VITALS: PULSE 87; TEMP 98.6; O2SAT 95
[2019-04-21] MEDS: ATORVASTATIN 40 MG TAB PO SCH (07:55)
[2019-04-21] MEDS: METOPROLOL SUCC 25MG EXT REL TAB PO SCH (07:55)
[2019-04-21] MEDS: PARoxetine HCL 20 MG TAB PO SCH (07:55)
[2019-04-21] MEDS: cephALEXin 500 MG CAP PO SCH ×2 (07:55→12:16)
[2019-04-21] MEDS: ASPIRIN 81 MG ECTAB PO SCH (07:55)
[2019-04-21] MEDS: INSULIN GLARGINE SOLOSTAR 100 UNITS/ML 3 ML PEN SC SCH (07:55)
[2019-04-21] MEDS: INSULIN ASPART 100 UNITS/ML 3 ML PEN SC SCH ×2 (07:56→12:16)
--- NOTE | 2019-04-21 08:58 | Pharmacy Report ---
Pharmacy Glycemic Short Note 2 - Date of Service April 21, 2019 - Glycemic Short BSG Results (Last 24 hours): 04/20/19 04/20/19 04/20/19 12:01 16:39 20:00 Glucose POC Glucose 167 H 129 H 186 H 04/21/19 04/21/19 06:01 07:39 Glucose 98 POC Glucose 117 H OUTPATIENT ANTIDIABETIC REGIMEN: * Novolog TIDM (0 units w/ breakfast, 5 units w lunch, and 5 units w dinner) + CF of 50 for BSG greater than 150 mg/dL * Lantus 15 units Q AM * A1c = 9.1% 04/15/19 * Follows with outpatient air intelligence specialist ASSESSMENT: * BSGs remain reasonably well-controlled ranging 73-186 mg/dL yesterday * Patient received 27 units of insulin (13 basal, 14 prandial/correctional) * Fasting BSG of 117 mg/dL - will continue Lantus 13 units daily * Ceftriaxone de-escalated to cephalexin yesterday to complete antibiotic course for UTI PLAN FOR INPATIENT GLYCEMIC CONTROL: * Lantus 13 units SQ Q AM * Novolog SQ ACHS * Goal 110-150mg/dL * Correction factor: 25mg/dL/unit * Carb ratio: 1 unit per 10gm carbs consumed PLAN FOR DISCHARGE: * A1c of 9.1% demonstrates poor glycemic control * Given history of dementia - Less stringent A1c goal of less than 8% is reasonable in effort to limit hypoglycemia * Patient will require outpatient follow-up with air intelligence specialist upon discharge - Patient to be seen on 04/23/19 * Until patient can be seen by endocrinology * Recommend Lantus 15 units daily in the morning (decrease from 20 units she was taking at home in the interest of safety - low observed yesterday morning) * Patient reports most recently she was taking Novolog 5 units TIDM with a correction factor of 50 for BSGs greater than 150 mg/dL * ---Appropriate to continue this for now *
--- NOTE | 2019-04-21 11:53 | Discharge Summary ---
Date of Service April 21, 2019 Principal Diagnosis dka, uti Discharge Exam Constitutional WD/WN, vitals as above Eyes PERRL, conjunctivae normal, anicteric sclerae ENMT external ear and nose normal, oropharynx normal Respiratory normal respiratory effort, lungs clear to auscultation Cardiovascular RRR, no murmur, no edema Gastrointestinal (Abdomen) normal bowel sounds, soft, nontender, no hepatosplenomegaly Musculoskeletal mild TTP R LE Skin no rashes, warm and dry Psychiatric A+Ox3, euthymic affect Lymphatic mild edema hands b/l Discharge Data Allergies Allergy/AdvReac Type Severity Reaction Status Date / Time amlodipine Allergy Intermediate Hives Verified 04/15/19 02:19 Consultations 04/15/19 02:40 ED Decision to Admit Stat 04/15/19 04:01 Consult Cardiology Routine Consult Cardiology Stat Consult Case Management - Discharge Planning Routine Consult Assembly Room Supervisor Routine Ordered Studies 04/15/19 01:00 CT abd pelvis wo con Urgent CT head/brain wo con Urgent 04/15/19 01:57 CT chest wo con Urgent 04/15/19 07:21 US abdomen limited Routine 04/15/19 12:58 US point of care ultrasound Urgent 04/18/19 08:03 US venous doppler LE LT Urgent Hospital Course (1) DKA (diabetic ketoacidoses): Marisol is a 73 yo F with T1DM, dementia, osteoporosis admitted to the ICU for altered mental status and severe DKA.She was extubated and downgraded from the ICU on 04/18/2019. The following is the medical management during stay here:0 Sepsis with septic shock, suspected 2/2 UTI (e.coli) - Extubated, downgraded from ICU 04/17 -Narrow Rocephin to Keflex 500mg Q6H for 10 total days of abx (last dose 04/27/2019) - CT chest showed no acute intrapulmonary pathology; 5mm nodule noted in addition to possible cystic lesion on T12 vertebrae with concern for underlying malignancy; Will need to follow. - negative for flu A and B. Neg MRSA. - blood cultures negative at >48 hours - Urine Culture positive for pansensitive E. coli. Diabetic ketoacidosis, type I DM, resolved - admitted with Beta-OH of 108, blood glucose of 1184, A1c 9.1 - Admitted to the ICU, anion gap closed, converted to subQ insulin- Pharmacy consult on board during stay here. -Pt started/educated on freestyle juan device prior to d/c -Patient will require outpatient follow-up with jailer chief upon discharge - Patient to be seen on 04/23/19 -Until patient can be seen by endocrinology, recommend Lantus 15 units daily in the morning (decrease from 20 units she was taking at home in the interest of safety), and Novolog 5 units TIDM with a correction factor of 50 for BSGs greater than 150 mg/dL Troponin elevation - Trop of 4.190 on admission, peaked at 8.6 now downtrending, hx of diastolic dysfunction - EKG with acute changes - Cardiac echo: EF>70, hyperdynamic movement with no valvular abnormalities, no focal wall motion abnormalities - Cardiac consult: EKG changes likey secondary to hyperkalemia, metabolic d erangements/demand ischemia. - atorvastatin 40mg, Metoprolol 25mg daily. ASA 81 daily. Anemia At baseline~10 - No signs of acute bleeding - CBC daily Iron studies with normal Xferrin sat, low TIBC, elevated ferritin. Hypoproliferative retic index. ?AOCD picture. 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 - Tearful episodes improved. Dementia - Prior MRI-B reviewed. Chronic age related and vascular changes, no acute or focal concerns DVT PROPHYLAXIS with Heparin TID. PT/OT evaluated pt and recommended inpt rehab stay; however, pt and did not want to pursue this option. Rather they would prefer home PT/OT services, which will be set up by our case resolution specialist on d/c. At time of d/c, pt had no other acute concerns or complaints. Total Time Total Time Spent Total Time Spent (In Minutes): 30 Discharge Plan Discharge Items Patient Disposition: Home - Self-Care Reason For Visit: DKA Discharge Diagnosis: uti Activity: Per Instructions section Non-emergency contact: Primary Care Provider Call non-emergency contact if: you have any medication questions and your symptoms worsen Follow-up/Referrals: Raffaele Polanco MD [Primary Care Provider] - 04/28/19 10:15 am (Your appointment is with the doctor's physician customer care assistant, Agnieszka Mc. If you need to change this appointment, please call [phone].) Diet: Carb Count or DM1 Addtl Attending Provider Instructions: You were admitted with concerns of very high blood sugars that required ICU stay. You were also found to have a urine infection during stay here. Please follow the below instructions on discharge: -You will continue antibiotic keflex until 04/27/2019. Follow instructions/dosages as recommended -You will follow insulin regimen as follows: Lantus 15 units daily in the morni ng (decreased from 20). You will continue Novolog 5 units with meals (3x daily) with a correction factor of 50 for blood sugars greater than 150 mg/dL. -We will set up an outpatient endocrinology appt for you on discharge. Set for 04/23/19 -We will set up home physical therapy for you, as recommended by our therapists here in the hospital. Pending Studies at Discharge: No Stand-Alone Forms: My [id number], Smoking Cessation Medications and DC Order Prescriptions: New cephalexin [Keflex] 500 mg capsule 500 mg PO Q6H 6 Days Qty: 24 RF: 0 Continued (DME) pen needle, diabetic [BD Ultra-Fine Rayne Pen Needle] 32 gauge x 5/32" needle See Dose Instructions .ROUTE .MEDSUPPLY Qty: 2 RF: 1 atorvastatin 20 mg tablet 20 mg PO DAILY Qty: 90 RF: 3 lisinopril-hydrochlorothiazide 20-12.5 mg tablet 1 tab PO DAILY Qty: 90 RF: 3 paroxetine HCl 40 mg tablet 40 mg PO DAILY Qty: 90 RF: 1 cholecalciferol (vitamin D3) 2,000 unit tablet 3,000 units PO DAILY Qty: 30 RF: 0 insulin glargine 100 unit/mL (3 mL) insulin pen 15 unit subcut QAM Qty: 2 RF: 3 aspirin [Aspir-81] 81 mg Tablet,Delayed Release (Dr/Ec) 81 mg PO DAILY RF: 0 multivitamin [Multiple Vitamins] Tablet 1 tab PO DAILY RF: 0 Changed insulin aspart U-100 [Novolog Flexpen U-100 Insulin] 100 unit/mL (3 mL) insulin pen 5 units SUBCUT TID Qty: 30 RF: 3 Discharge Orders: Discharge Order (Routine); Ordered 04/21/19 Ordered By: Alexander C. Simmons Admission Data Admit Date/Time: 04/15/19 04:01 Attending Provider: Heaven Murphy Admit Provider: Papi Askew I. Primary Care Provider: Raffaele Polanco Other Providers: Fredo Moore ; Braden Salguero ; Rios Garcia ; Sergio Hunt ; Canelo Vann ; Carol Garcia ; Geno Ruiz ; Martin Gamboa ; Jeferson Sampson ; Martin Thorpe ; Tyler Irizarry ; Hugo Gomez ; Keshia Reid ; Nitin Winters ; Charley Trinh ; Lyle Mcleod Jr ; Daniel Brand ; Pedro Pablo Bob ; Rex Gant ; Jason Palacios Other Interventions: Discharge Summary Assessment (RN) Last Done: 04/21/19 14:14 DC Date/Time DO NOT enter until pt leaves facility: 04/21/19 14:38 Supervising Physician Co-Signing Physician Notes Resident Physician Supervision Note: I independently interviewed and examined the patient and verified the plummer history and physical, reviewed labs and image studies, discussed the case with the resident Dr. Giang and agree with the findings and care plan. Resident Activity Tracking Resident Involvement: Resident Care Provided Care Provided: Adult Hospital Medicine
[2019-04-21 14:15] VITALS: BP 138/82
--- NOTE | 2019-04-21 15:19 | Billing Data ---
Date of Service April 18, 2019 Coding Level of Care Code 57080 Subseq Hosp Care Lvl 2
== END 2019-04-21 14:38 | disposition home or self-care (01) | DRG 871 ==
LOC: ED 00:57 → SUATTDRO 04:01 → 1E 04:01 → 2N 04-18 15:18

== ENCOUNTER 2022-02-18 19:27 | Inpatient (IN) ==
[2022-02-18] MEDS ORDERED: SODIUM CHLORIDE 0.9% 1000ML 1,000 ML IV SCH (19:45)
--- NOTE | 2022-02-18 19:46 | Emergency Department Note ---
Impression & Plan Acute hyperglycemia, Acute dehydration, Lactic acidosis, Elevated troponin ED Provider Note Name: VIJAYA TORRES Age: 76 Sex: F Arrives Via: Walk-In Informant: Patient (poor historian) , ED Provider: Maksim Denny MD Chief Complaint: Illness Impression: As per impressions above Medical Decision Makin-year-old female with a history of a insulin-dependent diabetes, obesity, CKD, amongst others arrives for evaluation of worsening hyperglycemia at home. Pat ient with 2 days of worsening weakness, some confusion and increasing blood sugars. She has not been taking her medicines for at least the last 2 days. Has brought her in for evaluation. By examination she is significantly dehydrated. She is mildly confused but is awake moderately oriented looking around the room and has no neurologic deficits. IV was established and she was given 30 mL/kg IV fluids as per her ideal body weight. Labs were obtained which reveals significant hyperglycemia. Her bicarb is not significantly lower but she does have an elevated lactic acid and a moderately acidotic pH. I suspect this is primarily significant dehydration and then compounded by not taking her insulin for the last 2 to 3 days. She was given a small initial bolus of IV insulin along with the IV fluids. For insulin drip to hospitalist. I will note I did get blood cultures and lactic acid given concern for sepsis. As noted the lactic acid was elevated. She was given empiric antibiotics including broad- spectrum cefepime. No known MRSA history held off on vancomycin at this time. Patient following fluid bolus is vastly improved she is awake she is looking around the room and answering all questions. No clear source of infection found her chest x-ray is not remarkable. Her urinalysis does not show any clear evidence infection. She does have a mildly elevated procalcitonin. She does not febrile though. She has a soft nontender abdomen denies any abdominal pain. Hospitalist was consulted for further management. Patient does have an elevated troponin however EKG is unremarkable. She is denying any chest pain or shortness of breath. I suspect this may be secondary to dehydration event however will clearly need to be further trended. We will hold off on any anticoagulation at this time given no clear evidence that is ACS. Given the patients BMI >30, IBW was used to calculate the 30ml/kg fluid bolus (1.5L NSS IV). Prior Medical Record and Triage/Nursing Notes reviewed by Me Additional history obtained from at bedside as well as reviewing previous medical history within the chart. This included review of recent endocrinology evaluation as an outpatient as well as her PCP visit a few weeks ago. Differentials: Dehydration, sepsis, infection, hyperglycemia, DKA, intra cranial pathology amongst other pathologies considered. Vital Signs: reviewed and remarkable for no significant abnormalities Interventions: Normal saline bolus 30/kg ideal body weight IV, insulin 6 mg IV Labs:Reviewed and remarkable for hyperglycemia, acidosis, mildly elevated procalcitonin, significantly elevated lactic acid Imagin view chest x-ray interpreted by me no infiltrate, effusion or pneumothorax. EKG:As per my interpretation indication weakness. Normal sinus rhythm at 98 bpm with a QTC of 467. There is no ectopy nor ischemia. When compared to an EKG from April 16, 2019 there is no significant change. Cardiac/Tele Monitoring: Cardiac Monitoring: An Order was placed for continuous cardiac monitoring. The monitor shows a rate of 90 with a normal sinus rhythm. Consults:Dr Bob of [place] Hospitalist Service Plan: Disposition:Hospitalization. Condition: Fair History of Present Illness:76-year-old female arrives for evaluation of confusion. Patient with 2 days worsening altered mental status and not being herself. She has been throwing up periodically and not having any appetite. He notes her blood sugar has continued to go up and now throughout the day it is read as high. notes she received 10 units of Lantus earlier in the day. No falls, trauma, injuries. No fevers but she has had some chills. States she urinates frequently. Patient denies any headache, chest pain, back pain, abdominal pain, other symptoms but she is confused and has difficulty getting a full story. No recent antibiotics. It is unclear whether she had her insulin yesterday but the does note that she had a today. Past Medical/Surgical History:Diabetes, hyperlipidemia, hypertension, retinopathy, osteoporosis, CKD Social History:Lives with Home Medications:See Below Allergies:amlodipine Vitals:Blood Pressure: 131/62, Pulse 99, RR 16, T 36.7C, O2 96% on RA Physical Exam: GENERAL: Patient is unwell/dehydrated appearing and in mild distress. Confused EYES: No scleral icterus, unremarkable pupils. ENT: Mucous membranes dry, no nasal congestion. NECK: No masses appreciated, nomeningismus, trachea is midline. RESPIRATORY: No dyspnea. Clear to auscultation and equal bilaterally. No wheeze, no rhonchi. CARDIOVASCULAR: Regular rate and rhythm.No murmurs, rubs, gallops appreciated. GASTROINTESTINAL: Abdomen soft, non-tender, no peritonitis.Bowel sounds positi ve.No masses appreciated. BACK: No midline tenderness, no CVA tenderness EXTREMITIES: Normal motion all extremities, no cyanosis, no edema. NEUROLOGIC: Looking around room, answers simple questions, tracks, no focal deficits noted SKIN: No rash, no jaundice, no diaphoresis. Dry skin with poor turgor ED Course: Times/Reassessments: Multiple repeat evaluations of patient. Following fluid resuscitation patient is vastly improved she is breathing comfortably and she is in no distress. Critical Care: I have personally spent 35 minutes of critical care time in the direct management of this patient. Severe dehydration with lactic acidosis and hyperglycemia requiring fluid resuscitation. This was a life/limb threatening event. This 35 minutes is in excess of all separately billable procedures. Maksim Denny MD Past Med/Surg History Medical History (Updated 02/19/22 @ 00:59 by Maksim Denny MD) Abnormal ECG Acute blood loss anemia DAYNE (acute kidney injury) Benign familial tremor Charcot's arthropathy of forefoot Closed fracture of right hip Cognitive impairment Daytime somnolence Depression Diabetes Diabetic peripheral neuropathy associated with type 1 diabetes mellitus Diastolic dysfunction DKA (diabetic ketoacidoses) DKA (diabetic ketoacidoses) DVT prophylaxis Dyslipidemia Edema of left lower extremity Encephalopathy Fall Hearing loss Hypertension Hypocalcemia Ileus Memory loss, short term Microalbuminuria Morbid obesity Obesity (BMI 35.0-39.9 without comorbidity) Osteoporosis Retinopathy Septic shock SNHL (sensorineural hearing loss) Snoring Type 1 diabetes Uncontrolled type 1 diabetes mellitus with kidney complication, with long-term current use of insulin Uncontrolled type 1 diabetes mellitus with retinopathy, with long-term current use of insulin Vitamin D deficiency Surgical History H/O cataract extraction H/O section H/O tubal ligation Family History Father Lung cancer Mother Heart disease Grandfather (Paternal) Heart disease Denies family history of Ovarian cancer Prostate cancer Myocardial infarction Breast cancer Colorectal cancer Social History Smoking Status: Never smoker Second Hand Exposure: No; Hx Alcohol Use: No Hx Substance Use: No Preferred Language: [place] Communication Ability: Unable Visual Impairment: No Limitations 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 Second Assistant Required: No Beliefs That Will Affect Care: None marital status: Current Living Situation: Spouse current occupational status: retired How many Children do You have: 2 Feels Safe at Home: Yes Childhood Exposure to Second-Hand Smoke: Yes caffeine: Yes Dental Care, Regularly: No Physical Activity Frequency: 1-2 Times per Week Seatbelt Use: always Sunscreen Use: No Assistive Devices: Walker Allergies Allergies Allergy/AdvReac Type Severity Reaction Status Date / Time amlodipine Allergy Intermediate Hives Verified 01/11/22 13:51 Home Meds Home Medications Medication Instructions Recorded Confirmed flash glucose sensor (FreeStyle #1 ea 01/16/20 02/18/22 Isaac 14 Day Sensor kit) cholecalciferol (vitamin D3) 10 10 mcg PO DAILY 09/16/21 02/18/22 mcg (400 unit) capsule aspirin 81 mg tablet,delayed 81 mg PO DAILY 02/18/22 02/18/22 release Previous Rx's Medication Instructions Recorded pen needle, diabetic 32 gauge x #2 Boxes 01/[birth year]/1932" (BD Ultra-Fine Rayne Pen Needle) lisinopril 20 1 tab PO DAILY #90 tabs 02/21/21 mg-hydrochlorothiazide 12.5 mg tablet Novolog Flexpen U-100 Insulin 100 5 unit (0.05 mL) subcut TID #30 mL 07/27/21 unit/mL (3 mL) subcutaneous (insulin aspart U-100) atorvastatin 20 mg tablet 20 mg PO DAILY #90 tabs 11/04/21 Lantus Solostar U-100 Insulin 100 20 - 25 unit (0.2 - 0.25 mL) 01/10/22 unit/mL (3 mL) subcutaneous pen subcut DAILY #30 mL (insulin glargine) Results & Data (ED) Vital Signs Vital Signs - 24 hr 02/18/22 19:30 02/18/22 19:28 02/18/22 19:42 Temperature 36.7 C Temperature Source Temporal Artery Scan Pulse Rate 99 H 100 H Pulse Rate [Apical] 100 H Pulse Rate from SpO2 Sensor Pulse Rhythm [Apical] Regular Pulse Strength [Apical] Normal Respiratory Rate 16 16 16 Respiratory Effort / Characteristics Non-Labored Spontaneous Non-Labored Respiratory Depth Normal Normal Respiratory Pattern Regular Regular Blood Pressure 131/62 Blood Pressure [Right Arm] 131/86 Blood Pressure Mean 85 Blood Pressure Mean [Right Arm] 101 Pulse Oximetry 96 94 94 Oxygen Delivery Method Room Air Room Air Room Air Sepsis Recent Fever Within 48 Hours No Sepsis New/Unexplained Change in Mental Status N/A Sepsis Action Taken by Nursing No Action Required 02/18/22 19:42 02/18/22 21:26 02/18/22 20:27 Temperature Temperature Source Pulse Rate Pulse Rate [Apical] 100 H 105 H 100 H Pulse Rate from SpO2 Sensor Pulse Rhythm [Apical] Regular Pulse Strength [Apical] Normal Respiratory Rate 16 18 18 Respiratory Effort / Characteristics Non-Labored Respiratory Depth Normal Respiratory Pattern Regular Blood Pressure Blood Pressure [Right Arm] 131/86 108/77 147/65 H Blood Pressure Mean Blood Pressure Mean [Right Arm] 101 87 92 Pulse Oximetry 94 93 93 Oxygen Delivery Method Room Air Room Air Sepsis Recent Fever Within 48 Hours Sepsis New/Unexplained Change in Mental Status Sepsis Action Taken by Nursing 02/18/22 22:01 02/18/22 23:48 Temperature Temperature Source Pulse Rate 104 H Pulse Rate [Apical] 96 H Pulse Rate from SpO2 Sensor 104 H Pulse Rhythm [Apical] Pulse Strength [Apical] Respiratory Rate 21 24 Respiratory Effort / Characteristics Non-Labored Spontaneous Respiratory Depth Normal Respiratory Pattern Regular Blood Pressure 120/69 Blood Pressure [Right Arm] 90/71 L Blood Pressure Mean 86 Blood Pressure Mean [Right Arm] 77 Pulse Oximetry 93 94 Oxygen Delivery Method Room Air Sepsis Recent Fever Within 48 Hours Sepsis New/Unexplained Change in Mental Status Sepsis Action Taken by Nursing Laboratory Data 02/18/22 19:45 02/18/22 23:30 Lab Results 02/18/22 02/18/22 02/18/22 Range/Units 19:41 19:43 19:45 WBC 13.57 H (4.8-10.8) K/ul RBC 3.89 L (3.93-5.22) M/uL Hgb 11.3 L (12.0-16.0) g/dl Hct 34.4 (34.1-44.9) % MCV 88.4 (80.0-100.0) fL MCH 29.0 (25.0-34.0) pg MCHC 32.8 (32.0-36.0) g/dL RDW Std Deviation 42.1 (36.4-46.3) fL RDW Coeff of Bebe 13.1 (11.5-14.5) % Plt Count 279 (130-400) K/uL MPV 9.8 (9.4-12.3) fL Immature Gran % (Auto) 0.4 % Neut % (Auto) 83.3 % Lymph % (Auto) 9.0 % Vermilion % (Auto) 7.2 % Eos % (Auto) 0.0 % Baso % (Auto) 0.1 % Neut # (Auto) 11.30 H (1.4-6.5) K/uL Lymph # (Auto) 1.22 (1.2-3.4) K/uL Vermilion # (Auto) 0.98 H (0.24-0.82) K/uL Eos # (Auto) 0.00 (0-0.50) K/uL Baso # (Auto) 0.01 (0-0.2) K/uL Immature Gran # (Auto) 0.06 H (0.00-0.02) K/uL PT (9.0-12.0) Seconds INR (0.9-1.1) APTT (21.0-31.0) Seconds PTT Ratio VBG pH (7.36-7.41) VBG pCO2 (38-50) mmHg VBG pO2 mmHg VBG HCO3 mmol/L VBG O2 Saturation % VBG Base Excess mEq/L Sodium (136-145) mmol/L Potassium (3.5-5.1) mmol/L Chloride (98-107) mmol/L Carbon Dioxide (21-32) mmol/L Anion Gap (3-11) BUN (6-23) mg/dl Creatinine (0.6-1.2) mg/dl Est Cr Clr Drug Dosing Est GFR ( Amer) ml/min Est GFR (Non-Af Amer) ml/min BUN/Creatinine Ratio (10-20) Glucose (70-99(Fasting)) mg/dl POC Glucose 502 H* 545 H* (70-99) mg/dl Lactate (0.4-2.0) mmol/L Calcium (8.5-10.1) mg/dl Phosphorus (2.5-4.9) mg/dl Magnesium (1.7-2.4) mg/dl Total Bilirubin (0.2-1.0) mg/dl Direct Bilirubin (0-0.2) mg/dl AST (13-39) U/L ALT (7-52) U/L Alkaline Phosphatase (34-104) U/L Troponin I High Sens (0-14) pg/ml Total Protein (6.0-8.3) gm/dl Albumin (3.4-5.0) gm/dl Procalcitonin (0-0.5) ng/ml Urine Color Urine Appearance (Clear) Urine pH (4.5-7.5) Ur Specific Kempner (1.000-1.030) Urine Protein (Negative) Urine Glucose (UA) (Negative) Urine Ketones (Negative) Urine Blood (Negative) Urine Nitrite (Negative) Urine Bilirubin (Negative) Urine Urobilinogen (Negative) Ur Leukocyte Esterase (Negative) Urine WBC (Auto) (0-5) /hpf Urine RBC (Auto) (0-4) /hpf U Hyaline Cast (Auto) (0-5) /lpf U Epithel Cells (Auto) (0-5) /lpf Urine Bacteria (Auto) (Negative) Nasal Screen MRSA (PCR) (Negative) SARS-CoV-2 (PCR) (Negative) Influenza Type A (PCR) (Neg) Influenza Type B (PCR) (Neg) RSV (RT-PCR) (Neg) 02/18/22 02/18/22 02/18/22 Range/Units 19:45 19:45 19:45 WBC (4.8-10.8) K/ul RBC (3.93-5.22) M/uL Hgb (12.0-16.0) g/dl Hct (34.1-44.9) % MCV (80.0-100.0) fL MCH (25.0-34.0) pg MCHC (32.0-36.0) g/dL RDW Std Deviation (36.4-46.3) fL RDW Coeff of Bebe (11.5-14.5) % Plt Count (130-400) K/uL MPV (9.4-12.3) fL Immature Gran % (Auto) % Neut % (Auto) % Lymph % (Auto) % Vermilion % (Auto) % Eos % (Auto) % Baso % (Auto) % Neut # (Auto) (1.4-6.5) K/uL Lymph # (Auto) (1.2-3.4) K/uL Vermilion # (Auto) (0.24-0.82) K/uL Eos # (Auto) (0-0.50) K/uL Baso # (Auto) (0-0.2) K/uL Immature Gran # (Auto) (0.00-0.02) K/uL PT 10.6 (9.0-12.0) Seconds INR 1.0 (0.9-1.1) APTT 24.6 (21.0-31.0) Seconds PTT Ratio 0.9 VBG pH (7.36-7.41) VBG pCO2 (38-50) mmHg VBG pO2 mmHg VBG HCO3 mmol/L VBG O2 Saturation % VBG Base Excess mEq/L Sodium 134 L (136-145) mmol/L Potassium 4.2 (3.5-5.1) mmol/L Chloride 94 L (98-107) mmol/L Carbon Dioxide 21 (21-32) mmol/L Anion Gap 19 H (3-11) BUN 51 H (6-23) mg/dl Creatinine 1.69 H (0.6-1.2) mg/dl Est Cr Clr Drug Dosing Not Reportable Est GFR ( Amer) 33.8 ml/min Est GFR (Non-Af Amer) 29.2 ml/min BUN/Creatinine Ratio 30.2 H (10-20) Glucose 516 H* (70-99(Fasting)) mg/dl POC Glucose (70-99) mg/dl Lactate 5.4 H* (0.4-2.0) mmol/L Calcium 9.5 (8.5-10.1) mg/dl Phosphorus (2.5-4.9) mg/dl Magnesium 1.9 (1.7-2.4) mg/dl Total Bilirubin 0.6 (0.2-1.0) mg/dl Direct Bilirubin 0.1 (0-0.2) mg/dl AST 17 (13-39) U/L ALT 11 (7-52) U/L Alkaline Phosphatase 87 (34-104) U/L Troponin I High Sens 136.8 H* (0-14) pg/ml Total Protein 8.4 H (6.0-8.3) gm/dl Albumin 4.6 (3.4-5.0) gm/dl Procalcitonin (0-0.5) ng/ml Urine Color Urine Appearance (Clear) Urine pH (4.5-7.5) Ur Specific Kempner (1.000-1.030) Urine Protein (Negative) Urine Glucose (UA) (Negative) Urine Ketones (Negative) Urine Blood (Negative) Urine Nitrite (Negative) Urine Bilirubin (Negative) Urine Urobilinogen (Negative) Ur Leukocyte Esterase (Negative) Urine WBC (Auto) (0-5) /hpf Urine RBC (Auto) (0-4) /hpf U Hyaline Cast (Auto) (0-5) /lpf U Epithel Cells (Auto) (0-5) /lpf Urine Bacteria (Auto) (Negative) Nasal Screen MRSA (PCR) (Negative) SARS-CoV-2 (PCR) (Negative) Influenza Type A (PCR) (Neg) Influenza Type B (PCR) (Neg) RSV (RT-PCR) (Neg) 02/18/22 02/18/22 02/18/22 Range/Units 19:45 19:45 20:17 WBC (4.8-10.8) K/ul RBC (3.93-5.22) M/uL Hgb (12.0-16.0) g/dl Hct (34.1-44.9) % MCV (80.0-100.0) fL MCH (25.0-34.0) pg MCHC (32.0-36.0) g/dL RDW Std Deviation (36.4-46.3) fL RDW Coeff of Bebe (11.5-14.5) % Plt Count (130-400) K/uL MPV (9.4-12.3) fL Immature Gran % (Auto) % Neut % (Auto) % Lymph % (Auto) % Vermilion % (Auto) % Eos % (Auto) % Baso % (Auto) % Neut # (Auto) (1.4-6.5) K/uL Lymph # (Auto) (1.2-3.4) K/uL Vermilion # (Auto) (0.24-0.82) K/uL Eos # (Auto) (0-0.50) K/uL Baso # (Auto) (0-0.2) K/uL Immature Gran # (Auto) (0.00-0.02) K/uL PT (9.0-12.0) Seconds INR (0.9-1.1) APTT (21.0-31.0) Seconds PTT Ratio VBG pH 7.28 L (7.36-7.41) VBG pCO2 48 (38-50) mmHg VBG pO2 31 mmHg VBG HCO3 23 mmol/L VBG O2 Saturation < 60.0 % VBG Base Excess -4.3 mEq/L Sodium (136-145) mmol/L Potassium (3.5-5.1) mmol/L Chloride (98-107) mmol/L Carbon Dioxide (21-32) mmol/L Anion Gap (3-11) BUN (6-23) mg/dl Creatinine (0.6-1.2) mg/dl Est Cr Clr Drug Dosing Est GFR ( Amer) ml/min Est GFR (Non-Af Amer) ml/min BUN/Creatinine Ratio (10-20) Glucose (70-99(Fasting)) mg/dl POC Glucose (70-99) mg/dl Lactate (0.4-2.0) mmol/L Calcium (8.5-10.1) mg/dl Phosphorus (2.5-4.9) mg/dl Magnesium (1.7-2.4) mg/dl Total Bilirubin (0.2-1.0) mg/dl Direct Bilirubin (0-0.2) mg/dl AST (13-39) U/L ALT (7-52) U/L Alkaline Phosphatase (34-104) U/L Troponin I High Sens (0-14) pg/ml Total Protein (6.0-8.3) gm/dl Albumin (3.4-5.0) gm/dl Procalcitonin 1.03 H (0-0.5) ng/ml Urine Color Urine Appearance (Clear) Urine pH (4.5-7.5) Ur Specific Kempner (1.000-1.030) Urine Protein (Negative) Urine Glucose (UA) (Negative) Urine Ketones (Negative) Urine Blood (Negative) Urine Nitrite (Negative) Urine Bilirubin (Negative) Urine Urobilinogen (Negative) Ur Leukocyte Esterase (Negative) Urine WBC (Auto) (0-5) /hpf Urine RBC (Auto) (0-4) /hpf U Hyaline Cast (Auto) (0-5) /lpf U Epithel Cells (Auto) (0-5) /lpf Urine Bacteria (Auto) (Negative) Nasal Screen MRSA (PCR) (Negative) SARS-CoV-2 (PCR) NEGATIVE (Negative) Influenza Type A (PCR) Negative (Neg) Influenza Type B (PCR) Negative (Neg) RSV (RT-PCR) Negative (Neg) 02/18/22 02/18/22 02/18/22 Range/Units 22:13 23:11 23:30 WBC (4.8-10.8) K/ul RBC (3.93-5.22) M/uL Hgb (12.0-16.0) g/dl Hct (34.1-44.9) % MCV (80.0-100.0) fL MCH (25.0-34.0) pg MCHC (32.0-36.0) g/dL RDW Std Deviation (36.4-46.3) fL RDW Coeff of Bebe (11.5-14.5) % Plt Count (130-400) K/uL MPV (9.4-12.3) fL Immature Gran % (Auto) % Neut % (Auto) % Lymph % (Auto) % Vermilion % (Auto) % Eos % (Auto) % Baso % (Auto) % Neut # (Auto) (1.4-6.5) K/uL Lymph # (Auto) (1.2-3.4) K/uL Vermilion # (Auto) (0.24-0.82) K/uL Eos # (Auto) (0-0.50) K/uL Baso # (Auto) (0-0.2) K/uL Immature Gran # (Auto) (0.00-0.02) K/uL PT (9.0-12.0) Seconds INR (0.9-1.1) APTT (21.0-31.0) Seconds PTT Ratio VBG pH (7.36-7.41) VBG pCO2 (38-50) mmHg VBG pO2 mmHg VBG HCO3 mmol/L VBG O2 Saturation % VBG Base Excess mEq/L Sodium 137 (136-145) mmol/L Potassium 4.3 (3.5-5.1) mmol/L Chloride 100 (98-107) mmol/L Carbon Dioxide 26 (21-32) mmol/L Anion Gap 11 (3-11) BUN 48 H (6-23) mg/dl Creatinine 1.43 H (0.6-1.2) mg/dl Est Cr Clr Drug Dosing 33.3 Est GFR ( Amer) 41.4 ml/min Est GFR (Non-Af Amer) 35.7 ml/min BUN/Creatinine Ratio 33.6 H (10-20) Glucose 375 H* (70-99(Fasting)) mg/dl POC Glucose 390 H* 396 H* (70-99) mg/dl Lactate (0.4-2.0) mmol/L Calcium 8.8 (8.5-10.1) mg/dl Phosphorus 2.6 (2.5-4.9) mg/dl Magnesium 1.8 (1.7-2.4) mg/dl Total Bilirubin (0.2-1.0) mg/dl Direct Bilirubin (0-0.2) mg/dl AST (13-39) U/L ALT (7-52) U/L Alkaline Phosphatase (34-104) U/L Troponin I High Sens (0-14) pg/ml Total Protein (6.0-8.3) gm/dl Albumin (3.4-5.0) gm/dl Procalcitonin (0-0.5) ng/ml Urine Color Urine Appearance (Clear) Urine pH (4.5-7.5) Ur Specific Kempner (1.000-1.030) Urine Protein (Negative) Urine Glucose (UA) (Negative) Urine Ketones (Negative) Urine Blood (Negative) Urine Nitrite (Negative) Urine Bilirubin (Negative) Urine Urobilinogen (Negative) Ur Leukocyte Esterase (Negative) Urine WBC (Auto) (0-5) /hpf Urine RBC (Auto) (0-4) /hpf U Hyaline Cast (Auto) (0-5) /lpf U Epithel Cells (Auto) (0-5) /lpf Urine Bacteria (Auto) (Negative) Nasal Screen MRSA (PCR) (Negative) SARS-CoV-2 (PCR) (Negative) Influenza Type A (PCR) (Neg) Influenza Type B (PCR) (Neg) RSV (RT-PCR) (Neg) 02/18/22 02/18/22 02/18/22 Range/Units 23:30 23:30 Unknown WBC (4.8-10.8) K/ul RBC (3.93-5.22) M/uL Hgb (12.0-16.0) g/dl Hct (34.1-44.9) % MCV (80.0-100.0) fL MCH (25.0-34.0) pg MCHC (32.0-36.0) g/dL RDW Std Deviation (36.4-46.3) fL RDW Coeff of Bebe (11.5-14.5) % Plt Count (130-400) K/uL MPV (9.4-12.3) fL Immature Gran % (Auto) % Neut % (Auto) % Lymph % (Auto) % Vermilion % (Auto) % Eos % (Auto) % Baso % (Auto) % Neut # (Auto) (1.4-6.5) K/uL Lymph # (Auto) (1.2-3.4) K/uL Verm[place] # (Auto) (0.24-0.82) K/uL Eos # (Auto) (0-0.50) K/uL Baso # (Auto) (0-0.2) K/uL Immature Gran # (Auto) (0.00-0.02) K/uL PT (9.0-12.0) Seconds INR (0.9-1.1) APTT (21.0-31.0) Seconds PTT Ratio VBG pH 7.39 (7.36-7.41) VBG pCO2 (38-50) mmHg VBG pO2 mmHg VBG HCO3 mmol/L VBG O2 Saturation % VBG Base Excess mEq/L Sodium (136-145) mmol/L Potassium (3.5-5.1) mmol/L Chloride (98-107) mmol/L Carbon Dioxide (21-32) mmol/L Anion Gap (3-11) BUN (6-23) mg/dl Creatinine (0.6-1.2) mg/dl Est Cr Clr Drug Dosing Est GFR ( Amer) ml/min Est GFR (Non-Af Amer) ml/min BUN/Creatinine Ratio (10-20) Glucose (70-99(Fasting)) mg/dl POC Glucose (70-99) mg/dl Lactate (0.4-2.0) mmol/L Calcium (8.5-10.1) mg/dl Phosphorus (2.5-4.9) mg/dl Magnesium (1.7-2.4) mg/dl Total Bilirubin (0.2-1.0) mg/dl Direct Bilirubin (0-0.2) mg/dl AST (13-39) U/L ALT (7-52) U/L Alkaline Phosphatase (34-104) U/L Troponin I High Sens 209.5 H* D (0-14) pg/ml Total Protein (6.0-8.3) gm/dl Albumin (3.4-5.0) gm/dl Procalcitonin (0-0.5) ng/ml Urine Color Yellow Urine Appearance Clear (Clear) Urine pH 5.0 (4.5-7.5) Ur Specific Kempner 1.025 (1.000-1.030) Urine Protein 1+ H (Negative) Urine Glucose (UA) 3+ H (Negative) Urine Ketones 1+ H (Negative) Urine Blood 1+ H (Negative) Urine Nitrite Negative (Negative) Urine Bilirubin Negative (Negative) Urine Urobilinogen Negative (Negative) Ur Leukocyte Esterase Negative (Negative) Urine WBC (Auto) 10-30 H (0-5) /hpf Urine RBC (Auto) 0-4 (0-4) /hpf U Hyaline Cast (Auto) 1-5 (0-5) /lpf U Epithel Cells (Auto) 20-30 H (0-5) /lpf Urine Bacteria (Auto) Negative (Negative) Nasal Screen MRSA (PCR) (Negative) SARS-CoV-2 (PCR) (Negative) Influenza Type A (PCR) (Neg) Influenza Type B (PCR) (Neg) RSV (RT-PCR) (Neg) 02/18/22 02/18/22 02/19/22 Range/Units Unknown Unknown 00:40 WBC (4.8-10.8) K/ul RBC (3.93-5.22) M/uL Hgb (12.0-16.0) g/dl Hct (34.1-44.9) % MCV (80.0-100.0) fL MCH (25.0-34.0) pg MCHC (32.0-36.0) g/dL RDW Std Deviation (36.4-46.3) fL RDW Coeff of Bebe (11.5-14.5) % Plt Count (130-400) K/uL MPV (9.4-12.3) fL Immature Gran % (Auto) % Neut % (Auto) % Lymph % (Auto) % [place] % (Auto) % Eos % (Auto) % Baso % (Auto) % Neut # (Auto) (1.4-6.5) K/uL Lymph # (Auto) (1.2-3.4) K/uL [place] # (Auto) (0.24-0.82) K/uL Eos # (Auto) (0-0.50) K/uL Baso # (Auto) (0-0.2) K/uL Immature Gran # (Auto) (0.00-0.02) K/uL PT (9.0-12.0) Seconds INR (0.9-1.1) APTT (21.0-31.0) Seconds PTT Ratio VBG pH (7.36-7.41) VBG pCO2 (38-50) mmHg VBG pO2 mmHg VBG HCO3 mmol/L VBG O2 Saturation % VBG Base Excess mEq/L Sodium (136-145) mmol/L Potassium (3.5-5.1) mmol/L Chloride (98-107) mmol/L Carbon Dioxide (21-32) mmol/L Anion Gap (3-11) BUN (6-23) mg/dl Creatinine (0.6-1.2) mg/dl Est Cr Clr Drug Dosing Est GFR ( Amer) ml/min Est GFR (Non-Af Amer) ml/min BUN/Creatinine Ratio (10-20) Glucose (70-99(Fasting)) mg/dl POC Glucose 333 H* (70-99) mg/dl Lactate 3.2 H* (0.4-2.0) mmol/L Calcium (8.5-10.1) mg/dl Phosphorus (2.5-4.9) mg/dl Magnesium (1.7-2.4) mg/dl Total Bilirubin (0.2-1.0) mg/dl Direct Bilirubin (0-0.2) mg/dl AST (13-39) U/L ALT (7-52) U/L Alkaline Phosphatase (34-104) U/L Troponin I High Sens (0-14) pg/ml Total Protein (6.0-8.3) gm/dl Albumin (3.4-5.0) gm/dl Procalcitonin (0-0.5) ng/ml Urine Color Urine Appearance (Clear) Urine pH (4.5-7.5) Ur Specific Kempner (1.000-1.030) Urine Protein (Negative) Urine Glucose (UA) (Negative) Urine Ketones (Negative) Urine Blood (Negative) Urine Nitrite (Negative) Urine Bilirubin (Negative) Urine Urobilinogen (Negative) Ur Leukocyte Esterase (Negative) Urine WBC (Auto) (0-5) /hpf Urine RBC (Auto) (0-4) /hpf U Hyaline Cast (Auto) (0-5) /lpf U Epithel Cells (Auto) (0-5) /lpf Urine Bacteria (Auto) (Negative) Nasal Screen MRSA (PCR) Negative (Negative) SARS-CoV-2 (PCR) (Negative) Influenza Type A (PCR) (Neg) Influenza Type B (PCR) (Neg) RSV (RT-PCR) (Neg) Administered Medications Insulin Human Regular 250 (units/ Sodium Chloride) 250 mls @ 8.3 mls/hr IV .Q24 H LINDA; Protocol Stop: 03/20/22 22:59 Last Titration: 02/19/22 00:46 Dose: 2.1 units/hr, 2.1 mls/hr Documented By: MED Co-signed By: JESSICA Admin: 02/18/22 23:14 Dose: 2.1 units/hr, 2.1 mls/hr Documented By: MED Co-signed By: PAM Parenteral Electrolytes (Normosol-R) 1,000 mls @ 125 mls/hr IV .Q8H LINDA Stop: 03/20/22 22:29 Last Admin: 02/18/22 23:45 Dose: 125 mls/hr Documented By: MED Discontinued Medications Sodium Chloride (Nss 1000ml) 1,000 mls @ 999 mls/hr IV .Q1H1M LINDA Stop: 02/18/22 20:45 Last Infusion: 02/18/22 21:29 Dose: 0 mls/hr Documented By: Admin: 02/18/22 19:53 Dose: 999 mls/hr Documented By: LETITIA Sodium Chloride (Nss) 500 mls @ 999 mls/hr IV .Q31M ONE Stop: 02/18/22 21:01 Last Infusion: 02/18/22 22:09 Dose: 0 mls/hr Documented By: Admin: 02/18/22 21:07 Dose: 999 mls/hr Documented By: LETITIA Cefepime HCl (Maxipime) 2,000 mg in 20 mls @ 5 mls/min IV NOW STA; Protocol Stop: 02/18/22 20:34 Last Admin: 02/18/22 21:06 Dose: 5 mls/min Documented By: LETITIA Insulin Human Regular (Novolin-R Insulin Per Unit Charge) 6 units IV 2114 ONE Stop: 02/18/22 21:16 Last Admin: 02/18/22 21:21 Dose: Not Given Documented By: LETITIA Discharge Plan Visit Data Chief Complaint: Hyperglycemia Stated Complaint: THROWING UP NO APPETITE ED Provider: Maksim Denny Discharge Problem: Acute hyperglycemia, Acute dehydration, Lactic acidosis, Elevated troponin Forms Stand Alone Forms: My [facility] [email or web address] Prescriptions Prescriptions: No Action (DME) pen needle, diabetic [BD Ultra-Fine Rayne Pen Needle] 32 gauge x 5/32" needle See Dose Instructions .ROUTE .MEDSUPPLY Qty: 2 1RF Dose Instruction: As directed Rx Instructions: use 4x daily lisinopril-hydrochlorothiazide 20-12.5 mg tablet 1 tab PO DAILY Qty: 90 3RF insulin aspart U-100 [Novolog Flexpen U-100 Insulin] 100 unit/mL (3 mL) insu sterling pen 5 unit SUBCUT TID Qty: 30 3RF atorvastatin 20 mg tablet 20 mg PO DAILY Qty: 90 3RF insulin glargine [Lantus Solostar U-100 Insulin] 100 unit/mL (3 mL) insulin pen 20 - 25 unit SQ DAILY Qty: 30 0RF cholecalciferol (vitamin D3) 10 mcg (400 unit) capsule 10 mcg PO DAILY Label Comments: Pt unsure of dose (DME) FreeStyle Isaac 14 Day Sensor Kit See Rx Instructions .ROUTE .MEDSUPPLY Qty: 1 Rx Instructions: As directed aspirin [Aspirin Low-Strength] 81 mg Tablet,Delayed Release (Dr/Ec) 81 mg PO DAILY Referrals Referrals: Raffaele Polanco MD [Primary Care Provider] -
[2022-02-18 20:03] LABS: Basophils # (auto) 0.01 K/uL (0-0.2); Basophils % (auto) 0.1 %; Hematocrit (blood only) 34.4 % (34.1-44.9); Hemoglobin 11.3 g/dl (12.0-16.0); Immature Granulocytes # (auto) 0.06 K/uL (0.00-0.02); Immature Granulocytes % (auto) 0.4 %; Lymphocytes # (auto) 1.22 K/uL (1.2-3.4); Mean Corpuscular Hgb Conc 32.8 g/dL (32.0-36.0); Mean Corpuscular Volume 88.4 fL (80.0-100.0); Mean Platelet Volume 9.8 fL (9.4-12.3); Monocytes # (auto) 0.98 K/uL (0.24-0.82); Monocytes % (auto) 7.2 %; Neutrophils % (auto) 83.3 %; Platelet Count 279 K/uL (130-400); RDW Coefficient of Variation 13.1 % (11.5-14.5); RDW Standard Deviation 42.1 fL (36.4-46.3); Red Blood Count 3.89 M/uL (3.93-5.22); White Blood Count 13.57 K/ul (4.8-10.8)
[2022-02-18 20:05] LABS: Base Excess VBG -4.3 mEq/L; HCO3 VBG 23 mmol/L; Oxygen Saturation VBG < 60.0 %; PCO2 VBG 48 mmHg (38-50); PO2 VBG 31 mmHg; pH VBG 7.28 (7.36-7.41)
[2022-02-18 20:17] LABS: Partial Thromboplastin Ratio 0.9; Partial Thromboplastin Time 24.6 Seconds (21.0-31.0); Prothrombin Time 10.6 Seconds (9.0-12.0)
[2022-02-18] MEDS ORDERED: CEFEPIME 2,000 MG/20 ML VIAL IV STA (20:31)
[2022-02-18] MEDS ORDERED: SODIUM CHLORIDE 0.9% 500 ML IV ONE (20:31)
[2022-02-18 20:44] LABS: Alanine Aminotransferase 11 U/L (7-52); Albumin Level 4.6 gm/dl (3.4-5.0); Alkaline Phosphatase 87 U/L (34-104); Anion Gap 19 (3-11); Aspartate Aminotransferase 17 U/L (13-39); BUN Creatinine Ratio 30.2 (10-20); Bilirubin Direct 0.1 mg/dl (0-0.2); Bilirubin,Total 0.6 mg/dl (0.2-1.0); Blood Urea Nitrogen 51 mg/dl (6-23); Calcium 9.5 mg/dl (8.5-10.1); Carbon Dioxide 21 mmol/L (21-32); Chloride 94 mmol/L (98-107); Est GFR (African American) 33.8 ml/min; Est GFR (Non-African American) 29.2 ml/min; Glucose 516 mg/dl (70-99(Fasting)); Magnesium 1.9 mg/dl (1.7-2.4); Potassium 4.2 mmol/L (3.5-5.1); Sodium 134 mmol/L (136-145); Total Protein 8.4 gm/dl (6.0-8.3); Troponin I High Sensitivity 136.8 pg/ml (0-14)
[2022-02-18] MEDS ORDERED: INSULIN HUMAN REGULAR IV STA (20:49)
[2022-02-18 21:10] LABS: Influenza A virus by PCR Negative (Neg); Influenza B virus by PCR Negative (Neg); RSV by PCR Negative (Neg); SARS CoV2 RNA(COVID-19) Ceph NEGATIVE (Negative)
[2022-02-18] MEDS ORDERED: NovoLIN-R INSULIN PER UNIT CHARGE IV ONE (21:15)
[2022-02-18 21:36] LABS: Appearance Urine Clear (Clear); Bacteria Urine Automated Negative (Negative); Bilirubin Urine Negative (Negative); Blood Urine 1+ (Negative); Color Urine Yellow; Epithelial Cell Urine Auto 20-30 /lpf (0-5); Glucose Urine UA 3+ (Negative); Ketones Urine 1+ (Negative); Leukocyte Esterase Urine Negative (Negative); Nitrite Urine Negative (Negative); Protein Urine 1+ (Negative); RBC Urine Automated 0-4 /hpf (0-4); Specific Gravity Urine 1.025 (1.000-1.030); Urobilinogen Urine Negative (Negative)
--- NOTE | 2022-02-18 22:12 | History & Physical Report ---
Date of Service February 18, 2022 Assessment & Plan (1) DKA (diabetic ketoacidosis): Plan: 76yo female with T1DM, HTN, HLD, CKD3, and obesity presents with a two-day history of elevated BSG, confusion, nausea, vomiting, poor PO intake, and polyuria, suspect secondary to DKA. DKA, nausea, vomiting Patient presents with two days of AMS, nausea, and vomiting in the setting of poor PO intake and poor insulin regimen compliance BSG on arrival elevated to 516; UA notable for ketones Anion gap elevated to 19 on arrival Suspect symptoms are secondary to DKA DKA protocol initiated NPO pending clinical improvement Zofran prn nausea Confusion, AMS Suspect symptoms are secondary to DKA, though differential includes CVA/other etiologies CT head ordered - no bleed upon my read, [employer] read pending Concern for pneumonia CXR on admission notable for bibasilar haziness L>R, official over-read pending Patient is without SOB, spO2 adequate on room air One dose of cefepime given in ED Will defer decision re: further antibiotics to day team DAYNE on CKD3 Creatinine on arrival elevated to 1.69 (baseline ~1.0) Suspect secondary to hypovolemia/poor renal perfusion secondary to DKA, nausea, vomiting, and poor PO intake IVF as noted above, avoid nephrotoxins when able, Elevated troponin On admission, hsTroponin elevated to 136.8, repeat value pending EKG: NSR, no overt sign of ischemic change Patient without CP at this time HTN: hold home lisinopril pending improvement in DAYNE HLD: continue home regimen when resuming PO FEN: NPO pending clinical improvement, normosol @ 125mL/hr with KCl 20mEq added; change in IVF per DKA protocol Code status: full code[DNR/DNI] DVT ppx: SCDs PT/OT: ordered Case management: consulted Dispo: med/telemetry (2) Uncontrolled type 1 diabetes mellitus with kidney complication, with long- term current use of insulin: (3) Hypertension: (4) Hyperlipidemia: (5) CKD (chronic kidney disease), stage III: History of Present Illness Primary Care Provider: Raffaele Polanco MD 76yo female with T1DM, HTN, HLD, CKD3, and obesity presents with a two-day history of elevated BSG, confusion, nausea, and vomiting. 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 History is primarily obtained through the ED note, as patient's spouse was present upon arrival to provide history, and patient is very sleepy/altered upon my interview. Per ED provider's note, patient presents with two days of worsening AMS, nausea, vomiting, poor appetite, and polyuria. Patient's spouse noted patient's BSG kept climbing throughout the past day. Spouse notes patient received lantus 10u earlier in the day. Spouse denies recent fall, trauma, injuries, fever, CP, back pain, abdominal pain, or recent antibiotics. Upon my interview, patient is oriented to person and place but not to time or situation. Patient denies pain, nausea, or other symptoms at this time. Upon arrival, vitals were notable for mild tachycardia (100s); BP well- controlled, no tachypnea, patient afebrile, spO2 adequate on room air. Initial labs were notable for mild leukocytosis (13.6), mild anemia (11.3), elevated anion gap (19), elevated BUN (51) and creatinine (1.69; baseline ~1.0), elevated BSG (516), elevated hsTroponin (136.8), elevated procalcitonin (1.03), and UA notable for 1+ protein, 1+ ketones, 1+ blood, 10-30 WBCs, though possibl y contaminated with epithelial cells present.; platelets wnl, no additional electrolyte abnormalities, LFTs wnl, Tbili not elevated, covid/flu/RSV PCR negative, MRSA nares pending. In the ED, patient received NSS 1.5L bolus (x1), NPH 6u IV (x1), and a dose of cefepime.. EKG: NSR, no overt ischemic change CXR: mild bibasilar haziness L>R CT head: no acute process upon my read; [employer] read pending Allergies Allergy/AdvReac Type Severity Reaction Status Date / Time amlodipine Allergy Intermediate Hives Verified 01/11/22 13:51 Home Medications Medication Instructions Recorded Confirmed Type pen needle, diabetic 32 gauge x #2 Boxes 01/31/19 02/18/22 Rx 5/32" (BD Ultra-Fine Rayne Pen Needle) flash glucose sensor (FreeStyle #1 ea 01/16/20 02/18/22 History Isaac 14 Day Sensor kit) lisinopril 20 1 tab PO DAILY #90 tabs 02/21/21 02/18/22 Rx mg-hydrochlorothiazide 12.5 mg tablet Novolog Flexpen U-100 Insulin 100 5 unit (0.05 mL) subcut TID #30 mL 07/27/21 02/18/22 Rx unit/mL (3 mL) subcutaneous (insulin aspart U-100) cholecalciferol (vitamin D3) 10 10 mcg PO DAILY 09/16/21 02/18/22 History mcg (400 unit) capsule atorvastatin 20 mg tablet 20 mg PO DAILY #90 tabs 11/04/21 02/18/22 Rx Lantus Solostar U-100 Insulin 100 20 - 25 unit (0.2 - 0.25 mL) 01/10/22 02/18/22 Rx unit/mL (3 mL) subcutaneous pen subcut DAILY #30 mL (insulin glargine) aspirin 81 mg tablet,delayed 81 mg PO DAILY 02/18/22 02/18/22 History release Past Med/Surg History Medical History (Updated 02/19/22 @ 00:59 by Maksim Denny MD) Abnormal ECG Acute blood loss anemia DAYNE (acute kidney injury) Benign familial tremor Charcot's arthropathy of forefoot Closed fracture of right hip Cognitive impairment Daytime somnolence Depression Diabetes Diabetic peripheral neuropathy associated with type 1 diabetes mellitus Diastolic dysfunction DKA (diabetic ketoacidoses) DKA (diabetic ketoacidoses) DVT prophylaxis Dyslipidemia Edema of left lower extremity Encephalopathy Fall Hearing loss Hypertension Hypocalcemia Ileus Memory loss, short term Microalbuminuria Morbid obesity Obesity (BMI 35.0-39.9 without comorbidity) Osteoporosis Retinopathy Septic shock SNHL (sensorineural hearing loss) Snoring Type 1 diabetes Uncontrolled type 1 diabetes mellitus with kidney complication, with long-term current use of insulin Uncontrolled type 1 diabetes mellitus with retinopathy, with long-term current use of insulin Vitamin D deficiency Surgical History H/O cataract extraction H/O section H/O tubal ligation Family History Father Lung cancer Mother Heart disease Grandfather (Paternal) Heart disease Denies family history of Ovarian cancer Prostate cancer Myocardial infarction Breast cancer Colorectal cancer Social History Smoking Status: Never smoker Second Hand Exposure: No; Hx Alcohol Use: No Hx Substance Use: No Preferred Language: Macedonian Communication Ability: Effective Visual Impairment: No Limitations Hearing Ability: Hard of Hearing Picker And Packer Required: No Beliefs That Will Affect Care: None marital status: Current Living Situation: Spouse current occupational status: retired How many Children do You have: 2 Feels Safe at Home: Yes Childhood Exposure to Second-Hand Smoke: Yes caffeine: Yes Dental Care, Regularly: No Physical Activity Frequency: 1-2 Times per Week Seatbelt Use: always Sunscreen Use: No Physical Exam Physical Exam: Constitutional: tired-appearing, no acute distress HEENT: oral mucosa slightly dry CV: regular rhythm, no murmur appreciated, extremities well-perfused, no LE edema Resp: CTABL, no wheezes/rales/rhonchi appreciated, no increased work of breathing GI: soft, nondistended, nontender, BS normoactive MSK: no gross deformities appreciated Skin: warm, dry, no rash appreciated Neuro: asleep but arousable to voice, oriented to person and place only, not oriented to time or situation, no focal neurologic deficit appreciated Results & Data Results & Data ([facility]) Vital Signs (Past 12 Hours) Vital Signs Temp Pulse Pulse Resp BP BP Pulse Ox 02/18/22 22:01 104 H 21 120/69 93 02/18/22 20:27 100 H 18 147/65 H 93 02/18/22 21:26 105 H 18 108/77 93 02/18/22 19:42 100 H 16 131/86 94 02/18/22 19:42 100 H 16 94 02/18/22 19:28 100 H 16 131/86 94 02/18/22 19:30 36.7 C 99 H 16 131/62 96 O2 Del Method 02/18/22 22:01 02/18/22 20:27 Room Air 02/18/22 21:26 Room Air 02/18/22 19:42 02/18/22 19:42 Room Air 02/18/22 19:28 Room Air 02/18/22 19:30 Room Air Supervising Physician Co-Signing Physician Notes Attending addendum: I have physically seen this patient, have supervised the medical residents activities, and agree with the H&P unless as otherwise noted. Assessment and Plan: DKA- Presenting symptoms of nausea, vomiting and confusion for decreased oral intake Glucose 516 on admission, received 1500 mils of normal saline and 6 units of regular insulin IV with improvement of 390 Admit with DKA protocol Zofran 4 mg IV every 6 hours as needed Pneumonia-bibasilar infiltrates Cefepime 2 g IV every 12 hours Duonebs every 4 hours while awake and every 2 hours when necessary. Acute kidney injury on CKD stage III- Creatinine 1.69 on admission, with baseline 1.0 IV fluid rehydration and recheck laboratories in a.m. Elevated troponin- Highly sensitive troponin 136.8 The patient will be admitted to telemetry for serial cardiac enzymes, serial EKG's, cardiac rhythm monitoring and a 2-D echocardiogram with Dopplers. Likely supply demand mismatch type II Remaining orders and notations as noted Resident Activity Tracking Resident Involvement: Resident Care Provided and Station Tender Coverage Note Care Provided: Adult Hospital Medicine (1) Hyperlipidemia Hyperlipidemia type: unspecified Qualified Code(s): E78.5 - Hyperlipidemia, unspecified (2) Hypertension Hypertension type: essential hypertension Qualified Code(s): I10 - Essential (primary) hypertension
[2022-02-18] MEDS ORDERED: STAT IV Infusion **Titration per Protocol STA (22:22)
[2022-02-18] MEDS ORDERED: DKA GOAL RANGE 150-250 mg/dl ONE (22:22)
[2022-02-18] MEDS ORDERED: PHARMACY GLYCEMIC MGMT CONSULT PRN (22:22)
[2022-02-18] MEDS ORDERED: Patient's HEIGHT &/or WEIGHT Needed SCH (22:30)
[2022-02-18] MEDS ORDERED: PENDING 1/2NSS+20mEq KCL IVF SCH (22:30)
[2022-02-18] MEDS ORDERED: NORMOSOL-R 1,000 ML IV SCH (22:30)
[2022-02-18] MEDS ORDERED: INSULIN REGULAR 250 UNITS in SODIUM CHLORIDE 0.9% 247.5 ML IV SCH (23:00)
[2022-02-19 00:04] LABS: BUN Creatinine Ratio 33.6 (10-20); Calcium 8.8 mg/dl (8.5-10.1); Creatinine Clr Calc Pharmacy 33.3 ml/min; Est GFR (African American) 41.4 ml/min; Est GFR (Non-African American) 35.7 ml/min; Magnesium 1.8 mg/dl (1.7-2.4); Phosphorus 2.6 mg/dl (2.5-4.9); Potassium 4.3 mmol/L (3.5-5.1)
[2022-02-19] MEDS ORDERED: DEXTROSE 50% 50 ML SYRINGE IV PRN (01:11)
[2022-02-19] MEDS ORDERED: GLUCOSE 40% GEL 15 GM TUBE PO PRN (01:11)
[2022-02-19] MEDS ORDERED: ONDANSETRON INJ 2 MG/ML 2 ML VIAL IV PRN (01:11)
[2022-02-19] MEDS ORDERED: GLUCOSE 10 TAB/TUBE PO PRN (01:11)
[2022-02-19] MEDS ORDERED: GLUCAGON FOR INJ 1 MG VIAL SQ PRN (01:11)
[2022-02-19] MEDS ORDERED: CARBOHYDRATES FOR HYPOGLYCEMIA PO PRN (01:11)
[2022-02-19] MEDS ORDERED: SODIUM CHLOR 0.45% + 20MEQ KCL 20 MEQ/1,000 ML BAG IV SCH (01:30)
[2022-02-19] MEDS: HEPARIN SODIUM/DEXTROSE 25,000 UNITS/500 ML BAG IV SCH (01:59)
[2022-02-19 03:26] LABS: Hematocrit (blood only) 29.7 % (34.1-44.9); Hemoglobin 9.9 g/dl (12.0-16.0); Mean Corpuscular Hemoglobin 29.1 pg (25.0-34.0); Mean Corpuscular Hgb Conc 33.3 g/dL (32.0-36.0); Mean Corpuscular Volume 87.4 fL (80.0-100.0); Mean Platelet Volume 9.7 fL (9.4-12.3); Platelet Count 250 K/uL (130-400); RDW Coefficient of Variation 13.1 % (11.5-14.5); RDW Standard Deviation 41.1 fL (36.4-46.3); White Blood Count 12.44 K/ul (4.8-10.8)
[2022-02-19 03:46] LABS: BUN Creatinine Ratio 35.3 (10-20); Calcium 8.8 mg/dl (8.5-10.1); Creatinine Clr Calc Pharmacy 35.8 ml/min; Est GFR (African American) 45.2 ml/min; Magnesium 1.8 mg/dl (1.7-2.4); Phosphorus 2.3 mg/dl (2.5-4.9)
[2022-02-19] MEDS: D5W AND 1/2NSS + 20MEQ KCL 20 MEQ/1,000 ML BAG IV SCH ×2 (03:47→12:50)
[2022-02-19 06:04] LABS: Albumin Globulin Ratio 1.1 (0.9-2); Albumin Level 3.5 gm/dl (3.4-5.0); BUN Creatinine Ratio 36.1 (10-20); Bilirubin,Total 0.5 mg/dl (0.2-1.0); Creatinine Clr Calc Pharmacy 35.8 ml/min; Est GFR (African American) 45.2 ml/min; Globulin 3.2 gm/dl (2.5-4.0); Magnesium 1.8 mg/dl (1.7-2.4); Phosphorus 2.3 mg/dl (2.5-4.9); Total Protein 6.7 gm/dl (6.0-8.3)
--- NOTE | 2022-02-19 07:07 | CT Scan Report ---
HEAD CT NONCONTRAST CT DOSE: 537.48 mGy.cm HISTORY: Altered mental status. TECHNIQUE: Multiaxial CT images of the head were performed without the use of intravenous contrast. A utomated exposure control was utilized for this study. A dose lowering technique was utilized adheri ng to the principles of ALARA. Comparison: Head CT 04/15/2019. Findings: The paranasal sinuses and mastoid air cells are clear. The calvarium and skull base are int act. There is no mass, hematoma, midline shift, acute infarct. White matter hypodensity is nonspecifi c but suggestive of microvascular ischemic change. The ventricles and sulci demonstrate mild age-rela terese involutional changes. Impression: No acute intracranial abnormality. Atrophy and microvascular ischemic changes. ACT 112: Negative or not required by law. Electronically signed by: Herminio Bloom M.D. 02/19/2022 7:05 AM
[2022-02-19 07:31] LABS: Calcium 8.7 mg/dl (8.5-10.1); Creatinine Clr Calc Pharmacy 38.1 ml/min; Est GFR (African American) 48.7 ml/min; Magnesium 1.8 mg/dl (1.7-2.4); Phosphorus 2.1 mg/dl (2.5-4.9); Potassium 3.8 mmol/L (3.5-5.1)
[2022-02-19] MEDS: INSULIN ASPART PER UNIT SC SCH ×4 (07:32→20:23)
[2022-02-19] MEDS: Heparin IV Adult Wt-Based Standard *NO* Bolus Protocol IV SCH ×2 (07:38→15:12)
[2022-02-19] MEDS: PENDING D5 1/2NS+20mEq KCL IVF SCH ×3 (07:38→15:11)
--- NOTE | 2022-02-19 08:30 | XRay Report ---
XR chest 1V portable HISTORY: 76 years-old Female Sepsis acute sepsis COMPARISON: Chest radiograph 04/18/2019 TECHNIQUE: AP view of the chest FINDINGS: Cardiac silhouette is enlarged. Atherosclerosis of the aorta. No pneumothorax, large pleural effusion or overt pulmonary edema. Mild chronic coarsening of interstitium. Degenerative changes of the shoul ders and spine. IMPRESSION: Cardiomegaly with mild chronic interstitial coarsening. ACT 112: Negative or not required by law. The above report was generated using voice recognition software. It may contain grammatical, syntax o r spelling errors. Electronically signed by: Duke Ibanez M.D. 02/19/2022 8:29 AM
[2022-02-19 08:40] LABS: Partial Thromboplastin Ratio 2.4; Partial Thromboplastin Time 65.3 Seconds (21.0-31.0)
[2022-02-19] MEDS ORDERED: LANTUS PER UNIT CHARGE SQ ONE (09:00)
[2022-02-19] MEDS: ASPIRIN 81 MG ECTAB PO SCH (10:08)
[2022-02-19] MEDS: ATORVASTATIN 20 MG TAB PO SCH (10:08)
[2022-02-19] MEDS: LISINOPRIL/HCTZ 20/12.5MG 1 TAB TAB PO SCH (10:08)
[2022-02-19 10:56] LABS: Calcium 9.2 mg/dl (8.5-10.1); Creatinine Clr Calc Pharmacy 38.1 ml/min; Est GFR (African American) 48.7 ml/min; Magnesium 1.9 mg/dl (1.7-2.4); Phosphorus 1.7 mg/dl (2.5-4.9)
--- NOTE | 2022-02-19 14:48 | Pharmacy Report ---
Pharmacy Glycemic Short Note 2 - Date of Service February 19, 2022 - Glycemic Short BSG Results (Last 24 hours): 02/18/22 02/18/22 02/18/22 19:41 19:43 19:45 Glucose 516 H* POC Glucose 502 H* 545 H* 02/18/22 02/18/22 02/18/22 22:13 23:11 23:30 Glucose 375 H* POC Glucose 390 H* 396 H* 02/19/22 02/19/22 02/19/22 00:40 01:44 02:42 Glucose POC Glucose 333 H* 238 H 232 H 02/19/22 02/19/22 02/19/22 03:08 03:44 04:50 Glucose 235 H POC Glucose 216 H 210 H 02/19/22 02/19/22 02/19/22 05:10 05:51 06:57 Glucose 201 H 182 H POC Glucose 184 H 02/19/22 02/19/22 02/19/22 07:02 09:05 10:20 Glucose 153 H POC Glucose 165 H 162 H 02/19/22 02/19/22 11:17 13:23 Glucose POC Glucose 151 H 110 H OUTPATIENT ANTIDIABETIC REGIMEN: * Novolog 5 units TID * Lantus 20-25 units daily * HbA1C pending ASSESSMENT: * Ms Bonilla is a 76 y/o F with a PMH of Type 1 diabetes who presents with alte red mental status and hyperglycemia. * Patient initiated on insulin infusion at 2.1 units/hr; this was decreased during the night to 1.3 units/hr. * During previous admissions, patient required 13-15 units of basal insulin. Spoke with provider who is okay with transition to SQ. * Patient lethargic but has dextrose running. * Start Lantus 15 units daily + Novolog used during previous admission. PLAN FOR INPATIENT GLYCEMIC CONTROL: * Hold outpatient oral diabetes medications * Basal insulin * Lantus 15 units SQ daily * Bolus insulin * NovoLog per scale ACHS or Q6hrs while NPO * Goal Range: Low 120 mg/dL - High 160 mg/dL * Correction Factor: 25 mg/dL/unit * Nutritional / Prandial insulin per carb ratio of 1 unit per 10 grams CHO consumed
[2022-02-19 15:01] LABS: BUN Creatinine Ratio 37.6 (10-20); Calcium 9.2 mg/dl (8.5-10.1); Creatinine Clr Calc Pharmacy 43.6 ml/min; Est GFR (African American) 57.5 ml/min; Est GFR (Non-African American) 49.6 ml/min; Potassium 3.9 mmol/L (3.5-5.1)
--- NOTE | 2022-02-19 15:03 | Hospitalist Progress Note ---
Date of Service February 19, 2022 Assessment & Plan (1) DKA (diabetic ketoacidosis): Plan: 76yo female with T1DM, HTN, HLD, CKD3, and obesity presents with a two-day history of elevated BSG, confusion, nausea, vomiting, poor PO intake, and polyuria, suspect secondary to DKA. DKA, nausea, vomiting Patient presents with two days of AMS, nausea, and vomiting in the setting of poor PO intake and poor insulin regimen compliance BSG on arrival elevated to 516; UA notable for ketones Anion gap elevated to 19 on arrival DKA protocol initiated, blood glucose has improved, patient transitioned to SQ insulin Clear liquid diet, advance as tolerated Zofran prn nausea Confusion, AMS Suspect symptoms are secondary to DKA, though differential includes CVA/other etiologies CT head did not show any acute pathology . Patient was back to baseline upon my evaluation Concern for pneumonia CXR on admission notable for bibasilar haziness L>R, official over-read pending Patient is without SOB, spO2 adequate on room air One dose of cefepime given in ED No need for further antibiotics Elevated troponin On admission, hsTroponin elevated to 136.8, repeat value pending EKG: NSR, no overt sign of ischemic change Patient without CP at this time (2) Uncontrolled type 1 diabetes mellitus with kidney complication, with long- term current use of insulin: (3) Hypertension: Plan: soft BP, 97/64 IV fluids as needed Hold Lisinopril (4) Hyperlipidemia: (5) CKD (chronic kidney disease), stage III: Plan: DAYNE on CKD3 Creatinine on arrival elevated to 1.69 (baseline ~1.0) Suspect secondary to hypovolemia/poor renal perfusion secondary to DKA, nausea, vomiting, and poor PO intake IVF as noted above, avoid nephrotoxins when able, Plan FEN: CLD Code status: full code[DNR/DNI] DVT ppx: SCDs PT/OT: ordered Case management: consulted Dispo: med/telemetry Admission and Anticipated Discharge Date Admission Date: February 18, 2022 Subjective patient seen and examined, feels lethargic, but over all better Review of Systems Review of Systems: All systems reviewed are negative, apart from the ones contained in the history. Physical Exam Physical Exam: The patient is awake, alert and oriented 3, well developed and well nourished, normocephalic and atraumatic, lying in bed and in no acute distress. HEENT--PERRL, EOMI, mucous membranes and oropharynx mildly dry Neck--supple. No JVD. No bruits. Thyroid normal, trachea midline, no adenopathy. Heart--normal S1 and S2. No murmurs, rubs or gallops. Lungs--clear bilaterally, no respiratory distress, no accessory muscle use. Abdomen--normal bowel sounds and soft. Mild epigastric and left sided abdominal pain Extremities--no cyanosis or clubbing. No edema. Dermatologic--normal skin turgor, normal color, no abnormal lymph nodes, no rash. Neurologic--cranial nerves II through XII grossly intact. Rheumatologic--normal range of motion. Psychiatric--normal affect. Results & Data Results & Data ([facility]) Vital Signs (Past 12 Hours) Vital Signs Pulse Resp BP Pulse Ox O2 Del Method 02/19/22 08:00 99 H 18 97/64 L 95 Room Air PG Care Time/CCT Total # of Minutes Spent Total Time Spent with Patient: Total time spent is greater than 50% in coordination of care (as documented) at patient's floor/unit and/or counseling patient: Coding Level of Care Code 60747 SUB INP/OBS CARE 2/35MIN Diagnoses DKA (diabetic ketoacidosis) E11.10 Uncontrolled type 1 diabetes mellitus with kidney complication, with long-term current use of insulin E10.29; E10.65 Hypertension I10 Hypertension type: essential hypertension Hyperlipidemia E78.5 Hyperlipidemia type: unspecified CKD (chronic kidney disease), stage III N18.30 Time Spent (min) 35 (1) Hypertension Hypertension type: essential hypertension Qualified Code(s): I10 - Essential (primary) hypertension (2) Hyperlipidemia Hyperlipidemia type: unspecified Qualified Code(s): E78.5 - Hyperlipidemia, unspecified
[2022-02-19 15:07] LABS: Partial Thromboplastin Ratio 3.7
[2022-02-19 15:13] LABS: Magnesium 1.9 mg/dl (1.7-2.4); Phosphorus 1.5 mg/dl (2.5-4.9)
[2022-02-19 15:21] LABS: Partial Thromboplastin Time 100.8 Seconds (21.0-31.0)
[2022-02-19] MEDS ORDERED: INSULIN ASPART PER UNIT SC SCH (16:30)
[2022-02-19 19:28] LABS: BUN Creatinine Ratio 34.5 (10-20); Calcium 8.7 mg/dl (8.5-10.1); Creatinine Clr Calc Pharmacy 43.3 ml/min; Est GFR (African American) 56.9 ml/min; Est GFR (Non-African American) 49.1 ml/min; Potassium 3.8 mmol/L (3.5-5.1)
--- NOTE | 2022-02-19 19:31 | Billing Data ---
Date of Service February 19, 2022 Coding Level of Care Code 01241 INT INP/OBS CARE
[2022-02-19 19:34] LABS: Magnesium 1.7 mg/dl (1.7-2.4); Phosphorus 1.5 mg/dl (2.5-4.9)
[2022-02-19] MEDS ORDERED: POTASSIUM PHOS 3 MMOL/1 ML INFUSION IV STA (19:37)
[2022-02-19] MEDS ORDERED: POTASSIUM PHOSPHATE 40 MMOL in SODIUM CHLORIDE 0.9% 1000ML 1,000 ML IV ONE (20:15)
--- NOTE | 2022-02-19 22:15 | Electrocardiogram Report ---
Test Reason : Blood Pressure : / mmHG Vent. Rate : 098 BPM Atrial Rate : 098 BPM P-R Int : 164 ms QRS Dur : 090 ms QT Int : 366 ms P-R-T Axes : 060 023 059 degrees QTc Int : 467 ms Normal sinus rhythm Normal ECG When compared with ECG of 16-APR-2019 04:14, No significant change was found Confirmed by Nitin Winters ([id number]) on 02/19/2022 10:14:48 PM Referred By: REFERRED SELF Confirmed By:Nitin Winters
[2022-02-19 23:26] LABS: Partial Thromboplastin Ratio 2.2
[2022-02-20] MEDS: HEPARIN SODIUM/DEXTROSE 25,000 UNITS/500 ML BAG IV SCH (02:40)
[2022-02-20] MEDS: D5W AND 1/2NSS + 20MEQ KCL 20 MEQ/1,000 ML BAG IV SCH (03:32)
[2022-02-20] MEDS ORDERED: Nursing to Pharmacy Communication SCH (05:00)
[2022-02-20 06:40] LABS: Estimated Average Glucose 203 mg/dl; Hemoglobin A1C 8.7 % (4.5-5.6)
[2022-02-20 07:36] LABS: Hematocrit (blood only) 33.2 % (34.1-44.9); Hemoglobin 10.8 g/dl (12.0-16.0); Mean Corpuscular Hemoglobin 28.8 pg (25.0-34.0); Mean Corpuscular Hgb Conc 32.5 g/dL (32.0-36.0); Mean Corpuscular Volume 88.5 fL (80.0-100.0); Mean Platelet Volume 9.3 fL (9.4-12.3); Platelet Count 201 K/uL (130-400); RDW Coefficient of Variation 13.1 % (11.5-14.5); RDW Standard Deviation 42.5 fL (36.4-46.3); Red Blood Count 3.75 M/uL (3.93-5.22); White Blood Count 6.22 K/ul (4.8-10.8)
[2022-02-20] MEDS ORDERED: SODIUM PHOSPHATE 3 MMOL/1 ML INFUSION IV STA (08:18)
[2022-02-20 08:25] LABS: Partial Thromboplastin Time 83.4 Seconds (21.0-31.0)
[2022-02-20] MEDS ORDERED: SODIUM PHOSPHATE 9 MMOL in SODIUM CHLORIDE 0.9% 250 ML IV ONE (08:30)
[2022-02-20] MEDS ORDERED: HEPARIN STOP ORDER ONE (08:30)
[2022-02-20] MEDS ORDERED: LANTUS PER UNIT CHARGE SQ SCH ×3 (09:00)
[2022-02-20] MEDS: INSULIN ASPART PER UNIT SC SCH ×4 (09:03→20:36)
[2022-02-20] MEDS: ATORVASTATIN 20 MG TAB PO SCH (09:09)
[2022-02-20] MEDS: LISINOPRIL/HCTZ 20/12.5MG 1 TAB TAB PO SCH (09:09)
[2022-02-20] MEDS: ASPIRIN 81 MG ECTAB PO SCH (09:10)
[2022-02-20] MEDS ORDERED: HYDROmorphone INJ 0.5 MG/0.5 ML SYR IV STA (11:44)
--- NOTE | 2022-02-20 13:49 | Hospitalist Progress Note ---
Date of Service February 20, 2022 Assessment & Plan (1) DKA (diabetic ketoacidosis): Plan: 76yo female with T1DM, HTN, HLD, CKD3, and obesity presents with a two-day history of elevated BSG, confusion, nausea, vomiting, poor PO intake, and polyuria, suspect secondary to DKA. Patient presents with two days of AMS, nausea, and vomiting in the setting of poor PO intake and poor insulin regimen compliance. Elevated blood glucose and high anion gap DKA is now resolved. Anion gap has closed Continue Sub Q insulin. Lantus 20 units daily, ISS (2) Hypertension: Plan: BP 156/82 Lisinopril on hold in view of DAYNE, which has resolved Resume (3) CKD (chronic kidney disease), stage III: Plan: Creatinine on arrival elevated to 1.69 (baseline ~1.0). Now back to baseline Suspect secondary to hypovolemia/poor renal perfusion secondary to DKA, nausea, vomiting, and poor PO intake IVF as noted above, avoid nephrotoxins when able, (4) Elevated troponin: Plan: On admission, hsTroponin elevated to 136.8, trending down. Most likely due to demand ischemia from DKA EKG: NSR, no overt sign of ischemic change Patient without CP at this time (5) DAYNE (acute kidney injury): Plan: DAYNE on CKD Now resolved (6) Metabolic encephalopathy: Plan: Suspect symptoms are secondary to DKA, though differential includes CVA/other etiologies CT head did not show any acute pathology . Patient was back to baseline upon my evaluation (7) Hyperlipidemia: (8) Uncontrolled type 1 diabetes mellitus with kidney complication, with long- term current use of insulin: Plan d/c tomorrow FEN: CLD Code status: full code[DNR/DNI] DVT ppx: SCDs PT/OT: ordered Case management: consulted Dispo: med/telemetry Admission and Anticipated Discharge Date Admission Date: February 18, 2022 Subjective patient seen and examined, awake and alert, significant other by the bedside Review of Systems Review of Systems: All systems reviewed are negative, apart from the ones contained in the history. Physical Exam Physical Exam: The patient is awake, alert and oriented 3, well developed and well nourished, normocephalic and atraumatic, lying in bed and in no acute distress. HEENT--PERRL, EOMI, mucous membranes and oropharynx mildly dry Neck--supple. No JVD. No bruits. Thyroid normal, trachea midline, no adenopathy. Heart--normal S1 and S2. No murmurs, rubs or gallops. Lungs--clear bilaterally, no respiratory distress, no accessory muscle use. Abdomen--normal bowel sounds and soft. Mild epigastric and left sided abdominal pain Extremities--no cyanosis or clubbing. No edema. Dermatologic--normal skin turgor, normal color, no abnormal lymph nodes, no rash. Neurologic--cranial nerves II through XII grossly intact. Rheumatologic--normal range of motion. Psychiatric--normal affect. Results & Data Results & Data ([facility]) Vital Signs (Past 12 Hours) Vital Signs Temp Pulse Resp BP BP Pulse Ox O2 Del Method 02/20/22 11:40 97.9 F 89 18 156/82 H 99 Room Air 02/20/22 10:51 Room Air 02/20/22 06:28 98.1 F 100 H 18 183/99 H 96 Room Air 02/20/22 02:06 98.2 F 86 18 174/92 H 97 Room Air PG Care Time/CCT Total # of Minutes Spent Total Time Spent with Patient: Total time spent is greater than 50% in coordination of care (as documented) at patient's floor/unit and/or counseling patient: Coding Level of Care Code 59766 SUB INP/OBS CARE 2/35MIN Diagnoses DKA (diabetic ketoacidosis) E11.10 Hypertension I10 Hypertension type: essential hypertension CKD (chronic kidney disease), stage III N18.30 Elevated troponin R77.8 DAYNE (acute kidney injury) N17.9 Metabolic encephalopathy G93.41 Hyperlipidemia E78.5 Hyperlipidemia type: unspecified Uncontrolled type 1 diabetes mellitus with kidney complication, with long-term current use of insulin E10.29; E10.65 Time Spent (min) 35 (1) Hypertension Hypertension type: essential hypertension Qualified Code(s): I10 - Essential (primary) hypertension (2) Hyperlipidemia Hyperlipidemia type: unspecified Qualified Code(s): E78.5 - Hyperlipidemia, u nspecified
[2022-02-21 06:55] LABS: Basophils # (auto) 0.01 K/uL (0-0.2); Basophils % (auto) 0.2 %; Eosinophils # (auto) 0.14 K/uL (0-0.50); Eosinophils % (auto) 2.3 %; Hematocrit (blood only) 33.9 % (34.1-44.9); Immature Granulocytes # (auto) 0.02 K/uL (0.00-0.02); Immature Granulocytes % (auto) 0.3 %; Lymphocytes # (auto) 1.44 K/uL (1.2-3.4); Lymphocytes % (auto) 23.6 %; Mean Corpuscular Hemoglobin 28.9 pg (25.0-34.0); Mean Corpuscular Hgb Conc 32.4 g/dL (32.0-36.0); Mean Platelet Volume 9.4 fL (9.4-12.3); Monocytes # (auto) 0.49 K/uL (0.24-0.82); Neutrophils # (auto) 4.01 K/uL (1.4-6.5); Neutrophils % (auto) 65.6 %; Platelet Count 195 K/uL (130-400); RDW Standard Deviation 42.1 fL (36.4-46.3); Red Blood Count 3.81 M/uL (3.93-5.22); White Blood Count 6.11 K/ul (4.8-10.8)
[2022-02-21 07:11] LABS: Partial Thromboplastin Time 26.8 Seconds (21.0-31.0)
[2022-02-21 07:41] LABS: BUN Creatinine Ratio 19.7 (10-20); Calcium 8.4 mg/dl (8.5-10.1); Est GFR (African American) 96.6 ml/min; Est GFR (Non-African American) 83.3 ml/min; Magnesium 1.6 mg/dl (1.7-2.4); Phosphorus 2.8 mg/dl (2.5-4.9)
[2022-02-21] MEDS: INSULIN ASPART PER UNIT SC SCH (08:17)
[2022-02-21] MEDS: LISINOPRIL/HCTZ 20/12.5MG 1 TAB TAB PO SCH (08:24)
[2022-02-21] MEDS: ASPIRIN 81 MG ECTAB PO SCH (08:24)
[2022-02-21] MEDS: ATORVASTATIN 20 MG TAB PO SCH (08:24)
[2022-02-21] MEDS ORDERED: LANTUS PER UNIT CHARGE SQ SCH (09:00)
--- NOTE | 2022-02-21 11:02 | Discharge Summary ---
Date of Service February 21, 2022 Admission HPI Per Admitting Provider 76yo female with T1DM, HTN, HLD, CKD3, and obesity presents with a two-day history of elevated BSG, confusion, nausea, and vomiting. Patient was brought in by family after discussing the situation with patient's fitter up. History is primarily obtained through the ED note, as patient's spouse was present upon arrival to provide history, and patient is very sleepy/altered upon my interview. Per ED provider's note, patient presents with two days of worsening AMS, nausea, vomiting, poor appetite, and polyuria. Patient's spouse noted patient's BSG kept climbing throughout the past day. Spouse notes patient received lantus 10u earlier in the day. Spouse denies recent fall, trauma, injuries, fever, CP, back pain, abdominal pain, or recent antibiotics. Upon my interview, patient is oriented to person and place but not to time or situation. Patient denies pain, nausea, or other symptoms at this time. Upon arrival, vitals were notable for mild tachycardia (100s); BP well- controlled, no tachypnea, patient afebrile, spO2 adequate on room air. Initial labs were notable for mild leukocytosis (13.6), mild anemia (11.3), elevated anion gap (19), elevated BUN (51) and creatinine (1.69; baseline ~1.0), elevated BSG (516), elevated hsTroponin (136.8), elevated procalcitonin (1.03), and UA notable for 1+ protein, 1+ ketones, 1+ blood, 10-30 WBCs, though possibly contaminated with epithelial cells present.; platelets wnl, no additional electrolyte abnormalities, LFTs wnl, Tbili not elevated, covid/flu/RSV PCR negative, MRSA nares pending. In the ED, patient received NSS 1.5L bolus (x1), NPH 6u IV (x1), and a dose of cefepime.. EKG: NSR, no overt ischemic change CXR: mild bibasilar haziness L>R CT head: no acute process upon my read; [facility] read pending Principal Diagnosis DKA Discharge Exam The patient is awake, alert and oriented 3, well developed and well nourished, normocephalic and atraumatic, lying in bed and in no acute distress. HEENT--PERRL, EOMI, mucous membranes and oropharynx mildly dry Neck--supple. No JVD. No bruits. Thyroid normal, trachea midline, no adenop athy. Heart--normal S1 and S2. No murmurs, rubs or gallops. Lungs--clear bilaterally, no respiratory distress, no accessory muscle use. Abdomen--normal bowel sounds and soft. Mild epigastric and left sided abdominal pain Extremities--no cyanosis or clubbing. No edema. Dermatologic--normal skin turgor, normal color, no abnormal lymph nodes, no rash. Neurologic--cranial nerves II through XII grossly intact. Rheumatologic--normal range of motion. Psychiatric--normal affect. Discharge Data Allergies Allergy/AdvReac Type Severity Reaction Status Date / Time amlodipine Allergy Intermediate Hives Verified 01/11/22 13:51 Consultations 02/18/22 22:23 ED Decision to Admit Stat Ordered Studies 02/18/22 22:14 CT head/brain wo con Urgent Hospital Course (1) DKA (diabetic ketoacidosis): 76yo female with T1DM, HTN, HLD, CKD3, and obesity presents with a two-day history of elevated BSG, confusion, nausea, vomiting, poor PO intake, and polyuria, suspect secondary to DKA. Patient presents with two days of AMS, nausea, and vomiting in the setting of poor PO intake and poor insulin regimen compliance. Elevated blood glucose and high anion gap DKA is now resolved. Anion gap has closed Continue Sub Q insulin. Lantus 20 units daily, ISS . According to significant other, patient has not been taking insulin as prescribed. she takes lantus 10 units instead of 20. he has promised to help her at home and also with doctor visits (2) Hypertension: Lisinopril on hold in view of DAYNE, which has resolved Resume (3) CKD (chronic kidney disease), stage III: Creatinine on arrival elevated to 1.69 (baseline ~1.0). Now back to baseline Suspect secondary to hypovolemia/poor renal perfusion secondary to DKA, nausea, vomiting, and poor PO intake IVF as noted above, avoid nephrotoxins when able, (4) Elevated troponin: On admission, hsTroponin elevated to 136.8, trending down. Most likely due to demand ischemia from DKA EKG: NSR, no overt sign of ischemic change Patient without CP at this time (5) DAYNE (acute kidney injury): DAYNE on CKD Now resolved (6) Metabolic encephalopathy: Suspect symptoms are secondary to DKA, though differential includes CVA/other etiologies CT head did not show any acute pathology . Patient was back to baseline upon my evaluation (7) Hyperlipidemia: (8) Uncontrolled type 1 diabetes mellitus with kidney complication, with long- term current use of insulin: Plan d/c tomorrow FEN: CLD Code status: full code[DNR/DNI] DVT ppx: SCDs PT/OT: ordered Case management: consulted Dispo: med/telemetry Total Time Total Time Spent Total Time Spent (In Minutes): 35 Discharge Plan Discharge Items Patient Disposition: Home - Self-Care Reason For Visit: NAUSEA, VOMITING, DKA Discharge Diagnosis: DKA-resolved Activity: Resume your previous activity Non-emergency contact: Primary Care Provider Call non-emergency contact if: you have any medication questions Follow-up/Referrals: Raffaele Polanco MD [Primary Care Provider] - 02/28/22 11:00 am Diet: Carb Consistent or DM2 Addtl Attending Provider Instructions: please make appointment to follow up with your diabetes doctor Pending Studies at Discharge: No Stand-Alone Forms: [employer], Smoking Cessation Medications and DC Order Prescriptions: Continued (DME) pen needle, diabetic [BD Ultra-Fine Rayne Pen Needle] 32 gauge x 5/32" needle See Dose Instructions .ROUTE .MEDSUPPLY Qty: 2 1RF Dose Instruction: As directed Rx Instructions: use 4x daily lisinopril-hydrochlorothiazide 20-12.5 mg tablet 1 tab PO DAILY Qty: 90 3RF insulin aspart U-100 [Novolog Flexpen U-100 Insulin] 100 unit/mL (3 mL) insulin pen 5 unit SUBCUT TID Qty: 30 3RF atorvastatin 20 mg tablet 20 mg PO DAILY Qty: 90 3RF insulin glargine [Lantus Solostar U-100 Insulin] 100 unit/mL (3 mL) insulin pen 20 - 25 unit SQ DAILY Qty: 30 0RF cholecalciferol (vitamin D3) 10 mcg (400 unit) capsule 10 mcg PO DAILY Label Comments: Pt unsure of dose (DME) FreeStyle Isaac 14 Day Sensor Kit See Rx Instructions .ROUTE .MEDSUPPLY Qty: 1 Rx Instructions: As directed aspirin 81 mg Tablet,Delayed Release (Dr/Ec) 81 mg PO DAILY Discharge Orders: Discharge Order (Routine); Ordered 02/21/22 Ordered By: Smith Nichole/Other Patient Handouts: Managing Type 1 Diabetes, Understanding Type 1 Diabetes, Special Foot Care for Diabetes Admission Data Admit Date/Time: 02/18/22 22:44 Attending Provider: Smith Bajwa Admit Provider: Reymundo Grover Primary Care Provider: Raffaele Polanco Other Providers: Pedro Pablo Bob Other Interventions: Discharge Summary Assessment (RN) Last Done: 02/21/22 09:50 Coding Level of Care Code HOSP INP/OBS DISCH >30 MIN Diagnoses DKA (diabetic ketoacidosis) E11.10 Hypertension I10 Hypertension type: essential hypertension CKD (chronic kidney disease), stage III N18.30 Elevated troponin R77.8 DAYNE (acute kidney injury) N17.9 Metabolic encephalopathy G93.41 Hyperlipidemia E78.5 Hyperlipidemia type: unspecified Uncontrolled type 1 diabetes mellitus with kidney complication, with long-term current use of insulin E10.29; E10.65 Time Spent (min) 35
== END 2022-02-21 10:25 | disposition home or self-care (01) | DRG 637 ==
LOC: ED 19:27 → SUATTDRO 22:44 → EDINP 22:44 → 2N 02-19 01:11